=== PATIENT | female | born 1965 | race Caucasian/White ===

== ENCOUNTER → 2019-04-08 14:32 | Outpatient (CLI) | payer OTHER, SELFPAY ==
[2019-04-08 14:47] LABS: Hematocrit 40.7 % (36-46); Hemoglobin 13.5 g/dL (12.0-16.0); Mean Corpuscular HGB Conc 33.2 % (30-36); Mean Corpuscular Hemoglobin 28.6 PG (26-34); Mean Corpuscular Volume 86.3 fL (80-100); Platelet Count 307 X10^3/uL (150-400); Red Blood Cell Count 4.72 X10^6/uL (4.0-5.2); Red Cell Distribution Width 13.3 % (11.6-14.8); White Blood Cell Count 9.8 X10^3/uL (4.5-11.0)
[2019-04-08 15:20] LABS: Alanine Aminotransferase 34 IU/L (9-52); Albumin 4.6 g/dL (3.5-5.0); Albumin Globulin Ratio 1.6 (1.0-2.8); Alkaline Phosphatase 133 U/L (38-126); Aspartate Aminotransferase 25 IU/L (14-36); BUN Creatinine Ratio 8.8 (6-22); Bilirubin Total 0.7 mg/dL (0.2-1.3); Blood Urea Nitrogen 7 mg/dL (7-17); Calcium 10.2 mg/dL (8.4-10.2); Carbon Dioxide 29 mmol/L (22-32); Chloride 102 mmol/L (98-107); Cholesterol 204 mg/dL (140-199); Estimated Glomerular Filt Rate > 60.0 mL/min (>60); Globulin 2.8 g/dL (1.7-4.1); Glucose 99 mg/dL (70-100); HDL Cholesterol 39 mg/dL (40-60); HEMOLYSIS < 15 (0-50); LDL Cholesterol Calculated 137 mg/dL (<100); Potassium 4.7 mmol/L (3.4-5.1); Sodium 141 mmol/L (137-145); Total Protein 7.4 g/dL (6.3-8.2); Triglycerides 139 mg/dL (35-150)
[2019-04-12 14:18] LABS: Lamotrigine Lamictal 5.3 mcg/mL (4.0-18.0)
== END ==
PROVIDERS: Visit Provider Nurse Practitioner Family
DX: Z13.6 Encounter for screening for cardiovascular disorders (principal); R61 Generalized hyperhidrosis; Z00.00 Encounter for general adult medical examination without abnormal findings; Z51.81 Encounter for therapeutic drug level monitoring
CPT/HCPCS: 36415; 80053; 80061; 80175; 84443; 85027

== ENCOUNTER → 2019-07-02 10:51 | Outpatient (CLI) | payer OTHER, SELFPAY ==
--- NOTE | 2019-07-02 | DI.NM.S_ITS ---
PROCEDURE: NM CLARIBEL PERF SPECT REST & STR Rest and exercise myocardial perfusion SPECT with gated imaging and ejection fraction RADIOPHARMACEUTICAL: 23.6 mCi Tc-99m sestamibi IV at rest and 26.8 mCi Tc-99m sestamibi IV at peak exercise. A two day-protocol was performed. INDICATIONS: Tachycardia, unspecified TECHNIQUE: Radiopharmaceutical was injected at peak stress test, and also at rest. SPECT images were obtained. SPECT myocardial perfusion images were displayed in short axis, horizontal long axis, and vertical long axis views. Gated images were reviewed using SeeFuture software. COMPARISON: None. CARDIAC STRESS: A standard Rajiv treadmill exercise tolerance test was performed by the patient under the supervision of an attending staff. The patient exercised for 6 minutes and 3 seconds; functional aerobic impairment (ASHLEY) is +40% on active scale. Hemodynamic data: There is normal heart rate response to exercise stress. Patient achieved only 76% of maximum predicted heart rate at peak exercise but the stress test was adequate as double product was [id number]. Borderline hypertensive response to exercise (rest BP 132/80mmHg, max BP 210/90mmHg). Symptoms: Patient denied chest pain during exercise. Significant dyspnea with exercise EKG: Resting ECG shows sinus rhythm with mild ST depressions in the inferior leads and minimal ST depressions in the anterolateral leads. With exercise, these ST depressions became slightly worse. Rare PACs during recovery. FINDINGS: Raw data: There is good myocardial labeling by radiotracer. No significant motion artifacts. Rvum-ue-jrser ratio is 0.13 (normal is less than 0.38 for sestamibi tracer, and less than 0.50 for thallium tracer). Left ventricle function: Gated images demonstrate normal left ventricle wall thickening. No segmental wall motion abnormality. No transient ischemic dilation; TID is 1.04 (normal less than 1.3). The left ventricle resting end-diastolic volume is 104 mL. Left ventricle stress ejection fraction is 74%; normal values are above 45%. Myocardial perfusion: There is mildly intense defect in the distal anterior wall at rest that worsens with stress but improves significantly with prone imaging suggesting prior artifact. Small prior infarct cannot be excluded. No ischemia. IMPRESSION: Low risk, probably normal treadmill nuclear stress test. Borderline hypertensive response to exercise. 1) Probably normal perfusion images. There is mildly intense defect in the distal anterior wall at rest that worsens with stress but improves significantly with prone imaging suggesting prior artifact. Small prior infarct cannot be excluded. No ischemia. 2) Normal left ventricular size, wall motion, and systolic function (post stress EF 74%). 3) No diagnostic ECG evidence of ischemia. There slight worsening of ST depressions with exercise are probably due to baseline ST depressions and borderline hypertensive response. 4) No angina during the study. Significant dyspnea with exercise. 5) Poor exercise capacity (7.0 METs, ASHLEY +40% on active scale, +5% on sedentary scale). While only 76% of maximum predicted heart rate was reached, the stress test was adequate as double product was [id number]. 6) Borderline hypertensive response to exercise (rest BP 132/80mmHg, max BP 210/90mmHg). 7) No prior nuclear stress test available for comparison. Dictated by: Brittany Gusman MD on 07/03/2019 at 16:29 Approved by: Brittany Gusman MD on 07/03/2019 at 16:38
--- NOTE | 2019-07-03 15:07 | PM.TREADMILL ---
Cardiac Stress Test Report Referral & Results Date Patient Seen: 07/03/19 Requesting provider: Brittany Gusman Indication: Abnormal ECG Rest ECG: Widespread nonspecific ST-T segment changes Procedure Note: Today following both written and verbal informed consent the patient was exercised according to a standard Rajiv protocol patient went for a total of 6 minutes 3 seconds achieving a maximum heart rate of 126 maximum systolic blood pressure of 210. This is approximately 7.0 METS. Exercise was terminated at this point because of 4+ dyspnea and inability the patient to continue. Patient was also given Cardiolite through a previously started Hep-Lock IV by the diagnostic imaging staff approximately 1 minute prior to the cessation of exercise. There were nonspecific ST-T segment changes throughout the rapidly returned to baseline had cessation of activity Somewhat blunted heart rate response achieving only 90% of targets Somewhat hypertensive in recovery Rare PAC noted in recovery Functional aerobic impairment rates about 5% on the sedentary scale Impression: No evidence of ischemia. Nonspecific changes as above not likely to be ischemic based on rapid recovery Please see perfusion imaging report as well Please note: Actual ECG tracings can be found in the PACS system.
== END ==
PROVIDERS: PCP Nurse Practitioner Family; Visit Provider Internal Medicine Cardiovascular Disease
DX: R00.0 Tachycardia, unspecified (principal)
CPT/HCPCS: 78452; 93016; 93017; 93018; A9502

== ENCOUNTER → 2019-07-10 12:07 | Outpatient (CLI) | payer OTHER, SELFPAY ==
[2019-07-10 12:56] LABS: Cholesterol 180 mg/dL (140-199); HDL Cholesterol 33 mg/dL (40-60); LDL Cholesterol Calculated 114 mg/dL (<100); Triglycerides 164 mg/dL (35-150)
== END ==
PROVIDERS: PCP Nurse Practitioner Family; Visit Provider Nurse Practitioner Family
DX: E78.2 Mixed hyperlipidemia (principal)
CPT/HCPCS: 36415; 80061

== ENCOUNTER → 2019-07-17 13:31 | Outpatient (CLI) | payer OTHER, SELFPAY ==
--- NOTE | 2019-07-17 13:32 | DI.RAD.S_ITS ---
PROCEDURE: XR CHEST 2V INDICATIONS: generalized abdominal pain, discomfort TECHNIQUE: 2 views of the chest were acquired. COMPARISON: [facility], , CHEST 1 VIEW, 03/30/2017, 14:39. CT chest, abdomen and pelvis 03/30/2017. FINDINGS: Surgical changes and devices: None. Lungs and pleura: Lungs are clear. No pleural effusions or pneumothorax. Mediastinum: Mediastinal contours are normal. Heart size is normal. Bones and chest wall: No suspicious bony abnormalities. Soft tissues appear unremarkable. IMPRESSION: No acute cardiopulmonary abnormality. Dictated by: Yan Herring M.D. on 07/17/2019 at 14:13 Approved by: Yan Herring M.D. on 07/17/2019 at 14:14
[2019-07-17 15:10] LABS: Hematocrit 41.7 % (36-46); Hemoglobin 14.3 g/dL (12.0-16.0); Mean Corpuscular HGB Conc 34.2 % (30-36); Mean Corpuscular Hemoglobin 28.8 PG (26-34); Mean Corpuscular Volume 84.2 fL (80-100); Platelet Count 349 X10^3/uL (150-400); Red Blood Cell Count 4.96 X10^6/uL (4.0-5.2); Red Cell Distribution Width 13.2 % (11.6-14.8); White Blood Cell Count 9.4 X10^3/uL (4.5-11.0)
[2019-07-17 15:33] LABS: Alanine Aminotransferase 23 IU/L (9-52); Albumin 4.4 g/dL (3.5-5.0); Albumin Globulin Ratio 1.5 (1.0-2.8); Alkaline Phosphatase 133 U/L (38-126); Aspartate Aminotransferase 21 IU/L (14-36); BUN Creatinine Ratio 14.3 (6-22); Bilirubin Total 0.7 mg/dL (0.2-1.3); Blood Urea Nitrogen 10 mg/dL (7-17); Calcium 9.7 mg/dL (8.4-10.2); Carbon Dioxide 28 mmol/L (22-32); Chloride 101 mmol/L (98-107); Estimated Glomerular Filt Rate > 60.0 mL/min (>60); Globulin 2.9 g/dL (1.7-4.1); Glucose 110 mg/dL (70-100); HEMOLYSIS < 15 (0-50); Potassium 3.4 mmol/L (3.4-5.1); Sodium 140 mmol/L (137-145); Total Protein 7.3 g/dL (6.3-8.2)
[2019-07-17 15:57] LABS: TSH w/ Reflex to FT4 0.84 uIU/mL (0.47-4.68)
== END ==
PROVIDERS: PCP Nurse Practitioner Family; Visit Provider Nurse Practitioner Family
DX: R05 Cough (principal); R10.84 Generalized abdominal pain; R63.4 Abnormal weight loss; Z72.0 Tobacco use
CPT/HCPCS: 36415; 71046; 80053; 84443; 85027

== ENCOUNTER → 2019-07-20 13:05 | Outpatient (CLI) | payer OTHER, SELFPAY ==
--- NOTE | 2019-07-20 13:06 | DI.US.S_ITS ---
PROCEDURE: US ABDOMEN COMPLETE INDICATIONS: GENERAL ABD PAIN TECHNIQUE: Real-time scanning was performed of the abdominal and retroperitoneal organs, with image documentation. COMPARISON: [facility], CT, CHEST/ABD/PEL WITH CONTRAST, 03/30/2017, 14:48. FINDINGS: Liver: Liver is normal in size and homogeneous in echotexture. Gallbladder: Her cholecystectomy. Fluid seen in the area the gallbladder fossa likely related to fluid-filled duodenum. Biliary ducts: Intrahepatic bile ducts are non-dilated. Extrahepatic bile duct caliber measures 9.5 mm. Normal is 6-7 mm or less in diameter, or 10 mm or less post-cholecystectomy. Pancreas: Visualized portions of the pancreas are sonographically normal. Spleen: Spleen is normal in size and homogeneous in echotexture. Kidneys: Kidneys are normal in size and echotexture. Right kidney measures 9.3 cm long; left kidney measures 10.1 cm long. No hydronephrosis or nephrolithiasis. No solid masses. Aorta: Visualized aorta is normal in caliber at less than 3 cm. Iliacs: Proximal common iliac arteries are normal in caliber at less than 2.5 cm. IVC: Intrahepatic inferior vena cava is patent. Miscellaneous: No free abdominal fluid. IMPRESSION: Increased hepatic echogenicity noted possibly related to hepatic steatosis but other sources of hepatocellular disease cannot be excluded. Recommend clinical correlation. Fluid in the region of the gallbladder fossa possibly related to fluid-filled duodenum. If indicated, short-term followup ultrasound could be performed. Dictated by: Robin BURKETT Interpreted: Sue Stafford MD on 07/20/2019 at 15:40 Approved by: Sue Stafford M.D. on 07/20/2019 at 17:05
== END ==
PROVIDERS: PCP Nurse Practitioner Family; Visit Provider Nurse Practitioner Family
DX: R10.84 Generalized abdominal pain (principal)
CPT/HCPCS: 76700

== ENCOUNTER → 2019-07-25 12:38 | Outpatient (CLI) | payer OTHER, SELFPAY ==
--- NOTE | 2019-07-25 12:39 | DI.MG.S_ITS ---
BILATERAL DIGITAL SCREENING MAMMOGRAM 3D/2D WITH CAD: 07/25/2019 CLINICAL: Routine screening. Comparison is made to exams dated: 06/05/2017 mammogram - [facility] and 08/11/2008 mammogram - [facility]. There are scattered fibroglandular elements in both breasts. Current study was also evaluated with a Computer Aided Detection (CAD) system. No significant masses, calcifications, or other findings are seen in either breast. There has been no significant interval change. IMPRESSION: NEGATIVE There is no mammographic evidence of malignancy. A 1 year screening mammogram is recommended. This exam was interpreted at Station ID: [id number]. NOTE: For mammograms, a report in lay terms will be sent to the patient. Approximately 15% of breast malignancies will not be visualized mammographically. In the management of a palpable breast mass, a negative mammogram must not discourage biopsy of a clinically suspicious lesion. Electronically Signed By: Yan abdul/emelyn:07/27/2019 12:11:04 letter sent: Normal Exam ACR BI-RADS Category 1: Negative [id number]
== END ==
PROVIDERS: PCP Nurse Practitioner Family; Visit Provider Nurse Practitioner Family
DX: Z12.31 Encounter for screening mammogram for malignant neoplasm of breast (principal)
CPT/HCPCS: 77063; 77067

== ENCOUNTER 2019-09-08 12:44 | Day surgery (SDC) | payer OTHER, SELFPAY ==
[2019-09-08] VITALS (8 sets, daily range): BP systolic 104–194; BP diastolic 50–81; PULSE 53–79; RESP 15–19; TEMP 36–36.9; O2SAT 92–99; BMI 36.4
--- NOTE | 2019-09-08 | PATH_ITS ---
[facility] Accession Number: [id number] . 01 Material submitted: . rectum - COLON POLYP AT 15CM RECTUM . 02 Diagnosis: Colon Polyp at 15 cm, Rectum: Portions of hyperplastic polyp x3. MRV 09/09/2019 1506 Local . 02 Electronically signed: . Casandra Guzman MD, Pathologist NPI- [id number] . 01 Gross description: . COLON POLYP AT 15CM RECTUM: Received in formalin are 3 fragment(s) of vance, soft tissue measuring 0.1 x 0.1 x 0.1 cm to 0.2 x 0.2 x 0.2 cm submitted entirely in 1 cassette(s) /[facility] [place] 09/08/2019 2205 Local . 02 Pathologist provided ICD-10: K63.5, Z12.11 . 02 CPT . 683298 Performed at: 01 [facility] [address], [place], [place] [id number] MD Branden Allen MD Phone: [phone] Performed at: 02 [facility] [place] [address] [place], [place] [id number] MD Raina Villareal MD Phone: [phone]
[2019-09-08] MEDS: ONDANSETRON 4 MG/2 ML INJ IV ×2 (13:17→13:39)
--- NOTE | 2019-09-08 13:19 | PM.HP.1 ---
History of Present Illness History of Present Illness Date Patient Seen: 09/08/19 Time Patient Seen: 13:19 Chief complaint: 13240 SCREENING COLONOSCOPY Narrative: This is a 54 old woman with history of obstructive sleep apnea hypertension, and morbid obesity here for her 1st screening colonoscopy. She has been cleared from a cardiac standpoint by her primary doctor after having had a stress test performed by Dr. Forrester. She denies any personal history of melena or hematochezia. She has no known family history of colon cancers or colon polyps. She has had significant nausea vomiting during her bowel prep, but says that she has been running clear from her stool since last night. ROS: Thirteen system review is negative other than as mentioned in the scanned in questionnaire and in the HPI. PE: GENERAL: Mild distress due to nausea, appears older than stated age, obese HENT: Normocephalic, atraumatic. Hearing intact. Oral mucosa is pink and moist. EYES: Conjunctiva pink, sclera white, no periorbital swelling. CARDIOVASCULAR: Regular rate. No pedal edema. RESPIRATORY: Normal respiratory rate, breathing comfortably on room air. GASTROINTESTINAL: Abdomen soft and non-distended GENITALURINARY: No flank tenderness. MUSCULOSKELETAL: Equal tone and mass bilaterally. SKIN: Warm, dry, soft, appropriate color for ethnicity. No other lesions, rashes, or wounds. NEURO: Alert and Oriented X 3. No gross sensory deficits, or cognitive issues. PSYCH: Appropriate affect and mood. Patient History Medical History Difficulty using verbal communication (Acute) Essential hypertension (Acute 06/2019) Insomnia, unspecified (Chronic) Mixed hyperlipidemia (Acute 06/2019) Morbid obesity with BMI of 40.0-44.9, adult (Chronic) Obstructive sleep apnea of adult (Chronic ~10/2018) Snoring (Chronic) Unintentional weight loss (Acute) Family & Social History Social History: lives independently Yes: with elderly parents caregiver/support person No Tobacco & Substance use: Smoking Status Current every day smoker alcohol intake former Meds Home Medications and Allergies Home Medications Medication Instructions Recorded Confirmed Type pantoprazole 40 mg tablet,delayed 40 mg PO DAILY #30 tab 03/27/19 09/01/19 Rx release propranolol 20 mg tablet 20 mg PO BID #180 tab 03/27/19 09/01/19 Rx conjugated estrogens 0.625 mg/gram 0.3125 mg VAG 2XW #30 gram 04/30/19 09/01/19 Rx vaginal cream tizanidine 4 mg capsule 4 mg PO BEDTIME #90 cap 04/30/19 09/01/19 Rx nabumetone 500 mg tablet 500 mg PO BID #60 tab 06/09/19 09/01/19 Rx miscellaneous medical supply #1 each 07/09/19 09/01/19 Rx lisinopril 10 mg tablet 10 mg PO DAILY #90 tab 07/10/19 09/01/19 Rx pravastatin 20 mg tablet 20 mg PO DAILY #90 tab 07/10/19 09/01/19 Rx clonazepam 0.5 mg tablet See Rx Instructions PO BEDTIME tab 07/16/19 09/01/19 History albuterol sulfate 90 mcg/actuation 2 puff INHALATION Q4-6H PRN #8.5 07/21/19 09/01/19 Rx aerosol inhaler gram lamotrigine 100 mg tablet 200 mg PO BID #120 tab 08/11/19 09/01/19 Rx duloxetine 30 mg capsule,delayed 30 mg PO BID cap 09/01/19 History release ketoconazole 2 % topical cream 1 applictn TOP DAILY PRN gram 09/01/19 History Allergies Allergy/AdvReac Type Severity Reaction Status Date / Time adhesive Allergy Mild Rash Verified 09/08/19 13:09 codeine Allergy Mild N&V if she Verified 09/08/19 13:09 takes a lot, itch bowel prep AdvReac N&V Uncoded 09/08/19 13:11 Assessment & Plan Assessment and plan (1) Morbid obesity with BMI of 40.0-44.9, adult: Current visit: No Status: Chronic (2) Colon cancer screening: Problem details: Risks and benefits of screening colonoscopy and possible polypectomy were discussed risk of bleeding, perforation, risk of anesthesia were discussed with the patient. She desires to proceed with her colonoscopy procedure. Current visit: Yes Status: Acute (3) Essential hypertension: Current visit: No Status: Acute (4) Obstructive sleep apnea of adult: Current visit: No Status: Chronic Quality VTE Deep Vein Thrombosis/Pulmonary Embolism Present on Admission: No
--- NOTE | 2019-09-08 13:33 | SUR.PREOP ---
1255+ late entry Pt. into OPD w/emesis bag, gasping, wretching, states that she has been vomiting yesterday and today. she did not have any emesis prior to going into the OR. Asked Dr. Aguirre for Rx to help w/nausea. ordered and given - see EMAR.
[2019-09-08] MEDS: MIDAZOLAM 5 MG/5 ML VIAL IV (13:53)
[2019-09-08] MEDS: fentaNYL 250 MCG/5 ML INJ IV (13:53)
--- NOTE | 2019-09-08 13:59 | PM.OP.ENDO ---
Operative Date/Time/Diagnoses Date of procedure: 09/08/19 Time of procedure: 13:59 Pre-op diagnosis: Average risk for colon cancer Procedure & Clinicians Study performed: Colonoscopy, cold forceps polypectomy Indications: Average risk for colon cancer, never had a screening colonoscopy Surgeon: Roya Aguirre Procedure Notes SCOAP/Timeout: Performed Procedure in detail: The patient was brought to the room and placed in left lateral decubitus position with all bony prominences padded. A time-out was performed and then the patient was given procedural sedation starting with 4 mg of Versed and 100 mcg of fentanyl. Vitals were monitored throughout the procedure and remained stable. Once adequately sedated the procedure was begun. A rectal exam was performed revealing no abnormalities. The colonoscope was then introduced to the rectum and advanced to the cecum in the usual fashion. The prep was poor, and there was a significant amount of clot be stool throughout the cecum, ascending and descending colon. I washed as much as I could, but the view was still limited for identifying small polyps. The cecum was identified by the appendiceal orifice, the mucosal try fold, and the ileocecal valve. The scope was then retracted while rotating side to side and examining each mucosal fold. A 5 mm sessile polyp was found at 15 cm in the rectum, and was removed with cold forceps. At the conclusion procedure retroflexion was performed and small grade 1-2 internal hemorrhoids without stigmata of bleeding were seen. The scope was then withdrawn from the rectum the procedure was concluded. The patient tolerated the procedure well was transferred to the PACU in stable condition. Scope withdrawal time: 11 Sedation minutes: 34 Findings: internal hemorrhoids and polyp Specimen(s): other (Flat 5 mm polyp at 15 cm from the rectum) Complications: none Impression: Normal colon as far as I can see, except for 1 single polyp and internal hemorrhoids. However, the view was limited due to poor prep. Post-procedure Recommendations: Colonscopy in 5 years (Due to poor prep) Follow up: as needed Disposition: PACU
--- NOTE | 2019-09-08 14:06 | SUR.PHASEI ---
Patient denies nausea/pain.
--- NOTE | 2019-09-08 14:42 | SUR.PHASEII ---
Assumed care from LASHAUN Villarreal, no pain, belly soft no nausea. Pt walked to to dress, steady when up. D/C instructions discussed, pt voiced an understanding.
== END 2019-09-08 14:50 | disposition home or self-care (01) ==
PROVIDERS: PCP Nurse Practitioner Family; Visit Provider Surgery
PROC: 0DJD8ZZ Inspection of Lower Intestinal Tract, Via Natural or Artificial Opening Endoscopic (ICD-10-PCS; CPT 45378; principal; 2019-09-08 14:00)
DX: Z12.11 Encounter for screening for malignant neoplasm of colon (principal); G47.33 Obstructive sleep apnea (adult) (pediatric); I10 Essential (primary) hypertension; Z68.41 Body mass index [BMI] 40.0-44.9, adult; E66.01 Morbid (severe) obesity due to excess calories; K64.0 First degree hemorrhoids; K63.5 Polyp of colon
CPT/HCPCS: 45380; 99152; 99153; J2250; J2405; J3010

== ENCOUNTER → 2019-11-25 11:46 | Outpatient (CLI) | payer OTHER, SELFPAY ==
[2019-11-25 12:19] LABS: RBC Urine None Seen (0-5/HPF)
[2019-11-25 12:41] LABS: Appearance Urine UA SL CLOUDY; Bilirubin Urine UA NEGATIVE (NEGATIVE); Color Urine UA YELLOW; Glucose Urine UA NEGATIVE (Negative); Ketones Urine UA TRACE (NEGATIVE); Leukocyte Esterase Urine UA 2+ (NEGATIVE); Nitrite Urine UA POSITIVE (Negative); Occult Blood Urine UA NEGATIVE (Negative); Protein Urine UA TRACE (Negative); Urobilinogen Urine UA 0.2 E.U./dL (0.2)
[2019-11-25 12:53] LABS: Add Manual Diff / Slide Review NO; Basophils Absolute Auto 100 /uL (0-100); Basophils Percent Auto 1.2 % (0-2); Eosinophils Absolute Auto 200 /uL (0-450); Eosinophils Percent Auto 2.1 % (2-4); Hematocrit 43.6 % (36-46); Hemoglobin 15.1 g/dL (12.0-16.0); Lymphocytes Absolute Auto 2000 /uL (1100-4500); Lymphocytes Percent Auto 18.9 % (25-40); Mean Corpuscular HGB Conc 34.6 % (30-36); Mean Corpuscular Hemoglobin 28.9 PG (26-34); Mean Corpuscular Volume 83.6 fL (80-100); Monocytes Absolute Auto 900 /uL (0-900); Monocytes Percent Auto 8.8 % (3-14); Neutrophils Absolute Auto 7200 /uL (1500-7000); Platelet Count 483 X10^3/uL (150-400); Red Blood Cell Count 5.22 X10^6/uL (4.0-5.2); Red Cell Distribution Width 13.3 % (11.6-14.8); White Blood Cell Count 10.4 X10^3/uL (4.5-11.0)
[2019-11-25 13:11] LABS: pH Urine UA 5.5 (4.5-8.0)
[2019-11-25 13:12] LABS: WBC Urine 30-100/HPF (0-5/HPF)
[2019-11-25 13:13] LABS: Amorphous Sediment Urine 1+; Bacteria Urine Many (>30); Culture Indicated Urine Specimen Cultured; Mucus Urine 1+ (Negative); Squamous Epithelial Cell Urine 1-5 /HPF (0-5/HPF)
[2019-11-25 13:39] LABS: Alanine Aminotransferase 16 IU/L (<35); Albumin 4.7 g/dL (3.5-5.0); Albumin Globulin Ratio 1.5 (1.0-2.8); Alkaline Phosphatase 143 U/L (38-126); Aspartate Aminotransferase 21 IU/L (14-36); BUN Creatinine Ratio 17.5 (6-22); Bilirubin Total 0.5 mg/dL (0.2-1.3); Blood Urea Nitrogen 14 mg/dL (7-17); Calcium 10.5 mg/dL (8.4-10.2); Carbon Dioxide 36 mmol/L (22-32); Chloride 97 mmol/L (98-107); Estimated Glomerular Filt Rate > 60.0 mL/min (>60); Globulin 3.1 g/dL (1.7-4.1); Glucose 111 mg/dL (70-100); HEMOLYSIS < 15 (0-50); Potassium 4.1 mmol/L (3.4-5.1); Sodium 144 mmol/L (137-145); Total Protein 7.8 g/dL (6.3-8.2)
== END ==
PROVIDERS: PCP Nurse Practitioner Family; Visit Provider Nurse Practitioner Family
DX: R11.2 Nausea with vomiting, unspecified (principal); R63.4 Abnormal weight loss
CPT/HCPCS: 36415; 80053; 81001; 85025; 87077; 87086; 87186

== ENCOUNTER → 2019-11-27 13:17 | Outpatient (CLI) | payer OTHER, SELFPAY ==
[2019-11-27 13:53] LABS: Hematocrit 42.6 % (36-46); Hemoglobin 14.8 g/dL (12.0-16.0); Mean Corpuscular HGB Conc 34.8 % (30-36); Mean Corpuscular Hemoglobin 29.3 PG (26-34); Mean Corpuscular Volume 84.2 fL (80-100); Platelet Count 496 X10^3/uL (150-400); Red Blood Cell Count 5.06 X10^6/uL (4.0-5.2); Red Cell Distribution Width 13.5 % (11.6-14.8); White Blood Cell Count 10.1 X10^3/uL (4.5-11.0)
[2019-11-27 14:06] LABS: Blood Urea Nitrogen 14 mg/dL (7-17); Carbon Dioxide 37 mmol/L (22-32); Chloride 96 mmol/L (98-107); Estimated Glomerular Filt Rate > 60.0 mL/min (>60); Glucose 122 mg/dL (70-100); HEMOLYSIS < 15 (0-50); Potassium 3.1 mmol/L (3.4-5.1); Sodium 143 mmol/L (137-145)
[2019-11-27 15:42] LABS: Vitamin D 25 Hydroxy (D3) 31.7 ng/mL (30.0-100.0)
[2019-12-03 14:25] LABS: Calcium 10.2 mg/dL (8.6-10.4); Parathyroid Hormone, Intact 65 pg/mL (14-64)
== END ==
PROVIDERS: PCP Nurse Practitioner Family; Visit Provider Nurse Practitioner Family
DX: E83.52 Hypercalcemia (principal); R74.8 Abnormal levels of other serum enzymes; I10 Essential (primary) hypertension
CPT/HCPCS: 36415; 80048; 82306; 82310; 83970; 85027

== ENCOUNTER → 2019-12-09 13:08 | Outpatient (CLI) | payer OTHER, SELFPAY ==
[2019-12-09 15:13] LABS: Alkaline Phosphatase 139 U/L (38-126); HEMOLYSIS 17 (0-50); Potassium 4.8 mmol/L (3.4-5.1)
[2019-12-09 19:24] LABS: Hemoglobin A1C% w Est Avg Glu 5.4 % (4.0-6.0)
== END ==
PROVIDERS: PCP Nurse Practitioner Family; Referring Provider Nurse Practitioner Family; Visit Provider Nurse Practitioner Family
DX: R10.84 Generalized abdominal pain (principal); R11.2 Nausea with vomiting, unspecified; R63.4 Abnormal weight loss; R74.8 Abnormal levels of other serum enzymes; E87.6 Hypokalemia; R73.9 Hyperglycemia, unspecified
CPT/HCPCS: 36415; 83036; 83915; 84075; 84132

== ENCOUNTER 2019-12-10 11:24 | Emergency (ER) | payer OTHER, SELFPAY ==
[2019-12-10 11:25] VITALS: BP 112/73; PULSE 65; RESP 16; TEMP 36.3; O2SAT 96; BMI 37.8
--- NOTE | 2019-12-10 11:46 | ED.PSYCH ---
HPI - Psych <Vaishnavi Claus, DO - Last Filed: 12/11/19 14:20> General Chief Complaint: Psychiatric Symptoms Stated Complaint: suicidal Time Seen by Provider: 12/10/19 11:32 Source: patient Mode of arrival: Ambulatory History of Present Illness HPI Narrative: Patient is a 54-year-old female presenting from Psychology for voluntary placement suicidal ideations. Patient has had long standing thoughts of harming self however over the last week it got progressively worse she can't stop thinking about them. She says that she would overdose on a sedating medication I am assuming something like clonazepam she says that she was prescribed in the past and has a lot at home. She is not feel like she is able to trust herself and would like placement. Related Data Home Medications Medication Instructions Recorded Confirmed ketoconazole 2 % topical cream 1 applictn TOP DAILY PRN gram 09/01/19 12/10/19 lisinopril 10 mg PO QPM 12/10/19 12/10/19 nabumetone 500 mg PO BID 12/10/19 12/10/19 pravastatin 20 mg PO QPM 12/10/19 12/10/19 Previous Rx's Medication Instructions Recorded pantoprazole 40 mg tablet,delayed 40 mg PO DAILY #30 tab 03/27/19 release propranolol 20 mg tablet 20 mg PO BID #180 tab 03/27/19 conjugated estrogens 0.625 mg/gram 0.3125 mg VAG 2XW #30 gram 04/30/19 vaginal cream miscellaneous medical supply #1 each 07/09/19 albuterol sulfate 90 mcg/actuation 2 puff INHALATION Q4-6H PRN #8.5 07/21/19 aerosol inhaler gram duloxetine 30 mg capsule,delayed 30 mg PO BID #60 cap 10/13/19 release lamotrigine 100 mg tablet 200 mg PO BID #120 tab 10/13/19 clonazepam 0.5 mg tablet 0.5 mg PO BEDTIME #45 tab 11/13/19 ondansetron 4 mg disintegrating 4 mg PO Q8H PRN #90 tab 11/25/19 tablet potassium chloride 10 mEq 10 meq PO DAILY #30 tab 11/27/19 tablet,extended release tizanidine 4 mg capsule 4 mg PO BEDTIME #90 cap 12/02/19 Allergies Allergy/AdvReac Type Severity Reaction Status Date / Time adhesive Allergy Mild Rash Verified 12/10/19 13:14 codeine Allergy Mild N&V if she Verified 12/10/19 13:14 takes a lot, itch bowel prep AdvReac N&V Uncoded 12/10/19 13:14 Review of Systems <Vaishnavi Devlin DO - Last Filed: 12/11/19 14:20> Review of Systems Narrative: GENERAL: Denies chills, fatigue, malaise, fever, sweats, travel HEENT: Denies sinus pain, ear pain, sore throat, difficulty swallowing, neck pain RESPIRATORY: Denies dyspnea, cough, wheezing, hemoptysis, sputum. CARDIOVASCULAR: Denies chest pain, palpitations, orthopnea, edema GASTROINTESTINAL: Denies nausea, vomiting, abdominal pain, diarrhea, constipation, melena. : Denies dysuria, frequency, incontinence, hematuria, urinary retention, flank pain. MUSCULOSKELETAL: Denies weakness, joint pain, or bony pain SKIN: No rash, no erythema, no pruritus NEUROLOGIC: Denies weakness, dizziness, headache, numbness, change in speech, confusion PSYCHIATRIC: 12 point review of systems is negative except for those stated above and HPI Patient History <Vaishnavi Devlin DO - Last Filed: 12/11/19 14:20> Medical History Difficulty using verbal communication (Acute) Essential hypertension (Acute 06/2019) Insomnia, unspecified (Chronic) Mixed hyperlipidemia (Acute 06/2019) Morbid obesity with BMI of 40.0-44.9, adult (Chronic) Nausea & vomiting (Acute 06/2019) Noncompliance (Acute) Obstructive sleep apnea of adult (Chronic ~10/2018) Snoring (Chronic) Unintentional weight loss (Acute) Social History marital status: details: lives in [place] household members: other lives independently: Yes (with elderly parents) caregiver/support person: No housing: house Smoking Status: Former smoker Tobacco: How many years used: 42 second hand exposure: No alcohol intake: former substance use type: does not use Smoking Status: Former smoker Substance Use Type: marijuana Exam <DO Dago Mackay Last Filed: 12/11/19 14:20> Initial Vital Signs Initial Vital Signs: Vital Signs Temperature 97.3 F L 12/10/19 11:25 Pulse Rate 65 12/10/19 11:25 Respiratory Rate 16 12/10/19 11:25 Blood Pressure 112/73 12/10/19 11:25 Pulse Oximetry 96 12/10/19 11:25 GENERAL: Well-appearing, well-nourished and in no acute distress. HEENT: Head atraumatic,EOMI, pupils reactive CARDIOVASCULAR: Regular rate and rhythm without murmurs, rubs or gallops. RESPIRATORY: Breath sounds equal bilaterally, no wheezes rales or rhonchi. ABDOMEN: Soft, nontender. Normoactive bowel sounds all 4 quadrants. No guarding or rebound EXTREMITIES: Normal range of motion, no clubbing or edema. Neurovascularly intact NEUROLOGICAL: Alert and oriented x4.Normal gait and speech. SKIN: Warm, dry, no laceration, no petechiae, no rashes or lesions. <Sandy Teran, DO - Last Filed: 12/10/19 20:30> Initial Vital Signs Initial Vital Signs: Vital Signs Temperature 97.3 F L 12/10/19 11:25 Pulse Rate 65 12/10/19 11:25 Respiratory Rate 16 12/10/19 11:25 Blood Pressure 112/73 12/10/19 11:25 Pulse Oximetry 96 12/10/19 11:25 <Pavan Molina, DO - Last Filed: 12/11/19 02:31> Initial Vital Signs Initial Vital Signs: Vital Signs Temperature 97.3 F L 12/10/19 11:25 Pulse Rate 65 12/10/19 11:25 Respiratory Rate 16 12/10/19 11:25 Blood Pressure 112/73 12/10/19 11:25 Pulse Oximetry 96 12/10/19 11:25 Course <Vaishnavi Devlin, DO - Last Filed: 12/11/19 14:20> Orders Ordered: Discontinued Medications Acetaminophen (Tylenol) 975 mg PO NOW ONE Stop: 12/11/19 03:56 Last Admin: 12/11/19 04:01 Dose: 975 mg Documented by: NEW Clonazepam (Klonopin) 0.5 mg PO NOW ONE Stop: 12/10/19 17:56 Last Admin: 12/10/19 22:12 Dose: 0.5 mg Documented by: ANKUR Clonazepam (Klonopin) 0.5 mg PO NOW ONE Stop: 12/11/19 13:25 Last Admin: 12/11/19 13:50 Dose: 0.5 mg Documented by: ANKUR Duloxetine HCl (Cymbalta) 30 mg PO NOW ONE Stop: 12/10/19 17:56 Last Admin: 12/10/19 22:13 Dose: 30 mg Documented by: ANKUR Duloxetine HCl (Cymbalta) 30 mg PO NOW ONE Stop: 12/11/19 09:53 Last Admin: 12/11/19 11:20 Dose: 30 mg Documented by: HASMUKH Lamotrigine (Lamictal) 200 mg PO NOW ONE Stop: 12/10/19 17:56 Last Admin: 12/10/19 22:12 Dose: 200 mg Documented by: ANKUR Lamotrigine (Lamictal) 200 mg PO NOW ONE Stop: 12/11/19 09:53 Last Admin: 12/11/19 11:20 Dose: 200 mg Documented by: HASMUKH Lisinopril (Zestril) 10 mg PO NOW ONE Stop: 12/10/19 17:56 Last Admin: 12/10/19 22:14 Dose: 10 mg Documented by: ANKUR Nicotine (Nicoderm) 21 mg TOP NOW ONE Stop: 12/10/19 16:34 Last Admin: 12/10/19 16:42 Dose: 21 mg Documented by: ASAEL Nicotine (Nicoderm) 21 mg TOP NOW ONE Stop: 12/11/19 13:25 Last Admin: 12/11/19 13:50 Dose: 21 mg Documented by: ANKUR Pantoprazole Sodium (Protonix) 40 mg PO NOW ONE Stop: 12/11/19 09:53 Last Admin: 12/11/19 11:25 Dose: 40 mg Documented by: HASMUKH Pravastatin Sodium (Pravachol) 20 mg PO BEDTIME ONE Stop: 12/10/19 17:57 Last Admin: 12/10/19 22:17 Dose: 20 mg Documented by: ANKUR Propranolol HCl (Inderal) 20 mg PO NOW ONE Stop: 12/10/19 17:56 Last Admin: 12/10/19 22:13 Dose: 20 mg Documented by: ANKUR Propranolol HCl (Inderal) 20 mg PO NOW ONE Stop: 12/11/19 09:54 Last Admin: 12/11/19 11:20 Dose: 20 mg Documented by: HASMUKH Tizanidine HCl (Zanaflex) 4 mg PO BEDTIME ONE Stop: 12/10/19 17:58 Last Admin: 12/10/19 22:13 Dose: 4 mg Documented by: ANKUR Vital Signs Vital signs: Vital Signs - 8 hr 12/11/19 09:35 12/11/19 13:00 Temperature 97.6 F Pulse Rate 65 66 Respiratory Rate 18 16 Blood Pressure [Left Arm] 155/67 H 116/70 Pulse Oximetry 100 98 <Sandy Teran, - Last Filed: 12/10/19 20:30> Orders Ordered: Discontinued Medications Acetaminophen (Tylenol) 975 mg PO NOW ONE Stop: 12/11/19 03:56 Last Admin: 12/11/19 04:01 Dose: 975 mg Documented by: NEW Clonazepam (Klonopin) 0.5 mg PO NOW ONE Stop: 12/10/19 17:56 Last Admin: 12/10/19 22:12 Dose: 0.5 mg Documented by: ANKUR Clonazepam (Klonopin) 0.5 mg PO NOW ONE Stop: 12/11/19 13:25 Last Admin: 12/11/19 13:50 Dose: 0.5 mg Documented by: ANKUR Duloxetine HCl (Cymbalta) 30 mg PO NOW ONE Stop: 12/10/19 17:56 Last Admin: 12/10/19 22:13 Dose: 30 mg Documented by: ANKUR Duloxetine HCl (Cymbalta) 30 mg PO NOW ONE Stop: 12/11/19 09:53 Last Admin: 12/11/19 11:20 Dose: 30 mg Documented by: HASMUKH Lamotrigine (Lamictal) 200 mg PO NOW ONE Stop: 12/10/19 17:56 Last Admin: 12/10/19 22:12 Dose: 200 mg Documented by: ANKUR Lamotrigine (Lamictal) 200 mg PO NOW ONE Stop: 12/11/19 09:53 Last Admin: 12/11/19 11:20 Dose: 200 mg Documented by: HASMUKH Lisinopril (Zestril) 10 mg PO NOW ONE Stop: 12/10/19 17:56 Last Admin: 12/10/19 22:14 Dose: 10 mg Documented by: ANKUR Nicotine (Nicoderm) 21 mg TOP NOW ONE Stop: 12/10/19 16:34 Last Admin: 12/10/19 16:42 Dose: 21 mg Documented by: ASAEL Nicotine (Nicoderm) 21 mg TOP NOW ONE Stop: 12/11/19 13:25 Last Admin: 12/11/19 13:50 Dose: 21 mg Documented by: ANKUR Pantoprazole Sodium (Protonix) 40 mg PO NOW ONE Stop: 12/11/19 09:53 Last Admin: 12/11/19 11:25 Dose: 40 mg Documented by: HASMUKH Pravastatin Sodium (Pravachol) 20 mg PO BEDTIME ONE Stop: 12/10/19 17:57 Last Admin: 12/10/19 22:17 Dose: 20 mg Documented by: ANKUR Propranolol HCl (Inderal) 20 mg PO NOW ONE Stop: 12/10/19 17:56 Last Admin: 12/10/19 22:13 Dose: 20 mg Documented by: ANKUR Propranolol HCl (Inderal) 20 mg PO NOW ONE Stop: 12/11/19 09:54 Last Admin: 12/11/19 11:20 Dose: 20 mg Documented by: HASMUKH Tizanidine HCl (Zanaflex) 4 mg PO BEDTIME ONE Stop: 12/10/19 17:58 Last Admin: 12/10/19 22:13 Dose: 4 mg Documented by: ANKUR Vital Signs Vital signs: Vital Signs - 8 hr 12/11/19 09:35 12/11/19 13:00 Temperature 97.6 F Pulse Rate 65 66 Respiratory Rate 18 16 Blood Pressure [Left Arm] 155/67 H 116/70 Pulse Oximetry 100 98 <Pavan Molina, DO - Last Filed: 12/11/19 02:31> Orders Ordered: Discontinued Medications Acetaminophen (Tylenol) 975 mg PO NOW ONE Stop: 12/11/19 03:56 Last Admin: 12/11/19 04:01 Dose: 975 mg Documented by: NEW Clonazepam (Klonopin) 0.5 mg PO NOW ONE Stop: 12/10/19 17:56 Last Admin: 12/10/19 22:12 Dose: 0.5 mg Documented by: ANKUR Clonazepam (Klonopin) 0.5 mg PO NOW ONE Stop: 12/11/19 13:25 Last Admin: 12/11/19 13:50 Dose: 0.5 mg Documented by: ANKUR Duloxetine HCl (Cymbalta) 30 mg PO NOW ONE Stop: 12/10/19 17:56 Last Admin: 12/10/19 22:13 Dose: 30 mg Documented by: ANKUR Duloxetine HCl (Cymbalta) 30 mg PO NOW ONE Stop: 12/11/19 09:53 Last Admin: 12/11/19 11:20 Dose: 30 mg Documented by: HASMUKH Lamotrigine (Lamictal) 200 mg PO NOW ONE Stop: 12/10/19 17:56 Last Admin: 12/10/19 22:12 Dose: 200 mg Documented by: ANKUR Lamotrigine (Lamictal) 200 mg PO NOW ONE Stop: 12/11/19 09:53 Last Admin: 12/11/19 11:20 Dose: 200 mg Documented by: HASMUKH Lisinopril (Zestril) 10 mg PO NOW ONE Stop: 12/10/19 17:56 Last Admin: 12/10/19 22:14 Dose: 10 mg Documented by: ANKUR Nicotine (Nicoderm) 21 mg TOP NOW ONE Stop: 12/10/19 16:34 Last Admin: 12/10/19 16:42 Dose: 21 mg Documented by: ASAEL Nicotine (Nicoderm) 21 mg TOP NOW ONE Stop: 12/11/19 13:25 Last Admin: 12/11/19 13:50 Dose: 21 mg Documented by: ANKUR Pantoprazole Sodium (Protonix) 40 mg PO NOW ONE Stop: 12/11/19 09:53 Last Admin: 12/11/19 11:25 Dose: 40 mg Documented by: HASMUKH Pravastatin Sodium (Pravachol) 20 mg PO BEDTIME ONE Stop: 12/10/19 17:57 Last Admin: 12/10/19 22:17 Dose: 20 mg Documented by: ANKUR Propranolol HCl (Inderal) 20 mg PO NOW ONE Stop: 12/10/19 17:56 Last Admin: 12/10/19 22:13 Dose: 20 mg Documented by: ANKUR Propranolol HCl (Inderal) 20 mg PO NOW ONE Stop: 12/11/19 09:54 Last Admin: 12/11/19 11:20 Dose: 20 mg Documented by: HASMUKH Tizanidine HCl (Zanaflex) 4 mg PO BEDTIME ONE Stop: 12/10/19 17:58 Last Admin: 12/10/19 22:13 Dose: 4 mg Documented by: AKNUR Vital Signs Vital signs: Vital Signs - 8 hr 12/11/19 09:35 12/11/19 13:00 Temperature 97.6 F Pulse Rate 65 66 Respiratory Rate 18 16 Blood Pressure [Left Arm] 155/67 H 116/70 Pulse Oximetry 100 98 MDM - Psych <Vaishnavi Devlin DO - Last Filed: 12/11/19 14:20> Lab Data Result diagrams: 12/10/19 11:57 12/10/19 11:57 Labs: Lab Results 12/10/19 12/10/19 12/10/19 Range/Units 11:57 11:57 11:57 WBC 10.5 (4.5-11.0) X10^3/uL RBC 5.10 (4.0-5.2) X10^6/uL Hgb 14.7 (12.0-16.0) g/dL Hct 43.4 (36-46) % MCV 85.2 (80-100) fL MCH 28.9 (26-34) PG MCHC 33.9 (30-36) % RDW 13.4 (11.6-14.8) % Plt Count 338 (150-400) X10^3/uL Neut % (Auto) 69.7 (50-75) % Lymph % (Auto) 21.0 L (25-40) % [place] % (Auto) 6.0 (3-14) % Eos % (Auto) 2.0 (2-4) % Baso % (Auto) 1.3 (0-2) % Neut # (Auto) 7300 H (6991-5681) /uL Lymph # (Auto) 2200 (6579-0146) /uL [place] # (Auto) 600 (0-900) /uL Eos # (Auto) 200 (0-450) /uL Baso # (Auto) 100 (0-100) /uL Sodium 141 (137-145) mmol/L Potassium 4.6 (3.4-5.1) mmol/L Chloride 104 (98-107) mmol/L Carbon Dioxide 28 (22-32) mmol/L BUN 8 (7-17) mg/dL Creatinine 0.80 (0.52-1.04) mg/dL Estimated GFR > 60.0 (>60) mL/min BUN/Creatinine Ratio 10.0 (6-22) Glucose 106 H (70-100) mg/dL Calcium 9.8 (8.4-10.2) mg/dL Total Bilirubin 0.4 (0.2-1.3) mg/dL AST 18 (14-36) IU/L ALT 15 (<35) IU/L Alkaline Phosphatase 136 H (38-126) U/L Total Protein 7.4 (6.3-8.2) g/dL Albumin 4.4 (3.5-5.0) g/dL Globulin 3.0 (1.7-4.1) g/dL Albumin/Globulin Ratio 1.5 (1.0-2.8) TSH 1.00 (0.47-4.68) uIU/mL Free T4 1.04 (0.78-2.19) ng/dL Salicylates < 1.0 (<20) mg/dL U Opiates 300ng/mL cut (Negative) Ur Oxycodone Screen (Negative) Urine Methadone Screen (Negative) Acetaminophen < 10 L (10-30) ug/mL Ur Barbiturates Screen (Negative) U Tricyclic Antidepress (Negative) Ur Phencyclidine Scrn (Negative) Ur Amphetamines Screen (Negative) U Methamphetamines Scrn (Negative) Ur MDMA Scrn (Ecstasy) (Negative) U Benzodiazepines Scrn (Negative) Urine Cocaine Screen (Negative) U Marijuana (THC) Screen (Negative) Ethyl Alcohol < 10 ( - 10) mg/dL 12/10/19 Range/Units 12:43 WBC (4.5-11.0) X10^3/uL RBC (4.0-5.2) X10^6/uL Hgb (12.0-16.0) g/dL Hct (36-46) % MCV (80-100) fL MCH (26-34) PG MCHC (30-36) % RDW (11.6-14.8) % Plt Count (150-400) X10^3/uL Neut % (Auto) (50-75) % Lymph % (Auto) (25-40) % [place] % (Auto) (3-14) % Eos % (Auto) (2-4) % Baso % (Auto) (0-2) % Neut # (Auto) (4857-6340) /uL Lymph # (Auto) (5476-1113) /uL [place] # (Auto) (0-900) /uL Eos # (Auto) (0-450) /uL Baso # (Auto) (0-100) /uL Sodium (137-145) mmol/L Potassium (3.4-5.1) mmol/L Chloride (98-107) mmol/L Carbon Dioxide (22-32) mmol/L BUN (7-17) mg/dL Creatinine (0.52-1.04) mg/dL Estimated GFR (>60) mL/min BUN/Creatinine Ratio (6-22) Glucose (70-100) mg/dL Calcium (8.4-10.2) mg/dL Total Bilirubin (0.2-1.3) mg/dL AST (14-36) IU/L ALT (<35) IU/L Alkaline Phosphatase (38-126) U/L Total Protein (6.3-8.2) g/dL Albumin (3.5-5.0) g/dL Globulin (1.7-4.1) g/dL Albumin/Globulin Ratio (1.0-2.8) TSH (0.47-4.68) uIU/mL Free T4 (0.78-2.19) ng/dL Salicylates (<20) mg/dL U Opiates 300ng/mL cut Negative (Negative) Ur Oxycodone Screen Negative (Negative) Urine Methadone Screen Negative (Negative) Acetaminophen (10-30) ug/mL Ur Barbiturates Screen Negative (Negative) U Tricyclic Antidepress Negative (Negative) Ur Phencyclidine Scrn Negative (Negative) Ur Amphetamines Screen Negative (Negative) U Methamphetamines Scrn Negative (Negative) Ur MDMA Scrn (Ecstasy) Negative (Negative) U Benzodiazepines Scrn Negative (Negative) Urine Cocaine Screen Negative (Negative) U Marijuana (THC) Screen Positive H (Negative) Ethyl Alcohol ( - 10) mg/dL Urine Dip Bedside Urine Glucose Negative Bedside Urine Bilirubin - Negative Bedside Urine Ketone - Negative Urine Specific [place] 1.015 Bedside Urine Occult Blood - Negative Bedside Urine pH 6.0 Bedside Urine Protein - Negative Bedside Urine Urobilinogen - Negative Bedside Urine Nitrite + Positive Bedside Urine Leukocytes + 70 Esterase MDM Narrative Medical decision making narrative: Patient signed out to Dr. Teran awaiting placement. 12/11/19 the patient is signed out to me by Dr. Molina for further management awaiting social work placement. Throughout the day patient has remained calm and cooperative. She is requiring of clonazepam and a new nicotine patch. Social work continues to work on placement. Patient is signed out to Dr. Teran <Sandy Teran, DO - Last Filed: 12/10/19 20:30> Lab Data Labs: Lab Results 12/10/19 12/10/19 12/10/19 Range/Units 11:57 11:57 11:57 WBC 10.5 (4.5-11.0) X10^3/uL RBC 5.10 (4.0-5.2) X10^6/uL Hgb 14.7 (12.0-16.0) g/dL Hct 43.4 (36-46) % MCV 85.2 (80-100) fL MCH 28.9 (26-34) PG MCHC 33.9 (30-36) % RDW 13.4 (11.6-14.8) % Plt Count 338 (150-400) X10^3/uL Neut % (Auto) 69.7 (50-75) % Lymph % (Auto) 21.0 L (25-40) % [place] % (Auto) 6.0 (3-14) % Eos % (Auto) 2.0 (2-4) % Baso % (Auto) 1.3 (0-2) % Neut # (Auto) 7300 H (8406-6326) /uL Lymph # (Auto) 2200 (9911-9421) /uL [place] # (Auto) 600 (0-900) /uL Eos # (Auto) 200 (0-450) /uL Baso # (Auto) 100 (0-100) /uL Sodium 141 (137-145) mmol/L Potassium 4.6 (3.4-5.1) mmol/L Chloride 104 (98-107) mmol/L Carbon Dioxide 28 (22-32) mmol/L BUN 8 (7-17) mg/dL Creatinine 0.80 (0.52-1.04) mg/dL Estimated GFR > 60.0 (>60) mL/min BUN/Creatinine Ratio 10.0 (6-22) Glucose 106 H (70-100) mg/dL Calcium 9.8 (8.4-10.2) mg/dL Total Bilirubin 0.4 (0.2-1.3) mg/dL AST 18 (14-36) IU/L ALT 15 (<35) IU/L Alkaline Phosphatase 136 H (38-126) U/L Total Protein 7.4 (6.3-8.2) g/dL Albumin 4.4 (3.5-5.0) g/dL Globulin 3.0 (1.7-4.1) g/dL Albumin/Globulin Ratio 1.5 (1.0-2.8) TSH 1.00 (0.47-4.68) uIU/mL Free T4 1.04 (0.78-2.19) ng/dL Salicylates < 1.0 (<20) mg/dL U Opiates 300ng/mL cut (Negative) Ur Oxycodone Screen (Negative) Urine Methadone Screen (Negative) Acetaminophen < 10 L (10-30) ug/mL Ur Barbiturates Screen (Negative) U Tricyclic Antidepress (Negative) Ur Phencyclidine Scrn (Negative) Ur Amphetamines Screen (Negative) U Methamphetamines Scrn (Negative) Ur MDMA Scrn (Ecstasy) (Negative) U Benzodiazepines Scrn (Negative) Urine Cocaine Screen (Negative) U Marijuana (THC) Screen (Negative) Ethyl Alcohol < 10 ( - 10) mg/dL 12/10/19 Range/Units 12:43 WBC (4.5-11.0) X10^3/uL RBC (4.0-5.2) X10^6/uL Hgb (12.0-16.0) g/dL Hct (36-46) % MCV (80-100) fL MCH (26-34) PG MCHC (30-36) % RDW (11.6-14.8) % Plt Count (150-400) X10^3/uL Neut % (Auto) (50-75) % Lymph % (Auto) (25-40) % [place] % (Auto) (3-14) % Eos % (Auto) (2-4) % Baso % (Auto) (0-2) % Neut # (Auto) (0586-3149) /uL Lymph # (Auto) (9304-9605) /uL [place] # (Auto) (0-900) /uL Eos # (Auto) (0-450) /uL Baso # (Auto) (0-100) /uL Sodium (137-145) mmol/L Potassium (3.4-5.1) mmol/L Chloride (98-107) mmol/L Carbon Dioxide (22-32) mmol/L BUN (7-17) mg/dL Creatinine (0.52-1.04) mg/dL Estimated GFR (>60) mL/min BUN/Creatinine Ratio (6-22) Glucose (70-100) mg/dL Calcium (8.4-10.2) mg/dL Total Bilirubin (0.2-1.3) mg/dL AST (14-36) IU/L ALT (<35) IU/L Alkaline Phosphatase (38-126) U/L Total Protein (6.3-8.2) g/dL Albumin (3.5-5.0) g/dL Globulin (1.7-4.1) g/dL Albumin/Globulin Ratio (1.0-2.8) TSH (0.47-4.68) uIU/mL Free T4 (0.78-2.19) ng/dL Salicylates (<20) mg/dL U Opiates 300ng/mL cut Negative (Negative) Ur Oxycodone Screen Negative (Negative) Urine Methadone Screen Negative (Negative) Acetaminophen (10-30) ug/mL Ur Barbiturates Screen Negative (Negative) U Tricyclic Antidepress Negative (Negative) Ur Phencyclidine Scrn Negative (Negative) Ur Amphetamines Screen Negative (Negative) U Methamphetamines Scrn Negative (Negative) Ur MDMA Scrn (Ecstasy) Negative (Negative) U Benzodiazepines Scrn Negative (Negative) Urine Cocaine Screen Negative (Negative) U Marijuana (THC) Screen Positive H (Negative) Ethyl Alcohol ( - 10) mg/dL Urine Dip Bedside Urine Glucose Negative Bedside Urine Bilirubin - Negative Bedside Urine Ketone - Negative Urine Specific [place] 1.015 Bedside Urine Occult Blood - Negative Bedside Urine pH 6.0 Bedside Urine Protein - Negative Bedside Urine Urobilinogen - Negative Bedside Urine Nitrite + Positive Bedside Urine Leukocytes + 70 Esterase MDM Narrative Medical decision making narrative: [facility] and [facility] both refused the patient. Social work is going to continue to work on placement for voluntary beds. Patient signed out to Dr. Molina pending placement. <Pavan Molina, DO - Last Filed: 12/11/19 02:31> Lab Data Labs: Lab Results 12/10/19 12/10/19 12/10/19 Range/Units 11:57 11:57 11:57 WBC 10.5 (4.5-11.0) X10^3/uL RBC 5.10 (4.0-5.2) X10^6/uL Hgb 14.7 (12.0-16.0) g/dL Hct 43.4 (36-46) % MCV 85.2 (80-100) fL MCH 28.9 (26-34) PG MCHC 33.9 (30-36) % RDW 13.4 (11.6-14.8) % Plt Count 338 (150-400) X10^3/uL Neut % (Auto) 69.7 (50-75) % Lymph % (Auto) 21.0 L (25-40) % [place] % (Auto) 6.0 (3-14) % Eos % (Auto) 2.0 (2-4) % Baso % (Auto) 1.3 (0-2) % Neut # (Auto) 7300 H (3289-0356) /uL Lymph # (Auto) 2200 (2990-5827) /uL [place] # (Auto) 600 (0-900) /uL Eos # (Auto) 200 (0-450) /uL Baso # (Auto) 100 (0-100) /uL Sodium 141 (137-145) mmol/L Potassium 4.6 (3.4-5.1) mmol/L Chloride 104 (98-107) mmol/L Carbon Dioxide 28 (22-32) mmol/L BUN 8 (7-17) mg/dL Creatinine 0.80 (0.52-1.04) mg/dL Estimated GFR > 60.0 (>60) mL/min BUN/Creatinine Ratio 10.0 (6-22) Glucose 106 H (70-100) mg/dL Calcium 9.8 (8.4-10.2) mg/dL Total Bilirubin 0.4 (0.2-1.3) mg/dL AST 18 (14-36) IU/L ALT 15 (<35) IU/L Alkaline Phosphatase 136 H (38-126) U/L Total Protein 7.4 (6.3-8.2) g/dL Albumin 4.4 (3.5-5.0) g/dL Globulin 3.0 (1.7-4.1) g/dL Albumin/Globulin Ratio 1.5 (1.0-2.8) TSH 1.00 (0.47-4.68) uIU/mL Free T4 1.04 (0.78-2.19) ng/dL Salicylates < 1.0 (<20) mg/dL U Opiates 300ng/mL cut (Negative) Ur Oxycodone Screen (Negative) Urine Methadone Screen (Negative) Acetaminophen < 10 L (10-30) ug/mL Ur Barbiturates Screen (Negative) U Tricyclic Antidepress (Negative) Ur Phencyclidine Scrn (Negative) Ur Amphetamines Screen (Negative) U Methamphetamines Scrn (Negative) Ur MDMA Scrn (Ecstasy) (Negative) U Benzodiazepines Scrn (Negative) Urine Cocaine Screen (Negative) U Marijuana (THC) Screen (Negative) Ethyl Alcohol < 10 ( - 10) mg/dL 12/10/19 Range/Units 12:43 WBC (4.5-11.0) X10^3/uL RBC (4.0-5.2) X10^6/uL Hgb (12.0-16.0) g/dL Hct (36-46) % MCV (80-100) fL MCH (26-34) PG MCHC (30-36) % RDW (11.6-14.8) % Plt Count (150-400) X10^3/uL Neut % (Auto) (50-75) % Lymph % (Auto) (25-40) % [place] % (Auto) (3-14) % Eos % (Auto) (2-4) % Baso % (Auto) (0-2) % Neut # (Auto) (2769-5079) /uL Lymph # (Auto) (9188-7340) /uL [place] # (Auto) (0-900) /uL Eos # (Auto) (0-450) /uL Baso # (Auto) (0-100) /uL Sodium (137-145) mmol/L Potassium (3.4-5.1) mmol/L Chloride (98-107) mmol/L Carbon Dioxide (22-32) mmol/L BUN (7-17) mg/dL Creatinine (0.52-1.04) mg/dL Estimated GFR (>60) mL/min BUN/Creatinine Ratio (6-22) Glucose (70-100) mg/dL Calcium (8.4-10.2) mg/dL Total Bilirubin (0.2-1.3) mg/dL AST (14-36) IU/L ALT (<35) IU/L Alkaline Phosphatase (38-126) U/L Total Protein (6.3-8.2) g/dL Albumin (3.5-5.0) g/dL Globulin (1.7-4.1) g/dL Albumin/Globulin Ratio (1.0-2.8) TSH (0.47-4.68) uIU/mL Free T4 (0.78-2.19) ng/dL Salicylates (<20) mg/dL U Opiates 300ng/mL cut Negative (Negative) Ur Oxycodone Screen Negative (Negative) Urine Methadone Screen Negative (Negative) Acetaminophen (10-30) ug/mL Ur Barbiturates Screen Negative (Negative) U Tricyclic Antidepress Negative (Negative) Ur Phencyclidine Scrn Negative (Negative) Ur Amphetamines Screen Negative (Negative) U Methamphetamines Scrn Negative (Negative) Ur MDMA Scrn (Ecstasy) Negative (Negative) U Benzodiazepines Scrn Negative (Negative) Urine Cocaine Screen Negative (Negative) U Marijuana (THC) Screen Positive H (Negative) Ethyl Alcohol ( - 10) mg/dL Urine Dip Bedside Urine Glucose Negative Bedside Urine Bilirubin - Negative Bedside Urine Ketone - Negative Urine Specific [place] 1.015 Bedside Urine Occult Blood - Negative Bedside Urine pH 6.0 Bedside Urine Protein - Negative Bedside Urine Urobilinogen - Negative Bedside Urine Nitrite + Positive Bedside Urine Leukocytes + 70 Esterase ECG Data Attestation: I personally reviewed and interpreted this ECG as follows: Prior ECG tracings: not available for review Interpretation: Sinus rhythm Ventricular rate is 64 First degree AV block as needed oval 217 Normal QRS Normal axis No ST T wave changes MDM Narrative Medical decision making narrative: Dr lanker: Received turned over. Review patient's history and physical. Attempted to contact facilities. [facility] declined because patient ?needs CPAP ?and she refuses to use it. EKG was ordered which was unremarkable. Other [place] approved facilities have no availability. Patient still voluntary. Care turned over to day provider change of shift. Social work consult pending. Discharge Plan Departure Prescriptions: No Action duloxetine [Cymbalta] 30 mg capsule,delayed release(DR/EC) 30 mg PO BID Qty: 60 RF: 3 lamotrigine [Lamictal] 100 mg tablet 200 mg PO BID Qty: 120 RF: 3 albuterol sulfate [Ventolin HFA] 90 mcg/actuation HFA aerosol inhaler 2 puff INHALATION Q4-6H PRN (Reason: shortness of breath or wheezing) Qty: 8.5 RF: 0 clonazepam 0.5 mg tablet 0.5 mg PO BEDTIME Qty: 45 RF: 0 potassium chloride 10 mEq tablet extended release 10 meq PO DAILY Qty: 30 RF: 0 tizanidine 4 mg capsule 4 mg PO BEDTIME Qty: 90 RF: 0 pantoprazole 40 mg tablet,delayed release (DR/EC) 40 mg PO DAILY Qty: 30 RF: 2 propranolol 20 mg tablet 20 mg PO BID Qty: 180 RF: 2 Premarin 0.625 mg/gram cream 0.3125 mg VAG 2XW Qty: 30 RF: 3 (DME) Blood Pressure Cuff misc See Rx Instructions .ROUTE .MEDSUPPLY Qty: 1 RF: 0 ketoconazole 2 % cream 1 applictn TOP DAILY PRN (Reason: unlisted) RF: 0 ondansetron 4 mg tablet,disintegrating 4 mg PO Q8H PRN (Reason: nausea and vomiting) Qty: 90 RF: 0 lisinopril 10 mg tablet 10 mg PO QPM RF: 0 pravastatin 20 mg tablet 20 mg PO QPM RF: 0 nabumetone 500 mg tablet 500 mg PO BID RF: 0
[2019-12-10 12:04] LABS: Add Manual Diff / Slide Review NO; Basophils Absolute Auto 100 /uL (0-100); Basophils Percent Auto 1.3 % (0-2); Eosinophils Absolute Auto 200 /uL (0-450); Hematocrit 43.4 % (36-46); Hemoglobin 14.7 g/dL (12.0-16.0); Lymphocytes Absolute Auto 2200 /uL (1100-4500); Mean Corpuscular HGB Conc 33.9 % (30-36); Mean Corpuscular Hemoglobin 28.9 PG (26-34); Mean Corpuscular Volume 85.2 fL (80-100); Monocytes Absolute Auto 600 /uL (0-900); Neutrophils Absolute Auto 7300 /uL (1500-7000); Neutrophils Percent Auto 69.7 % (50-75); Platelet Count 338 X10^3/uL (150-400); Red Cell Distribution Width 13.4 % (11.6-14.8); White Blood Cell Count 10.5 X10^3/uL (4.5-11.0)
[2019-12-10 12:15] LABS: Acetaminophen < 10 ug/mL (10-30); Alanine Aminotransferase 15 IU/L (<35); Albumin 4.4 g/dL (3.5-5.0); Albumin Globulin Ratio 1.5 (1.0-2.8); Alkaline Phosphatase 136 U/L (38-126); Aspartate Aminotransferase 18 IU/L (14-36); Bilirubin Total 0.4 mg/dL (0.2-1.3); Blood Urea Nitrogen 8 mg/dL (7-17); Calcium 9.8 mg/dL (8.4-10.2); Carbon Dioxide 28 mmol/L (22-32); Chloride 104 mmol/L (98-107); Estimated Glomerular Filt Rate > 60.0 mL/min (>60); Ethanol (ETOH) < 10 mg/dL; Glucose 106 mg/dL (70-100); HEMOLYSIS < 15 (0-50); Potassium 4.6 mmol/L (3.4-5.1); Salicylate < 1.0 mg/dL (<20); Sodium 141 mmol/L (137-145); Total Protein 7.4 g/dL (6.3-8.2)
[2019-12-10 12:58] LABS: Free T4, Direct Thyroxine 1.04 ng/dL (0.78-2.19)
[2019-12-10 13:15] LABS: UR Morphine/Opiate cutoff 300 Negative (Negative); Ur Creatinine Normal (Normal); Ur Specific Gravity Normal (Normal); Urine Amphetamines Negative (Negative); Urine Barbiturates Negative (Negative); Urine Benzodiazepines Negative (Negative); Urine Cocaine Negative (Negative); Urine MDMA Negative (Negative); Urine Methadone Negative (Negative); Urine Methamphetamines Negative (Negative); Urine Oxycodone Negative (Negative); Urine Phencyclidine Negative (Negative); Urine Tetrahydrocannabinol Positive (Negative); Urine Tricyclic Antidepressant Negative (Negative); Urine pH Normal (Normal)
[2019-12-10 16:25] VITALS: BP 120/70; PULSE 66; RESP 20; TEMP 36.3; O2SAT 98
[2019-12-10] MEDS: NICOTINE 21 MG PATCH TOP (16:42)
[2019-12-10 21:33] VITALS: BP 137/75; PULSE 64; RESP 18; TEMP 36.3; O2SAT 99
[2019-12-10] MEDS: lamoTRIgine 100 MG TABLET 200 MG PO (22:12)
[2019-12-10] MEDS: clonazePAM 0.5 MG TABLET PO (22:12)
[2019-12-10] MEDS: PROPRANOLOL 10 MG TABLET 20 MG PO (22:13)
[2019-12-10] MEDS: TIZANIDINE 4 MG TABLET PO (22:13)
[2019-12-10] MEDS: DULOXETINE 30 MG CAPSULE PO (22:13)
[2019-12-10 22:14] VITALS: BP 125/66; PULSE 66
[2019-12-10] MEDS: lisinopriL 10 MG TABLET PO (22:14)
[2019-12-10] MEDS: PRAVASTATIN 20 MG TABLET PO (22:17)
--- NOTE | 2019-12-10 23:31 | PC.NURSE ---
Call from Savanna at [facility] regarding Pt home CPAP use or lack thereof. RN checked with Pt, states she was advised to use one, but didn't think it would do any good, so Pt did not aquire one.
--- NOTE | 2019-12-11 00:23 | PC.NURSE ---
She denies suicidal or homicidal ideation at this time,yesterday had thoughts of suicide by overdosing on my pills.She was afraid she might act on her plan and drove here for help.she is very calm at this time and wants help so she does not act in the future on her plan to overdose.
[2019-12-11 01:31] VITALS: BP 119/72; PULSE 62; RESP 16; TEMP 36.6; O2SAT 96
[2019-12-11] MEDS: ACETAMINOPHEN 325 MG TABLET 975 MG PO (04:01)
[2019-12-11 05:51] VITALS: BP 103/68; PULSE 63; RESP 18; TEMP 36.6; O2SAT 96
[2019-12-11 09:35] VITALS: BP 155/67; PULSE 65; RESP 18; TEMP 36.4; O2SAT 100
--- NOTE | 2019-12-11 09:45 | PC.NURSE ---
Pt visiting with parents who are at beside.
--- NOTE | 2019-12-11 10:52 | CM.SWNOTE ---
INDUSTRIAL STAFF NURSE Consult Note Consult requested 12.10.19 at 1220, this 54 yo w/ h/o Bipolar Disorder II, PTSD, alcohol dependence now in full remission, presented to the ED with encouragement from DR Martinez, after a psychiatry visit .04.23, wherein Casandra endorsed active suicidal ideation w/plan to overdose on available home medication. Dr Martinez felt Casandra was not safe to return home, and Casandra agreed. Casandra lives with her mother and step father, remains sober, and had been quite stable per psychiatry notes until experiencing, in Dr Martinez's words, an acute episode of severe depression, anxiety and suicidal ideation, no hallucinations endorsed. Met w/Casandra yesterday, she agreed w/Dr Martinez's input and recommendation for inpt MH stabilization and she agreed to remain in the ED while this INDUSTRIAL STAFF NURSE worked on inpt MH placement. Attempted [facility] yesterday afternoon and lost the bed to someone waiting in their ED for psychiatric care. Also attempted [facility] inpt MH unit, [facility], and Casandra was not accepted d/t a sleep apnea diagnosis. Discussed above w/ Dr Teran yesterday afternoon before this INDUSTRIAL STAFF NURSE left for the day and we agreed to ask Casandra to stay the evening in ER Rm 13 so this INDUSTRIAL STAFF NURSE could continue efforts towards inpt MH stabilization Saturday12.11.19, Casandra agreed. Dr Martinez visited Casandra yesterday and today in the ER and continues to suggest inpt MH stabilization as safest dispo for Casandra from the ED. Placement efforts continue today 12.11.19 SKYLER Rai
[2019-12-11] MEDS: DULOXETINE 30 MG CAPSULE PO ×2 (11:20→23:24)
[2019-12-11] MEDS: lamoTRIgine 100 MG TABLET 200 MG PO (11:20)
[2019-12-11] MEDS: PROPRANOLOL 10 MG TABLET 20 MG PO (11:20)
[2019-12-11] MEDS: PANTOPRAZOLE 20 MG TABLET 40 MG PO (11:25)
[2019-12-11 13:00] VITALS: BP 116/70; PULSE 66; RESP 16; O2SAT 98
[2019-12-11] MEDS: NICOTINE 21 MG PATCH TOP (13:50)
[2019-12-11] MEDS: clonazePAM 0.5 MG TABLET PO ×2 (13:50→22:28)
--- NOTE | 2019-12-11 15:56 | CM.SWNOTE ---
Reevaluation MH/Risk Assessment This BACK TENDER INSULATION BOARD attempting inpt MH placement throughout the day today. Spoke w/Dr Martinez this morning and he continued to recommend inpt stabilization for Casandra (prefers J[facility]). Attempted the following facilities that contract w/[facility]: [facility]- Still screening as of [address] [facility]- Full [facility]- Will not accept d/t sleep apnea dx and no home cpap [facility]- Full [facility]- Possible beds after a DC this afternoon/evening [facility]- Full [facility]- No female beds [facility]- Still screening as of 1599 Met w/Jodi this afternoon to review efforts today and began to discuss safety planning for home. Jodi was initially willing to discuss a home plan but later became increasingly tearful and admitted to fear of going home d/t current suicidal ideation. She admitted to this BACK TENDER INSULATION BOARD that she was looking around her ED Rm last night wondering if anything might be available for her to attempt self harm. Jodi admits to months of wanting to get off this roller coaster which references her emotionally labile state in the setting of Bipolar II w/depressive and manic episodes (see Dr Martinez's psychiatric visit note dated 12.10.19). Jodi relays she and Dr Martinez hopeful for additional input from inpt MH team about medication for mood stability. Jodi explains she lost her job of 18 yrs due to my mental health and that she feels stuck in a rut and needs help getting out of it. Jodi admits to feelings of isolation; she doesn't leave her room at home much when in a depressive state, she admits to not having hope for the immediate future and feels overwhelmed by her current inertia. Jodi remains A+O, calm and cooperative w/care today and very eloquent and insightful this afternoon about her current state of crisis. In addition, we discussed the following together: - Would your mom remove medications and sharp objects from the home and stay w/you for at least 24 hrs of supervision? Yes, but Jodi admits she is fearful she would still find the means for self harm, anxiety and panic are heightened at night -Is there anyone else that you trust that could provide supervision over the weekend? call placed to friend Mode, and he admitted he did not feel comfortable staying w/Jodi in an acute mental health crisis -Jodi does not feel comfortable using the [facility] crisis stabilization number -Jodi is scheduled w/Dr Martinez in January and counselor Wendy Robert next Wed -Reviewed partial hospitalization (PHP)and intensive outpt programs (IOP); [facility] would likely authorize if Jodi was willing to consider driving to [place]- IOP and back home M-F, Jodi does not feel confident about driving that distance and does not feel comfortable asking her mom to help w/transportation Relayed above to Dr Sandy Teran, ED provider, and no safety contract can be secured for a home DC today; Jodi aware and agreeable to staying an additional night to attempt inpt MH placement this evening and tomorrow. Provided ED staff w/list of inpt MH facilities. Placed call to [facility] Liaison line P# [phone], confirmed that Jodi still has a pre-authorization for 3 initial days at a contracted [facility] inpt MH facility and the auth begins the day of admission to a MH unit. Reevaluation tomorrow if no bed secured. SKYLER Rai
--- NOTE | 2019-12-11 17:01 | PC.NURSE ---
Sandy from [facility] called, stated that Sandy had been talking to Pt last noc, and Pt indicated she was imagining ways to kill herself in Room 13. Charge Nurse Jono informed.
[2019-12-11 17:30] VITALS: BP 113/69; PULSE 64; RESP 16; O2SAT 98
--- NOTE | 2019-12-11 18:39 | ED.PSYCH ---
HPI - Psych <Valente Lomeli MD - Last Filed: 12/16/19 15:05> General Chief Complaint: Psychiatric Symptoms Stated Complaint: suicidal Time Seen by Provider: 12/10/19 11:32 Related Data Home Medications Medication Instructions Recorded Confirmed ketoconazole 2 % topical cream 1 applictn TOP DAILY PRN gram 09/01/19 12/17/19 lisinopril 10 mg PO QPM 12/10/19 12/17/19 nabumetone 500 mg PO BID 12/10/19 12/10/19 pravastatin 20 mg PO QPM 12/10/19 12/17/19 cholecalciferol (vitamin D3) 2,000 2,000 unit PO DAILY 12/17/19 12/17/19 unit tablet gabapentin 300 mg capsule 300 mg PO TID 12/17/19 12/17/19 Previous Rx's Medication Instructions Recorded pantoprazole 40 mg tablet,delayed 40 mg PO DAILY #30 tab 03/27/19 release propranolol 20 mg tablet 20 mg PO BID #180 tab 03/27/19 conjugated estrogens 0.625 mg/gram 0.3125 mg VAG 2XW #30 gram 04/30/19 vaginal cream miscellaneous medical supply #1 each 07/09/19 albuterol sulfate 90 mcg/actuation 2 puff INHALATION Q4-6H PRN #8.5 07/21/19 aerosol inhaler gram duloxetine 30 mg capsule,delayed 30 mg PO BID #60 cap 10/13/19 release lamotrigine 100 mg tablet 200 mg PO BID #120 tab 10/13/19 clonazepam 0.5 mg tablet 0.5 mg PO BEDTIME #45 tab 11/13/19 ondansetron 4 mg disintegrating 4 mg PO Q8H PRN #90 tab 11/25/19 tablet tizanidine 4 mg capsule 4 mg PO BEDTIME #90 cap 12/02/19 Allergies Allergy/AdvReac Type Severity Reaction Status Date / Time adhesive Allergy Mild Rash Verified 12/17/19 13:21 codeine Allergy Mild N&V if she Verified 12/17/19 13:21 takes a lot, itch bowel prep AdvReac N&V Uncoded 12/17/19 13:21 <Sandy Teran DO - Last Filed: 12/22/19 06:40> General Source: patient Mode of arrival: Ambulatory Patient History <Valente Lomeli MD - Last Filed: 12/16/19 15:05> Medical History Difficulty using verbal communication (Acute) Essential hypertension (Acute 06/2019) Insomnia, unspecified (Chronic) Mixed hyperlipidemia (Acute 06/2019) Morbid obesity with BMI of 40.0-44.9, adult (Chronic) Nausea & vomiting (Acute 06/2019) Noncompliance (Acute) Obstructive sleep apnea of adult (Chronic ~10/2018) Snoring (Chronic) Unintentional weight loss (Acute) Social History marital status: details: lives in [place] household members: other lives independently: Yes (with elderly parents) caregiver/support person: No housing: house Smoking Status: Former smoker Tobacco: How many years used: 42 second hand exposure: No alcohol intake: former substance use type: does not use <Sandy Teran DO - Last Filed: 12/22/19 06:40> Smoking Status: Former smoker Substance Use Type: marijuana Exam <Valente Lomeli MD - Last Filed: 12/16/19 15:05> Initial Vital Signs Initial Vital Signs: Vital Signs Temperature 97.3 F L 12/10/19 11:25 Pulse Rate 65 12/10/19 11:25 Respiratory Rate 16 12/10/19 11:25 Blood Pressure 112/73 12/10/19 11:25 Pulse Oximetry 96 12/10/19 11:25 <Sandy Teran DO - Last Filed: 12/22/19 06:40> Initial Vital Signs Initial Vital Signs: Vital Signs Temperature 97.3 F L 12/10/19 11:25 Pulse Rate 65 12/10/19 11:25 Respiratory Rate 16 12/10/19 11:25 Blood Pressure 112/73 12/10/19 11:25 Pulse Oximetry 96 12/10/19 11:25 Course <Valente Lomeli MD - Last Filed: 12/16/19 15:05> Orders Ordered: Discontinued Medications Acetaminophen (Tylenol) 975 mg PO NOW ONE Stop: 12/11/19 03:56 Last Admin: 12/11/19 04:01 Dose: 975 mg Documented by: NEW Clonazepam (Klonopin) 0.5 mg PO NOW ONE Stop: 12/10/19 17:56 Last Admin: 12/10/19 22:12 Dose: 0.5 mg Documented by: ANKUR Clonazepam (Klonopin) 0.5 mg PO NOW ONE Stop: 12/11/19 13:25 Last Admin: 12/11/19 13:50 Dose: 0.5 mg Documented by: ANKUR Clonazepam (Klonopin) 0.5 mg PO NOW ONE Stop: 12/11/19 21:57 Last Admin: 12/11/19 22:28 Dose: 0.5 mg Documented by: ANKUR Duloxetine HCl (Cymbalta) 30 mg PO NOW ONE Stop: 12/10/19 17:56 Last Admin: 12/10/19 22:13 Dose: 30 mg Documented by: ANKUR Duloxetine HCl (Cymbalta) 30 mg PO NOW ONE Stop: 12/11/19 09:53 Last Admin: 12/11/19 11:20 Dose: 30 mg Documented by: HASMUKH Duloxetine HCl (Cymbalta) 30 mg PO NOW ONE Stop: 12/11/19 21:57 Last Admin: 12/11/19 23:24 Dose: 30 mg Documented by: ANKUR Lamotrigine (Lamictal) 200 mg PO NOW ONE Stop: 12/10/19 17:56 Last Admin: 12/10/19 22:12 Dose: 200 mg Documented by: ANKUR Lamotrigine (Lamictal) 200 mg PO NOW ONE Stop: 12/11/19 09:53 Last Admin: 12/11/19 11:20 Dose: 200 mg Documented by: HASMUKH Lamotrigine (Lamictal) 200 mg PO NOW ONE Stop: 12/11/19 21:57 Last Admin: 12/11/19 23:32 Dose: Not Given Documented by: ANKUR Lisinopril (Zestril) 10 mg PO NOW ONE Stop: 12/10/19 17:56 Last Admin: 12/10/19 22:14 Dose: 10 mg Documented by: ANKUR Lisinopril (Zestril) 10 mg PO NOW ONE Stop: 12/11/19 21:57 Last Admin: 12/11/19 23:24 Dose: 10 mg Documented by: ANKUR Lorazepam (Ativan) 1 mg PO NOW ONE Stop: 12/11/19 23:20 Last Admin: 12/11/19 23:22 Dose: 1 mg Documented by: ANKUR Nicotine (Nicoderm) 21 mg TOP NOW ONE Stop: 12/10/19 16:34 Last Admin: 12/10/19 16:42 Dose: 21 mg Documented by: ASAEL Nicotine (Nicoderm) 21 mg TOP NOW ONE Stop: 12/11/19 13:25 Last Admin: 12/11/19 13:50 Dose: 21 mg Documented by: ANKUR Ondansetron HCl (Zofran Odt) 4 mg SL NOW ONE Stop: 12/11/19 22:23 Last Admin: 12/11/19 22:27 Dose: 4 mg Documented by: ANKUR Pantoprazole Sodium (Protonix) 40 mg PO NOW ONE Stop: 12/11/19 09:53 Last Admin: 12/11/19 11:25 Dose: 40 mg Documented by: HASMUKH Pravastatin Sodium (Pravachol) 20 mg PO BEDTIME ONE Stop: 12/10/19 17:57 Last Admin: 12/10/19 22:17 Dose: 20 mg Documented by: ANKUR Pravastatin Sodium (Pravachol) 20 mg PO BEDTIME ONE Stop: 12/11/19 21:57 Last Admin: 12/11/19 23:24 Dose: 20 mg Documented by: ANKUR Propranolol HCl (Inderal) 20 mg PO NOW ONE Stop: 12/10/19 17:56 Last Admin: 12/10/19 22:13 Dose: 20 mg Documented by: ANKUR Propranolol HCl (Inderal) 20 mg PO NOW ONE Stop: 12/11/19 09:54 Last Admin: 12/11/19 11:20 Dose: 20 mg Documented by: HASMUKH Propranolol HCl (Inderal) 20 mg PO NOW ONE Stop: 12/11/19 21:57 Last Admin: 12/11/19 23:32 Dose: Not Given Documented by: ANKUR Tizanidine HCl (Zanaflex) 4 mg PO BEDTIME ONE Stop: 12/10/19 17:58 Last Admin: 12/10/19 22:13 Dose: 4 mg Documented by: ANKUR Tizanidine HCl (Zanaflex) 4 mg PO BEDTIME ONE Stop: 12/11/19 21:57 Last Admin: 12/11/19 23:24 Dose: 4 mg Documented by: ANKUR Vital Signs Vital signs: Vital Signs - 8 hr 12/11/19 13:00 12/11/19 17:30 Pulse Rate 66 64 Respiratory Rate 16 16 Blood Pressure [Left Arm] 116/70 113/69 Pulse Oximetry 98 98 <Sandy Teran, - Last Filed: 12/22/19 06:40> Orders Ordered: Discontinued Medications Acetaminophen (Tylenol) 975 mg PO NOW ONE Stop: 12/11/19 03:56 Last Admin: 12/11/19 04:01 Dose: 975 mg Documented by: NEW Clonazepam (Klonopin) 0.5 mg PO NOW ONE Stop: 12/10/19 17:56 Last Admin: 12/10/19 22:12 Dose: 0.5 mg Documented by: ANKUR Clonazepam (Klonopin) 0.5 mg PO NOW ONE Stop: 12/11/19 13:25 Last Admin: 12/11/19 13:50 Dose: 0.5 mg Documented by: ANKUR Clonazepam (Klonopin) 0.5 mg PO NOW ONE Stop: 12/11/19 21:57 Last Admin: 12/11/19 22:28 Dose: 0.5 mg Documented by: ANKUR Duloxetine HCl (Cymbalta) 30 mg PO NOW ONE Stop: 12/10/19 17:56 Last Admin: 12/10/19 22:13 Dose: 30 mg Documented by: ANKUR Duloxetine HCl (Cymbalta) 30 mg PO NOW ONE Stop: 12/11/19 09:53 Last Admin: 12/11/19 11:20 Dose: 30 mg Documented by: HASMUKH Duloxetine HCl (Cymbalta) 30 mg PO NOW ONE Stop: 12/11/19 21:57 Last Admin: 12/11/19 23:24 Dose: 30 mg Documented by: ANKUR Lamotrigine (Lamictal) 200 mg PO NOW ONE Stop: 12/10/19 17:56 Last Admin: 12/10/19 22:12 Dose: 200 mg Documented by: ANKUR Lamotrigine (Lamictal) 200 mg PO NOW ONE Stop: 12/11/19 09:53 Last Admin: 12/11/19 11:20 Dose: 200 mg Documented by: HASMUKH Lamotrigine (Lamictal) 200 mg PO NOW ONE Stop: 12/11/19 21:57 Last Admin: 12/11/19 23:32 Dose: Not Given Documented by: ANKUR Lisinopril (Zestril) 10 mg PO NOW ONE Stop: 12/10/19 17:56 Last Admin: 12/10/19 22:14 Dose: 10 mg Documented by: ANKUR Lisinopril (Zestril) 10 mg PO NOW ONE Stop: 12/11/19 21:57 Last Admin: 12/11/19 23:24 Dose: 10 mg Documented by: ANKUR Lorazepam (Ativan) 1 mg PO NOW ONE Stop: 12/11/19 23:20 Last Admin: 12/11/19 23:22 Dose: 1 mg Documented by: ANKUR Nicotine (Nicoderm) 21 mg TOP NOW ONE Stop: 12/10/19 16:34 Last Admin: 12/10/19 16:42 Dose: 21 mg Documented by: ASAEL Nicotine (Nicoderm) 21 mg TOP NOW ONE Stop: 12/11/19 13:25 Last Admin: 12/11/19 13:50 Dose: 21 mg Documented by: ANKUR Ondansetron HCl (Zofran Odt) 4 mg SL NOW ONE Stop: 12/11/19 22:23 Last Admin: 12/11/19 22:27 Dose: 4 mg Documented by: ANKUR Pantoprazole Sodium (Protonix) 40 mg PO NOW ONE Stop: 12/11/19 09:53 Last Admin: 12/11/19 11:25 Dose: 40 mg Documented by: HASMUKH Pravastatin Sodium (Pravachol) 20 mg PO BEDTIME ONE Stop: 12/10/19 17:57 Last Admin: 12/10/19 22:17 Dose: 20 mg Documented by: ANKUR Pravastatin Sodium (Pravachol) 20 mg PO BEDTIME ONE Stop: 12/11/19 21:57 Last Admin: 12/11/19 23:24 Dose: 20 mg Documented by: ANKUR Propranolol HCl (Inderal) 20 mg PO NOW ONE Stop: 12/10/19 17:56 Last Admin: 12/10/19 22:13 Dose: 20 mg Documented by: ANKUR Propranolol HCl (Inderal) 20 mg PO NOW ONE Stop: 12/11/19 09:54 Last Admin: 12/11/19 11:20 Dose: 20 mg Documented by: HASMUKH Propranolol HCl (Inderal) 20 mg PO NOW ONE Stop: 12/11/19 21:57 Last Admin: 12/11/19 23:32 Dose: Not Given Documented by: ANKUR Tizanidine HCl (Zanaflex) 4 mg PO BEDTIME ONE Stop: 12/10/19 17:58 Last Admin: 12/10/19 22:13 Dose: 4 mg Documented by: ANKUR Tizanidine HCl (Zanaflex) 4 mg PO BEDTIME ONE Stop: 12/11/19 21:57 Last Admin: 12/11/19 23:24 Dose: 4 mg Documented by: ANKUR Vital Signs Vital signs: Vital Signs - 8 hr 12/11/19 13:00 12/11/19 17:30 Pulse Rate 66 64 Respiratory Rate 16 16 Blood Pressure [Left Arm] 116/70 113/69 Pulse Oximetry 98 98 MDM - Psych <Valente Lomeli MD - Last Filed: 12/16/19 15:05> Lab Data Result diagrams: 12/10/19 11:57 12/10/19 11:57 Labs: Lab Results 12/10/19 12/10/19 12/10/19 Range/Units 11:57 11:57 11:57 WBC 10.5 (4.5-11.0) X10^3/uL RBC 5.10 (4.0-5.2) X10^6/uL Hgb 14.7 (12.0-16.0) g/dL Hct 43.4 (36-46) % MCV 85.2 (80-100) fL MCH 28.9 (26-34) PG MCHC 33.9 (30-36) % RDW 13.4 (11.6-14.8) % Plt Count 338 (150-400) X10^3/uL Neut % (Auto) 69.7 (50-75) % Lymph % (Auto) 21.0 L (25-40) % [place] % (Auto) 6.0 (3-14) % Eos % (Auto) 2.0 (2-4) % Baso % (Auto) 1.3 (0-2) % Neut # (Auto) 7300 H (6246-9757) /uL Lymph # (Auto) 2200 (0169-4883) /uL [place] # (Auto) 600 (0-900) /uL Eos # (Auto) 200 (0-450) /uL Baso # (Auto) 100 (0-100) /uL Sodium 141 (137-145) mmol/L Potassium 4.6 (3.4-5.1) mmol/L Chloride 104 (98-107) mmol/L Carbon Dioxide 28 (22-32) mmol/L BUN 8 (7-17) mg/dL Creatinine 0.80 (0.52-1.04) mg/dL Estimated GFR > 60.0 (>60) mL/min BUN/Creatinine Ratio 10.0 (6-22) Glucose 106 H (70-100) mg/dL Calcium 9.8 (8.4-10.2) mg/dL Total Bilirubin 0.4 (0.2-1.3) mg/dL AST 18 (14-36) IU/L ALT 15 (<35) IU/L Alkaline Phosphatase 136 H (38-126) U/L Total Protein 7.4 (6.3-8.2) g/dL Albumin 4.4 (3.5-5.0) g/dL Globulin 3.0 (1.7-4.1) g/dL Albumin/Globulin Ratio 1.5 (1.0-2.8) TSH 1.00 (0.47-4.68) uIU/mL Free T4 1.04 (0.78-2.19) ng/dL PTH Intact (14-64) pg/mL Salicylates < 1.0 (<20) mg/dL U Opiates 300ng/mL cut (Negative) Ur Oxycodone Screen (Negative) Urine Methadone Screen (Negative) Acetaminophen < 10 L (10-30) ug/mL Ur Barbiturates Screen (Negative) U Tricyclic Antidepress (Negative) Ur Phencyclidine Scrn (Negative) Ur Amphetamines Screen (Negative) U Methamphetamines Scrn (Negative) Ur MDMA Scrn (Ecstasy) (Negative) U Benzodiazepines Scrn (Negative) Urine Cocaine Screen (Negative) U Marijuana (THC) Screen (Negative) Ethyl Alcohol < 10 ( - 10) mg/dL 12/10/19 12/10/19 Range/Units 12:43 15:37 WBC (4.5-11.0) X10^3/uL RBC (4.0-5.2) X10^6/uL Hgb (12.0-16.0) g/dL Hct (36-46) % MCV (80-100) fL MCH (26-34) PG MCHC (30-36) % RDW (11.6-14.8) % Plt Count (150-400) X10^3/uL Neut % (Auto) (50-75) % Lymph % (Auto) (25-40) % [place] % (Auto) (3-14) % Eos % (Auto) (2-4) % Baso % (Auto) (0-2) % Neut # (Auto) (8794-4121) /uL Lymph # (Auto) (6291-7368) /uL [place] # (Auto) (0-900) /uL Eos # (Auto) (0-450) /uL Baso # (Auto) (0-100) /uL Sodium (137-145) mmol/L Potassium (3.4-5.1) mmol/L Chloride (98-107) mmol/L Carbon Dioxide (22-32) mmol/L BUN (7-17) mg/dL Creatinine (0.52-1.04) mg/dL Estimated GFR (>60) mL/min BUN/Creatinine Ratio (6-22) Glucose (70-100) mg/dL Calcium (8.4-10.2) mg/dL Total Bilirubin (0.2-1.3) mg/dL AST (14-36) IU/L ALT (<35) IU/L Alkaline Phosphatase (38-126) U/L Total Protein (6.3-8.2) g/dL Albumin (3.5-5.0) g/dL Globulin (1.7-4.1) g/dL Albumin/Globulin Ratio (1.0-2.8) TSH (0.47-4.68) uIU/mL Free T4 (0.78-2.19) ng/dL PTH Intact 54 (14-64) pg/mL Salicylates (<20) mg/dL U Opiates 300ng/mL cut Negative (Negative) Ur Oxycodone Screen Negative (Negative) Urine Methadone Screen Negative (Negative) Acetaminophen (10-30) ug/mL Ur Barbiturates Screen Negative (Negative) U Tricyclic Antidepress Negative (Negative) Ur Phencyclidine Scrn Negative (Negative) Ur Amphetamines Screen Negative (Negative) U Methamphetamines Scrn Negative (Negative) Ur MDMA Scrn (Ecstasy) Negative (Negative) U Benzodiazepines Scrn Negative (Negative) Urine Cocaine Screen Negative (Negative) U Marijuana (THC) Screen Positive H (Negative) Ethyl Alcohol ( - 10) mg/dL Urine Dip Bedside Urine Glucose Negative Bedside Urine Bilirubin - Negative Bedside Urine Ketone - Negative Urine Specific [place] 1.015 Bedside Urine Occult Blood - Negative Bedside Urine pH 6.0 Bedside Urine Protein - Negative Bedside Urine Urobilinogen - Negative Bedside Urine Nitrite + Positive Bedside Urine Leukocytes + 70 Esterase <Sandy Teran, DO - Last Filed: 12/22/19 06:40> Lab Data Labs: Lab Results 12/10/19 12/10/19 12/10/19 Range/Units 11:57 11:57 11:57 WBC 10.5 (4.5-11.0) X10^3/uL RBC 5.10 (4.0-5.2) X10^6/uL Hgb 14.7 (12.0-16.0) g/dL Hct 43.4 (36-46) % MCV 85.2 (80-100) fL MCH 28.9 (26-34) PG MCHC 33.9 (30-36) % RDW 13.4 (11.6-14.8) % Plt Count 338 (150-400) X10^3/uL Neut % (Auto) 69.7 (50-75) % Lymph % (Auto) 21.0 L (25-40) % [place] % (Auto) 6.0 (3-14) % Eos % (Auto) 2.0 (2-4) % Baso % (Auto) 1.3 (0-2) % Neut # (Auto) 7300 H (1753-1716) /uL Lymph # (Auto) 2200 (8877-3163) /uL [place] # (Auto) 600 (0-900) /uL Eos # (Auto) 200 (0-450) /uL Baso # (Auto) 100 (0-100) /uL Sodium 141 (137-145) mmol/L Potassium 4.6 (3.4-5.1) mmol/L Chloride 104 (98-107) mmol/L Carbon Dioxide 28 (22-32) mmol/L BUN 8 (7-17) mg/dL Creatinine 0.80 (0.52-1.04) mg/dL Estimated GFR > 60.0 (>60) mL/min BUN/Creatinine Ratio 10.0 (6-22) Glucose 106 H (70-100) mg/dL Calcium 9.8 (8.4-10.2) mg/dL Total Bilirubin 0.4 (0.2-1.3) mg/dL AST 18 (14-36) IU/L ALT 15 (<35) IU/L Alkaline Phosphatase 136 H (38-126) U/L Total Protein 7.4 (6.3-8.2) g/dL Albumin 4.4 (3.5-5.0) g/dL Globulin 3.0 (1.7-4.1) g/dL Albumin/Globulin Ratio 1.5 (1.0-2.8) TSH 1.00 (0.47-4.68) uIU/mL Free T4 1.04 (0.78-2.19) ng/dL PTH Intact (14-64) pg/mL Salicylates < 1.0 (<20) mg/dL U Opiates 300ng/mL cut (Negative) Ur Oxycodone Screen (Negative) Urine Methadone Screen (Negative) Acetaminophen < 10 L (10-30) ug/mL Ur Barbiturates Screen (Negative) U Tricyclic Antidepress (Negative) Ur Phencyclidine Scrn (Negative) Ur Amphetamines Screen (Negative) U Methamphetamines Scrn (Negative) Ur MDMA Scrn (Ecstasy) (Negative) U Benzodiazepines Scrn (Negative) Urine Cocaine Screen (Negative) U Marijuana (THC) Screen (Negative) Ethyl Alcohol < 10 ( - 10) mg/dL 12/10/19 12/10/19 Range/Units 12:43 15:37 WBC (4.5-11.0) X10^3/uL RBC (4.0-5.2) X10^6/uL Hgb (12.0-16.0) g/dL Hct (36-46) % MCV (80-100) fL MCH (26-34) PG MCHC (30-36) % RDW (11.6-14.8) % Plt Count (150-400) X10^3/uL Neut % (Auto) (50-75) % Lymph % (Auto) (25-40) % [place] % (Auto) (3-14) % Eos % (Auto) (2-4) % Baso % (Auto) (0-2) % Neut # (Auto) (8205-2807) /uL Lymph # (Auto) (9857-8212) /uL [place] # (Auto) (0-900) /uL Eos # (Auto) (0-450) /uL Baso # (Auto) (0-100) /uL Sodium (137-145) mmol/L Potassium (3.4-5.1) mmol/L Chloride (98-107) mmol/L Carbon Dioxide (22-32) mmol/L BUN (7-17) mg/dL Creatinine (0.52-1.04) mg/dL Estimated GFR (>60) mL/min BUN/Creatinine Ratio (6-22) Glucose (70-100) mg/dL Calcium (8.4-10.2) mg/dL Total Bilirubin (0.2-1.3) mg/dL AST (14-36) IU/L ALT (<35) IU/L Alkaline Phosphatase (38-126) U/L Total Protein (6.3-8.2) g/dL Albumin (3.5-5.0) g/dL Globulin (1.7-4.1) g/dL Albumin/Globulin Ratio (1.0-2.8) TSH (0.47-4.68) uIU/mL Free T4 (0.78-2.19) ng/dL PTH Intact 54 (14-64) pg/mL Salicylates (<20) mg/dL U Opiates 300ng/mL cut Negative (Negative) Ur Oxycodone Screen Negative (Negative) Urine Methadone Screen Negative (Negative) Acetaminophen (10-30) ug/mL Ur Barbiturates Screen Negative (Negative) U Tricyclic Antidepress Negative (Negative) Ur Phencyclidine Scrn Negative (Negative) Ur Amphetamines Screen Negative (Negative) U Methamphetamines Scrn Negative (Negative) Ur MDMA Scrn (Ecstasy) Negative (Negative) U Benzodiazepines Scrn Negative (Negative) Urine Cocaine Screen Negative (Negative) U Marijuana (THC) Screen Positive H (Negative) Ethyl Alcohol ( - 10) mg/dL Urine Dip Bedside Urine Glucose Negative Bedside Urine Bilirubin - Negative Bedside Urine Ketone - Negative Urine Specific [place] 1.015 Bedside Urine Occult Blood - Negative Bedside Urine pH 6.0 Bedside Urine Protein - Negative Bedside Urine Urobilinogen - Negative Bedside Urine Nitrite + Positive Bedside Urine Leukocytes + 70 Esterase MDM Narrative Medical decision making narrative: Chart is duplicate and unable to cancel document. Please see Dr. Devlin's chart for all charting including my own. Discharge Plan Departure Patient Disposition: Xfer Psychiatric Hosp Clinical Impression: Suicidal thoughts Discharge Date/Time: 12/11/19 23:40 Referrals: Ramin Wood ARNP [Primary Care Provider] -
[2019-12-11 22:15] VITALS: BP 138/80; PULSE 64; RESP 17; O2SAT 98
[2019-12-11] MEDS: ONDANSETRON 4 MG ODT SL (22:27)
[2019-12-11] MEDS: LORazepam 0.5 MG TABLET 1 MG PO (23:22)
[2019-12-11] MEDS: PRAVASTATIN 20 MG TABLET PO (23:24)
[2019-12-11] MEDS: TIZANIDINE 4 MG TABLET PO (23:24)
[2019-12-11] MEDS: lisinopriL 10 MG TABLET PO (23:24)
[2019-12-12 13:33] LABS: Parathyroid Hormone Int 54 pg/mL (14-64)
== END 2019-12-11 23:40 ==
PROVIDERS: Emergency Medicine; Emergency Provider Emergency Medicine; PCP Nurse Practitioner Family
DX: R45.851 Suicidal ideations (principal); R07.9 Chest pain, unspecified
CPT/HCPCS: 36415; 80053; 80305; 80320; 80329; 81003; 83970; 84439; 84443; 85025; 93005; 99284; G0480

== ENCOUNTER 2019-12-23 14:14 | Day surgery (SDC) | payer OTHER, SELFPAY ==
[2019-12-23] VITALS (9 sets, daily range): BP systolic 97–114; BP diastolic 59–70; PULSE 60–80; RESP 11–23; TEMP 36.1–36.3; O2SAT 89–98; BMI 34.0
--- NOTE | 2019-12-23 | PATH_ITS ---
[facility] Accession Number: [id number] . 01 Material submitted: . PART A: duodenum - DUODENAL BIOPSY PART B: esophagus - DISTAL ESOPHAGUS PART C: esophagus - PROXIMAL ESOPHAGUS . 02 Diagnosis: A. Duodenum, Biopsy: Duodenal mucosa with no diagnostic abnormality. Negative for active inflammation, features of sprue, dysplasia, or malignancy. . B-C: Distal Esophagus, Proximal Esophagus, Biopsies: Squamous epithelium with no diagnostic abnormality. Intraepithelial eosinophils are not increased. Negative for dysplasia and malignancy. [facility] 12/24/2019 1036 Local . 02 Electronically signed: . Raina Villareal MD, Pathologist NPI- [id number] . 01 Gross description: . Part A: DUODENAL BIOPSY: Received in formalin are 4 fragment(s) of vance, soft tissue measuring 0.1 x 0.1 x 0.1 cm to 0.3 x 0.3 x 0.3 cm submitted entirely in 1 cassette(s) Part B: DISTAL ESOPHAGUS: Received in formalin are 2 fragment(s) of vance, soft tissue measuring 0.1 x 0.1 x 0.1 cm to 0.3 x 0.2 x 0.2 cm submitted entirely in 1 cassette(s) Part C: PROXIMAL ESOPHAGUS: Received in formalin are 2 fragment(s) of vance, soft tissue measuring 0.1 x 0.1 x 0.1 cm in aggregate submitted entirely in 1 cassette(s) /[facility] 12/23/20192034 Local . 02 Pathologist provided ICD-10: R10.9 . 02 CPT . 316267, [id number], [id number] Performed at: [address], [place], [place] [id number] MD Branden Allen MD Phone: [phone] Performed at: 02 [facility] [address] [place] [id number] MD Raina Villareal MD Phone: [phone]
--- NOTE | 2019-12-23 15:02 | PM.PREOP ---
Pre-operative Note Interval Note History & Physical reviewed/Exam performed by Physician: Yes Changes to H&P: No ASA Class (for procedural sedation): II
[2019-12-23] MEDS: SODIUM CHLORIDE 0.9% 1,000 ML 200 ML IV (15:03)
--- NOTE | 2019-12-23 15:22 | PM.OP.ENDO ---
Operative Date/Time/Diagnoses Date of procedure: 12/23/19 Procedure & Clinicians Study performed: EGD with biopsy Moderate conscious sedation was administered by the endoscopy nurse and supervised by the endoscopist. The following parameters were monitored: Oxygen saturation, heart rate, blood pressure, and response to care. Sedation totals: 6 mg midazolam, 100 mcg fentanyl Indications: Esophageal dysphagia, nausea and vomiting, unexplained diarrhea Procedure Notes Procedure in detail: Prior to the procedure, history and physical was performed, and patient medications and allergies were reviewed. Preprocedure nursing history and assessment was reviewed. Patient identification and proposed procedure were verified by the physician and nurse in the procedure room. The physical status of the patient was reassessed after the procedure. After informed consent was obtained including risks, benefits, and alternatives, the scope was passed under direct vision. Throughout the procedure, the patient's blood pressure, pulse, and oxygen saturations were monitored continuously. The upper endoscope was introduced through the mouth and advanced to the 2nd portion of the duodenum. Retroflexion was performed in the stomach. The patient tolerated the procedure well. The entire examined esophagus was normal appearing. Biopsies were taken from the proximal and distal esophagus to rule out EOE. The Z-line was located at 42 cm from the incisors and was regular. The entire examined stomach was normal appearing. The entire examined duodenum and ampulla were normal appearing. Biopsies taken to rule out celiac sprue Impression: Normal-appearing esophagus and Z-line. Biopsies taken to rule out EOE. Normal appearing stomach. Normal appearing examined duodenum Sedation minutes: 12 Complications: other (EBL minimal. No complications) Post-procedure Plan for aftercare: Follow-up pathology results Resume previous diet Resume home medications Follow-up in GI clinic as previously scheduled or at next available appointment Patient has a contact number available for emergencies. The signs and symptoms of potential delayed complications were discussed with the patient. Return to normal activities tomorrow. Written discharge instructions were provided to the patient. Discharge home with escort
[2019-12-23] MEDS: fentaNYL 250 MCG/5 ML INJ IV (15:29)
[2019-12-23] MEDS: MIDAZOLAM 5 MG/ML VIAL 4 MG IV (15:30)
== END 2019-12-23 16:20 | disposition home or self-care (01) ==
PROVIDERS: PCP Nurse Practitioner Family; Referring Provider Internal Medicine; Visit Provider Internal Medicine
PROC: 0DJ08ZZ Inspection of Upper Intestinal Tract, Via Natural or Artificial Opening Endoscopic (ICD-10-PCS; CPT 43235; principal; 2019-12-23 16:00)
DX: R11.2 Nausea with vomiting, unspecified (principal); R63.4 Abnormal weight loss
CPT/HCPCS: 43239; J2250; J3010

== ENCOUNTER → 2020-04-29 11:32 | Outpatient (CLI) | payer OTHER, SELFPAY ==
[2020-04-29 12:34] LABS: Alanine Aminotransferase 10 IU/L (<35); Albumin 4.2 g/dL (3.5-5.0); Albumin Globulin Ratio 1.6 (1.0-2.8); Alkaline Phosphatase 109 U/L (38-126); Aspartate Aminotransferase 16 IU/L (14-36); BUN Creatinine Ratio 12.5 (6-22); Bilirubin Total 0.5 mg/dL (0.2-1.3); Blood Urea Nitrogen 10 mg/dL (7-17); Calcium 9.6 mg/dL (8.4-10.2); Carbon Dioxide 33 mmol/L (22-32); Chloride 103 mmol/L (98-107); Estimated Glomerular Filt Rate > 60.0 mL/min (>60); Globulin 2.7 g/dL (1.7-4.1); Glucose 94 mg/dL (70-100); HEMOLYSIS < 15 (0-50); Lithium 0.3 mmol/L (0.6-1.2); Potassium 3.7 mmol/L (3.4-5.1); Sodium 141 mmol/L (137-145); Total Protein 6.9 g/dL (6.3-8.2)
[2020-05-03 07:08] LABS: Lamotrigine Lamictal 4.2 ug/mL (2.0-20.0)
== END ==
PROVIDERS: PCP Nurse Practitioner Family; Referring Provider Psychiatry & Neurology Psychiatry; Visit Provider Psychiatry & Neurology Psychiatry
DX: F31.81 Bipolar II disorder (principal)
CPT/HCPCS: 36415; 80053; 80175; 80178

== ENCOUNTER → 2020-06-21 10:16 | Outpatient (CLI) | payer OTHER, SELFPAY ==
[2020-06-21 11:54] LABS: Lithium 0.4 mmol/L (0.6-1.2)
[2020-06-21 12:11] LABS: BUN Creatinine Ratio 13.8 (6-22); Blood Urea Nitrogen 12 mg/dL (7-17); Calcium 9.4 mg/dL (8.4-10.2); Carbon Dioxide 35 mmol/L (22-32); Chloride 104 mmol/L (98-107); Estimated Glomerular Filt Rate > 60.0 mL/min (>60); Glucose 54 mg/dL (70-100); HEMOLYSIS < 15 (0-50); Potassium 3.6 mmol/L (3.4-5.1); Sodium 142 mmol/L (137-145)
[2020-06-23 09:09] LABS: Lamotrigine Lamictal 5.9 ug/mL (2.0-20.0)
== END ==
PROVIDERS: PCP Nurse Practitioner Family; Referring Provider Psychiatry & Neurology Psychiatry; Visit Provider Psychiatry & Neurology Psychiatry
DX: F31.81 Bipolar II disorder (principal)
CPT/HCPCS: 36415; 80048; 80175; 80178

== ENCOUNTER → 2020-07-19 10:32 | Outpatient (CLI) | payer OTHER, SELFPAY ==
[2020-07-19 11:51] LABS: Lithium 0.9 mmol/L (0.6-1.2)
[2020-07-19 11:57] LABS: BUN Creatinine Ratio 10.5 (6-22); Blood Urea Nitrogen 9 mg/dL (7-17); Calcium 9.8 mg/dL (8.4-10.2); Carbon Dioxide 32 mmol/L (22-32); Chloride 101 mmol/L (98-107); Estimated Glomerular Filt Rate > 60.0 mL/min (>60); Glucose 96 mg/dL (70-100); HEMOLYSIS < 15 (0-50); Potassium 3.7 mmol/L (3.4-5.1); Sodium 141 mmol/L (137-145)
== END ==
PROVIDERS: PCP Nurse Practitioner Family; Referring Provider Psychiatry & Neurology Psychiatry; Visit Provider Psychiatry & Neurology Psychiatry
DX: F31.81 Bipolar II disorder (principal)
CPT/HCPCS: 36415; 80048; 80178

== ENCOUNTER → 2020-09-12 10:36 | Outpatient (CLI) | payer OTHER, SELFPAY ==
[2020-09-12 12:25] LABS: Alanine Aminotransferase 10 IU/L (<35); Albumin 4.1 g/dL (3.5-5.0); Albumin Globulin Ratio 1.5 (1.0-2.8); Alkaline Phosphatase 105 U/L (38-126); Aspartate Aminotransferase 15 IU/L (14-36); BUN Creatinine Ratio 13.3 (6-22); Bilirubin Total 0.4 mg/dL (0.2-1.3); Blood Urea Nitrogen 11 mg/dL (7-17); Calcium 9.6 mg/dL (8.4-10.2); Carbon Dioxide 37 mmol/L (22-32); Chloride 102 mmol/L (98-107); Estimated Glomerular Filt Rate > 60.0 mL/min (>60); Globulin 2.7 g/dL (1.7-4.1); Glucose 79 mg/dL (70-100); HEMOLYSIS < 15 (0-50); Potassium 3.4 mmol/L (3.4-5.1); Sodium 141 mmol/L (137-145); Total Protein 6.8 g/dL (6.3-8.2)
[2020-09-12 12:45] LABS: Lithium 0.7 mmol/L (0.6-1.2)
== END ==
PROVIDERS: PCP Nurse Practitioner Family; Referring Provider Psychiatry & Neurology Psychiatry; Visit Provider Psychiatry & Neurology Psychiatry
DX: F31.81 Bipolar II disorder (principal); F43.12 Post-traumatic stress disorder, chronic; R63.4 Abnormal weight loss
CPT/HCPCS: 36415; 80053; 80178

== ENCOUNTER → 2020-12-08 16:33 | Outpatient (CLI) | payer MEDICARE, SELFPAY ==
[2020-12-08 19:36] LABS: BUN Creatinine Ratio 11.1 (6-22); Blood Urea Nitrogen 12 mg/dL (7-17); Carbon Dioxide 36 mmol/L (22-32); Chloride 102 mmol/L (98-107); Estimated Glomerular Filt Rate 52.7 mL/min (>60); Glucose 81 mg/dL (70-100); HEMOLYSIS < 15 (0-50); Lithium 0.8 mmol/L (0.6-1.2); Potassium 3.9 mmol/L (3.4-5.1); Sodium 140 mmol/L (137-145)
== END ==
PROVIDERS: PCP Nurse Practitioner Family; Referring Provider Psychiatry & Neurology Psychiatry; Visit Provider Psychiatry & Neurology Psychiatry
DX: F31.81 Bipolar II disorder (principal); T56.891A Toxic effect of other metals, accidental (unintentional), initial encounter
CPT/HCPCS: 36415; 80048; 80178

== ENCOUNTER → 2021-02-14 14:34 | Outpatient (CLI) | payer MEDICARE, SELFPAY ==
[2021-02-14 14:59] LABS: Hematocrit 39.6 % (36-46); Hemoglobin 12.7 g/dL (12.0-16.0); Mean Corpuscular HGB Conc 32.2 % (30-36); Mean Corpuscular Hemoglobin 28.9 PG (26-34); Mean Corpuscular Volume 89.7 fL (80-100); Platelet Count 345 X10^3/uL (150-400); Red Blood Cell Count 4.41 X10^6/uL (4.0-5.2); Red Cell Distribution Width 13.9 % (11.6-14.8); White Blood Cell Count 12.4 X10^3/uL (4.5-11.0)
[2021-02-14 15:52] LABS: Alanine Aminotransferase 14 IU/L (<35); Albumin 4.2 g/dL (3.5-5.0); Albumin Globulin Ratio 1.7 (1.0-2.8); Alkaline Phosphatase 128 U/L (38-126); Aspartate Aminotransferase 18 IU/L (14-36); BUN Creatinine Ratio 17.6 (6-22); Bilirubin Total 0.3 mg/dL (0.2-1.3); Blood Urea Nitrogen 16 mg/dL (7-17); Calcium 10.1 mg/dL (8.4-10.2); Carbon Dioxide 29 mmol/L (22-32); Chloride 105 mmol/L (98-107); Cholesterol 150 mg/dL (140-199); Estimated Glomerular Filt Rate > 60.0 mL/min (>60); Globulin 2.5 g/dL (1.7-4.1); Glucose 100 mg/dL (70-100); HDL Cholesterol 52 mg/dL (40-60); HEMOLYSIS 21 (0-50); LDL Cholesterol Calculated 73 mg/dL (<100); Potassium 4.2 mmol/L (3.4-5.1); Sodium 140 mmol/L (137-145); Total Protein 6.7 g/dL (6.3-8.2); Triglycerides 126 mg/dL (35-150)
== END ==
PROVIDERS: PCP Nurse Practitioner Family; Referring Provider Nurse Practitioner Family; Visit Provider Nurse Practitioner Family
DX: I10 Essential (primary) hypertension (principal); Z72.0 Tobacco use; E78.2 Mixed hyperlipidemia
CPT/HCPCS: 36415; 80053; 80061; 85027

== ENCOUNTER → 2021-03-29 14:41 | Outpatient (CLI) | payer MEDICARE, SELFPAY ==
--- NOTE | 2021-03-29 14:43 | DI.RAD.S_ITS ---
PROCEDURE: XR LUMBAR SPINE 2-3V INDICATIONS: low back pain TECHNIQUE: 3 views of the lumbar spine were acquired. COMPARISON: None. FINDINGS: Bones: 5 [id number] vertebrae are present. Trace levoscoliosis. Multilevel disc degeneration, most notably in moderate at the L5-S1 level. Mild L5-S1 facet joint arthropathy.. No vertebral body compression fractures. No suspicious bony lesions. Soft tissues: Overlying bowel gas pattern is normal. No suspicious soft tissue calcifications. Cholecystectomy clips. An additional metallic clip is seen projecting over the pelvis. IMPRESSION: Multilevel spondylosis. Dictated by: Robin Adkins Zoe Interpreted: Tank Manning MD on 03/29/2021 at 16:58 Transcribed by: SUSAN on 03/29/2021 at 16:59 Approved by: Tank Manning M.D. on 04/11/2021 at 16:11
--- NOTE | 2021-03-29 14:43 | DI.RAD.S_ITS ---
PROCEDURE: XR CHEST 2V INDICATIONS: wheezing TECHNIQUE: 2 views of the chest were acquired. COMPARISON: [facility], CR, XR CHEST 2V, 07/17/2019, 13:28. FINDINGS: Surgical changes and devices: None. Lungs and pleura: Lungs are clear. No pleural effusions or pneumothorax. Mediastinum: Mediastinal contours are normal. Heart size is normal. Bones and chest wall: No suspicious bony abnormalities. Soft tissues appear unremarkable. IMPRESSION: No acute cardiopulmonary disease. Dictated by: Robin BURKETT Interpreted: Tank Manning MD on 03/29/2021 at 16:46 Transcribed by: SUSAN on 03/29/2021 at 16:47 Approved by: Tank Manning M.D. on 03/29/2021 at 16:56
== END ==
PROVIDERS: PCP Nurse Practitioner Family; Referring Provider Nurse Practitioner Family; Visit Provider Nurse Practitioner Family
DX: M47.817 Spondylosis without myelopathy or radiculopathy, lumbosacral region (principal); M54.5 Low back pain; J44.9 Chronic obstructive pulmonary disease, unspecified; R06.2 Wheezing; G89.29 Other chronic pain
CPT/HCPCS: 71046; 72100

== ENCOUNTER → 2021-06-23 09:37 | Outpatient (CLI) | payer MEDICARE, SELFPAY ==
[2021-06-23 11:21] LABS: Lithium 0.9 mmol/L (0.6-1.2)
[2021-06-26 16:40] LABS: Lamotrigine Lamictal 6.9 ug/mL (2.0-20.0)
== END ==
PROVIDERS: Family Provider Nurse Practitioner Family; PCP Nurse Practitioner Family; Referring Provider Psychiatry & Neurology Psychiatry; Visit Provider Psychiatry & Neurology Psychiatry
DX: F31.81 Bipolar II disorder (principal); Z79.899 Other long term (current) drug therapy
CPT/HCPCS: 36415; 80175; 80178

== ENCOUNTER 2021-07-05 13:45 | Outpatient (RCR) | payer MEDICARE, SELFPAY ==
--- NOTE | 2021-06-27 12:35 | PT.OIE ---
Current Diagnoses Other chronic pain (06/27/21) Spondylosis without myelopathy or radiculopathy, lumbar region (06/27/21) Low back pain (06/27/21) Past Medical History (Last Updated 03/29/21 @ 17:37 by AIRANNA Caballero) Alcohol dependence in sustained full remission Bipolar II disorder Chronic back pain Chronic pain Chronic post-traumatic stress disorder COPD (chronic obstructive pulmonary disease) (2012) Difficulty using verbal communication Essential hypertension (06/2019) Insomnia, unspecified Mixed hyperlipidemia (06/2019) Morbid obesity with BMI of 40.0-44.9, adult Nausea & vomiting (06/2019) Noncompliance Obstructive sleep apnea of adult (~10/2018) Snoring Unintentional weight loss Visit Care Team Role Provider Type ARIANNA Caballero Attending Provider Advanced Out And Out Cigar Maker Hand Family Provider Primary Care Provider Referring Provider Specialty: Family Practice Address: [address] [place] [address], [facility] Email: [email or web address] Physical Therapy Initial Evaluation PT-OP-A Visit Information Start: 06/27/21 10:52 Freq: Status: Active Protocol: Document 06/27/21 11:56 HH (Rec: 06/27/21 12:35 [email or web address]) Out-Patient Physical Therapy Visit Information Visit Information Visit Type Initial Evaluation Visit Start Time 11:00 Visit Stop Time 11:54 Total Visit Minutes 54 Visit Number 1/ Number of HAIR DRYER Visits 0 Evaluation Information Evaluation Date 06/27/21 Precautions Precautions chronic COPD fibromyalgia PT-OP-B Current Condition Start: 06/27/21 10:52 Freq: Status: Active Protocol: Document 06/27/21 11:56 HH (Rec: 06/27/21 12:35 [email or web address]) Current Condition History of Current Condition Onset Date >10 years ago Current Complaints chronic LBP, R>L, decreased activity tolerance History of Current Condition Jodi is a 56 yo female who is unemployed (disabled) and lives with her parents for the past 16 years, 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 She states her LBP has been >10 years and did get worse after she fell off from a hourse 3-4 years resulting veterbral fx and herniated discs. Her pain is located at the center of the entire lumbar spine and it does radiates laterally. Denies tingling and numbness to LEs. Her pain is worse with standing/ walking >10-15 mins, horse riding >30 mins and any prolonged activity. She said nothing makes her symptoms better and she sleeps in a recliner for many years d/t back pain. She notices that extension is worse for her. She states she is very sedentary and stay in her room most of the time. PMH includes COPD, current smoker (cigarette and vaping) 1 pack /day. She does like to ride her horse twice a month only d /t her LBP. Personal Factors Other Personal Factors That May Effect depression Therapy/Recovery chronic COPD fibromyalgia PT-OP-C Subjective Start: 06/27/21 10:52 Freq: Status: Active Protocol: Document 06/27/21 11:56 HH (Rec: 06/27/21 12:35 [email or web address]) Patient Questionnaires Oswestry Low Back Index Oswestry Score 46 Oswestry Impairment 40 to 59% Impaired (Score 40- 59) OP-PT Pain Assessment Location LBP Pain Location Details L1-L3 Intensity 5 Scale Used Numeric (0 - 10) Description Aching,Pinching,Pressure, Radiating Frequency Frequent Pain Aggravating Factors Position,ADL's,Activity, Standing,Lifting Other Pain Aggravating Factors extension Pain Alleviating Factors Position,Sitting PT-OP-D Balance Start: 06/27/21 10:52 Freq: Status: Active Protocol: Document 06/27/21 11:56 HH (Rec: 06/27/21 12:35 [email or web address]) Balance Tests Single Limb Standing Single Limb- Right 3 Single Limb- Left 3 PT-OP-F Manual Assessment Start: 06/27/21 10:52 Freq: Status: Active Protocol: Document 06/27/21 11:56 HH (Rec: 06/27/21 12:35 HH [email or web address]) Manual Assessments Soft Tissue Assessment Soft Tissue Mobility Assessment hypertonicity noted at both lumbar paraspinals and QL significant pain to light pressure at pecs Joint Mobility Assessment Joint Mobility Assessment hypermobile L2 during extension PT-OP-G Mobility & Gait Start: 06/27/21 10:52 Freq: Status: Active Protocol: Document 06/27/21 11:56 HH (Rec: 06/27/21 12:35 HH [email or web address]) OP Mobility Evaluation Bed Mobility Supine to and from Sit require mod A to pull PT-OP-H Neuro Start: 06/27/21 10:52 Freq: Status: Active Protocol: Document 06/27/21 11:56 (Rec: 06/27/21 12:35 [email or web address]) Sensation Evaluation Gross Sensation Gross Sensation WNL PT-OP-J Posture/Palpation/Skin Start: 06/27/21 10:52 Freq: Status: Active Protocol: Document 06/27/21 11:56 (Rec: 06/27/21 12:35 [email or web address]) Posture Evaluation Position Standing Head/C-Spine Posture Forward Head T-Spine Posture Increased Kyphosis L-Spine Posture Increased Lordosis Shoulder Posture (L) Rounded,(R) Rounded Scapula Posture (L) Protracted,(R) Protracted Pelvis Posture Anteriorly Tilted Comments Posture Comments dowager hump noted at CT junction angulation noted at L2 level PT-OP-K Range of Motion Start: 06/27/21 10:52 Freq: Status: Active Protocol: Document 06/27/21 11:56 HH (Rec: 06/27/21 12:35 [email or web address]) Lumbar Spine Range of Motion Lumbar Spine Active Degrees Comments toe touch = 2 inches off from floor, lack of segmental lumbar flexion, flexion takes place from T/S and hip lateral flexion =23 inches from floor d/t pain extension= up to neutral only with significant pressure/dull pain at L2-L4 . PT-OP-L Special Tests Start: 06/27/21 10:52 Freq: Status: Active Protocol: Document 06/27/21 11:56 (Rec: 06/27/21 12:35 [email or web address]) Special Tests Lumbar Spine Special Tests A-P Shearing Test Results +VE at L2 Straight Leg Raise Test Results 90 degrees Comments 5x ASLR triggers pt's back pain Prone Instability Test Test Results unable to tolerate prone Vertical Spine Loading Test Results +VE Comments pain at L2 region, signs of instability PT-OP-Q Treatments Start: 06/27/21 10:52 Freq: Status: Active Protocol: Document 06/27/21 11:56 (Rec: 06/27/21 12:35 [email or web address]) Therapeutic Exercises Sitting Exercises scap retraction Comments for HEP Self-Care/Home Management Treatment Education Patient Education Body Mechanics,Joint Protection,Pain Management, Posture Other Education spent 15 mins using spine model to explain spinal mechanics to pt. Also explained her current posture with limited T/S extension and lumbar flexion causes excessive loading at lumbar spine during WB position. Educated her the importance of restoring spinal mechanics , increasing postural awareness and physical activity to reduce her fatigue and chronic pain. PT-OP-T Assessment and Plan Start: 06/27/21 10:52 Freq: Status: Active Protocol: Document 06/27/21 11:56 HH (Rec: 06/27/21 12:35 HH [email or web address]) Physical Therapy Assessment Rehab Potential Rehabilitation Potential Good Evaluation Complexity Number of Personal Factors/Comorbidities 3 or More Number of Body Systems Impaired 3 Clinical Presentation at Evaluation Stable Impairments Impairments Activity Tolerance,Balance, Functional Activities, Functional Mobility,Gait,Pain, Posture,ROM,Soft Tissue Mobility,Strength,Transfers Goals pain Impairment constant pain 5/10 Short Term Goal (STG) pt will show self efficacy by utilizing postural exercises to reduce spinal pressure in WB position STG Duration 5 weeks HEP Impairment pt is very sedentary Short Term Goal (STG) pt will be compliant to participate daily HEP for pain management and increasing her physical activity level STG Duration 5 weeks Programming Equipment Operator Goal (LTG) pt will participate any physical activity up to 1 hour per day to promote physical activity. LTG Duration 10 weeks activity tolerance Impairment unable to stand/ walk > 10-15 mins Short Term Goal (STG) pt will be able to stand or walking 20 mins x 3 times/ week without increase in pain. STG Duration 5 weeks Mcc Goal (LTG) pt will be able to stand or walking 30 mins x 4 times/ week without increase in pain. LTG Duration 10 weeks Owestry Impairment pt scores 46 on Owestry Short Term Goal (STG) pt will be able to show improved overall mobility and activity tolerance by scoring 40 or less on Owestry STG Duration 5 weeks Programming Equipment Operator Goal (LTG) pt will be able to show improved overall mobility and activity tolerance by scoring 30 or less on Owestry LTG Duration 10 weeks Assessment Summary Assessment Jodi is a 56 yo sedentary female here for her chronic LBP, bilateral shoulder pain and decreased activitiy tolerance. Medical history includes COPD (current everyday smoker) , depression, bipolar 2 disorder and fibromyalgia. Upon assessment, pt presents extension intolerance syndrome ( significant lumbar lordosis and thoracic kyphosis with FHP ). She shows significant angulation at L2 region during lateral flexion and extension movements and unable to flex lumbar with forward bending test. Spent time educating pt regarding the POC is to increase her postural awareness and lumbar segmental flexion & thoracic extension mobility followed by trunk stabilization related ex. Although pt has multiple comorbidities, i believe pt can benefit from skilled therapy to effectively manage her pain and promote physical activity level. Physical Therapy Plan Frequency and Duration Frequency of Treatment 2x/Week Duration of Treatment 10 weeks Plan of Care Start Date 06/27/21 Plan of Care End Date 09/10/21 Therapeutic Interventions Therapeutic Interventions Aquatic Therapy,Balance Training,Gait Training,Home Exercise Program,Joint Mobilizations,Manual Therapy, Neuromuscular Re-education, Patient/Caregiver Education, Self-Care/Home Management,Soft Tissue Mobilization,Taping, Therapeutic Activities, Therapeutic Exercises Modalities Cold Pack/Ice Massage,Electric Stimulation,Hot Packs, Infrared Therapy,Traction- Mechanical,Ultrasound Next Visit Focus/Plan Next Note Type Treatment Note Next Visit Plan review posture awreness, scap retracion STM on pecs, paraspinals seated lumbar stretch pec stretch ta activation
--- NOTE | 2021-06-27 12:35 | PT.OPPOC ---
Physical, Occupational & Speech Therapy [facility] Current Diagnoses Other chronic pain (06/27/21) Spondylosis without myelopathy or radiculopathy, lumbar region (06/27/21) Low back pain (06/27/21) Visit Care Team Role Provider Type ARIANNA Caballero Attending Provider Advanced Credit Processor Family Provider Primary Care Provider Referring Provider Specialty: Family Practice Address: [address] [place] [address], [id number] Email: [email or web address] Plan Of Care PT-OP-T Assessment and Plan Start: 06/27/21 10:52 Freq: Status: Active Protocol: Document 06/27/21 11:56 HH (Rec: 06/27/21 12:35 HH [email or web address]) Physical Therapy Assessment Rehab Potential Rehabilitation Potential Good Evaluation Complexity Number of Personal Factors/Comorbidities 3 or More Number of Body Systems Impaired 3 Clinical Presentation at Evaluation Stable Impairments Impairments Activity Tolerance,Balance, Functional Activities, Functional Mobility,Gait,Pain, Posture,ROM,Soft Tissue Mobility,Strength,Transfers Goals pain Impairment constant pain 5/10 Short Term Goal (STG) pt will show self efficacy by utilizing postural exercises to reduce spinal pressure in WB position STG Duration 5 weeks HEP Impairment pt is very sedentary Short Term Goal (STG) pt will be compliant to participate daily HEP for pain management and increasing her physical activity level STG Duration 5 weeks Vocational Counselor Goal (LTG) pt will participate any physical activity up to 1 hour per day to promote physical activity. LTG Duration 10 weeks activity tolerance Impairment unable to stand/ walk > 10-15 mins Short Term Goal (STG) pt will be able to stand or walking 20 mins x 3 times/ week without increase in pain. STG Duration 5 weeks Prison Goal (LTG) pt will be able to stand or walking 30 mins x 4 times/ week without increase in pain. LTG Duration 10 weeks Owestry Impairment pt scores 46 on Owestry Short Term Goal (STG) pt will be able to show improved overall mobility and activity tolerance by scoring 40 or less on Owestry STG Duration 5 weeks Vocational Counselor Goal (LTG) pt will be able to show improved overall mobility and activity tolerance by scoring 30 or less on Owestry LTG Duration 10 weeks Assessment Summary Assessment Jodi is a 56 yo sendentary female here for her chronic LBP, bilateral shoulder pain and decreased activitiy tolerance. Medical history includes COPD (current everyday smoker) , depression, bipolar 2 disorder and fibromyalgia. Upon assessment, pt presents extension intolerance syndrome ( significant lumbar lordosis and thoracic kyphosis with FHP ). She shows significant angulation at L2 region during lateral flexion and extension movements and unable to flex lumbar with forward bending test. Spent time educating pt regarding the POC is to increase her postural awareness and lumbar segmental flexion & thoracic extension mobility followed by trunk stabilization related ex. Although pt has multiple cormorbidities, i believe pt can benefit from skilled therapy to effectively manage her pain and promote physical activity level. Physical Therapy Plan Frequency and Duration Frequency of Treatment 2x/Week Duration of Treatment 10 weeks Plan of Care Start Date 06/27/21 Plan of Care End Date 09/10/21 Therapeutic Interventions Therapeutic Interventions Aquatic Therapy,Balance Training,Gait Training,Home Exercise Program,Joint Mobilizations,Manual Therapy, Neuromuscular Re-education, Patient/Caregiver Education, Self-Care/Home Management,Soft Tissue Mobilization,Taping, Therapeutic Activities, Therapeutic Exercises Modalities Cold Pack/Ice Massage,Electric Stimulation,Hot Packs, Infrared Therapy,Traction- Mechanical,Ultrasound Next Visit Focus/Plan Next Note Type Treatment Note Next Visit Plan review posture awreness, scap retracion STM on pecs, paraspinals seated lumbar stretch pec stretch ta activation Plan of Care Dates Plan of Care Start Date 06/27/21 Plan of Care End Date 09/10/21 Electronically Signed by: Fabian Erazo PT 06/27/21 [id number] Please Sign and Return: I have reviewed this Plan of Care and certify that the skilled therapy services above are required to meet the patient?s needs. Physician Signature Date Printed Name and Credentials Clinical Instructor Signature Printed Name and Credentials
--- NOTE | 2021-06-30 14:33 | PT.OTN ---
Current Diagnoses Other chronic pain (06/30/21) Spondylosis without myelopathy or radiculopathy, lumbar region (06/30/21) Low back pain (06/30/21) Physical Therapy Treatment Note PT-OP-A Visit Information Start: 06/27/21 10:52 Freq: Status: Active Protocol: Document 06/30/21 13:03 HH (Rec: 06/30/21 14:32 [id number]) Out-Patient Physical Therapy Visit Information Visit Information Visit Type Treatment Note Visit Start Time 13:45 Visit Stop Time 14:30 Total Visit Minutes 45 Visit Number 2 Number of ASSEMBLING MACHINE OPERATOR Visits 0 PT-OP-B Current Condition Start: 06/27/21 10:52 Freq: Status: Active Protocol: Document 06/27/21 11:56 HH (Rec: 06/27/21 12:35 HH [email or web address]) Current Condition History of Current Condition Onset Date >10 years ago Current Complaints chronic LBP, R>L, decreased activity tolerance History of Current Condition Jodi is a 56 yo female who is unemployed (disabled) and lives with her parents for the past 16 years, 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 She states her LBP has been >10 years and did get worse after she fell off from a hourse 3-4 years resulting veterbral fx and herniated discs. Her pain is located at the center of the entire lumbar spine and it does radiates laterally. Denies tingling and numbness to LEs. Her pain is worse with standing/ walking >10-15 mins, horse riding >30 mins and any prolonged activity. She said nothing makes her symptoms better and she sleeps in a recliner for many years d/t back pain. She notices that extension is worse for her. She states she is very sedentary and stay in her room most of the time. PMH includes COPD, current smoker (cigarette and vaping) 1 pack /day. She does like to ride her horse twice a month only d /t her LBP. Personal Factors Other Personal Factors That May Effect depression Therapy/Recovery chronic COPD fibromyalgia PT-OP-C Subjective Start: 06/27/21 10:52 Freq: Status: Active Protocol: Document 06/30/21 13:03 HH (Rec: 06/30/21 14:32 [id number]) OP-PT Subjective Patient Comments Patient Comments My back of shoulders are sore but the rowing exercise does help me to sit straighter. PT-OP-D Balance Start: 06/27/21 10:52 Freq: Status: Active Protocol: Document 06/27/21 11:56 HH (Rec: 06/27/21 12:35 [email or web address]) Balance Tests Single Limb Standing Single Limb- Right 3 Single Limb- Left 3 PT-OP-F Manual Assessment Start: 06/27/21 10:52 Freq: Status: Active Protocol: Document 06/27/21 11:56 HH (Rec: 06/27/21 12:35 [email or web address]) Manual Assessments Soft Tissue Assessment Soft Tissue Mobility Assessment hypertonicity noted at both lumbar paraspinals and QL significant pain to light pressure at pecs Joint Mobility Assessment Joint Mobility Assessment hypermobile L2 during extension PT-OP-G Mobility & Gait Start: 06/27/21 10:52 Freq: Status: Active Protocol: Document 06/27/21 11:56 HH (Rec: 06/27/21 12:35 [email or web address]) OP Mobility Evaluation Bed Mobility Supine to and from Sit require mod A to pull PT-OP-H Neuro Start: 06/27/21 10:52 Freq: Status: Active Protocol: Document 06/27/21 11:56 HH (Rec: 06/27/21 12:35 [email or web address]) Sensation Evaluation Gross Sensation Gross Sensation WNL PT-OP-J Posture/Palpation/Skin Start: 06/27/21 10:52 Freq: Status: Active Protocol: Document 06/27/21 11:56 HH (Rec: 06/27/21 12:35 [email or web address]) Posture Evaluation Position Standing Head/C-Spine Posture Forward Head T-Spine Posture Increased Kyphosis L-Spine Posture Increased Lordosis Shoulder Posture (L) Rounded,(R) Rounded Scapula Posture (L) Protracted,(R) Protracted Pelvis Posture Anteriorly Tilted Comments Posture Comments dowager hump noted at CT junction angulation noted at L2 level PT-OP-K Range of Motion Start: 06/27/21 10:52 Freq: Status: Active Protocol: Document 06/27/21 11:56 HH (Rec: 06/27/21 12:35 [email or web address]) Lumbar Spine Range of Motion Lumbar Spine Active Degrees Comments toe touch = 2 inches off from floor, lack of segmental lumbar flexion, flexion takes place from T/S and hip lateral flexion =23 inches from floor d/t pain extension= up to neutral only with significant pressure/dull pain at L2-L4 . PT-OP-L Special Tests Start: 06/27/21 10:52 Freq: Status: Active Protocol: Document 06/27/21 11:56 HH (Rec: 06/27/21 12:35 HH [email or web address]) Special Tests Lumbar Spine Special Tests A-P Shearing Test Results +VE at L2 Straight Leg Raise Test Results 90 degrees Comments 5x ASLR triggers pt's back pain Prone Instability Test Test Results unable to tolerate prone Vertical Spine Loading Test Results +VE Comments pain at L2 region, signs of instability PT-OP-Q Treatments Start: 06/27/21 10:52 Freq: Status: Active Protocol: Document 06/30/21 13:03 HH (Rec: 06/30/21 14:32 [id number]) Therapeutic Exercises Supine Exercises PPT Reps/Minutes 10 x1 Comments for HEP, cues on flattening the back Sitting Exercises trunk flexion Side bilateral Reps/Minutes 5 sec pull on big toe Comments for HEP pec stretch Sitting Exercise Name arm behind buttocks Side bilateral Reps/Minutes 10 sec hold Comments for HEP scap retraction Comments for HEP Standing Exercises calf stretch Side bilateral Reps/Minutes 10 sec hold Manual Therapy Treatment Soft Tissue Mobilization lumbar Mobilization Type Myofascial Release,Sustained Pressure,Trigger Point Release Intensity/Depth Moderate Body Position Sitting pecs Mobilization Type Myofascial Release,Sustained Pressure,Trigger Point Release Intensity/Depth Superficial PT-OP-T Assessment and Plan Start: 06/27/21 10:52 Freq: Status: Active Protocol: Document 06/30/21 13:03 HH (Rec: 06/30/21 14:32 [id number]) Physical Therapy Assessment Goals pain Impairment constant pain 5/10 Short Term Goal (STG) pt will show self efficacy by utilizing postural exercises to reduce spinal pressure in WB position STG Duration 5 weeks HEP Impairment pt is very sedentary Short Term Goal (STG) pt will be compliant to participate daily HEP for pain management and increasing her physical activity level STG Duration 5 weeks Fire Assistant Goal (LTG) pt will participate any physical activity up to 1 hour per day to promote physical activity. LTG Duration 10 weeks activity tolerance Impairment unable to stand/ walk > 10-15 mins Short Term Goal (STG) pt will be able to stand or walking 20 mins x 3 times/ week without increase in pain. STG Duration 5 weeks Mcfp Goal (LTG) pt will be able to stand or walking 30 mins x 4 times/ week without increase in pain. LTG Duration 10 weeks Owestry Impairment pt scores 46 on Owestry Short Term Goal (STG) pt will be able to show improved overall mobility and activity tolerance by scoring 40 or less on Owestry STG Duration 5 weeks Fire Assistant Goal (LTG) pt will be able to show improved overall mobility and activity tolerance by scoring 30 or less on Owestry LTG Duration 10 weeks Assessment Summary Assessment first tx session with pt today . Continue to spend time on postural correction. Pt's calf are extremely tight with very limited DF. Added calf stretch, trunk flexion, pec stretch to HEP. Pt shows good understanding. Physical Therapy Plan Frequency and Duration Frequency of Treatment 2x/Week Duration of Treatment 10 weeks Plan of Care Start Date 06/27/21 Plan of Care End Date 09/10/21 Therapeutic Interventions Therapeutic Interventions Aquatic Therapy,Balance Training,Gait Training,Home Exercise Program,Joint Mobilizations,Manual Therapy, Neuromuscular Re-education, Patient/Caregiver Education, Self-Care/Home Management,Soft Tissue Mobilization,Taping, Therapeutic Activities, Therapeutic Exercises Modalities Cold Pack/Ice Massage,Electric Stimulation,Hot Packs, Infrared Therapy,Traction- Mechanical,Ultrasound Next Visit Focus/Plan Next Note Type Treatment Note Next Visit Plan review posture awreness, scap retracion STM on pecs, paraspinals seated lumbar stretch pec stretch ta activation
--- NOTE | 2021-07-05 14:30 | PT.OTN ---
Current Diagnoses Other chronic pain (07/05/21) Spondylosis without myelopathy or radiculopathy, lumbar region (07/05/21) Low back pain (07/05/21) Physical Therapy Treatment Note PT-OP-A Visit Information Start: 06/27/21 10:52 Freq: Status: Active Protocol: Document 07/05/21 13:49 HH (Rec: 07/05/21 14:30 HH [id number]) Out-Patient Physical Therapy Visit Information Visit Information Visit Type Treatment Note Visit Start Time 13:48 Visit Stop Time 14:30 Total Visit Minutes 42 Visit Number 3 Number of BLAST SETTER Visits 0 PT-OP-B Current Condition Start: 06/27/21 10:52 Freq: Status: Active Protocol: Document 06/27/21 11:56 HH (Rec: 06/27/21 12:35 HH [email or web address]) Current Condition History of Current Condition Onset Date >10 years ago Current Complaints chronic LBP, R>L, decreased activity tolerance History of Current Condition Jodi is a 56 yo female who is unemployed (disabled) and lives with her parents for the past 16 years, 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 She states her LBP has been >10 years and did get worse after she fell off from a hourse 3-4 years resulting veterbral fx and herniated discs. Her pain is located at the center of the entire lumbar spine and it does radiates laterally. Denies tingling and numbness to LEs. Her pain is worse with standing/ walking >10-15 mins, horse riding >30 mins and any prolonged activity. She said nothing makes her symptoms better and she sleeps in a recliner for many years d/t back pain. She notices that extension is worse for her. She states she is very sedentary and stay in her room most of the time. PMH includes COPD, current smoker (cigarette and vaping) 1 pack /day. She does like to ride her horse twice a month only d /t her LBP. Personal Factors Other Personal Factors That May Effect depression Therapy/Recovery chronic COPD fibromyalgia PT-OP-C Subjective Start: 06/27/21 10:52 Freq: Status: Active Protocol: Document 07/05/21 13:49 HH (Rec: 07/05/21 14:30 HH [id number]) OP-PT Subjective Patient Comments Patient Comments Beth been sick the past week but im better. PT-OP-D Balance Start: 06/27/21 10:52 Freq: Status: Active Protocol: Document 06/27/21 11:56 HH (Rec: 06/27/21 12:35 [email or web address]) Balance Tests Single Limb Standing Single Limb- Right 3 Single Limb- Left 3 PT-OP-F Manual Assessment Start: 06/27/21 10:52 Freq: Status: Active Protocol: Document 06/27/21 11:56 HH (Rec: 06/27/21 12:35 HH [email or web address]) Manual Assessments Soft Tissue Assessment Soft Tissue Mobility Assessment hypertonicity noted at both lumbar paraspinals and QL significant pain to light pressure at pecs Joint Mobility Assessment Joint Mobility Assessment hypermobile L2 during extension PT-OP-G Mobility & Gait Start: 06/27/21 10:52 Freq: Status: Active Protocol: Document 06/27/21 11:56 HH (Rec: 06/27/21 12:35 [email or web address]) OP Mobility Evaluation Bed Mobility Supine to and from Sit require mod A to pull PT-OP-H Neuro Start: 06/27/21 10:52 Freq: Status: Active Protocol: Document 06/27/21 11:56 HH (Rec: 06/27/21 12:35 [email or web address]) Sensation Evaluation Gross Sensation Gross Sensation WNL PT-OP-J Posture/Palpation/Skin Start: 06/27/21 10:52 Freq: Status: Active Protocol: Document 06/27/21 11:56 HH (Rec: 06/27/21 12:35 [email or web address]) Posture Evaluation Position Standing Head/C-Spine Posture Forward Head T-Spine Posture Increased Kyphosis L-Spine Posture Increased Lordosis Shoulder Posture (L) Rounded,(R) Rounded Scapula Posture (L) Protracted,(R) Protracted Pelvis Posture Anteriorly Tilted Comments Posture Comments dowager hump noted at CT junction angulation noted at L2 level PT-OP-K Range of Motion Start: 06/27/21 10:52 Freq: Status: Active Protocol: Document 06/27/21 11:56 HH (Rec: 06/27/21 12:35 [email or web address]) Lumbar Spine Range of Motion Lumbar Spine Active Degrees Comments toe touch = 2 inches off from floor, lack of segmental lumbar flexion, flexion takes place from T/S and hip lateral flexion =23 inches from floor d/t pain extension= up to neutral only with significant pressure/dull pain at L2-L4 . PT-OP-L Special Tests Start: 06/27/21 10:52 Freq: Status: Active Protocol: Document 06/27/21 11:56 HH (Rec: 06/27/21 12:35 HH [email or web address]) Special Tests Lumbar Spine Special Tests A-P Shearing Test Results +VE at L2 Straight Leg Raise Test Results 90 degrees Comments 5x ASLR triggers pt's back pain Prone Instability Test Test Results unable to tolerate prone Vertical Spine Loading Test Results +VE Comments pain at L2 region, signs of instability PT-OP-Q Treatments Start: 06/27/21 10:52 Freq: Status: Active Protocol: Document 07/05/21 13:49 HH (Rec: 07/05/21 14:30 [id number]) Cardio Equipment Upper Body Ergometer (UBE) Duration (Minutes) 4 Other 30 f/b Therapeutic Exercises Supine Exercises LTR Side bilateral Reps/Minutes 10 x2 PPT Reps/Minutes 10 x1 Comments for HEP, cues on flattening the back Sitting Exercises PPT Reps/Minutes 10 x2 Comments cues on gluteal and abdominal engagement. trunk flexion Sitting Exercise Name review Side bilateral Reps/Minutes 5 sec pull on big toe Comments for HEP pec stretch Sitting Exercise Name arm behind buttocks Side bilateral Reps/Minutes 10 sec hold Comments for HEP scap retraction Comments for HEP Manual Therapy Treatment Soft Tissue Mobilization lumbar Mobilization Type Myofascial Release,Sustained Pressure,Trigger Point Release Intensity/Depth Moderate Body Position Sitting pecs Mobilization Type Myofascial Release,Sustained Pressure,Trigger Point Release Intensity/Depth Superficial PT-OP-T Assessment and Plan Start: 06/27/21 10:52 Freq: Status: Active Protocol: Document 07/05/21 13:49 HH (Rec: 07/05/21 14:30 [id number]) Physical Therapy Assessment Goals pain Impairment constant pain 5/10 Short Term Goal (STG) pt will show self efficacy by utilizing postural exercises to reduce spinal pressure in WB position STG Duration 5 weeks HEP Impairment pt is very sedentary Short Term Goal (STG) pt will be compliant to participate daily HEP for pain management and increasing her physical activity level STG Duration 5 weeks Agricultural Equipment Sales Engineer Goal (LTG) pt will participate any physical activity up to 1 hour per day to promote physical activity. LTG Duration 10 weeks activity tolerance Impairment unable to stand/ walk > 10-15 mins Short Term Goal (STG) pt will be able to stand or walking 20 mins x 3 times/ week without increase in pain. STG Duration 5 weeks Agricultural Equipment Sales Engineer Goal (LTG) pt will be able to stand or walking 30 mins x 4 times/ week without increase in pain. LTG Duration 10 weeks Owestry Impairment pt scores 46 on Owestry Short Term Goal (STG) pt will be able to show improved overall mobility and activity tolerance by scoring 40 or less on Owestry STG Duration 5 weeks Agricultural Equipment Sales Engineer Goal (LTG) pt will be able to show improved overall mobility and activity tolerance by scoring 30 or less on Owestry LTG Duration 10 weeks Assessment Summary Assessment tx focused on PPT movement and abdominal engagement. Pt shows improved chest stretch mechanics but her R shoulder tends to get irritated easily d/t her significant FHP and rounded shoulders. Physical Therapy Plan Frequency and Duration Frequency of Treatment 2x/Week Duration of Treatment 10 weeks Plan of Care Start Date 06/27/21 Plan of Care End Date 09/10/21 Therapeutic Interventions Therapeutic Interventions Aquatic Therapy,Balance Training,Gait Training,Home Exercise Program,Joint Mobilizations,Manual Therapy, Neuromuscular Re-education, Patient/Caregiver Education, Self-Care/Home Management,Soft Tissue Mobilization,Taping, Therapeutic Activities, Therapeutic Exercises Modalities Cold Pack/Ice Massage,Electric Stimulation,Hot Packs, Infrared Therapy,Traction- Mechanical,Ultrasound Next Visit Focus/Plan Next Note Type Treatment Note Next Visit Plan review posture awreness, scap retracion STM on pecs, paraspinals seated lumbar stretch pec stretch ta activation
--- NOTE | 2021-07-20 16:56 | PT.OPDS ---
Current Diagnoses Other chronic pain (07/05/21) Spondylosis without myelopathy or radiculopathy, lumbar region (07/05/21) Low back pain (07/05/21) Visit Care Team Role Provider Type ARIANNA Caballero Attending Provider Advanced Curriculum Advisory Teacher Family Provider Primary Care Provider Referring Provider Specialty: Family Practice Address: [address] [place] [address], [facility] Email: [email or web address] Number Visit Number Discharge Summary PT-OP-T Assessment and Plan Start: 06/27/21 10:52 Freq: Status: Active Protocol: Document 07/20/21 16:55 (Rec: 07/20/21 16:56 [email or web address]) Physical Therapy Plan Discharge Physical Therapy Discharge Reasons Patient Request Discharge Comments pt called in to cancel all her appts since she cannot afford high-copay. she requested to be DC from PT./
== END 2021-07-21 08:02 | disposition home or self-care (01) ==
LOC: PHYS 13:45
PROVIDERS: Family Provider Nurse Practitioner Family; PCP Nurse Practitioner Family; Referring Provider Nurse Practitioner Family; Visit Provider Nurse Practitioner Family
DX: M54.5 Low back pain (principal); G89.29 Other chronic pain; M47.816 Spondylosis without myelopathy or radiculopathy, lumbar region
CPT/HCPCS: 97110; 97140; 97162; 97535

== ENCOUNTER → 2021-10-20 08:02 | Outpatient (CLI) | payer MEDICARE, SELFPAY ==
[2021-10-20 10:38] LABS: Hematocrit 40.9 % (36-46); Hemoglobin 13.5 g/dL (12.0-16.0); Mean Corpuscular Volume 84.8 fL (80-100); Platelet Count 342 X10^3/uL (150-400); Red Blood Cell Count 4.83 X10^6/uL (4.0-5.2); White Blood Cell Count 7.6 X10^3/uL (4.5-11.0)
[2021-10-20 11:38] LABS: Alanine Aminotransferase 16 IU/L (<35); Albumin 4.2 g/dL (3.5-5.0); Albumin Globulin Ratio 1.7 (1.0-2.8); Alkaline Phosphatase 98 U/L (38-126); Aspartate Aminotransferase 20 IU/L (14-36); BUN Creatinine Ratio 9.8 (6-22); Bilirubin Total 0.3 mg/dL (0.2-1.3); Blood Urea Nitrogen 9 mg/dL (7-17); Calcium 9.7 mg/dL (8.4-10.2); Carbon Dioxide 32 mmol/L (22-32); Chloride 106 mmol/L (98-107); Cholesterol 121 mg/dL (140-199); Estimated Glomerular Filt Rate > 60.0 mL/min (>60); Globulin 2.5 g/dL (1.7-4.1); Glucose 99 mg/dL (70-100); HDL Cholesterol 36 mg/dL (40-60); HEMOLYSIS < 15 (0-50); LDL Cholesterol Calculated 57 mg/dL (<100); Potassium 3.8 mmol/L (3.4-5.1); Sodium 144 mmol/L (137-145); Total Protein 6.7 g/dL (6.3-8.2); Triglycerides 141 mg/dL (35-150)
[2021-10-20 12:06] LABS: TSH w/ Reflex to FT4 3.03 uIU/mL (0.47-4.68)
== END ==
PROVIDERS: Family Provider Nurse Practitioner Family; PCP Nurse Practitioner Family; Referring Provider Nurse Practitioner Family; Visit Provider Nurse Practitioner Family
DX: E78.2 Mixed hyperlipidemia (principal); Z00.00 Encounter for general adult medical examination without abnormal findings; J44.9 Chronic obstructive pulmonary disease, unspecified; I10 Essential (primary) hypertension; Z13.6 Encounter for screening for cardiovascular disorders
CPT/HCPCS: 36415; 80053; 80061; 84443; 85027

== ENCOUNTER → 2021-10-24 09:28 | Outpatient (ROUT) | payer MEDICARE, SELFPAY ==
[2021-10-24 10:10] LABS: Lithium 0.7 mmol/L (0.6-1.2)
[2021-10-27 12:12] LABS: Lamotrigine Lamictal 6.7 ug/mL (2.0-20.0)
== END ==
PROVIDERS: Family Provider Nurse Practitioner Family; PCP Nurse Practitioner Family; Visit Provider Psychiatry & Neurology Psychiatry
DX: F31.81 Bipolar II disorder (principal); Z79.899 Other long term (current) drug therapy; Z51.81 Encounter for therapeutic drug level monitoring
CPT/HCPCS: 80175; 80178; 80299

== ENCOUNTER → 2021-11-08 08:32 | Outpatient (CLI) | payer MEDICARE, SELFPAY ==
[2021-11-08 10:14] LABS: Add Manual Diff / Slide Review NO; Basophils Absolute Auto 100 /uL (0-100); Eosinophils Absolute Auto 0 /uL (0-450); Eosinophils Percent Auto 0.1 % (2-4); Hematocrit 39.5 % (36-46); Hemoglobin 13.3 g/dL (12.0-16.0); Lymphocytes Absolute Auto 2000 /uL (1100-4500); Lymphocytes Percent Auto 24.9 % (25-40); Mean Corpuscular HGB Conc 33.7 % (30-36); Mean Corpuscular Hemoglobin 28.1 PG (26-34); Mean Corpuscular Volume 83.5 fL (80-100); Monocytes Absolute Auto 800 /uL (0-900); Monocytes Percent Auto 9.7 % (3-14); Neutrophils Absolute Auto 5000 /uL (1500-7000); Neutrophils Percent Auto 64.3 % (50-75); Platelet Count 374 X10^3/uL (150-400); Red Blood Cell Count 4.73 X10^6/uL (4.0-5.2); Red Cell Distribution Width 14.4 % (11.6-14.8); White Blood Cell Count 7.8 X10^3/uL (4.5-11.0)
[2021-11-08 10:24] LABS: UR Morphine/Opiate cutoff 300 Negative (Negative); Ur Creatinine Normal (Normal); Ur Specific Gravity Normal (Normal); Urine Amphetamines Negative (Negative); Urine Barbiturates Negative (Negative); Urine Benzodiazepines Negative (Negative); Urine Cocaine Negative (Negative); Urine MDMA Negative (Negative); Urine Methadone Negative (Negative); Urine Methamphetamines Negative (Negative); Urine Oxycodone Negative (Negative); Urine Phencyclidine Negative (Negative); Urine Tetrahydrocannabinol Positive (Negative); Urine Tricyclic Antidepressant Negative (Negative); Urine pH Normal (Normal)
[2021-11-08 10:59] LABS: Lithium 0.7 mmol/L (0.6-1.2)
[2021-11-08 11:03] LABS: Alanine Aminotransferase 17 IU/L (<35); Albumin 4.2 g/dL (3.5-5.0); Albumin Globulin Ratio 1.4 (1.0-2.8); Alkaline Phosphatase 135 U/L (38-126); Aspartate Aminotransferase 18 IU/L (14-36); Bilirubin Total 0.3 mg/dL (0.2-1.3); Blood Urea Nitrogen 8 mg/dL (7-17); Calcium 9.6 mg/dL (8.4-10.2); Carbon Dioxide 31 mmol/L (22-32); Chloride 105 mmol/L (98-107); Estimated Glomerular Filt Rate > 60.0 mL/min (>60); Globulin 2.9 g/dL (1.7-4.1); Glucose 138 mg/dL (70-100); HEMOLYSIS < 15 (0-50); Potassium 3.8 mmol/L (3.4-5.1); Sodium 142 mmol/L (137-145); Total Protein 7.1 g/dL (6.3-8.2)
[2021-11-08 11:18] LABS: Free T4, Direct Thyroxine 0.96 ng/dL (0.78-2.19)
[2021-11-08 11:32] LABS: Thyroid Stimulating Hormone 2.07 uIU/mL (0.47-4.68)
[2021-11-10 12:05] LABS: Lamotrigine Lamictal 5.2 ug/mL (2.0-20.0)
== END ==
PROVIDERS: Family Provider Nurse Practitioner Family; PCP Nurse Practitioner Family; Referring Provider Psychiatry & Neurology Psychiatry; Visit Provider Psychiatry & Neurology Psychiatry
DX: F31.81 Bipolar II disorder (principal)
CPT/HCPCS: 36415; 80053; 80175; 80178; 80305; 84439; 84443; 85025

== ENCOUNTER → 2021-11-15 09:00 | Outpatient (CLI) | payer MEDICARE, SELFPAY | PROVIDERS: Family Provider Nurse Practitioner Family; PCP Nurse Practitioner Family; Referring Provider Psychiatry & Neurology Psychiatry; Visit Provider Psychiatry & Neurology Psychiatry | DX: F31.81 Bipolar II disorder (principal) | CPT/HCPCS: 80299 ==

== ENCOUNTER → 2021-12-14 15:09 | Outpatient (CLI) | payer MEDICARE, SELFPAY ==
--- NOTE | 2021-12-14 15:10 | DI.RAD.S_ITS ---
PROCEDURE: XR CHEST 2V INDICATIONS: cough,copd TECHNIQUE: 2 views of the chest were acquired. COMPARISON: [facility], CR, XR CHEST 2V, 03/29/2021, 14:47. FINDINGS: Surgical changes and devices: None. Lungs and pleura: Lungs are clear. No pleural effusions or pneumothorax. Mediastinum: Mediastinal contours are normal. Heart size is normal. Bones and chest wall: The thoracic spine has degenerative changes mild kyphosis. IMPRESSION: No acute cardiopulmonary abnormality Dictated by: Glynn Cardenas M.D. on 12/14/2021 at 16:07 Approved by: Glynn Cardenas M.D. on 12/14/2021 at 16:13
== END ==
PROVIDERS: Family Provider Nurse Practitioner Family; PCP Nurse Practitioner Family; Referring Provider Internal Medicine; Visit Provider Internal Medicine
DX: J44.9 Chronic obstructive pulmonary disease, unspecified (principal); R05.9 Cough, unspecified
CPT/HCPCS: 71046

== ENCOUNTER → 2022-01-17 12:04 | Outpatient (CLI) | payer MEDICARE, SELFPAY ==
--- NOTE | 2022-01-17 12:05 | DI.RAD.S_ITS ---
PROCEDURE: XR FOOT LT MIN 3V INDICATIONS: left foot pain TECHNIQUE: 3 views of the foot were acquired. COMPARISON: None. FINDINGS: Bones: No acute fractures or dislocations. No suspicious bony lesions. Small plantar calcaneal spur. Soft tissues: No tibiotalar joint effusion. Achilles tendon appears normal. IMPRESSION: Left foot without acute fracture or dislocation. Small plantar calcaneal spurring. If there are persistent symptoms or clinical suspicion for pathology, then repeat radiographs or advanced imaging (CT or MRI) may be considered for further evaluation. Dictated by: Jarvis Chaudhry M.D. on 01/17/2022 at 15:33 Approved by: Jarvis Chaudhry M.D. on 01/17/2022 at 15:34
== END ==
PROVIDERS: Family Provider Nurse Practitioner Family; PCP Nurse Practitioner Family; Referring Provider Nurse Practitioner Family; Visit Provider Nurse Practitioner Family
DX: M77.32 Calcaneal spur, left foot (principal); M79.672 Pain in left foot
CPT/HCPCS: 73630

== ENCOUNTER → 2022-03-06 09:44 | Outpatient (CLI) | payer MEDICARE, SELFPAY ==
[2022-03-06 10:39] LABS: Add Manual Diff / Slide Review NO; Basophils Absolute Auto 100 /uL (0-100); Basophils Percent Auto 0.7 % (0-2); Eosinophils Absolute Auto 0 /uL (0-450); Eosinophils Percent Auto 0.1 % (2-4); Hematocrit 39.8 % (36-46); Hemoglobin 13.3 g/dL (12.0-16.0); Lymphocytes Absolute Auto 2000 /uL (1100-4500); Lymphocytes Percent Auto 20.9 % (25-40); Mean Corpuscular HGB Conc 33.3 % (30-36); Mean Corpuscular Volume 84.2 fL (80-100); Monocytes Absolute Auto 700 /uL (0-900); Monocytes Percent Auto 6.8 % (3-14); Neutrophils Absolute Auto 6900 /uL (1500-7000); Neutrophils Percent Auto 71.5 % (50-75); Platelet Count 304 X10^3/uL (150-400); Red Blood Cell Count 4.73 X10^6/uL (4.0-5.2); Red Cell Distribution Width 14.6 % (11.6-14.8); White Blood Cell Count 9.6 X10^3/uL (4.5-11.0)
== END ==
PROVIDERS: Family Provider Nurse Practitioner Family; PCP Nurse Practitioner Family; Referring Provider Psychiatry & Neurology Psychiatry; Visit Provider Psychiatry & Neurology Psychiatry
DX: F25.0 Schizoaffective disorder, bipolar type (principal)
CPT/HCPCS: 36415; 85025

== ENCOUNTER → 2022-03-07 14:30 | Outpatient (CLI) | payer MEDICARE, SELFPAY | PROVIDERS: Family Provider Nurse Practitioner Family; PCP Nurse Practitioner Family; Visit Provider Registered Nurse Diabetes Educator | DX: R30.0 Dysuria (principal) | CPT/HCPCS: 87077; 87086; 87186 ==

== ENCOUNTER 2022-03-14 11:19 | Emergency (ER) | payer MEDICARE, SELFPAY ==
[2022-03-14] VITALS (13 sets, daily range): BP systolic 117–137; BP diastolic 63–80; PULSE 55–60; RESP 16; TEMP 36.6; O2SAT 93–97
--- NOTE | 2022-03-14 12:18 | DI.RAD.S_ITS ---
PROCEDURE: XR CHEST 1V INDICATIONS: altered mental status TECHNIQUE: One view of the chest was acquired. COMPARISON: [facility], CR, XR CHEST 2V, 12/14/2021, 15:03. FINDINGS: Surgical changes and devices: None. Lungs and pleura: Lungs are clear. No pleural effusions or pneumothorax. Mediastinum: Mediastinal contours appear normal. Heart size is enlarged. Bones and chest wall: No suspicious bony lesions. Overlying soft tissues appear unremarkable. IMPRESSION: No acute cardiopulmonary pathology. Dictated by: Tin Viveros M.D. on 03/14/2022 at 12:36 Approved by: Tin Viveros M.D. on 03/14/2022 at 12:36
--- NOTE | 2022-03-14 12:32 | ED.WEAKNESS ---
HPI - Weakness General Chief complaint: Weakness Stated complaint: Possible medication reaction Time Seen by Provider: 03/14/22 12:05 Source: patient Mode of arrival: Family Vehicle History of Present Illness HPI Narrative: Patient is a 57-year-old female patient Of Dr. Martinez. She has a history of bipolar type 2 disorder, PTSD, polysubstance abuse in remission she has previously been stable on medications of lamotrigine gabapentin duloxetine clonazepam quetiapine and lithium. According to psychiatric notes he has been trying to change medications. She continues to have reactions. Olanzapine made her quite sedated. Multiple other previous medications also tried. Most recently clozapine has been added. She took her 1st dose yesterday at 9:00 p.m.. According to the mother patient has had decreasing mental status since then. She says it is actually a been going on for last day or so but significantly worse today. She is able to wake her whole with voice and stimulation. She says this morning she sort of slid down off the couch prompting an EMS call. Patient is not on any antiplatelet or anticoagulation medication. Mom says that she was quite confused this morning as well. She is generally weak all over but no focal deficits. She is still smoking marijuana according to psychiatry notes but no other drug use. Patient is an extremely poor historian at this point time. Most of history is from chart and mother. Patient is responsive to voice and mild stimulation. Related Data Home Medications Medication Instructions Recorded Confirmed fluticasone propionate 50 1 spray INTRANASAL DAILY 02/01/21 03/07/22 mcg/actuation nasal spray,suspension (Flonase Allergy Relief) ziprasidone HCl 40 mg capsule 40 mg PO DAILY cap 03/13/22 03/13/22 Previous Rx's Medication Instructions Recorded miscellaneous medical supply #1 each 07/09/19 (Blood Pressure Cuff) albuterol sulfate 90 mcg/actuation 2 puff INHALATION Q4-6H PRN #8.5 07/21/19 aerosol inhaler (Ventolin HFA) gram tizanidine 4 mg tablet 4 mg PO BEDTIME #90 tab 01/10/21 fluticasone 100 mcg-salmeterol 50 1 inh INHALATION BID #60 ea 03/29/21 mcg/dose blistr powdr for inhalation (Advair Diskus) ipratropium 0.5 mg-albuterol 3 mg 3 ml INHALATION Q6-8H PRN #180 ml 04/25/21 (2.5 mg base)/3 mL nebulization soln lithium carbonate 300 mg capsule See Rx Instructions .ROUTE 07/25/21 .COMPLEX #90 cap conjugated estrogens 0.625 mg/gram 0.3125 mg VAG 2XW #30 gram 08/17/21 vaginal cream (Premarin) doxycycline hyclate 100 mg capsule 100 mg PO BID #28 cap 12/14/21 amlodipine 2.5 mg tablet See Rx Instructions .ROUTE 12/20/21 .COMPLEX #90 tab lamotrigine 100 mg tablet 200 mg PO BID #120 tab 01/08/22 (Lamictal) pantoprazole 40 mg tablet,delayed See Rx Instructions .ROUTE 01/09/22 release .COMPLEX #90 tab propranolol 40 mg tablet 40 mg PO BID #180 tab 01/10/22 nystatin 100,000 unit/gram topical 1 applic TOPICAL BID #60 g 01/16/22 powder (Nystop) pravastatin 20 mg tablet 20 mg PO QPM 90 Days #90 tab 01/16/22 triamcinolone acetonide 0.1 % 1 applic TOPICAL BID #45 g 01/16/22 topical cream clonazepam 1 mg tablet See Rx Instructions PO TID #90 tab 02/19/22 duloxetine 20 mg capsule,delayed 20 mg PO BID #60 cap 02/19/22 release gabapentin 300 mg capsule 900 mg PO BID #180 cap 03/05/22 nitrofurantoin 100 mg PO BID #10 cap 03/07/22 monohydrate/macrocrystals 100 mg capsule (Macrobid) aripiprazole 10 mg tablet 10 mg PO BEDTIME #30 tab 03/09/22 clozapine 100 mg tablet See Rx Instructions .ROUTE 03/09/22 .COMPLEX #60 tab clozapine 50 mg tablet See Rx Instructions .ROUTE 03/09/22 .COMPLEX #10 tab Allergies Allergy/AdvReac Type Severity Reaction Status Date / Time adhesive Allergy Mild Rash Verified 03/14/22 11:42 codeine Allergy Mild N&V if she Verified 03/14/22 11:42 takes a lot, itch bowel prep AdvReac Severe Vomiting Uncoded 03/14/22 11:42 Review of Systems Review of Systems ROS Unobtainable: Unobtainable due to medical condition Patient History Medical History Alcohol dependence in sustained full remission Bilateral tinnitus Bipolar II disorder Chronic back pain Chronic pain Chronic post-traumatic stress disorder COPD (chronic obstructive pulmonary disease) (2012) Dyspareunia Essential hypertension (06/2019) Hormone replacement therapy Insomnia, unspecified Intermittent palpitations Intertrigo Left foot pain Lumbar transverse process fracture Mixed hyperlipidemia (06/2019) Morbid obesity with BMI of 40.0-44.9, adult Nicotine abuse Obstructive sleep apnea of adult (~10/2018) Surgical History S/P complete hysterectomy (1994) Social History marital status: details: lives in [place] household members: family lives independently: Yes (with elderly parents) caregiver/support person: No housing: house Smoking Status: Current every day smoker Tobacco: How many years used: 42 second hand exposure: No alcohol intake: former substance use type: does not use Smoking Status: Current every day smoker tobacco type: cigarettes alcohol intake frequency: 0-2 drinks per day Substance Use Type: marijuana Exam Initial Vital Signs Initial Vital Signs: Vital Signs Temperature 97.9 F 03/14/22 11:37 Pulse Rate 59 L 03/14/22 11:37 Respiratory Rate 16 03/14/22 11:37 Blood Pressure 133/80 03/14/22 11:37 Pulse Oximetry 96 03/14/22 11:37 GENERAL: 57-year-old female awakes to voice and mild stimulation HEENT: Head atraumatic,EOMI, pupils reactive, face symmetric, moist mucous membranes CARDIOVASCULAR: Regular rate and rhythm without murmurs, rubs or gallops. RESPIRATORY: Breath sounds equal bilaterally, no wheezes rales or rhonchi. ABDOMEN: Soft, nontender. Normoactive bowel sounds all 4 quadrants. No guarding or rebound. EXTREMITIES: Normal range of motion, no clubbing or edema. Neurovascularly intact NEUROLOGICAL: Oriented to person and time. Generally weak in all extremities no obvious focal deficits. SKIN: Warm, dry, no laceration, no petechiae, no rashes or lesions. Course Orders Ordered: ED Orders 03/14/22 12:17 Acetaminophen Stat Comprehensive Metabolic Panel Stat ETOH [Ethanol (ETOH)] Stat Lipase Stat Salicylate Stat Troponin & CK Cardiac Panel Stat 03/14/22 12:18 XR chest 1V Stat Complete Blood Count AUTO DIFF Stat 03/14/22 12:35 CT head/brain wo con Stat 03/14/22 12:46 EKG-12 Lead Stat 03/14/22 13:50 BNP [NT-proBNP (BNP-Adult 18+)] Stat 03/14/22 13:58 ABG [Arterial Blood Gas] Stat 03/14/22 14:05 Ammonia (NH3) Stat 03/14/22 15:30 Urine Drug Screen, Rapid Stat Vital Signs Vital signs: Vital Signs - 8 hr 03/14/22 12:30 03/14/22 12:42 03/14/22 13:00 Pulse Rate 55 L 57 L 56 L Blood Pressure 125/73 126/74 133/73 Pulse Oximetry 95 97 95 03/14/22 13:30 03/14/22 14:00 03/14/22 14:30 Pulse Rate 56 L 56 L 56 L Blood Pressure 117/66 123/75 122/67 Pulse Oximetry 95 94 95 03/14/22 15:00 03/14/22 15:30 03/14/22 16:00 Pulse Rate 56 L 60 57 L Blood Pressure 118/66 117/72 137/73 Pulse Oximetry 93 93 94 03/14/22 16:31 Pulse Rate 59 L Blood Pressure 122/63 Pulse Oximetry 95 MDM - Weakness Lab Data Result diagrams: 03/14/22 12:18 03/14/22 12:17 Labs: Lab Results 03/14/22 03/14/22 03/14/22 Range/Units 12:17 12:17 12:18 WBC 9.5 (4.5-11.0) X10^3/uL RBC 4.61 (4.0-5.2) X10^6/uL Hgb 12.5 (12.0-16.0) g/dL Hct 39.4 (36-46) % MCV 85.4 (80-100) fL MCH 27.2 (26-34) PG MCHC 31.9 (30-36) % RDW 14.8 (11.6-14.8) % Plt Count 319 (150-400) X10^3/uL Neut % (Auto) 66.3 (50-75) % Lymph % (Auto) 24.3 L (25-40) % Stafford % (Auto) 8.4 (3-14) % Eos % (Auto) 0.1 L (2-4) % Baso % (Auto) 0.9 (0-2) % Neut # (Auto) 6300 (0186-4102) /uL Lymph # (Auto) 2300 (4886-2299) /uL Stafford # (Auto) 800 (0-900) /uL Eos # (Auto) 0 (0-450) /uL Baso # (Auto) 100 (0-100) /uL ABG pH (7.35-7.45) ABG pCO2 (35-45) mmHg ABG pO2 (80-100) mmHg ABG HCO3 (22-26) mmol/L ABG Total CO2 (21-31) mmol/L ABG O2 Saturation (95-100) % ABG Base Excess (-2-2) mmol/L FiO2 Sodium 142 (137-145) mmol/L Potassium 3.7 (3.4-5.1) mmol/L Chloride 108 H (98-107) mmol/L Carbon Dioxide 33 H (22-32) mmol/L BUN 9 (7-17) mg/dL Creatinine 0.91 (0.52-1.04) mg/dL Estimated GFR > 60 (>60) mL/min BUN/Creatinine Ratio 9.9 (6-22) Glucose 98 (70-100) mg/dL Calcium 9.4 (8.4-10.2) mg/dL Total Bilirubin 0.4 (0.2-1.3) mg/dL AST 20 (14-36) IU/L ALT 12 (<35) IU/L Alkaline Phosphatase 107 (38-126) U/L Ammonia (9-30) umol/L Total Creatine Kinase 28 L (30-135) U/L CK-MB (CK-2) TNP CK-MB (CK-2) Rel Index TNP Troponin I < 0.012 (0.01-0.034) ng/mL Total Protein 6.8 (6.3-8.2) g/dL Albumin 4.2 (3.5-5.0) g/dL Globulin 2.6 (1.7-4.1) g/dL Albumin/Globulin Ratio 1.6 (1.0-2.8) Lipase 40 (23-300) U/L Salicylates < 1.0 (<20) mg/dL U Opiates 300ng/mL cut (Negative) Ur Oxycodone Screen (Negative) Urine Methadone Screen (Negative) Acetaminophen < 10 (10-30) ug/mL Ur Barbiturates Screen (Negative) U Tricyclic Antidepress (Negative) Ur Phencyclidine Scrn (Negative) Ur Amphetamines Screen (Negative) U Methamphetamines Scrn (Negative) Ur MDMA Scrn (Ecstasy) (Negative) U Benzodiazepines Scrn (Negative) Urine Cocaine Screen (Negative) U Marijuana (THC) Screen (Negative) Ethyl Alcohol < 10 ( - 10) mg/dL 03/14/22 03/14/22 03/14/22 Range/Units 13:58 14:05 15:30 WBC (4.5-11.0) X10^3/uL RBC (4.0-5.2) X10^6/uL Hgb (12.0-16.0) g/dL Hct (36-46) % MCV (80-100) fL MCH (26-34) PG MCHC (30-36) % RDW (11.6-14.8) % Plt Count (150-400) X10^3/uL Neut % (Auto) (50-75) % Lymph % (Auto) (25-40) % Stafford % (Auto) (3-14) % Eos % (Auto) (2-4) % Baso % (Auto) (0-2) % Neut # (Auto) (7043-1621) /uL Lymph # (Auto) (0623-5929) /uL Stafford # (Auto) (0-900) /uL Eos # (Auto) (0-450) /uL Baso # (Auto) (0-100) /uL ABG pH 7.36 (7.35-7.45) ABG pCO2 54.9 H (35-45) mmHg ABG pO2 58 L (80-100) mmHg ABG HCO3 (22-26) mmol/L ABG Total CO2 33 H (21-31) mmol/L ABG O2 Saturation 88 L (95-100) % ABG Base Excess 6.0 H (-2-2) mmol/L FiO2 21 Sodium (137-145) mmol/L Potassium (3.4-5.1) mmol/L Chloride (98-107) mmol/L Carbon Dioxide (22-32) mmol/L BUN (7-17) mg/dL Creatinine (0.52-1.04) mg/dL Estimated GFR (>60) mL/min BUN/Creatinine Ratio (6-22) Glucose (70-100) mg/dL Calcium (8.4-10.2) mg/dL Total Bilirubin (0.2-1.3) mg/dL AST (14-36) IU/L ALT (<35) IU/L Alkaline Phosphatase (38-126) U/L Ammonia < 9 L (9-30) umol/L Total Creatine Kinase (30-135) U/L CK-MB (CK-2) CK-MB (CK-2) Rel Index Troponin I (0.01-0.034) ng/mL Total Protein (6.3-8.2) g/dL Albumin (3.5-5.0) g/dL Globulin (1.7-4.1) g/dL Albumin/Globulin Ratio (1.0-2.8) Lipase (23-300) U/L Salicylates (<20) mg/dL U Opiates 300ng/mL cut Negative (Negative) Ur Oxycodone Screen Negative (Negative) Urine Methadone Screen Negative (Negative) Acetaminophen (10-30) ug/mL Ur Barbiturates Screen Negative (Negative) U Tricyclic Antidepress Negative (Negative) Ur Phencyclidine Scrn Negative (Negative) Ur Amphetamines Screen Negative (Negative) U Methamphetamines Scrn Negative (Negative) Ur MDMA Scrn (Ecstasy) Negative (Negative) U Benzodiazepines Scrn Negative (Negative) Urine Cocaine Screen Negative (Negative) U Marijuana (THC) Screen Positive H (Negative) Ethyl Alcohol ( - 10) mg/dL Imaging Data CT scan - head: Radiologist Impression: Signed Patient: Casandra Le MR#: [id number] : 1965 Acct:[id number] Age/Sex: 57 / F Date of Service: 03/14/22 Loc: ED Accession Number: [id number] ?? Procedure: CT head/brain wo con Ordering Provider: Vaishnavi Devlin D.O. PROCEDURE:? CT HEAD/BRAIN WO CON ? INDICATIONS:? decreased mental status ? TECHNIQUE:? Noncontrast 4.5 mm thick angled axial sections acquired from the foramen magnum to the vertex, with coronal and sagittal reformats.? For radiation dose reduction, the following was used:? automated exposure control, adjustment of mA and/or kV according to patient size.? ? COMPARISON:? [facility], CT, CT HEAD WITHOUT CONTRAST, 11/20/2017, 9:46.? [facility], CT, HEAD WITHOUT CONTRAST, 03/30/2017, 14:48. ? FINDINGS:? Image quality:? Excellent.? ? CSF spaces:? Basal cisterns are patent.? No extra-axial fluid collections.? Ventricles are normal in size and shape.? ? Brain:? No midline shift.? No intracranial masses or hemorrhage.? Marquez-white matter interface is normal.? ? Skull and face:? Calvarium and visualized facial bones are intact, without suspicious lesions.? ? Sinuses:? Visualized sinuses and mastoids are clear.? ? IMPRESSION:? No acute intracranial abnormality.? No interval change appreciated. ? ? Dictated by: Yan Herring M.D. on 03/14/2022 at 12:45 ? ? Approved by: Yan Herring M.D. on 03/14/2022 at 12:48 ? Chest x-ray: Radiologist Impression: Signed Patient: Casandra Le MR#: [id number] : 1965 Acct:[id number] Age/Sex: 57 / F Date of Service: 03/14/22 Loc: ED Accession Number: [id number] ?? Procedure: XR chest 1V Ordering Provider: Vaishnavi Devlin D.O. PROCEDURE:? XR CHEST 1V ? INDICATIONS:? altered mental status ? TECHNIQUE:? One view of the chest was acquired.? ? COMPARISON:? [facility], CR, XR CHEST 2V, 12/14/2021, 15:03. ? FINDINGS:? ? Surgical changes and devices:? None.? ? Lungs and pleura:? Lungs are clear.? No pleural effusions or pneumothorax.? ? Mediastinum:? Mediastinal contours appear normal.? Heart size is enlarged.? ? Bones and chest wall:? No suspicious bony lesions.? Overlying soft tissues appear unremarkable.? ? IMPRESSION:? No acute cardiopulmonary pathology. ? ? Dictated by: Tin Viveros M.D. on 03/14/2022 at 12:36 ? ECG Data Interpretation: Normal sinus rhythm rate 57 OK interval 272 QRS 102 QTC 430 MDM Narrative Medical decision making narrative: Patient initially is quite somnolent. Dr. Martinez briefly evaluated her here in the ED. This is probably a reaction to the medication. She has failed multiple psychiatric medications having a reaction. All of them. She is monitored here in the ER she actually becomes more awake and oriented. Workup. Is negative. Head CT is negative. Patient has ambulated in the ED with a walker. At this time no need for admission. Recommend follow-up with Psychology on March 19 as scheduled. I also recommended that she stop taking the medication. Discharge Plan Departure Patient Disposition: Home Clinical Impression: Medication reaction Instructions: DI for Adverse Drug Reaction -- Other Activity Restrictions/Additional Instructions: *You have been diagnosed with a drug reaction *What to do: This time you had a drug reaction to the new medication. Dr. Martinez is aware. He will have to work with Dr. Martinez on medications. *Continue to take medications as directed Stop taking Clozapine, talk with Dr. Martinez *Follow up with your primary care provider in 2-3 days or call [phone] *Return to ER if you should have increasing confusion, difficulty to wake up, thoughts of suicide or harming others or any new, worsening or concerning symptoms Prescriptions: No Action propranolol 40 mg tablet 40 mg PO BID Qty: 180 3RF duloxetine 20 mg capsule,delayed release(DR/EC) 20 mg PO BID Qty: 60 1RF clonazepam 1 mg tablet See Rx Instructions PO TID Qty: 90 0RF Rx Instructions: 0.5-1.0 mg (0.5 to 1 tab) PO three times a day; ziprasidone HCl 40 mg capsule 40 mg PO DAILY 0RF fluticasone propionate [Flonase Allergy Relief] 50 mcg/actuation spray,suspension 1 spray intranasal DAILY 0RF Rx Instructions: administer into each nostril gabapentin 300 mg capsule 900 mg PO BID Qty: 180 2RF albuterol sulfate [Ventolin HFA] 90 mcg/actuation HFA aerosol inhaler 2 puff INHALATION Q4-6H PRN (Reason: shortness of breath or wheezing) Qty: 8.5 0RF Rx Instructions: Take 2 puffs as needed every 4-6 hours as needed tizanidine 4 mg tablet 4 mg PO BEDTIME Qty: 90 1RF Rx Instructions: Take one tablet by mouth daily at bedtime. ipratropium-albuterol 0.5 mg-3 mg(2.5 mg base)/3 mL solution for nebulization 3 ml inhalation Q6-8H PRN (Reason: shortness of breath or wheezing) Qty: 180 1RF lithium carbonate 300 mg capsule See Rx Instructions .ROUTE .COMPLEX Qty: 90 11RF Dose Instruction: TAKE 3 CAPSULES BY MOUTH AT BEDTIME Rx Instructions: TAKE 3 CAPSULES BY MOUTH AT BEDTIME amlodipine 2.5 mg tablet See Rx Instructions .ROUTE .COMPLEX Qty: 90 3RF Dose Instruction: TAKE 1 TABLET BY MOUTH DAILY Rx Instructions: TAKE 1 TABLET BY MOUTH DAILY lamotrigine [Lamictal] 100 mg tablet 200 mg PO BID Qty: 120 5RF pantoprazole 40 mg tablet,delayed release (DR/EC) See Rx Instructions .ROUTE .COMPLEX Qty: 90 1RF Dose Instruction: TAKE 1 TABLET BY MOUTH DAILY Rx Instructions: TAKE 1 TABLET BY MOUTH DAILY clozapine 50 mg tablet See Rx Instructions .ROUTE .COMPLEX Qty: 10 0RF Rx Instructions: Take 25 mg (1/2 tab) PO for 3 days; then 50 mg (1 tab) PO for 3 days; then 75 mg (1.5 tab) for 3 days clozapine 100 mg tablet See Rx Instructions .ROUTE .COMPLEX Qty: 60 0RF Rx Instructions: Take 100 mg (1 tab) PO QHS for 3 days; then 150 mg (1.5 tab) PO QHS for 3 days; then 200 mg (2 tab) PO QHS Fill after 16 Mar 2022 aripiprazole 10 mg tablet 10 mg PO BEDTIME Qty: 30 0RF (DME) Blood Pressure Cuff misc See Rx Instructions .ROUTE .MEDSUPPLY Qty: 1 0RF Rx Instructions: As directed fluticasone propion-salmeterol [Advair Diskus] 100-50 mcg/dose blister with device 1 inh inhalation BID Qty: 60 0RF Premarin 0.625 mg/gram cream 0.3125 mg VAG 2XW Qty: 30 3RF doxycycline hyclate 100 mg capsule 100 mg PO BID Qty: 28 1RF nitrofurantoin monohyd/m-cryst [Macrobid] 100 mg capsule 100 mg PO BID Qty: 10 0RF Rx Instructions: must administer with a meal/food pravastatin 20 mg tablet 20 mg PO QPM 90 Days Qty: 90 3RF Rx Instructions: TAKE ONE TABLET BY MOUTH ONE TIME DAILY nystatin [Nystop] 100,000 unit/gram powder 1 applic topical BID Qty: 60 2RF triamcinolone acetonide 0.1 % cream 1 applic topical BID Qty: 45 0RF Rx Instructions: use sparingly on hands BID for up to 2 weeks. Referrals: Ramin Wood ARNP [Primary Care Provider] - Alfonso Martinez MD [Physician] -
--- NOTE | 2022-03-14 12:35 | DI.CT.S_ITS ---
PROCEDURE: CT HEAD/BRAIN WO CON INDICATIONS: decreased mental status TECHNIQUE: Noncontrast 4.5 mm thick angled axial sections acquired from the foramen magnum to the vertex, with coronal and sagittal reformats. For radiation dose reduction, the following was used: automated exposure control, adjustment of mA and/or kV according to patient size. COMPARISON: [facility], CT, CT HEAD WITHOUT CONTRAST, 11/20/2017, 9:46. [facility], CT, HEAD WITHOUT CONTRAST, 03/30/2017, 14:48. FINDINGS: Image quality: Excellent. CSF spaces: Basal cisterns are patent. No extra-axial fluid collections. Ventricles are normal in size and shape. Brain: No midline shift. No intracranial masses or hemorrhage. Marquez-white matter interface is normal. Skull and face: Calvarium and visualized facial bones are intact, without suspicious lesions. Sinuses: Visualized sinuses and mastoids are clear. IMPRESSION: No acute intracranial abnormality. No interval change appreciated. Dictated by: Yan Herring M.D. on 03/14/2022 at 12:45 Approved by: Yan Herring M.D. on 03/14/2022 at 12:48
[2022-03-14 13:23] LABS: Add Manual Diff / Slide Review NO; Basophils Absolute Auto 100 /uL (0-100); Basophils Percent Auto 0.9 % (0-2); Eosinophils Absolute Auto 0 /uL (0-450); Eosinophils Percent Auto 0.1 % (2-4); Hematocrit 39.4 % (36-46); Hemoglobin 12.5 g/dL (12.0-16.0); Lymphocytes Absolute Auto 2300 /uL (1100-4500); Lymphocytes Percent Auto 24.3 % (25-40); Mean Corpuscular HGB Conc 31.9 % (30-36); Mean Corpuscular Hemoglobin 27.2 PG (26-34); Mean Corpuscular Volume 85.4 fL (80-100); Monocytes Absolute Auto 800 /uL (0-900); Monocytes Percent Auto 8.4 % (3-14); Neutrophils Absolute Auto 6300 /uL (1500-7000); Neutrophils Percent Auto 66.3 % (50-75); Platelet Count 319 X10^3/uL (150-400); Red Blood Cell Count 4.61 X10^6/uL (4.0-5.2); Red Cell Distribution Width 14.8 % (11.6-14.8); White Blood Cell Count 9.5 X10^3/uL (4.5-11.0)
[2022-03-14 13:59] LABS: Acetaminophen < 10 ug/mL (10-30); Ethanol (ETOH) < 10 mg/dL; Salicylate < 1.0 mg/dL (<20)
[2022-03-14 14:00] LABS: Alanine Aminotransferase 12 IU/L (<35); Albumin 4.2 g/dL (3.5-5.0); Albumin Globulin Ratio 1.6 (1.0-2.8); Alkaline Phosphatase 107 U/L (38-126); Aspartate Aminotransferase 20 IU/L (14-36); BUN Creatinine Ratio 9.9 (6-22); Bilirubin Total 0.4 mg/dL (0.2-1.3); Blood Urea Nitrogen 9 mg/dL (7-17); Calcium 9.4 mg/dL (8.4-10.2); Carbon Dioxide 33 mmol/L (22-32); Chloride 108 mmol/L (98-107); Creatine Kinase 28 U/L (30-135); Estimated Glomerular Filt Rate > 60 mL/min (>60); Globulin 2.6 g/dL (1.7-4.1); Glucose 98 mg/dL (70-100); HEMOLYSIS < 15 (0-50); Lipase 40 U/L (23-300); Potassium 3.7 mmol/L (3.4-5.1); Sodium 142 mmol/L (137-145); Total Protein 6.8 g/dL (6.3-8.2)
[2022-03-14 14:07] LABS: PCO2 ABG 54.9 mmHg (35-45); PO2 ABG 58 mmHg (80-100); pH ABG 7.36 (7.35-7.45)
[2022-03-14 14:08] LABS: Fractionated Inspired Oxygen 21; Oxygen Saturation ABG 88 % (95-100); TCO2 ABG 33 mmol/L (21-31)
[2022-03-14 14:12] LABS: Troponin I < 0.012 ng/mL (0.01-0.034)
[2022-03-14 14:24] LABS: Ammonia (NH3) < 9 umol/L (9-30)
[2022-03-14 16:19] LABS: UR Morphine/Opiate cutoff 300 Negative (Negative); Ur Creatinine Normal (Normal); Ur Specific Gravity Normal (Normal); Urine Amphetamines Negative (Negative); Urine Barbiturates Negative (Negative); Urine Benzodiazepines Negative (Negative); Urine Cocaine Negative (Negative); Urine MDMA Negative (Negative); Urine Methadone Negative (Negative); Urine Methamphetamines Negative (Negative); Urine Oxycodone Negative (Negative); Urine Phencyclidine Negative (Negative); Urine Tetrahydrocannabinol Positive (Negative); Urine Tricyclic Antidepressant Negative (Negative); Urine pH Normal (Normal)
--- NOTE | 2022-03-14 16:31 | PC.NURSE ---
Patient walked in hallway with walker with no assistance. Feels comfortable at home, mother also feels comfortable taking care of her at home. has a walker at home.
[2022-03-14 22:29] LABS: NT-proBNP (BNP-Adult 18+) 41 pg/mL (<125)
== END 2022-03-14 16:50 | disposition home or self-care (01) ==
PROVIDERS: Emergency Provider Emergency Medicine; Family Provider Nurse Practitioner Family; PCP Nurse Practitioner Family
DX: R41.82 Altered mental status, unspecified (principal); R53.1 Weakness; T50.905A Adverse effect of unspecified drugs, medicaments and biological substances, initial encounter
CPT/HCPCS: 36415; 36600; 70450; 71045; 80053; 80305; 80320; 80329; 82140; 82550; 82805; 83690; 83880; 84484; 85025; 93005; 99282; 99284; G0480

== ENCOUNTER → 2022-03-20 10:37 | Outpatient (CLI) | payer MEDICARE, SELFPAY ==
[2022-03-20 11:52] LABS: Add Manual Diff / Slide Review NO; Basophils Absolute Auto 100 /uL (0-100); Basophils Percent Auto 0.5 % (0-2); Eosinophils Absolute Auto 0 /uL (0-450); Eosinophils Percent Auto 0.1 % (2-4); Hematocrit 40.1 % (36-46); Hemoglobin 13.2 g/dL (12.0-16.0); Lymphocytes Absolute Auto 1900 /uL (1100-4500); Lymphocytes Percent Auto 10.9 % (25-40); Mean Corpuscular Volume 84.9 fL (80-100); Monocytes Absolute Auto 1400 /uL (0-900); Monocytes Percent Auto 8.4 % (3-14); Neutrophils Absolute Auto 13800 /uL (1500-7000); Neutrophils Percent Auto 80.1 % (50-75); Platelet Count 307 X10^3/uL (150-400); Red Blood Cell Count 4.72 X10^6/uL (4.0-5.2); Red Cell Distribution Width 14.7 % (11.6-14.8); White Blood Cell Count 17.2 X10^3/uL (4.5-11.0)
[2022-03-20 13:16] LABS: COVID19 -Nasal RAPID Negative (Negative)
== END ==
PROVIDERS: Family Provider Nurse Practitioner Family; PCP Registered Nurse Diabetes Educator; Referring Provider Psychiatry & Neurology Psychiatry; Visit Provider Psychiatry & Neurology Psychiatry
DX: F25.0 Schizoaffective disorder, bipolar type (principal); R05.9 Cough, unspecified; D72.829 Elevated white blood cell count, unspecified; N39.0 Urinary tract infection, site not specified; Z20.822 Contact with and (suspected) exposure to COVID-19
CPT/HCPCS: 36415; 85025; 87635

== ENCOUNTER → 2022-03-22 15:38 | Outpatient (CLI) | payer MEDICARE, SELFPAY ==
[2022-03-22 17:36] LABS: Alanine Aminotransferase 13 IU/L (<35); Albumin 4.8 g/dL (3.5-5.0); Albumin Globulin Ratio 1.5 (1.0-2.8); Alkaline Phosphatase 135 U/L (38-126); Aspartate Aminotransferase 20 IU/L (14-36); BUN Creatinine Ratio 8.1 (6-22); Bilirubin Total 0.6 mg/dL (0.2-1.3); Blood Urea Nitrogen 7 mg/dL (7-17); Calcium 9.9 mg/dL (8.4-10.2); Carbon Dioxide 32 mmol/L (22-32); Chloride 104 mmol/L (98-107); Estimated Glomerular Filt Rate > 60 mL/min (>60); Globulin 3.2 g/dL (1.7-4.1); Glucose 109 mg/dL (70-100); HEMOLYSIS < 15 (0-50); Potassium 3.4 mmol/L (3.4-5.1); Sodium 143 mmol/L (137-145)
[2022-03-22 18:30] LABS: Appearance Urine UA CLEAR; Bilirubin Urine UA NEGATIVE (NEGATIVE); Color Urine UA YELLOW; Glucose Urine UA NEGATIVE (Negative); Ketones Urine UA NEGATIVE (NEGATIVE); Leukocyte Esterase Urine UA TRACE (NEGATIVE); Nitrite Urine UA NEGATIVE (Negative); Occult Blood Urine UA NEGATIVE (Negative); Protein Urine UA 1+ (Negative); Specific Gravity Urine UA 1.015 (1.000-1.035); Urobilinogen Urine UA 0.2 E.U./dL (0.2)
[2022-03-22 19:35] LABS: RBC Urine None Seen (0-5/HPF); Squamous Epithelial Cell Urine 1-5 /HPF (0-5/HPF); WBC Urine 1-5/HPF (0-5/HPF)
[2022-03-22 19:36] LABS: Bacteria Urine None Seen; Culture Indicated Urine Specimen Cultured; Mucus Urine 1+ (Negative)
== END ==
PROVIDERS: Family Provider Nurse Practitioner Family; PCP Registered Nurse Diabetes Educator; Referring Provider Registered Nurse Diabetes Educator; Visit Provider Registered Nurse Diabetes Educator
DX: D72.829 Elevated white blood cell count, unspecified (principal); N39.0 Urinary tract infection, site not specified; R05.9 Cough, unspecified
CPT/HCPCS: 36415; 80053; 81001; 87086

== ENCOUNTER → 2022-03-26 11:51 | Outpatient (CLI) | payer MEDICARE, SELFPAY ==
[2022-03-26 12:58] LABS: Add Manual Diff / Slide Review NO; Basophils Absolute Auto 100 /uL (0-100); Basophils Percent Auto 0.6 % (0-2); Eosinophils Absolute Auto 0 /uL (0-450); Eosinophils Percent Auto 0.2 % (2-4); Hematocrit 40.9 % (36-46); Hemoglobin 13.4 g/dL (12.0-16.0); Lymphocytes Absolute Auto 2700 /uL (1100-4500); Lymphocytes Percent Auto 21.5 % (25-40); Mean Corpuscular HGB Conc 32.9 % (30-36); Mean Corpuscular Hemoglobin 27.8 PG (26-34); Mean Corpuscular Volume 84.6 fL (80-100); Monocytes Absolute Auto 900 /uL (0-900); Monocytes Percent Auto 7.6 % (3-14); Neutrophils Absolute Auto 8700 /uL (1500-7000); Neutrophils Percent Auto 70.1 % (50-75); Platelet Count 381 X10^3/uL (150-400); Red Blood Cell Count 4.83 X10^6/uL (4.0-5.2); Red Cell Distribution Width 14.9 % (11.6-14.8); White Blood Cell Count 12.4 X10^3/uL (4.5-11.0)
== END ==
PROVIDERS: Family Provider Nurse Practitioner Family; PCP Registered Nurse Diabetes Educator; Referring Provider Psychiatry & Neurology Psychiatry; Visit Provider Psychiatry & Neurology Psychiatry
DX: F25.0 Schizoaffective disorder, bipolar type (principal)
CPT/HCPCS: 36415; 85025

== ENCOUNTER → 2022-04-03 10:29 | Outpatient (CLI) | payer MEDICARE, SELFPAY ==
[2022-04-03 12:11] LABS: Add Manual Diff / Slide Review NO; Basophils Absolute Auto 100 /uL (0-100); Basophils Percent Auto 0.9 % (0-2); Eosinophils Absolute Auto 0 /uL (0-450); Eosinophils Percent Auto 0.2 % (2-4); Hematocrit 39.7 % (36-46); Hemoglobin 13.1 g/dL (12.0-16.0); Lymphocytes Absolute Auto 2100 /uL (1100-4500); Lymphocytes Percent Auto 20.2 % (25-40); Mean Corpuscular Hemoglobin 27.8 PG (26-34); Mean Corpuscular Volume 84.3 fL (80-100); Monocytes Absolute Auto 600 /uL (0-900); Monocytes Percent Auto 6.2 % (3-14); Neutrophils Absolute Auto 7500 /uL (1500-7000); Neutrophils Percent Auto 72.5 % (50-75); Platelet Count 354 X10^3/uL (150-400); Red Blood Cell Count 4.71 X10^6/uL (4.0-5.2); Red Cell Distribution Width 14.9 % (11.6-14.8); White Blood Cell Count 10.4 X10^3/uL (4.5-11.0)
== END ==
PROVIDERS: Family Provider Nurse Practitioner Family; PCP Registered Nurse Diabetes Educator; Referring Provider Psychiatry & Neurology Psychiatry; Visit Provider Psychiatry & Neurology Psychiatry
DX: F25.0 Schizoaffective disorder, bipolar type (principal)
CPT/HCPCS: 36415; 85025

== ENCOUNTER → 2022-04-09 10:02 | Outpatient (CLI) | payer MEDICARE, SELFPAY ==
[2022-04-09 11:34] LABS: Add Manual Diff / Slide Review NO; Basophils Absolute Auto 100 /uL (0-100); Eosinophils Absolute Auto 0 /uL (0-450); Eosinophils Percent Auto 0.4 % (2-4); Hemoglobin 12.7 g/dL (12.0-16.0); Lymphocytes Absolute Auto 1800 /uL (1100-4500); Lymphocytes Percent Auto 19.1 % (25-40); Mean Corpuscular HGB Conc 32.7 % (30-36); Mean Corpuscular Hemoglobin 27.5 PG (26-34); Mean Corpuscular Volume 84.1 fL (80-100); Monocytes Absolute Auto 700 /uL (0-900); Monocytes Percent Auto 7.4 % (3-14); Neutrophils Absolute Auto 6600 /uL (1500-7000); Neutrophils Percent Auto 72.1 % (50-75); Platelet Count 339 X10^3/uL (150-400); Red Blood Cell Count 4.64 X10^6/uL (4.0-5.2); Red Cell Distribution Width 15.3 % (11.6-14.8); White Blood Cell Count 9.2 X10^3/uL (4.5-11.0)
== END ==
PROVIDERS: Family Provider Nurse Practitioner Family; PCP Registered Nurse Diabetes Educator; Referring Provider Psychiatry & Neurology Psychiatry; Visit Provider Psychiatry & Neurology Psychiatry
DX: F25.0 Schizoaffective disorder, bipolar type (principal)
CPT/HCPCS: 36415; 85025

== ENCOUNTER → 2022-04-16 15:49 | Outpatient (CLI) | payer MEDICARE, SELFPAY ==
[2022-04-16 17:17] LABS: Add Manual Diff / Slide Review NO; Basophils Absolute Auto 100 /uL (0-100); Basophils Percent Auto 0.9 % (0-2); Eosinophils Absolute Auto 100 /uL (0-450); Eosinophils Percent Auto 0.6 % (2-4); Hematocrit 38.1 % (36-46); Hemoglobin 12.6 g/dL (12.0-16.0); Lymphocytes Absolute Auto 2600 /uL (1100-4500); Lymphocytes Percent Auto 24.8 % (25-40); Mean Corpuscular HGB Conc 33.2 % (30-36); Mean Corpuscular Hemoglobin 27.7 PG (26-34); Mean Corpuscular Volume 83.4 fL (80-100); Monocytes Absolute Auto 900 /uL (0-900); Monocytes Percent Auto 8.5 % (3-14); Neutrophils Absolute Auto 6900 /uL (1500-7000); Neutrophils Percent Auto 65.2 % (50-75); Platelet Count 378 X10^3/uL (150-400); Red Blood Cell Count 4.57 X10^6/uL (4.0-5.2); Red Cell Distribution Width 15.7 % (11.6-14.8); White Blood Cell Count 10.6 X10^3/uL (4.5-11.0)
== END ==
PROVIDERS: Family Provider Nurse Practitioner Family; PCP Registered Nurse Diabetes Educator; Referring Provider Psychiatry & Neurology Psychiatry; Visit Provider Psychiatry & Neurology Psychiatry
DX: F25.0 Schizoaffective disorder, bipolar type (principal)
CPT/HCPCS: 36415; 85025

== ENCOUNTER → 2022-04-23 12:23 | Outpatient (CLI) | payer MEDICARE, SELFPAY ==
[2022-04-23 13:37] LABS: Add Manual Diff / Slide Review NO; Basophils Absolute Auto 100 /uL (0-100); Eosinophils Absolute Auto 100 /uL (0-450); Eosinophils Percent Auto 0.6 % (2-4); Hematocrit 39.6 % (36-46); Hemoglobin 12.7 g/dL (12.0-16.0); Lymphocytes Absolute Auto 2000 /uL (1100-4500); Lymphocytes Percent Auto 24.4 % (25-40); Mean Corpuscular Hemoglobin 27.1 PG (26-34); Mean Corpuscular Volume 84.7 fL (80-100); Monocytes Absolute Auto 600 /uL (0-900); Monocytes Percent Auto 7.4 % (3-14); Neutrophils Absolute Auto 5500 /uL (1500-7000); Neutrophils Percent Auto 66.6 % (50-75); Platelet Count 343 X10^3/uL (150-400); Red Blood Cell Count 4.68 X10^6/uL (4.0-5.2); Red Cell Distribution Width 15.6 % (11.6-14.8); White Blood Cell Count 8.3 X10^3/uL (4.5-11.0)
== END ==
PROVIDERS: Family Provider Nurse Practitioner Family; PCP Registered Nurse Diabetes Educator; Referring Provider Psychiatry & Neurology Psychiatry; Visit Provider Psychiatry & Neurology Psychiatry
DX: F25.0 Schizoaffective disorder, bipolar type (principal)
CPT/HCPCS: 36415; 85025

== ENCOUNTER 2022-04-30 16:46 | Observation (INO) | payer MEDICARE, SELFPAY ==
[2022-04-30] VITALS (17 sets, daily range): BP systolic 131–154; BP diastolic 60–74; PULSE 63–81; RESP 16–28; TEMP 36.6; O2SAT 93–97; BMI 40.1
--- NOTE | 2022-04-30 16:59 | DI.CT.S_ITS ---
PROCEDURE: CT HEAD/BRAIN WO CON INDICATIONS: facial droop starting saturday TECHNIQUE: Noncontrast 4.5 mm thick angled axial sections acquired from the foramen magnum to the vertex, with coronal and sagittal reformats. For radiation dose reduction, the following was used: automated exposure control, adjustment of mA and/or kV according to patient size. COMPARISON: [facility], CT, CT HEAD/BRAIN WO CON, 03/14/2022, 12:40. FINDINGS: Image quality: Excellent. CSF spaces: Basal cisterns are patent. No extra-axial fluid collections. Ventricles are normal in size and shape. Brain: No midline shift. No intracranial masses or hemorrhage. Marquez-white matter interface is normal. Skull and face: Calvarium and visualized facial bones are intact, without suspicious lesions. Sinuses: Visualized sinuses and mastoids are clear. IMPRESSION: No intracranial hemorrhage or other acute intracranial abnormality. Dictated by: Tank Baum M.D. on 04/30/2022 at 17:14 Approved by: Tank Baum M.D. on 04/30/2022 at 17:19
--- NOTE | 2022-04-30 18:24 | DI.CT.S_ITS ---
PROCEDURE: CT ANGIO HEAD AND NECK INDICATIONS: obvious R sided stroke symptoms TECHNIQUE: After the administration of intravenous contrast, 1 mm thick sections acquired from the aortic arch through the [place] of [place]. Post-contrast 4.5 mm thick sections then re-acquired from the foramen magnum to the vertex. 3-dimensional fxgwctk-jzymabiqg-mitfemlmxr (MIP) and/or volume rendering reformats were acquired of the central intracranial vasculature and neck separately. For radiation dose reduction, the following was used: automated exposure control, adjustment of mA and/or kV according to patient size. COMPARISON: [facility], CT, CT HEAD/BRAIN WO CON, 04/30/2022, 17:05. FINDINGS: Image quality: There is motion artifact limiting evaluation the is low the radiology DrYulia Mckeon. BRAIN: CSF spaces: Basal cisterns are patent. No extra-axial fluid collections. Ventricles are normal in size and shape. Brain: No intracranial hematoma collections, mass, or mass effect. Marquez-white matter interface appears preserved. No abnormal intracranial enhancement. Skull and face: Calvarium and facial bones appear intact, without suspicious lesions. Orbits appear normal. Sinuses: Sinuses and mastoids are clear. HEAD CT ANGIOGRAPHY: Anterior circulation: Intracranial internal carotid arteries are normal in size and appear patent bilaterally. There is mild atherosclerotic calcification along the cavernous segments of the internal carotid arteries. The paired anterior cerebral arteries appear patent bilaterally. The anterior communicating artery also appears patent. The middle cerebral arteries appear patent bilaterally. No high-grade stenosis, occlusion, or filling defects. There is a small medially oriented aneurysm arising from the supraclinoid segment right internal carotid artery. This measures up to 0.3 x 0.3 cm and the waist also measures up to 0.3 cm. Posterior circulation: Visualized portions of the vertebral arteries demonstrate normal caliber, and join to form a patent basilar artery. The posterior cerebral arteries appears patent bilaterally. No high-grade stenosis, occlusion, or filling defects. No cerebral aneurysms identified. NECK CT ANGIOGRAPHY: Carotid system: The great vessels demonstrate conventional anatomy as they arise from the aortic arch. The origins of the common carotid arteries appear patent. The common carotid arteries demonstrate normal caliber and courses. There is a partially calcified plaque in the left carotid bulb with narrowing to approximately 50%. There is mild narrowing in the right carotid bulb of less than 50%. The internal carotid arteries demonstrate normal calibers and courses. Posterior circulation: The origins of the vertebral arteries both appear patent. The more superior extracranial portions of both vertebral arteries also demonstrate normal courses and calibers. They join to form a patent basilar artery. Soft tissues: Visualized lungs demonstrate bilateral scattered small ground-glass opacities. The thyroid is lobulated in contour and mildly enlarged. Bones: No suspicious bony lesions. Visualized cervical spine in straight straightening of the cervical lordosis. There is moderate degenerative disc disease at C5-C6. IMPRESSION: 1. No definite acute intracranial abnormality. 2. No high-grade stenosis or occlusion of the central intracranial arteries. 3. 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 4. Bilateral narrowing in the carotid bulbs of up to approximately 50% on the left and less than 50% on the right. Findings discussed with Dr. Matthew on 04/04/2022 at 8:18 p.m.. Any quantitative measurements of stenosis were performed using NASCET criteria. Dictated by: Branden Ferguson M.D. on 04/30/2022 at 20:08 Approved by: Branden Ferguson M.D. on 04/30/2022 at 20:21
[2022-04-30 18:35] LABS: Add Manual Diff / Slide Review NO; Basophils Absolute Auto 100 /uL (0-100); Basophils Percent Auto 1.1 % (0-2); Eosinophils Absolute Auto 100 /uL (0-450); Eosinophils Percent Auto 0.8 % (2-4); Hematocrit 36.5 % (36-46); Lymphocytes Absolute Auto 1900 /uL (1100-4500); Lymphocytes Percent Auto 19.1 % (25-40); Mean Corpuscular HGB Conc 32.7 % (30-36); Mean Corpuscular Hemoglobin 27.3 PG (26-34); Mean Corpuscular Volume 83.5 fL (80-100); Monocytes Absolute Auto 800 /uL (0-900); Monocytes Percent Auto 7.6 % (3-14); Neutrophils Absolute Auto 7200 /uL (1500-7000); Neutrophils Percent Auto 71.4 % (50-75); Platelet Count 328 X10^3/uL (150-400); Red Blood Cell Count 4.37 X10^6/uL (4.0-5.2); Red Cell Distribution Width 15.3 % (11.6-14.8); White Blood Cell Count 10.1 X10^3/uL (4.5-11.0)
[2022-04-30] MEDS: SODIUM CHLORIDE 0.9% 1,000 ML 150 ML IV (18:38)
[2022-04-30 19:00] LABS: Alanine Aminotransferase 13 IU/L (<35); Albumin Globulin Ratio 1.1 (1.0-2.8); Alkaline Phosphatase 112 U/L (38-126); Aspartate Aminotransferase 22 IU/L (14-36); BUN Creatinine Ratio 7.2 (6-22); Bilirubin Total 0.4 mg/dL (0.2-1.3); Blood Urea Nitrogen 6 mg/dL (7-17); Calcium 9.2 mg/dL (8.4-10.2); Carbon Dioxide 29 mmol/L (22-32); Chloride 108 mmol/L (98-107); Creatine Kinase 28 U/L (30-135); Estimated Glomerular Filt Rate > 60 mL/min (>60); Globulin 3.7 g/dL (1.7-4.1); Glucose 99 mg/dL (70-100); HEMOLYSIS 24 (0-50); Potassium 3.5 mmol/L (3.4-5.1); Sodium 141 mmol/L (137-145); Total Protein 7.7 g/dL (6.3-8.2)
[2022-04-30 19:10] LABS: Troponin I < 0.012 ng/mL (0.01-0.034)
--- NOTE | 2022-04-30 19:30 | ED.NEUROSD ---
HPI - Neuro Symptoms/Deficit General Chief Complaint: Neuro Symptoms/Deficit Stated Complaint: DROOPY FACE RIGHT SIDE Time Seen by Provider: 04/30/22 18:07 Mode of arrival: Family Vehicle History of Present Illness HPI Narrative: 57-year-old female daily smoker with history of hypertension, hyperlipidemia, COPD, bipolar presents at the request of her psychiatrist for evaluation of stroke-like symptoms that have been present since at least Saturday. She states that she has had right-sided facial droop, numbness, trouble with speech and had been dizzy and states that her right leg was weak causing a fall symptoms have improved other than the right-sided facial involvement. She denies any fever chills. She has no neck pain. She denies blurred vision, chest pain or shortness of breath nor any ongoing extremity numbness, tingling or weakness. On Anticoagulants: No Related Data Home Medications Medication Instructions Recorded Confirmed fluticasone propionate 50 1 spray intranasal DAILY 02/01/21 04/17/22 mcg/actuation nasal spray,suspension (Flonase Allergy Relief) Previous Rx's Medication Instructions Recorded miscellaneous medical supply #1 ea 07/09/19 (Blood Pressure Cuff) albuterol sulfate 90 mcg/actuation 2 puff inhalation Q4-6H PRN 07/21/19 aerosol inhaler (Ventolin HFA) shortness of breath or wheezing #8.5 grams tizanidine 4 mg tablet 4 mg PO BEDTIME #90 tabs 01/10/21 ipratropium 0.5 mg-albuterol 3 mg 3 ml inhalation Q6-8H PRN 04/25/21 (2.5 mg base)/3 mL nebulization shortness of breath or wheezing soln #180 mL lithium carbonate 300 mg capsule See Rx Instructions .Route 07/25/21 .COMPLEX #90 caps conjugated estrogens 0.625 mg/gram 0.3125 mg vaginal 2XW #30 grams 08/17/21 vaginal cream (Premarin) amlodipine 2.5 mg tablet See Rx Instructions .Route 12/20/21 .COMPLEX #90 tabs pantoprazole 40 mg tablet,delayed See Rx Instructions .Route 01/09/22 release .COMPLEX #90 tabs propranolol 40 mg tablet 40 mg PO BID #180 tabs 01/10/22 nystatin 100,000 unit/gram topical 1 applic topical BID #60 grams 01/16/22 powder (Nystop) pravastatin 20 mg tablet 20 mg PO QPM 90 days #90 tabs 01/16/22 triamcinolone acetonide 0.1 % 1 applic topical BID #45 grams 01/16/22 topical cream gabapentin 300 mg capsule 900 mg PO BID #180 caps 03/05/22 beclomethasone dipropionate 80 1 inh inhalation BID #10.6 grams 03/20/22 mcg/actuation HFA breath activated aerosol (Qvar RediHaler) nitrofurantoin 100 mg PO BID #14 caps 03/20/22 monohydrate/macrocrystals 100 mg capsule (Macrobid) ketoconazole 2 % topical cream 1 applic topical DAILY PRN 04/06/22 intertrigo #60 grams duloxetine 60 mg capsule,delayed 60 mg PO BID #60 caps 04/16/22 release clonazepam 1 mg tablet 0.5 mg PO BID #60 tabs 04/17/22 clozapine 50 mg tablet 50 mg PO BEDTIME #30 tabs 04/17/22 lamotrigine 100 mg tablet 200 mg PO BID Mood stabilization 04/18/22 (Lamictal) #120 tabs Allergies Allergy/AdvReac Type Severity Reaction Status Date / Time adhesive Allergy Mild Rash Verified 04/30/22 16:57 codeine Allergy Mild N&V if she Verified 04/30/22 16:57 takes a lot, itch bowel prep AdvReac Severe Vomiting Uncoded 04/30/22 16:57 Review of Systems Review of Systems Narrative: GENERAL: Denies chills, fatigue, malaise, fever, sweats. HEENT: Denies sinus pain, ear pain, sore throat, difficulty swallowing, dizziness. RESPIRATORY: Denies dyspnea, cough, wheezing, hemoptysis, sputum. CARDIOVASCULAR: Denies chest pain, palpitations, orthopnea, edema, GASTROINTESTINAL: Denies nausea, vomiting, abdominal pain, diarrhea, constipation, melena. : Denies dysuria, frequency, incontinence, hematuria, urinary retention. MUSCULOSKELETAL: denies weakness, joint pain, or bony pain SKIN: Denies rash, skin lesions, or other NEUROLOGIC: See HPI PSYCHIATRIC: No concerning psychosocial issues. 12 point review of systems is negative except for those stated above Hematologic/Lymphatic On Anticoagulants: No Patient History Medical History Alcohol dependence in sustained full remission Bilateral tinnitus Bipolar II disorder Chronic back pain Chronic pain Chronic post-traumatic stress disorder COPD (chronic obstructive pulmonary disease) (2012) Dyspareunia Essential hypertension (06/2019) Hormone replacement therapy Insomnia, unspecified Intermittent palpitations Intertrigo Left foot pain Lumbar transverse process fracture Mixed hyperlipidemia (06/2019) Morbid obesity with BMI of 40.0-44.9, adult Nicotine abuse Obstructive sleep apnea of adult (~10/2018) Surgical History S/P complete hysterectomy (1994) Social History marital status: details: lives in [place] household members: family lives independently: Yes (with elderly parents) caregiver/support person: No housing: house Smoking Status: Current every day smoker Tobacco: How many years used: 42 second hand exposure: No alcohol intake: former substance use type: does not use Smoking Status: Current every day smoker tobacco type: cigarettes alcohol intake frequency: 0-2 drinks per day Substance Use Type: marijuana Exam Narrative Exam Narrative: GENERAL: [57] year old patient appears stated age. Well-developed patient, in mild distress. HEAD: Atraumatic. Normocephalic. EYES: Pupils equal round and reactive. Extraocular motions intact. No scleral icterus. No injection or drainage. ENT: Nose without bleeding, purulent drainage. Throat without erythema, tonsillar hypertrophy or exudate. Airway patent. NECK: Trachea midline. Non tender CARDIOVASCULAR: Regular rate and rhythm without murmurs, gallops, or rubs. RESPIRATORY: Clear to auscultation. Breath sounds equal bilaterally. No wheezes, rales, or rhonchi. GASTROINTESTINAL: Abdomen soft, non-tender, nondistended. EXTREMITIES: No edema or joint tenderness. BACK: Nontender without deformity or crepitance. No flank tenderness. NEURO: AOx3. Cranial nerves 2-12 grossly intact SKIN: No rash or erythema of visible areas Initial Vital Signs Initial Vital Signs: Vital Signs Temperature 97.8 F 04/30/22 16:54 Pulse Rate 81 04/30/22 16:54 Respiratory Rate 16 04/30/22 16:54 Blood Pressure 154/69 H 04/30/22 16:54 Pulse Oximetry 97 04/30/22 16:54 Oxygen Delivery Method 04/30/22 16:54 Scores NIH Stroke Scale Level of Conciousness: Alert, keenly responsive Ask month/age: Answers both questions correctly. Open/close eyes, close hand: Performs both tasks correctly Best gaze horizontal: Normal Visual carmona: No visual loss Facial palsy: Partial paralysis, total or near total paralysis of lower face Left arm drift: No drift for full 10 sec Right arm drift: No drift for full 10 sec Left leg drift: No drift for full 5 sec Right leg drift: No drift for full 5 sec Limb ataxia: Absent Sensory on face/arms/legs: Mild to moderate sensory loss, can tell touch Best language: No aphasia, normal Dysarthria: Mild to mod,some slurring Extinction or inattention: No abnormality Total NIH Stroke scale score: 4 Course Orders Ordered: ED Orders 04/30/22 16:59 CT head/brain wo con Stat 04/30/22 18:23 EKG-12 Lead Stat 04/30/22 18:24 CT angio head and neck Stat Complete Blood Count AUTO DIFF Stat Comprehensive Metabolic Panel Stat Troponin & CK Cardiac Panel Stat 04/30/22 19:32 Urine Drug Screen, Rapid Stat Sodium Chloride (Normal Saline 0.9%) 1,000 mls @ 150 mls/hr IV CONT WILL Last Admin: 04/30/22 18:38 Dose: 150 mls/hr Documented By: ARIANA Vital Signs Vital signs: Vital Signs - 8 hr 04/30/22 16:54 04/30/22 18:28 04/30/22 18:02 Temperature 97.8 F Pulse Rate 81 73 Respiratory Rate 16 18 Blood Pressure 154/69 H 136/74 Pulse Oximetry 97 93 Oxygen Delivery Method Room Air Room Air 04/30/22 18:02 04/30/22 18:30 04/30/22 18:31 Temperature Pulse Rate 78 74 74 Respiratory Rate 16 16 Blood Pressure Pulse Oximetry 95 94 93 Oxygen Delivery Method 04/30/22 18:31 04/30/22 19:00 04/30/22 19:01 Temperature Pulse Rate 73 Respiratory Rate 16 Blood Pressure 131/60 136/60 Pulse Oximetry 93 Oxygen Delivery Method 04/30/22 19:01 04/30/22 19:30 04/30/22 20:00 Temperature Pulse Rate 72 81 71 Respiratory Rate 17 19 18 Blood Pressure Pulse Oximetry 95 96 94 Oxygen Delivery Method 04/30/22 20:30 04/30/22 21:00 04/30/22 21:39 Temperature Pulse Rate 71 67 72 Respiratory Rate 28 H 27 H Blood Pressure Pulse Oximetry 94 95 95 Oxygen Delivery Method 04/30/22 21:40 04/30/22 21:40 04/30/22 22:00 Temperature Pulse Rate 70 65 Respiratory Rate 19 17 Blood Pressure 141/70 H Pulse Oximetry 95 94 Oxygen Delivery Method MDM - Neuro Symptoms/Deficit Lab Data Result diagrams: 04/30/22 18:24 04/30/22 18:24 Labs: Lab Results 04/30/22 04/30/22 04/30/22 Range/Units 18:24 18:24 19:32 WBC 10.1 (4.5-11.0) X10^3/uL RBC 4.37 (4.0-5.2) X10^6/uL Hgb 12.0 (12.0-16.0) g/dL Hct 36.5 (36-46) % MCV 83.5 (80-100) fL MCH 27.3 (26-34) PG MCHC 32.7 (30-36) % RDW 15.3 H (11.6-14.8) % Plt Count 328 (150-400) X10^3/uL Neut % (Auto) 71.4 (50-75) % Lymph % (Auto) 19.1 L (25-40) % [place] % (Auto) 7.6 (3-14) % Eos % (Auto) 0.8 L (2-4) % Baso % (Auto) 1.1 (0-2) % Neut # (Auto) 7200 H (2020-0608) /uL Lymph # (Auto) 1900 (6354-3930) /uL [place] # (Auto) 800 (0-900) /uL Eos # (Auto) 100 (0-450) /uL Baso # (Auto) 100 (0-100) /uL Sodium 141 (137-145) mmol/L Potassium 3.5 (3.4-5.1) mmol/L Chloride 108 H (98-107) mmol/L Carbon Dioxide 29 (22-32) mmol/L BUN 6 L (7-17) mg/dL Creatinine 0.83 (0.52-1.04) mg/dL Estimated GFR > 60 (>60) mL/min BUN/Creatinine Ratio 7.2 (6-22) Glucose 99 (70-100) mg/dL Calcium 9.2 (8.4-10.2) mg/dL Total Bilirubin 0.4 (0.2-1.3) mg/dL AST 22 (14-36) IU/L ALT 13 (<35) IU/L Alkaline Phosphatase 112 (38-126) U/L Total Creatine Kinase 28 L (30-135) U/L CK-MB (CK-2) TNP CK-MB (CK-2) Rel Index TNP Troponin I < 0.012 (0.01-0.034) ng/mL Total Protein 7.7 (6.3-8.2) g/dL Albumin 4.0 (3.5-5.0) g/dL Globulin 3.7 (1.7-4.1) g/dL Albumin/Globulin Ratio 1.1 (1.0-2.8) U Opiates 300ng/mL cut Negative (Negative) Ur Oxycodone Screen Negative (Negative) Urine Methadone Screen Negative (Negative) Ur Barbiturates Screen Negative (Negative) U Tricyclic Antidepress Negative (Negative) Ur Phencyclidine Scrn Negative (Negative) Ur Amphetamines Screen Negative (Negative) U Methamphetamines Scrn Negative (Negative) Ur MDMA Scrn (Ecstasy) Negative (Negative) U Benzodiazepines Scrn Negative (Negative) Urine Cocaine Screen Negative (Negative) U Marijuana (THC) Screen Negative (Negative) Point of Care Testing Glucose POC 99 Urine Dip Bedside Urine Glucose Negative Bedside Urine Bilirubin - Negative Bedside Urine Ketone - Negative Urine Specific [place] 1.020 Bedside Urine Occult Blood - Negative Bedside Urine pH 6.0 Bedside Urine Protein - Negative Bedside Urine Urobilinogen - Negative Bedside Urine Nitrite - Negative Bedside Urine Leukocytes - Negative Esterase Imaging Data CT scan - head: Radiologist's Impression: Close Head/Neck CTA (Signed) Branden Ferguson - 04/30/[address] (Signed) Tank Baum - 04/30/[address] (Signed) Yan Herring - 03/14/22 Chest X-Ray (Signed) Tin Viveros - 03/14/22 Foot X-Ray (Signed) Jarvis Chaudhry - 01/17/22 Chest X-Ray (Signed) Glynn Cardenas - 12/14/21 Lumbar Spine X-Ray (Signed) Tank Manning - 03/29/21 Chest X-Ray (Signed) Tank Manning - 03/29/21 Telemetry Strips 12/23/19 Telemetry Strips 09/08/19 DI Result 07/30/19 Mammogram Screening (Signed) Call,Yan - 07/25/19 Abdomen Ultrasound (Signed) Sue Stafford - 07/20/19 Chest X-Ray (Signed) Call,Yan - 07/17/19 Myocardial Perfusion Scan Nuc Med (Signed) Sarai Gusmanpenny - 07/02/19 Launch?[place] [address] CT Scan Report Signed Patient: Casandra Le MR#: [id number] : 1965 Acct:[id number] Age/Sex: 57 / F Date of Service: 04/30/22 Loc: ED Accession Number: [id number] ?? Procedure: CT head/brain wo con Ordering Provider: Vaishnavi Devlin D.O. PROCEDURE:? CT HEAD/BRAIN WO CON ? INDICATIONS:? facial droop starting saturday ? TECHNIQUE:? Noncontrast 4.5 mm thick angled axial sections acquired from the foramen magnum to the vertex, with coronal and sagittal reformats.? For radiation dose reduction, the following was used:? automated exposure control, adjustment of mA and/or kV according to patient size.? ? COMPARISON:? [facility], CT, CT HEAD/BRAIN WO CON, 03/14/2022, 12:40. ? FINDINGS:? Image quality:? Excellent.? ? CSF spaces:? Basal cisterns are patent.? No extra-axial fluid collections.? Ventricles are normal in size and shape.? ? Brain:? No midline shift.? No intracranial masses or hemorrhage.? Marquez-white matter interface is normal.? ? Skull and face:? Calvarium and visualized facial bones are intact, without suspicious lesions.? ? Sinuses:? Visualized sinuses and mastoids are clear.? ? IMPRESSION:? No intracranial hemorrhage or other acute intracranial abnormality. ? ? Dictated by: Tank Baum M.D. on 04/30/2022 at 17:14 ? ? Approved by: Tank Baum M.D. on 04/30/2022 at 17:19 ? CTA - brain/neck: Radiologist's Impression: Close Head/Neck CTA (Signed) Branden Ferguson - 04/30/[address] (Signed) Tank Baum - 04/30/[address] (Signed) Call,Yan - 03/14/22 Chest X-Ray (Signed) ViverosMarileeTin - 03/14/22 Foot X-Ray (Signed) RichaJarvis - 01/17/22 Chest X-Ray (Signed) Glynn Cardenas - 12/14/21 Lumbar Spine X-Ray (Signed) Tank Manning - 03/29/21 Chest X-Ray (Signed) Tank Manning - 03/29/21 Telemetry Strips 12/23/19 Telemetry Strips 09/08/19 DI Result 07/30/19 Mammogram Screening (Signed) Call,Yan - 07/25/19 Abdomen Ultrasound (Signed) Sue Stafford - 07/20/19 Chest X-Ray (Signed) Call,Yan - 07/17/19 Myocardial Perfusion Scan Nuc Med (Signed) Brittany Gusman - 07/02/19 Launch?[place] [address] CT Scan Report Signed Patient: Casandra Le MR#: [id number] : 1965 Acct:[id number] Age/Sex: 57 / F Date of Service: 04/30/22 Loc: ED Accession Number: [id number] ?? Procedure: CT head/brain wo con Ordering Provider: Vaishnavi Devlin D.O. PROCEDURE:? CT HEAD/BRAIN WO CON ? INDICATIONS:? facial droop starting saturday ? TECHNIQUE:? Noncontrast 4.5 mm thick angled axial sections acquired from the foramen magnum to the vertex, with coronal and sagittal reformats.? For radiation dose reduction, the following was used:? automated exposure control, adjustment of mA and/or kV according to patient size.? ? COMPARISON:? [facility], CT, CT HEAD/BRAIN WO CON, 03/14/2022, 12:40. ? FINDINGS:? Image quality:? Excellent.? ? CSF spaces:? Basal cisterns are patent.? No extra-axial fluid collections.? Ventricles are normal in size and shape.? ? Brain:? No midline shift.? No intracranial masses or hemorrhage.? Marquez-white matter interface is normal.? ? Skull and face:? Calvarium and visualized facial bones are intact, without suspicious lesions.? ? Sinuses:? Visualized sinuses and mastoids are clear.? ? IMPRESSION:? No intracranial hemorrhage or other acute intracranial abnormality. ? ? Dictated by: Tank Baum M.D. on 04/30/2022 at 17:14 ? ? Approved by: Tank Baum M.D. on 04/30/2022 at 17:19 ? Discharge Plan Departure Patient Disposition: Admitted as Observation Clinical Impression: Cerebrovascular accident Admit Date/Time: 04/30/22 22:02 Admit Provider: Rodríguez Le
[2022-04-30 19:48] LABS: UR Morphine/Opiate cutoff 300 Negative (Negative); Ur Creatinine Normal (Normal); Ur Specific Gravity Normal (Normal); Urine Amphetamines Negative (Negative); Urine Barbiturates Negative (Negative); Urine Benzodiazepines Negative (Negative); Urine Cocaine Negative (Negative); Urine MDMA Negative (Negative); Urine Methadone Negative (Negative); Urine Methamphetamines Negative (Negative); Urine Oxycodone Negative (Negative); Urine Phencyclidine Negative (Negative); Urine Tetrahydrocannabinol Negative (Negative); Urine Tricyclic Antidepressant Negative (Negative); Urine pH Normal (Normal)
--- NOTE | 2022-04-30 22:49 | P.HP_ITS ---
History of Present Illness History of Present Illness Date Patient Seen: 04/30/22 Time Patient Seen: 23:00 Chief complaint: DROOPY FACE RIGHT SIDE Narrative: Ms. Le is a 57W with PMH HTN, schizoaffective disorder, PTSD, current smoker, morbid obesity who comes in to the hospital with right facial weakness and numbness. She noted these facial symptoms two days ago. She has noted numbness on the right side of her face. She has intermittent and chronic right upper extremity and right lower extremity numbness. She had some right leg weakness that has resolved. Her numbness and weakness in her extremities have resolved. She came in to the hospital today because she was at her psychiatry visit and he recommended she come in to the hospital In the ED workup was done, vitals notable for for hypertension with blood pressure 154/69. NIH was 4. Labs notable for WBC 10.1, hgb 12, plts 328. Na 141, creatinine 0.83. Troponin negative. Urine drug screen negative. UA negative. CT head showed no acute process. CTA head/neck showed a small cerebral aneurysm, th ere was bilateral narrowing of the carotid bulbs with 50% on the left and less than 50% on the right. She was ordered for aspirin and admitted for further treatment. Patient History Medical History Alcohol dependence in sustained full remission Bilateral tinnitus Bipolar II disorder Chronic back pain Chronic pain Chronic post-traumatic stress disorder COPD (chronic obstructive pulmonary disease) (2012) Dyspareunia Essential hypertension (06/2019) Hormone replacement therapy Insomnia, unspecified Intermittent palpitations Intertrigo Left foot pain Lumbar transverse process fracture Mixed hyperlipidemia (06/2019) Morbid obesity with BMI of 40.0-44.9, adult Nicotine abuse Obstructive sleep apnea of adult (~10/2018) Surgical History S/P complete hysterectomy (1994) Family & Social History Social History: household members family lives independently Yes: with elderly parents caregiver/support person No Safety & Behavioral: Feels Safe in Current Yes Environment Been Physically Hurt or No Threatened By a Person Tobacco & Substance use: Tobacco type cigarettes Smoking Status Current every day smoker alcohol intake former alcohol intake frequency 0-2 drinks per day Substance Use Type marijuana Meds Home Medications and Allergies Home Medications Medication Instructions Recorded Confirmed Type miscellaneous medical supply #1 ea 07/09/19 04/17/22 Rx (Blood Pressure Cuff) albuterol sulfate 90 mcg/actuation 2 puff inhalation Q4-6H PRN 07/21/19 04/30/22 Rx aerosol inhaler (Ventolin HFA) shortness of breath or wheezing #8.5 grams fluticasone propionate 50 1 spray intranasal DAILY 02/01/21 04/30/22 History mcg/actuation nasal spray,suspension (Flonase Allergy Relief) ipratropium 0.5 mg-albuterol 3 mg 3 ml inhalation Q6-8H PRN 04/25/21 04/30/22 Rx (2.5 mg base)/3 mL nebulization shortness of breath or wheezing soln #180 mL amlodipine 2.5 mg tablet See Rx Instructions .Route 12/20/21 04/30/22 Rx .COMPLEX #90 tabs pravastatin 20 mg tablet 20 mg PO QPM 90 days #90 tabs 01/16/22 04/30/22 Rx triamcinolone acetonide 0.1 % 1 applic topical BID #45 grams 01/16/22 04/30/22 Rx topical cream gabapentin 300 mg capsule 900 mg PO BID #180 caps 03/05/22 04/30/22 Rx beclomethasone dipropionate 80 1 inh inhalation BID #10.6 grams 03/20/22 04/30/22 Rx mcg/actuation HFA breath activated aerosol (Qvar RediHaler) ketoconazole 2 % topical cream 1 applic topical DAILY PRN 04/06/22 04/30/22 Rx intertrigo #60 grams duloxetine 60 mg capsule,delayed 60 mg PO BID #60 caps 04/16/22 04/30/22 Rx release clonazepam 1 mg tablet 0.5 mg PO BID #60 tabs 04/17/22 04/30/22 Rx clozapine 50 mg tablet 50 mg PO BEDTIME #30 tabs 04/17/22 04/30/22 Rx lamotrigine 100 mg tablet 200 mg PO BID Mood stabilization 04/18/22 04/30/22 Rx (Lamictal) #120 tabs lithium carbonate 300 mg capsule 900 mg PO DAILY 04/30/22 04/30/22 History nystatin 100,000 unit/gram topical 1 applic topical BID PRN skin 04/30/22 History powder (Nystop) pantoprazole 40 mg tablet,delayed 40 mg PO DAILY 04/30/22 04/30/22 History release Allergies Allergy/AdvReac Type Severity Reaction Status Date / Time adhesive Allergy Mild Rash Verified 04/30/22 16:57 codeine Allergy Mild N&V if she Verified 04/30/22 16:57 takes a lot, itch bowel prep AdvReac Severe Vomiting Uncoded 04/30/22 16:57 Review of Systems Review of Systems Narrative: 14 systems reviewed and negative aside from what is noted in HPI Exam Vital Signs (past 8 hours): - 04/30/22 18:28 04/30/22 18:02 04/30/22 18:02 Pulse Rate 73 78 Respiratory Rate 18 Blood Pressure 136/74 Pulse Oximetry 93 95 Oxygen Delivery Method Room Air 04/30/22 18:30 04/30/22 18:31 04/30/22 18:31 Pulse Rate 74 74 Respiratory Rate 16 16 Blood Pressure 131/60 Pulse Oximetry 94 93 Oxygen Delivery Method 04/30/22 19:00 04/30/22 19:01 04/30/22 19:01 Pulse Rate 73 72 Respiratory Rate 16 17 Blood Pressure 136/60 Pulse Oximetry 93 95 Oxygen Delivery Method 04/30/22 19:30 04/30/22 20:00 04/30/22 20:30 Pulse Rate 81 71 71 Respiratory Rate 19 18 28 H Blood Pressure Pulse Oximetry 96 94 94 Oxygen Delivery Method 04/30/22 21:00 04/30/22 21:39 04/30/22 21:40 Pulse Rate 67 72 70 Respiratory Rate 27 H 19 Blood Pressure Pulse Oximetry 95 95 95 Oxygen Delivery Method 04/30/22 21:40 04/30/22 22:00 04/30/22 22:30 Pulse Rate 65 65 Respiratory Rate 17 17 Blood Pressure 141/70 H Pulse Oximetry 94 94 Oxygen Delivery Method 04/30/22 23:00 04/30/22 23:30 Pulse Rate 67 63 Respiratory Rate 18 16 Blood Pressure Pulse Oximetry 95 95 Oxygen Delivery Method Oxygen Delivery Method Room Air Narrative Exam Narrative: GEN: no acute distress HEENT: moist mucous membranes, PERRL NECK: trachea midline, no JVD CV: regular rate and rhythm, no murmurs PULM: clear bilaterally, no wheezing, rhonchi, rales ABD: soft, nontender, nondistended, no organomegaly EXT: warm and well perfused with no edema NEURO: R facial droop, R facial numbness in all three facial zones, other cranial nerves intact, eyebrow raise normal strength, eyes closed, sensation in right upper and lower extremity normal, normal strength bilaterally in upper and lower extremities Objective Labs Result Diagrams: 04/30/22 18:24 04/30/22 18:24 Labs: Laboratory Results - last 24 hr 04/30/22 04/30/22 04/30/22 18:24 18:24 19:32 WBC 10.1 RBC 4.37 Hgb 12.0 Hct 36.5 MCV 83.5 MCH 27.3 MCHC 32.7 RDW 15.3 H Plt Count 328 Neut % (Auto) 71.4 Lymph % (Auto) 19.1 L [place] % (Auto) 7.6 Eos % (Auto) 0.8 L Baso % (Auto) 1.1 Neut # (Auto) 7200 H Lymph # (Auto) 1900 [place] # (Auto) 800 Eos # (Auto) 100 Baso # (Auto) 100 Sodium 141 Potassium 3.5 Chloride 108 H Carbon Dioxide 29 BUN 6 L Creatinine 0.83 Estimated GFR > 60 BUN/Creatinine Ratio 7.2 Glucose 99 Calcium 9.2 Total Bilirubin 0.4 AST 22 ALT 13 Alkaline Phosphatase 112 Total Creatine Kinase 28 L CK-MB (CK-2) TNP CK-MB (CK-2) Rel Index TNP Troponin I < 0.012 Total Protein 7.7 Albumin 4.0 Globulin 3.7 Albumin/Globulin Ratio 1.1 U Opiates 300ng/mL cut Negative Ur Oxycodone Screen Negative Urine Methadone Screen Negative Ur Barbiturates Screen Negative U Tricyclic Antidepress Negative Ur Phencyclidine Scrn Negative Ur Amphetamines Screen Negative U Methamphetamines Scrn Negative Ur MDMA Scrn (Ecstasy) Negative U Benzodiazepines Scrn Negative Urine Cocaine Screen Negative U Marijuana (THC) Screen Negative SARS-CoV-2 (PCR) 05/01/22 00:18 WBC RBC Hgb Hct MCV MCH MCHC RDW Plt Count Neut % (Auto) Lymph % (Auto) [place] % (Auto) Eos % (Auto) Baso % (Auto) Neut # (Auto) Lymph # (Auto) [place] # (Auto) Eos # (Auto) Baso # (Auto) Sodium Potassium Chloride Carbon Dioxide BUN Creatinine Estimated GFR BUN/Creatinine Ratio Glucose Calcium Total Bilirubin AST ALT Alkaline Phosphatase Total Creatine Kinase CK-MB (CK-2) CK-MB (CK-2) Rel Index Troponin I Total Protein Albumin Globulin Albumin/Globulin Ratio U Opiates 300ng/mL cut Ur Oxycodone Screen Urine Methadone Screen Ur Barbiturates Screen U Tricyclic Antidepress Ur Phencyclidine Scrn Ur Amphetamines Screen U Methamphetamines Scrn Ur MDMA Scrn (Ecstasy) U Benzodiazepines Scrn Urine Cocaine Screen U Marijuana (THC) Screen SARS-CoV-2 (PCR) Negative Assessment & Plan Assessment & Plan narrative: Ms. Le is a 57W with PMH PTSD, HTN, current smoker with right sided facial weakness and numbness. 1. Right sided facial weakness and numbness -has questionable worsening of right sided arm and leg -has slight upper facial findings -etiology is stroke vs less likely bells palsy -swallow screen -aspirin ordered -pravastatin dose will be increased to high intensity -MRI, ECHO ordered -check lipids, a1c -NIH q4 -PT/OT and speech consulted 2. Current smoker -counselled patient at length about risk of smoking and future strokes -she is not currently interested in quitting 3. Hypertension -hold anti-hypertensive for now due to possibility of stroke 4. Schizoaffective disorder/PTSD -continue lamotrigine, lithium, gabapentin, klonopin 5. Morbid obesity -BMI 40.1 -follow up as outpatient CODE: Full Proxy: Ele Lee I have utilized all available resources to reconcile the patient's home medications. Time Spent With Patient Critical Care time: I spent a total of [] minutes of critical care time on this patient's care today; this time is exclusive of procedural time.
--- NOTE | 2022-04-30 23:07 | DI.MRI.S_ITS ---
PROCEDURE: MR HEAD/BRAIN WO CON INDICATIONS: cva TECHNIQUE: Noncontrast axial T1 spin echo, axial T2 fast spin echo, sagittal and axial FLAIR, coronal T2 fast spin echo, axial gradient echo, axial diffusion and ADC through the brain. COMPARISON: None. FINDINGS: Image quality: Excellent. CSF Spaces: Basal cisterns are patent. No extra-axial fluid collections. Ventricles are normal in size and shape. Brain: No intracranial masses or hemorrhage. Marquez/white matter interface is normal. Brainstem appears normal. Diffusion-weighted images demonstrate no acute ischemic insult. No chronic ischemic insults. Normal intravascular flow voids are present. Skull and face: Calvarium has normal marrow signal. Orbits appear normal. Sinuses: Moderate right mastoid air cell effusion. Left mastoid air cells and paranasal sinuses are clear. IMPRESSION: No acute infarct or other acute intracranial finding. Dictated by: Gatito Alex M.D. on 05/01/2022 at 10:52 Approved by: Gatito Alex M.D. on 05/01/2022 at 10:53
--- NOTE | 2022-04-30 23:08 | DI.ECHO.S_ITS ---
[facility] +---------+ : : [address] : : : : [id number] : : : : Phone: [phone]+ Echocardiogram Report + + :Name: DALIA TOLLIVER Study Date: 05/01/2022 Height: 65 in : :[facility] ReadingLocation: Weight: 241 lb : : Gender: Female BSA: 2.1 m2 : :: 1965 Age: 57 yrs BP: 136/63 mmHg: :Reason For Study: CVA : :Ordering Physician: ALYSSA, : :KARRIE Performed By: Letitia Peck : :Referring: KARRIE SHAH : + + Interpretation Summary The ejection fraction is estimated to be 60-65%. Diastolic parameters suggest probable normal left ventricular diastolic function and normal filling pressures. The right ventricle is normal in size and function. Injection of contrast documented no interatrial shunt. No significant valvular abnormalities. Unable to estimate PASP. Procedure: A two-dimensional transthoracic echocardiogram with color flow and Doppler was performed. The study quality was technically difficult. There is no prior echocardiogram noted for this patient. A saline contrast injection was performed to assess for cardiac shunting. The patient was in sinus rhythm with heart rates between 60-75 bpm during the exam. Left Ventricle: The left ventricle is normal in size. There is mild concentric left ventricular hypertrophy. The ejection fraction is estimated to be 60-65%. Diastolic parameters suggest probable normal left ventricular diastolic function and normal filling pressures. Right Ventricle: The right ventricle is normal in size and function. Atria: The left atrial size is normal. Right atrial size is normal. There is no Doppler evidence for an interatrial shunt. Injection of contrast documented no interatrial shunt. Mitral Valve: The mitral valve is normal in structure and function. There is no mitral regurgitation noted. Aortic Valve: The aortic valve is not well visualized. There is no aortic valve stenosis. No aortic regurgitation is present. Tricuspid Valve: The tricuspid valve is normal in structure and function. There is trace tricuspid regurgitation. Pulmonary artery pressures cannot be estimated because of the lack of a measurable TR jet velocity. Pulmonic Valve: The pulmonic valve is not well seen, but is grossly normal. There is no pulmonic valvular regurgitation. Great Vessels: The aortic root is normal size. The dimensions of the ascending aorta are normal. The IVC is of normal diameter and collapses greater than 50% with a sniff. This suggests a low right atrial pressure of 3 mm Hg. Pericardium/ Pleura There is a trivial pericardial effusion noted. There is no pleural effusion. MMode/2D Measurements & Calculations LVIDd: 4.9 cm LVOT diam: 2.2 cm LVIDs: 3.0 cm Ao root diam: 3.1 cm FS: 38.6 % asc Aorta Diam: 3.0 cm IVSd: 1.1 cm Ao Arch Diam (Prox Trans): 2.6 cm LVPWd: 1.1 cm LV wagoner. diameter/BSA (cm/m^2): 2.3 LV sys. diameter/BSA (cm/m^2): 1.4 LA A2 area: 24.5 cm2 RA long axis: 4.4 cm LA A4 area: 17.8 cm2 RA area: 13.6 cm2 LA length (vol): 5.5 cm RA vol: 35.4 ml LA vol: 67.5 ml RA : 16.5 ml/m2 LA vol index: 31.5 ml/m2 IVC diam: 2.0 cm RVD1 (basal): 3.5 cm RVD2 (mid): 2.8 cm TAPSE: 2.5 cm Doppler Measurements & Calculations Ao V2 max: 168.9 cm/sec LVOT Max Froylan: 112.3 cm/sec Ao V2 mean: 109.1 cm/sec LV V1 max P.0 mmHg Ao max P.4 mmHg LV V1 VTI: 23.9 cm Ao mean P.7 mmHg ROBBIE(I,D): 2.5 cm2 Ao V2 VTI: 35.7 cm ROBBIE(V,D): 2.5 cm2 sev ratio: 0.67 ROBBIE indexed to BSA (cm^2/m^2): 1.2 MV E max froylan: 102.3 cm/sec PA V2 max: 104.1 cm/sec MV A max froylan: 68.6 cm/sec PA V2 mean: 77.6 cm/sec MV E/A: 1.5 PA mean P.6 mmHg Med Peak E' Froylan: 9.7 cm/sec PA pr(Accel): 44.7 mmHg E/E' med: 10.5 Lat Peak E' Froylan: 9.1 cm/sec E/E' lat: 11.2 E/e' average: 10.9 MV dec time: 0.21 sec [facility] 88.6 ml Reading Physician:01:01 PM
[2022-05-01] VITALS (12 sets, daily range): BP systolic 136–188; BP diastolic 63–75; PULSE 71–80; RESP 14–22; TEMP 36.2–36.4; O2SAT 92–99; BMI 40.1
[2022-05-01] MEDS: GABAPENTIN 300 MG CAPSULE 900 MG PO ×3 (00:10→20:48)
[2022-05-01] MEDS: LITHIUM 150 MG IR CAPSULE 900 MG PO ×2 (00:11→20:49)
[2022-05-01] MEDS: DULOXETINE 30 MG CAPSULE 60 MG PO ×3 (00:12→20:50)
[2022-05-01] MEDS: lamoTRIgine 100 MG TABLET 200 MG PO ×3 (00:13→20:49)
[2022-05-01] MEDS: clonazePAM 0.5 MG TABLET PO ×3 (00:13→20:51)
[2022-05-01] MEDS: PRAVASTATIN 20 MG TABLET 40 MG PO ×2 (00:13→20:50)
[2022-05-01 00:36] LABS: COVID19 -Nasal RAPID Negative (Negative)
[2022-05-01 05:13] LABS: Add Manual Diff / Slide Review NO; Basophils Absolute Auto 100 /uL (0-100); Basophils Percent Auto 0.9 % (0-2); Eosinophils Absolute Auto 100 /uL (0-450); Eosinophils Percent Auto 0.8 % (2-4); Hematocrit 35.2 % (36-46); Hemoglobin 11.7 g/dL (12.0-16.0); Lymphocytes Absolute Auto 2400 /uL (1100-4500); Lymphocytes Percent Auto 24.5 % (25-40); Mean Corpuscular HGB Conc 33.1 % (30-36); Mean Corpuscular Hemoglobin 27.6 PG (26-34); Mean Corpuscular Volume 83.3 fL (80-100); Monocytes Absolute Auto 800 /uL (0-900); Monocytes Percent Auto 8.6 % (3-14); Neutrophils Absolute Auto 6300 /uL (1500-7000); Neutrophils Percent Auto 65.2 % (50-75); Platelet Count 310 X10^3/uL (150-400); Red Blood Cell Count 4.23 X10^6/uL (4.0-5.2); Red Cell Distribution Width 15.6 % (11.6-14.8); White Blood Cell Count 9.7 X10^3/uL (4.5-11.0)
[2022-05-01 05:26] LABS: BUN Creatinine Ratio 6.5 (6-22); Blood Urea Nitrogen 6 mg/dL (7-17); Calcium 9.2 mg/dL (8.4-10.2); Carbon Dioxide 31 mmol/L (22-32); Chloride 107 mmol/L (98-107); Estimated Glomerular Filt Rate > 60 mL/min (>60); Glucose 103 mg/dL (70-100); HEMOLYSIS < 15 (0-50); Potassium 3.3 mmol/L (3.4-5.1); Sodium 141 mmol/L (137-145)
[2022-05-01 05:36] LABS: Cholesterol 132 mg/dL (140-199); HDL Cholesterol 32 mg/dL (40-60); LDL Cholesterol Calculated 67 mg/dL (<100); Triglycerides 165 mg/dL (35-150)
[2022-05-01 05:47] LABS: Hemoglobin A1C% w Est Avg Glu 5.3 % (4.0-6.0)
[2022-05-01] MEDS: ENOXAPARIN 40 MG/0.4 ML SYRINGE SUBCUT ×2 (09:30→20:49)
[2022-05-01] MEDS: ASPIRIN EC 81 MG TABLET PO (09:32)
[2022-05-01] MEDS: SODIUM CHLORIDE 0.9% 1,000 ML 150 ML IV (11:23)
--- NOTE | 2022-05-01 11:24 | PC.NURSE ---
ECHO at bedside.
--- NOTE | 2022-05-01 13:10 | PT-IP ANOTE ---
Reviewed EMR and pt still in ER but pending acute admission. will complete PT eval once pt is on the acute floor.
--- NOTE | 2022-05-01 13:59 | PM.PN.1 ---
Subjective Subjective Interval history: Hospitalist visit follow-up. Patient reports that all symptoms in her extremities have resolved. There is no numbness in any of her extremities. Has normal function of both upper and lower extremities. Minimal sensation in the right facial area that is more tingling rather than numb at this time. Main complaint now is difficulty with wheezing. Both auditory inspiratory and expiratory wheezing. No fever or chills. Does have right lower quadrant abdominal pain with associated intestinal gas and increased flatus. No dysuria or hematuria. Able to move all extremities volitionally. No specific strength deficit in any extremity. Exam Vital Signs (past 8 hours): - 05/01/22 06:09 05/01/22 06:07 05/01/22 06:08 Temperature Pulse Rate 73 73 72 Respiratory Rate 22 Blood Pressure 136/63 Pulse Oximetry 93 92 92 Oxygen Delivery Method Room Air Oxygen Flow Rate 05/01/22 06:08 05/01/22 07:55 05/01/22 08:00 Temperature Pulse Rate 72 71 Respiratory Rate 14 Blood Pressure 136/63 Pulse Oximetry 94 Oxygen Delivery Method Oxygen Flow Rate 05/01/22 08:30 05/01/22 09:00 05/01/22 12:15 Temperature 97.2 F L Pulse Rate 80 74 71 Respiratory Rate 16 Blood Pressure 149/69 H Pulse Oximetry 93 99 Oxygen Delivery Method Oxygen Flow Rate 0 05/01/22 13:41 Temperature Pulse Rate Respiratory Rate Blood Pressure Pulse Oximetry Oxygen Delivery Method Room Air Oxygen Flow Rate Oxygen Delivery Method Room Air Oxygen Flow Rate 0 Narrative Exam Narrative: GEN: no acute distress, trying to sleep. HEENT: moist mucous membranes, PERRL NECK: trachea midline, no JVD CV: regular rate and rhythm, no murmurs PULM: Inspiratory and expiratory wheezing throughout the chest. General decreased air entry throughout the chest. ABD: Soft. Tender at site of left lower quadrant with hyperactive bowel sounds. No masses or organomegaly. EXT: Warm and well perfused with no edema. NEURO: R facial droop resolved, R facial numbness has resolved to tingling only, other cranial nerves intact, eyebrow raise normal strength, eyes closed, sensation in right upper and lower extremity normal, normal strength bilaterally in upper and lower extremitie Objective Labs Result Diagrams: 05/01/22 04:49 05/01/22 04:49 Labs: Laboratory Results - last 24 hr 04/30/22 04/30/22 04/30/22 18:24 18:24 19:32 WBC 10.1 RBC 4.37 Hgb 12.0 Hct 36.5 MCV 83.5 MCH 27.3 MCHC 32.7 RDW 15.3 H Plt Count 328 Neut % (Auto) 71.4 Lymph % (Auto) 19.1 L [place] % (Auto) 7.6 Eos % (Auto) 0.8 L Baso % (Auto) 1.1 Neut # (Auto) 7200 H Lymph # (Auto) 1900 [place] # (Auto) 800 Eos # (Auto) 100 Baso # (Auto) 100 Sodium 141 Potassium 3.5 Chloride 108 H Carbon Dioxide 29 BUN 6 L Creatinine 0.83 Estimated GFR > 60 BUN/Creatinine Ratio 7.2 Glucose 99 Hemoglobin A1c Calcium 9.2 Total Bilirubin 0.4 AST 22 ALT 13 Alkaline Phosphatase 112 Total Creatine Kinase 28 L CK-MB (CK-2) TNP CK-MB (CK-2) Rel Index TNP Troponin I < 0.012 Total Protein 7.7 Albumin 4.0 Globulin 3.7 Albumin/Globulin Ratio 1.1 Triglycerides Cholesterol LDL Cholesterol, Calc HDL Cholesterol U Opiates 300ng/mL cut Negative Ur Oxycodone Screen Negative Urine Methadone Screen Negative Ur Barbiturates Screen Negative U Tricyclic Antidepress Negative Ur Phencyclidine Scrn Negative Ur Amphetamines Screen Negative U Methamphetamines Scrn Negative Ur MDMA Scrn (Ecstasy) Negative U Benzodiazepines Scrn Negative Urine Cocaine Screen Negative U Marijuana (THC) Screen Negative SARS-CoV-2 (PCR) 05/01/22 05/01/22 05/01/22 00:18 04:49 04:49 WBC 9.7 RBC 4.23 Hgb 11.7 L Hct 35.2 L MCV 83.3 MCH 27.6 MCHC 33.1 RDW 15.6 H Plt Count 310 Neut % (Auto) 65.2 Lymph % (Auto) 24.5 L [place] % (Auto) 8.6 Eos % (Auto) 0.8 L Baso % (Auto) 0.9 Neut # (Auto) 6300 Lymph # (Auto) 2400 [place] # (Auto) 800 Eos # (Auto) 100 Baso # (Auto) 100 Sodium 141 Potassium 3.3 L Chloride 107 Carbon Dioxide 31 BUN 6 L Creatinine 0.93 Estimated GFR > 60 BUN/Creatinine Ratio 6.5 Glucose 103 H Hemoglobin A1c Calcium 9.2 Total Bilirubin AST ALT Alkaline Phosphatase Total Creatine Kinase CK-MB (CK-2) CK-MB (CK-2) Rel Index Troponin I Total Protein Albumin Globulin Albumin/Globulin Ratio Triglycerides Cholesterol LDL Cholesterol, Calc HDL Cholesterol U Opiates 300ng/mL cut Ur Oxycodone Screen Urine Methadone Screen Ur Barbiturates Screen U Tricyclic Antidepress Ur Phencyclidine Scrn Ur Amphetamines Screen U Methamphetamines Scrn Ur MDMA Scrn (Ecstasy) U Benzodiazepines Scrn Urine Cocaine Screen U Marijuana (THC) Screen SARS-CoV-2 (PCR) Negative 05/01/22 05/01/22 04:49 04:49 WBC RBC Hgb Hct MCV MCH MCHC RDW Plt Count Neut % (Auto) Lymph % (Auto) [place] % (Auto) Eos % (Auto) Baso % (Auto) Neut # (Auto) Lymph # (Auto) [place] # (Auto) Eos # (Auto) Baso # (Auto) Sodium Potassium Chloride Carbon Dioxide BUN Creatinine Estimated GFR BUN/Creatinine Ratio Glucose Hemoglobin A1c 5.3 Calcium Total Bilirubin AST ALT Alkaline Phosphatase Total Creatine Kinase CK-MB (CK-2) CK-MB (CK-2) Rel Index Troponin I Total Protein Albumin Globulin Albumin/Globulin Ratio Triglycerides 165 H Cholesterol 132 L LDL Cholesterol, Calc 67 HDL Cholesterol 32 L U Opiates 300ng/mL cut Ur Oxycodone Screen Urine Methadone Screen Ur Barbiturates Screen U Tricyclic Antidepress Ur Phencyclidine Scrn Ur Amphetamines Screen U Methamphetamines Scrn Ur MDMA Scrn (Ecstasy) U Benzodiazepines Scrn Urine Cocaine Screen U Marijuana (THC) Screen SARS-CoV-2 (PCR) [facility] Medical History Alcohol dependence in sustained full remission Bilateral tinnitus Bipolar II disorder Chronic back pain Chronic pain Chronic post-traumatic stress disorder COPD (chronic obstructive pulmonary disease) (2012) Dyspareunia Essential hypertension (06/2019) Hormone replacement therapy Insomnia, unspecified Intermittent palpitations Intertrigo Left foot pain Lumbar transverse process fracture Mixed hyperlipidemia (06/2019) Morbid obesity with BMI of 40.0-44.9, adult Nicotine abuse Obstructive sleep apnea of adult (~10/2018) Surgical History S/P complete hysterectomy (1994) Social History marital status: details: lives in [place] household members: family lives independently: Yes (with elderly parents) caregiver/support person: No housing: house Smoking Status: Current every day smoker Tobacco: How many years used: 42 second hand exposure: No alcohol intake: former substance use type: does not use Assessment & Plan Assessment & Plan narrative: Ongoing problems: 1. Right sided facial weakness and numbness. Weakness has resolved. Numbness has changed to tingling sensation of the right face. Continue to monitor. 2. Current smoker with COPD. COPD is currently exacerbated. Will treat with prednisone and oral antibiotics and albuterol inhalers. 3. Hypertension with concern for CVA. MRI of the brain confirms no CVA. Will reinitiate antihypertensive medication 4. Schizoaffective disorder/PTSD Continue lamotrigine, lithium, gabapentin, klonopin 5. Morbid obesity Has BMI 40.1 and needs follow up as outpatient. Time Spent With Patient Critical Care time: I spent a total of [] minutes of critical care time on this patient's care today; this time is exclusive of procedural time.
--- NOTE | 2022-05-01 14:20 | PT.IIE ---
Surgical History (Last Reviewed 05/01/22 @ 02:27 by Rodríguez Le MD) S/P complete hysterectomy (1994) Medical History (Last Reviewed 05/01/22 @ 02:27 by Rodríguez Le MD) Alcohol dependence in sustained full remission Bilateral tinnitus Bipolar II disorder Chronic back pain Chronic pain Chronic post-traumatic stress disorder COPD (chronic obstructive pulmonary disease) (2012) Dyspareunia Essential hypertension (06/2019) Hormone replacement therapy Insomnia, unspecified Intermittent palpitations Intertrigo Left foot pain Lumbar transverse process fracture Mixed hyperlipidemia (06/2019) Morbid obesity with BMI of 40.0-44.9, adult Nicotine abuse Obstructive sleep apnea of adult (~10/2018) Physical Therapy Inpatient Evaluation/Re-Eval M1 PT/OT-IP Prior Functional Status Start: 05/01/22 14:39 Freq: NEEDED Status: Active Protocol: Document 05/01/22 14:20 AB (Rec: 05/01/22 14:46 AB [id number]) Medical Review Prior Functional Status Medical History Reviewed Yes Communication able to make needs known Mobility and Gait pt stated that she is modified independent with all mobilities and ambulation without AD Social History Household Members family Living Arrangements House Number of Floors (Floors) One Floor Number of Stairs To Enter/Railing? ramp with 2 rails to enter the house Home Environment Standard Height Toilet,Tub/ Shower,Ramp Home Equipment Front Wheel Walker,Quad Cane, Hand Held Shower,Grab Bars In Shower Additional Social History Comment pt lives with her parents pt sleeps on a recliner M2 PT-IP Current Condition Start: 05/01/22 14:39 Freq: NEEDED Status: Active Protocol: Document 05/01/22 14:20 AB (Rec: 05/01/22 14:46 AB [id number]) Physical Therapy Current Condition Current Condition Evaluation Date 05/01/22 Treatment Diagnosis R facial numbness; difficulty in walking Onset Date 04/30/22 M3 PT-IP Subjective Start: 05/01/22 14:39 Freq: NEEDED Status: Active Protocol: Document 05/01/22 14:20 AB (Rec: 05/01/22 14:46 AB [id number]) Subjective Physical Therapy Visit Type Type Initial Evaluation Visit Start Time 14:20 Visit Stop Time 14:35 Total Visit Minutes 15 Number of LANDFILL ATTENDANT Visits 0 Physical Therapy Visit Comments Patient Comments agreeable to do PT Therapy Pain Assessment Pain Present Pain Present Denied Pain M4 PT-IP Mobility and Gait Start: 05/01/22 14:39 Freq: NEEDED Status: Active Protocol: Document 05/01/22 14:20 AB (Rec: 05/01/22 14:46 AB [id number]) PT-Bed Mobility Assessment Supine to Sit Supine to Sit Standby Assistance,Head of Bed Elevated Sit to Supine Sit to Supine Standby Assistance,Head of Bed Elevated PT-Transfer Assessment Sit to and From Stand Sit to and from Stand Independent Equipment Transfer Assistive Device None,Gait Belt Orthotic/Prosthetic Devices or Brace: No Comments Mobility Comments completed supine to sit with HOB elevated mod I. pt sleeps on a recliner at home. completed sit to stand mod I and ambulated in room ~ 50 ft without AD SBA for safety. presents with antalgic gait with no LOB. increase lateral trunk lean to the L. pt went back to her bed. mod I with sit to supine. call light and table placed within reach. informed pt that no PT needs at this time and pt agreed. Gait Assessment Gait Gait Assistance Required: Standby Assistance Distance (Feet) 50 Able to Maintain Weight Bearing Status Yes During Gait Assistive Devices Assistive Device None Orthotic/Prosthetic Devices or Brace: No Gait Deviations General Gait Pattern Antalgic,Lateral Trunk Lean PT-Balance Assessment Sitting Balance and Reactions Static Sitting Balance Ability Normal Dynamic Sitting Balance Ability Normal Standing Balance and Reactions Static Standing Balance Ability Good Dynamic Standing Balance Ability Fair Device Used without AD M5 PT-IP Objective Assessments Start: 05/01/22 14:39 Freq: NEEDED Status: Active Protocol: Document 05/01/22 14:20 AB (Rec: 05/01/22 14:46 AB [id number]) Orientation Orientation/Cognition Level of Alertness Alert Orientation Name,Place,Situation Language Function Ability No Deficits Noted Safety Awareness Understands Safety Issues Memory Description No Deficits Noted Gross Range of Motion Lower Extremity ROM Assessment Within Functional Limits Strength Lower Extremity Strength Hip 4-/5 Knee 4-/5 Coordination Assessment Gross Coordination Gross Coordination WNL Sensation Assessment Comments Sensation Comments c/o R sided facial numbness Muscle Tone Muscle Tone WNL Yes M6 PT-IP Treatment Start: 05/01/22 14:39 Freq: NEEDED Status: Active Protocol: Document 05/01/22 14:20 AB (Rec: 05/01/22 14:46 AB [id number]) Physical Therapy Treatment Education Education Provided Safety M7 PT-IP Assessment and Plan Start: 05/01/22 14:39 Freq: NEEDED Status: Active Protocol: Document 05/01/22 14:20 AB (Rec: 05/01/22 14:46 [email or web address]) PT Summary Assessment and Plan Potential Rehabilitation Potential Good Summary Assessment Summary Pt eval completed and pt is mod I with bed mobility and sit to stand transfers, SBA with ambulation without AD for safety. No further PT intervention indicated at this time. pt may go home when medically stable. Frequency of Treatment Frequency Of Treatment Discharge Recommendations To Nursing Amount of Assist Needed Standby Assistance Discharge Recommendations PT Discharge Recommendations Home Transportation Needs at Discharge Private Vehicle
--- NOTE | 2022-05-01 14:40 | OT.IP.EVAL ---
Past Medical History (Last Reviewed 05/01/22 @ 02:27 by Rodríguez Le MD) Alcohol dependence in sustained full remission Bilateral tinnitus Bipolar II disorder Chronic back pain Chronic pain Chronic post-traumatic stress disorder COPD (chronic obstructive pulmonary disease) (2012) Dyspareunia Essential hypertension (06/2019) Hormone replacement therapy Insomnia, unspecified Intermittent palpitations Intertrigo Left foot pain Lumbar transverse process fracture Mixed hyperlipidemia (06/2019) Morbid obesity with BMI of 40.0-44.9, adult Nicotine abuse Obstructive sleep apnea of adult (~10/2018) Surgical History (Last Reviewed 05/01/22 @ 02:27 by Rodríguez Le MD) S/P complete hysterectomy (1994) Occupational Therapy Inpatient Evaluation/Re-Eval M1 PT/OT-IP Prior Functional Status Start: 05/01/22 14:39 Freq: NEEDED Status: Active Protocol: Document 05/01/22 14:20 AB (Rec: 05/01/22 14:46 AB [id number]) Medical Review Prior Functional Status Medical History Reviewed Yes Communication able to make needs known Mobility and Gait pt stated that she is modified independent with all mobilities and ambulation without AD Social History Household Members family Living Arrangements House Number of Floors (Floors) One Floor Number of Stairs To Enter/Railing? ramp with 2 rails to enter the house Home Environment Standard Height Toilet,Tub/ Shower,Ramp Home Equipment Front Wheel Walker,Quad Cane, Hand Held Shower,Grab Bars In Shower Additional Social History Comment pt lives with her parents pt sleeps on a recliner M1 PT/OT-IP Prior Functional Status Start: 05/01/22 15:05 Freq: NEEDED Status: Active Protocol: Document 05/01/22 15:06 [facility] (Rec: 05/01/22 15:20 [facility] [id number]) Medical Review Prior Functional Status Medical History Reviewed Yes Communication able to make needs known Mobility and Gait pt stated that she is modified independent with all mobilities and ambulation without AD Activities of Daily Living and IADL's Pt states independent with all ADL and mobility needs and shares responsibility of IADl needs with her parents. Her mother help hers with medications. Social History Household Members family Living Arrangements House Number of Floors (Floors) One Floor Number of Stairs To Enter/Railing? ramp with 2 rails to enter the house Home Environment Standard Height Toilet,Tub/ Shower,Ramp Home Equipment Front Wheel Walker,Quad Cane, Hand Held Shower,Grab Bars In Shower Additional Social History Comment pt lives with her parents pt sleeps on a recliner M2 OT-IP Current Condition Start: 05/01/22 15:05 Freq: Status: Active Protocol: Document 05/01/22 15:06 [facility] (Rec: 05/01/22 15:20 [facility] [id number]) Occupational Therapy Current Condition Current Condition Evaluation Date 05/01/22 Treatment Diagnosis right facial droop Diagnosis Onset Date 04/30/22 M3 OT- IP Subjective and Pain Start: 05/01/22 15:05 Freq: Status: Active Protocol: Document 05/01/22 15:06 [facility] (Rec: 05/01/22 15:20 [facility] [id number]) OT- Subjective Occupational Therapy Visit Type Type Initial Evaluation Visit Start Time 14:40 Visit Stop Time 15:06 Total Visit Minutes 26 Occupational Therapy Visit Comments Patient Comments Pt agreed to get up and work with OT. Patient/Caregiver Goals TO go home. OT Pain Assessment Pain When Pain Assessed At Rest Pain Present Pain Present Denied Pain M4 OT- IP ADL's Start: 05/01/22 15:05 Freq: Status: Active Protocol: Document 05/01/22 15:06 [facility] (Rec: 05/01/22 15:20 [facility] [id number]) OT [id number] Comments OT Self-Feeding Comments Per pt states has no issues. OT ADL-Grooming Comments OT Grooming Comments Pt states does not want to do at this time. OT ADL-Oral Care Comments Oral Care Comments NOt performed. OT ADL-Dressing General Eval Lower Body Dressing Ability Standby Assistance Comments OT Dressing Comments Pt able to dane/doff her socks while seated on the edge of the bed. OT ADL-Toileting Comments OT Toileting Comments Pt states has been independently using the toilet on her own. OT ADL-Bathing Comments OT Bathing Comments Not performed, may benefit from a shower chair. M5 OT- IP IADL's Start: 05/01/22 15:05 Freq: Status: Active Protocol: Document 05/01/22 15:06 [facility] (Rec: 05/01/22 15:20 [facility] [id number]) OT-Instrumental Activities of Daily Living Home Safety Awareness Awareness of Need for Assistance at Home Good Awareness Medication Management Medication Management Caregiver Provides Supervision Money Management Money Management Comments Pt would benefit from at least supervision at this time as having difficulty converting 2min and 25 sec. into seconds . Meal Preparation Meal Preparation Caregiver Provides Assist Customs Entry Writer Customs Entry Writer Caregiver Provides Assist Driving Driving Concerns Identified Regarding Safety M6 OT- IP Functional Cognition Start: 05/01/22 15:05 Freq: Status: Active Protocol: Document 05/01/22 15:06 [facility] (Rec: 05/01/22 15:20 [facility] [id number]) Cognitive Factors Limiting Selfcare Function Cognitive Ability Level of Alertness Alert Patient Orientation Name,Place,Situation Attention Span Ability Capable of Focused Attention, Capable of Sustained Attention Ability to Follow Commands Able to Follow One Step Commands Cognitive Comments Cognitive Assessment Comments Pt scored 145 seconds on [place] making Part B in addition to mod vc to alternate between numbers and letters. Pt's score implies mod/severe deficits in visual attention, speed of processing, task switching, executive functioning, and mental flexibility. Pt agrees that pt will not drive at this time. OT- Vision and Hearing OT- Hearing Assessment OT- Hearing Assessment WFL OT- Vision Assessment Visual Acuity Glasses For Reading Occular Pursuits WFL Visual Convergence WFL Visual Oswald WFL M7 OT- IP Mobility and Balance Start: 05/01/22 15:05 Freq: Status: Active Protocol: Document 05/01/22 15:06 [facility] (Rec: 05/01/22 15:20 [facility] [id number]) OT- Bed Mobility Assessment Supine to Sit Supine to Sit Assist Standby Assistance Sit to Supine Sit to Supine Assist Standby Assistance Scooting Scooting to Edge of Bed Standby Assistance OT-Transfer Assessment Sit to and From Stand Sit to and from Stand Standby Assistance Transfers Transfer Ability Standby Assistance Technique Transfer Destination Bed Comments Mobility Comments Pt able to get up out of bed with increased time and move in the room with SBA. Pt states feels a bit off and weak but close to her baseline . OT- Balance Assessment Sitting Balance and Reactions Static Sitting Balance Ability Normal Dynamic Sitting Balance Ability Good Standing Balance and Reactions Static Standing Balance Ability Good Dynamic Standing Balance Ability Fair M8 OT- IP Objective Assessments Start: 05/01/22 15:05 Freq: Status: Active Protocol: Document 05/01/22 15:06 [facility] (Rec: 05/01/22 15:20 [facility] [id number]) OT Gross Range of Motion Upper Extremity Range of Motion Assessment Within Functional Limits OT Strength Upper Extremity Strength Assessment Within Functional Limits OT- Coordination Assessment Upper Extremity Finger to Nose Test Within Functional Limits OT-Muscle Tone Assessment Muscle Tone WNL Yes M9 OT- IP Assessment and Plan Start: 05/01/22 15:05 Freq: Status: Active Protocol: Document 05/01/22 15:06 [facility] (Rec: 05/01/22 15:20 [facility] [id number]) OT Summary Assessment and Plan Potential Rehabilitation Potential Good Analytic Complexity at Evaluation Low Summary OT Impairments Functional Cognition,Bathing, Activity Tolerance Progress Towards Goals Progressing Toward Goals Assessment Summary Pt here due to right facial drop. Pt low complexity and main barriers are having difficulty to complete [place] making B in a timely manner, however IV in her right hand which may also have influenced her score of 145 seconds on [place] making Part B in addition to mod vc to alternate between numbers and letters. Pt's score implies mod/severe deficits in visual attention, speed of processing , task switching, executive functioning, and mentla flexibility. Pt agrees that pt will not drive at this time. Pt to go home with her parents to assist when medically stable. Goals Dressing Goal Independent Toileting Goal Independent Bathing Goal Independent Toilet Transfer Goal Independent Shower Transfer Goal Independent Days to Meet Goals 1 Frequency of Treatment Frequency Of Treatment Once a Day Treatment Plan OT Treatment Plan ADL Training,Functional Cognition Training,Functional Mobility,Patient/Family Education,Discharge Planning Other Treatment Recommendations and Next shower if stil here, repeat Treatment Focus [place] Making Part B Discharge Recommendations OT Discharge Recommendations Home with Assistance Home Equipment Needs shower chair Transportation Needs at Discharge Private Vehicle
[2022-05-01] MEDS: levoFLOXacin 250 MG TABLET 750 MG PO (15:08)
[2022-05-01] MEDS: predniSONE 20 MG TABLET 60 MG PO (15:08)
[2022-05-01] MEDS: POTASSIUM CHLORIDE 20 MEQ TAB 40 MEQ PO ×2 (15:08→20:55)
[2022-05-01] MEDS: AMLODIPINE 5 MG TABLET 2.5 MG PO (15:08)
--- NOTE | 2022-05-01 16:45 | ST.IPCSEOM ---
Visit Care Team Role Provider Type ARIANNA Stewart Primary Care Provider Advanced Survey Research Associate Specialty: Medical Address: [address] [place] [address], [id number] Email: [email or web address] ARIANNA Caballero Family Provider Advanced Survey Research Associate Specialty: Medical Address: [address] [place] [address], [address] Email: [email or web address] Chandrakant Matthew DO Emergency Provider Physician Specialty: Emergency Medicine Address: [address] [place] [address], [id number] Email: [email or web address] Rodríguez Le MD Admit Provider Physician Attending Provider Specialty: Hospitalist Address: [address] [place] [address], [id number] Fax: Email: [email or web address] Past Medical History (Last Reviewed 05/01/22 @ 02:27 by Rodríguez Le MD) Alcohol dependence in sustained full remission (Medical) Bilateral tinnitus (Medical) Bipolar II disorder (Medical) Chronic back pain (Medical) Chronic pain (Medical) Chronic post-traumatic stress disorder (Medical) COPD (chronic obstructive pulmonary disease) (Medical 2012) Dyspareunia (Medical) Essential hypertension (Medical 06/2019) Hormone replacement therapy (Medical) Insomnia, unspecified (Medical) Intermittent palpitations (Medical) Intertrigo (Medical) Left foot pain (Medical) Lumbar transverse process fracture (Medical) Mixed hyperlipidemia (Medical 06/2019) Morbid obesity with BMI of 40.0-44.9, adult (Medical) Nicotine abuse (Medical) Obstructive sleep apnea of adult (Medical ~10/2018) Speech-Language Pathology Swallow Evaluation EDUCATIONAL ASSISTANT Clinical Instructor Line Start: 05/01/22 16:41 Freq: Status: Active Protocol: Document 05/01/22 16:44 MG (Rec: 05/01/22 16:44 MG [id number]) Clinical Instructor Signature Clinical Instructor Clinical Instructor Yes: Livia Etienne MA, [facility]-EDUCATIONAL ASSISTANT EDUCATIONAL ASSISTANT Clinical Swallow Evaluation Start: 05/01/22 15:42 Freq: Status: Active Protocol: Document 05/01/22 15:42 EK (Rec: 05/01/22 15:56 EK [id number]) Clinical Swallow Evaluation Session Time Visit Start Time 01:54 Visit Stop Time 02:10 Total Visit Minutes 16 Referral Referring Provider Rodríguez Le MD Reason for Referral Stroke Protocol Setting Assessment Location Acute Care Visit Type Note Type Initial evaluation Next Note Type Next Note Type Treatment Note Patient Information Identification Type Name,Wristband History Pt is a 57 year old female who was admitted into the hospital due to right facial weakness and numbness with a NIH score of 4. These symptoms have been ongoing since . Per H&P, she has been experiencing intermittent and chronic right upper extremity and right lower extremity numbness but some right leg weakness has resolved. A CTA showed a small cerebral aneurysm. Her history is also significant for former alcohol dependence, bilateral tinnitus, bipolar II, and COPD . Pt also regularly smokes cigarettes, indicated she smokes a pack a day. Subjective Observations Pt was laying in bed upon EDUCATIONAL ASSISTANT and EDUCATIONAL ASSISTANT strategy intern arrival. Re- adjusted to upright position prior to PO trials. Pt reports no new difficulty eating or speaking. Assessment conducted and note written by EDUCATIONAL ASSISTANT strategy intern Angie De La Rosa under EDUCATIONAL ASSISTANT supervision. Reported by Patient Current Diet Regular,Thin liquids Baseline Feeding Method Independent in self-feeding Patient Questionnaire No Objective Assessment Mental Status Alert,Responsive,Cooperative Oral Integrity WFL Dentition Dentures or partials present Lip Function Moderate impairment Observation of Lips at Rest Right sided weakness/Drooping Pucker Reduced range of motion, Reduced strength,Right sided weakness/drooping Lip Retraction Right sided weakness/Drooping Alternating Pucker/Lip Retraction Reduced range of motion Tongue Function Within normal limits Observations of Tongue at Rest Within normal limits Tongue Protrusion Within normal limits Tongue Lateralization Within normal limits Jaw Function Within normal limits Observations of Jaw at Rest Within normal limits Jaw Opening Within normal limits Jaw Closing Within normal limits Hard/Soft Palate Function Within normal limits Observations of Hard/Soft Palate Within normal limits Nasality Within normal limits Phonation Breathy,Harsh Respiratory Sufficiency Mild impairment Comment Pt has upper and lower dentures which she had in place during the assessment. Pt completed all tasks but did experience weakness and reduced ROM consistently on her right side. Pt's vocal quality was slightly breathy and harsh but pt reported this is her baseline. Vocal quality is consistent with pt' s report of smoking and history of COPD. Food and Liquid Trials Position During Assessment Upright (90 degrees),In bed Liquids Trialed Thin Solids Trialed Regular Administration Type Straw,Self-feeding Oral Impairment Within functional limits Oral Phase Comments Pt reported that since right sided weakness began she has been experiencing increased residue on her weak side which she is only partially able to clear with her tongue. She reported that when she cannot clear it all, she takes out her dentures and rinses them. Provided education RE other compensatory strategies and importance of clearing residue in order to prevent aspiration pneumonia. Provided pt with oral motor exercises to target right sided weakness and education RE what the exercises are targeting. Pharyngeal Impairment Within normal limits Pharyngeal Phase Comments Swallow initiation was timely and efficient. No overt signs of penetration/aspiration were noted and pt?s vocal quality remained consistent throughout assessment. Fatigue/Endurance Endurance WNL Comment Endurance WNL for limited trials. Per NSG, pt ate all her lunch without issue. [place] Swallow Protocol No Findings Swallowing Function Within functional limits Contributing Factors to Swallow Reduced oral strength/ Impairment coordination/sensation Prognosis Good Based on Cognitive status,Age, Comorbidities,Duration of symptoms/severity Impact on Safety and Functioning No limitations Recommendations Instrumental Assessment No Swallowing Treatment Yes Frequency 1 more session to follow-up on HEP Recommended Solids Regular Recommended Liquids Thin Safety Precautions/Swallowing Remain upright (90 degrees) Recommendations during all oral intake,Small bites and sips when eating Medication Recommendations As Tolerated Discharge Recommendations Home Education Patient/Caregiver Education Described results of evaluation,Patient expressed understanding of evaluation, Patient expressed agreement with goals & treatment plans, Patient expressed understanding of safety precautions,Patient expressed understanding of feeding recommendations,Patient requires further education/ training Goals Short-term Goals Pt will perform exercises to increase strength, coordination, and ROM of swallow musculature independently to reduce R facial weakness and numbness. Long-term Goals The pt will continue to safely tolerate least restrictive diet to meet her nutrition and hydration needs.
[2022-05-01] MEDS: NICOTINE 14 PATCH 14 MG TOP (20:50)
[2022-05-02] VITALS: BP 155/84; PULSE 80; RESP 18; TEMP 36.2; O2SAT 94
--- NOTE | 2022-05-02 03:44 | PC.NURSE ---
Patient anxious for discharge. Nicotine patch placed for c/o feeling jittery from not smoking. Patient's NIH 1 for R facial droop. Patient reports some circumoral tingling, but able to distinguish stroking of cheek with alcohol swab bilaterally. Patient having difficulty sleeping. Snacks given per patient request. Patient ambulatory and no ataxia noted.
[2022-05-02 04:00] VITALS: BP 125/55; PULSE 71; RESP 18; TEMP 36.4; O2SAT 94
[2022-05-02 07:45] VITALS: BP 146/75; PULSE 70; RESP 16; TEMP 36.6; O2SAT 93
[2022-05-02] MEDS: levoFLOXacin 250 MG TABLET 750 MG PO (08:33)
[2022-05-02] MEDS: lamoTRIgine 100 MG TABLET 200 MG PO (08:33)
[2022-05-02] MEDS: GABAPENTIN 300 MG CAPSULE 900 MG PO (08:34)
[2022-05-02] MEDS: predniSONE 20 MG TABLET 60 MG PO (08:34)
[2022-05-02] MEDS: ASPIRIN EC 81 MG TABLET PO (08:34)
[2022-05-02] MEDS: DULOXETINE 30 MG CAPSULE 60 MG PO (08:34)
[2022-05-02] MEDS: clonazePAM 0.5 MG TABLET PO (08:34)
[2022-05-02] MEDS: ENOXAPARIN 40 MG/0.4 ML SYRINGE SUBCUT (08:35)
[2022-05-02] MEDS: AMLODIPINE 5 MG TABLET 2.5 MG PO (08:36)
--- NOTE | 2022-05-02 10:50 | OT.IP.TRT ---
Occupational Therapy Treatment Note M2 OT-IP Current Condition Start: 05/01/22 15:05 Freq: Status: Active Protocol: Document 05/01/22 15:06 [facility] (Rec: 05/01/22 15:20 [facility] [id number]) Occupational Therapy Current Condition Current Condition Evaluation Date 05/01/22 Treatment Diagnosis right facial droop Diagnosis Onset Date 04/30/22 M3 OT- IP Subjective and Pain Start: 05/01/22 15:05 Freq: Status: Active Protocol: Document 05/02/22 11:55 [facility] (Rec: 05/02/22 12:04 [facility] [id number]) OT- Subjective Occupational Therapy Visit Type Type Treatment Note Visit Start Time 10:25 Visit Stop Time 10:50 Total Visit Minutes 25 Occupational Therapy Visit Comments Patient Comments Pt wanting to shower. Patient/Caregiver Goals TO go home. OT Pain Assessment Pain When Pain Assessed At Rest Pain Present Pain Present Denied Pain M4 OT- IP ADL's Start: 05/01/22 15:05 Freq: Status: Active Protocol: Document 05/02/22 11:55 [facility] (Rec: 05/02/22 12:04 [facility] [id number]) OT ADL-Grooming General Evaluation Grooming Ability Independent OT ADL-Oral Care General Eval Oral Care Ability Independent OT ADL-Dressing General Eval Upper Body Dressing Ability Independent OT ADL-Toileting General Evaluation Toileting Ability Independent OT ADL-Bathing Bathing Type Bathing Type Shower General Evaluation Bathing Ability Standby Assistance Comments OT Bathing Comments Pt independent to shower while standing and just needing assist to hold the shower chair in place in which pt requested therapist to hold in place so she was able to dry off her legs. M6 OT- IP Functional Cognition Start: 05/01/22 15:05 Freq: Status: Active Protocol: Document 05/02/22 11:55 [facility] (Rec: 05/02/22 12:04 [facility] [id number]) Cognitive Factors Limiting Selfcare Function Cognitive Comments Cognitive Assessment Comments Pt not wanting to redo [employer] Part B. Pt able to answer all home safety questions with good safety. M7 OT- IP Mobility and Balance Start: 05/01/22 15:05 Freq: Status: Active Protocol: Document 05/02/22 11:55 [facility] (Rec: 05/02/22 12:04 [facility] [id number]) OT- Bed Mobility Assessment Supine to Sit Supine to Sit Assist Independent Sit to Supine Sit to Supine Assist Independent Scooting Scooting to Edge of Bed Independent OT-Transfer Assessment Sit to and From Stand Sit to and from Stand Independent Transfers Transfer Ability Independent Comments Mobility Comments Pt is independent in the room. OT- Balance Assessment Sitting Balance and Reactions Static Sitting Balance Ability Normal Dynamic Sitting Balance Ability Normal Standing Balance and Reactions Static Standing Balance Ability Normal Dynamic Standing Balance Ability Good M8 OT- IP Objective Assessments Start: 05/01/22 15:05 Freq: Status: Active Protocol: Document 05/01/22 15:06 [facility] (Rec: 05/01/22 15:20 [facility] [id number]) OT Gross Range of Motion Upper Extremity Range of Motion Assessment Within Functional Limits OT Strength Upper Extremity Strength Assessment Within Functional Limits OT- Coordination Assessment Upper Extremity Finger to Nose Test Within Functional Limits OT-Muscle Tone Assessment Muscle Tone WNL Yes M9 OT- IP Assessment and Plan Start: 05/01/22 15:05 Freq: Status: Active Protocol: Document 05/02/22 11:55 [facility] (Rec: 05/02/22 12:04 [facility] [id number]) OT Summary Assessment and Plan Potential Rehabilitation Potential Excellent Analytic Complexity at Evaluation Low Summary Progress Towards Goals Safe For Discharge Assessment Summary Pt able to shower on her own and feels that she is back to her baseline for all needs. Therefore discharge pt for OT services. Pt is aware that she will probably use her parents bathroom which has a shower chair initially. Discharge Recommendations OT Discharge Recommendations Home with Assistance Home Equipment Needs shower chair Transportation Needs at Discharge Private Vehicle
[2022-05-02 11:45] VITALS: BP 134/68; PULSE 66; RESP 19; TEMP 36.7; O2SAT 98
--- NOTE | 2022-05-02 13:01 | ST.IPDYTX ---
Visit Care Team Role Provider Type ARIANNA Stewart Primary Care Provider [employer] Order And Stock Clerk Specialty: Medical Address: [address] [place] [address], [id number] Email: [email or web address] ARIANNA Caballero Family Provider [employer] Stock Clerk Specialty: Medical Address: [address] [place] [address], [id number] Email: [email or web address] Chandrakant Matthew DO Emergency Provider Physician Specialty: Emergency Medicine Address: [address] [place] [address], [id number] Email: [email or web address] Le MD Admit Provider Physician Attending Provider Specialty: Hospitalist Address: [address] [place] [address], [phone] Fax: Email: [email or web address] Dysphagia Treatment CARD HAND Clinical Instructor Line Start: 05/01/22 16:41 Freq: Status: Active Protocol: Document 05/02/22 13:00 [facility] (Rec: 05/02/22 13:01 [facility] [id number]) Clinical Instructor Signature Clinical Instructor Clinical Instructor Yes: Livia Etienne MA, [facility]-CARD HAND CARD HAND Dysphagia Treatment Start: 05/02/22 12:31 Freq: Status: Active Protocol: Document 05/02/22 12:32 EK (Rec: 05/02/22 12:33 EK [id number]) Dysphagia Treatment Session Time Visit Start Time 10:50 Visit Stop Time 11:20 Total Visit Minutes 30 Setting Assessment Location Acute Care Visit Type Note Type Treatment Note Next Note Type Next Note Type Treatment Note Patient Information Identification Type Name,ID Wristband Subjective Observations Pt was walking out of the bathroom upon CARD HAND and CARD HAND internet designer arrival as she reported she had just finished showering. Pt sat upright in bed during the course of the session. Session conducted and note written by CARD HAND internet designer Angie De La Rosa under CARD HAND supervision. Treatment Liquids Trialed Thin Oral Strategies Upright at 90 degrees Pharyngeal Strategies Sitting Upright (90 deg) Treatment Activities Planned on reviewing HEP with pt but pt reported that she did not remember receiving exercise list and CARD HAND and CARD HAND internet designer were unable to locate the paperwork in her room. Per NSG, pt ate all of her breakfast without difficulty. However, when asked about her swallow, pt reported that she has always had some swallow difficulty and felt as though things sometimes get stuck in her throat. Pt attributed this to her having a small oral cavity. Provided pt with another copy of HEP as well as safe swallow strategies. Provided education RE typical swallow function and recommended pt ask her doctor to refer her for outpatient speech therapy to follow up on swallow difficulties as pt may discharge soon. Assessment Patient Response to Treatment Good Rehab Potential Good Assessment of Improvement While pt did not remember to complete exercises, there was slight improvement in regards to her right sided weakness. Pt's blinks were more synchronized today than yesterday, slightly more mouth movement, and reported decrease in right side spillage while drinking water. NSG reports no concerns with swallowing at mealtimes, pt is using compensatory strategies effectively. Diet Recommendations Recommendations Continue Current Diet Liquids Order Thin Diet Order Regular Medication Recommendations As Tolerated Aspiration Precautions Recommended Precautions Upright at 90 Degrees, Alternate Liquids/Solids,Small Bites/Sips,Effortful Swallow, Double Swallow,Lingual Sweep, Check for Pocketing Treatment Plan Placement Recommendation after Discharge Home,Outpatient Therapy Appropriate for Continued Therapy Yes Therapy Recommendations 1 more time during hospital stay to follow-up on HEP and swallowing difficulties. 1 or 2 sessions of outpatient therapy would be beneficial to fully assess reported swallow difficulty and provide further education. Dysphagia Goals Pt will perform exercises to increase strength, coordination, and ROM of swallow musculature independently to reduce R facial weakness and numbness. The pt will continue to safely tolerate least restrictive diet to meet her nutrition and hydration needs.
--- NOTE | 2022-05-02 15:55 | CM.DANOTE ---
DCP Brief Assessment Note Patient is a 57 yo female who was admitted on 04/30/22 for Droopy face on Right. Pt has [facility] for insurance and her PCP Dain Gross. EMR was reviewed. Per MD, pt with r/o CVA and Echo and MRI ordered and pt has improved and likely may d/c home with no identified barriers to discharge today. Per PT/OT/ST, recommending home with assist and outpt therapies. Pt resides at home in [place] with her parents and has a shower bench and some DME there for use if needed. Pt plans to d/c home today via parent's POV and does not anticipate any needs. Per RN, pt has been independent and hopeful for discharge orders today. Plan: SW to follow for likely discharge home tonight if remains medically stable and outpt follow up. No needs at this time. SKYLER Bright
[2022-05-02 16:20] VITALS: BP 149/72; PULSE 71; RESP 21; TEMP 37.1; O2SAT 92
== END 2022-05-02 18:21 | disposition home or self-care (01) ==
LOC: ED 20:58 → AC 22:03
PROVIDERS: Admitting Provider Internal Medicine; Emergency Provider Emergency Medicine; Family Provider Nurse Practitioner Family; PCP Registered Nurse Diabetes Educator; Visit Provider Internal Medicine
DX: R29.810 Facial weakness (principal); R20.0 Anesthesia of skin; R29.704 NIHSS score 4; R29.818 Other symptoms and signs involving the nervous system; J44.9 Chronic obstructive pulmonary disease, unspecified; F17.210 Nicotine dependence, cigarettes, uncomplicated; I10 Essential (primary) hypertension; E66.01 Morbid (severe) obesity due to excess calories; Z68.41 Body mass index [BMI] 40.0-44.9, adult; F25.9 Schizoaffective disorder, unspecified; F43.10 Post-traumatic stress disorder, unspecified; Z20.822 Contact with and (suspected) exposure to COVID-19
CPT/HCPCS: 36415; 70450; 70496; 70498; 70551; 80048; 80053; 80061; 80305; 81003; 82550; 82962; 83036; 84484; 85025; 87635; 92526; 92610; 93005; 93306; 96360; 96361; 96372; 97161; 97165; 97530; 97535; 99214; 99285; C9803; G0378; J1650; Q9967

== ENCOUNTER → 2022-05-08 09:34 | Outpatient (CLI) | payer MEDICARE, SELFPAY ==
[2022-05-01 12:13] VITALS: BMI 40.1
[2022-05-08 10:40] LABS: Add Manual Diff / Slide Review NO; Basophils Absolute Auto 100 /uL (0-100); Basophils Percent Auto 0.3 % (0-2); Eosinophils Absolute Auto 300 /uL (0-450); Eosinophils Percent Auto 1.3 % (2-4); Hematocrit 40.1 % (36-46); Hemoglobin 12.9 g/dL (12.0-16.0); Lymphocytes Absolute Auto 4700 /uL (1100-4500); Lymphocytes Percent Auto 23.3 % (25-40); Mean Corpuscular HGB Conc 32.3 % (30-36); Mean Corpuscular Volume 83.8 fL (80-100); Monocytes Absolute Auto 1900 /uL (0-900); Monocytes Percent Auto 9.1 % (3-14); Neutrophils Absolute Auto 13400 /uL (1500-7000); Platelet Count 395 X10^3/uL (150-400); Red Blood Cell Count 4.79 X10^6/uL (4.0-5.2); Red Cell Distribution Width 15.9 % (11.6-14.8); White Blood Cell Count 20.3 X10^3/uL (4.5-11.0)
== END ==
PROVIDERS: Family Provider Nurse Practitioner Family; PCP Registered Nurse Diabetes Educator; Referring Provider Psychiatry & Neurology Psychiatry; Visit Provider Psychiatry & Neurology Psychiatry
DX: F25.0 Schizoaffective disorder, bipolar type (principal); F43.12 Post-traumatic stress disorder, chronic; Z86.73 Personal history of transient ischemic attack (TIA), and cerebral infarction without residual deficits; Z79.899 Other long term (current) drug therapy
CPT/HCPCS: 36415; 85025; 99214

== ENCOUNTER → 2022-05-11 10:25 | Outpatient (CLI) | payer MEDICARE, SELFPAY ==
[2022-05-01 12:13] VITALS: BMI 40.1
[2022-05-11 12:01] LABS: Appearance Urine UA CLEAR; Bilirubin Urine UA NEGATIVE (NEGATIVE); Color Urine UA YELLOW; Glucose Urine UA NEGATIVE (Negative); Ketones Urine UA NEGATIVE (NEGATIVE); Leukocyte Esterase Urine UA TRACE (NEGATIVE); Nitrite Urine UA NEGATIVE (Negative); Occult Blood Urine UA NEGATIVE (Negative); Protein Urine UA NEGATIVE (Negative); Specific Gravity Urine UA 1.015 (1.000-1.035); Urobilinogen Urine UA 0.2 E.U./dL (0.2)
[2022-05-11 12:02] LABS: pH Urine UA 6.5 (4.5-8.0)
[2022-05-11 12:10] LABS: Bacteria Urine None Seen; Culture Indicated Urine Specimen Cultured; RBC Urine None Seen (0-5/HPF); WBC Urine 0-1/HPF (0-5/HPF)
== END ==
PROVIDERS: Family Provider Nurse Practitioner Family; PCP Registered Nurse Diabetes Educator; Referring Provider Registered Nurse Diabetes Educator; Visit Provider Registered Nurse Diabetes Educator
DX: R30.9 Painful micturition, unspecified (principal)
CPT/HCPCS: 81001; 87086

== ENCOUNTER → 2022-05-14 10:37 | Outpatient (CLI) | payer MEDICARE, SELFPAY ==
[2022-05-01 12:13] VITALS: BMI 40.1
[2022-05-14 12:08] LABS: Add Manual Diff / Slide Review NO; Basophils Absolute Auto 100 /uL (0-100); Basophils Percent Auto 0.6 % (0-2); Eosinophils Absolute Auto 100 /uL (0-450); Eosinophils Percent Auto 0.5 % (2-4); Hematocrit 37.5 % (36-46); Hemoglobin 12.2 g/dL (12.0-16.0); Lymphocytes Absolute Auto 2500 /uL (1100-4500); Lymphocytes Percent Auto 16.3 % (25-40); Mean Corpuscular HGB Conc 32.6 % (30-36); Mean Corpuscular Hemoglobin 27.2 PG (26-34); Mean Corpuscular Volume 83.4 fL (80-100); Monocytes Absolute Auto 900 /uL (0-900); Neutrophils Absolute Auto 11800 /uL (1500-7000); Neutrophils Percent Auto 76.6 % (50-75); Platelet Count 377 X10^3/uL (150-400); Red Cell Distribution Width 15.9 % (11.6-14.8); White Blood Cell Count 15.4 X10^3/uL (4.5-11.0)
== END ==
PROVIDERS: Family Provider Nurse Practitioner Family; PCP Registered Nurse Diabetes Educator; Referring Provider Psychiatry & Neurology Psychiatry; Visit Provider Psychiatry & Neurology Psychiatry
DX: F25.0 Schizoaffective disorder, bipolar type (principal); Z79.899 Other long term (current) drug therapy
CPT/HCPCS: 36415; 85025

== ENCOUNTER → 2022-05-21 15:22 | Outpatient (CLI) | payer MEDICARE, SELFPAY ==
[2022-05-01 12:13] VITALS: BMI 40.1
[2022-05-21 16:21] LABS: Add Manual Diff / Slide Review NO; Basophils Absolute Auto 100 /uL (0-100); Eosinophils Absolute Auto 100 /uL (0-450); Eosinophils Percent Auto 0.9 % (2-4); Hematocrit 36.8 % (36-46); Lymphocytes Absolute Auto 1900 /uL (1100-4500); Lymphocytes Percent Auto 16.6 % (25-40); Mean Corpuscular HGB Conc 32.5 % (30-36); Mean Corpuscular Hemoglobin 27.3 PG (26-34); Mean Corpuscular Volume 83.8 fL (80-100); Monocytes Absolute Auto 800 /uL (0-900); Monocytes Percent Auto 6.8 % (3-14); Neutrophils Absolute Auto 8400 /uL (1500-7000); Neutrophils Percent Auto 74.7 % (50-75); Platelet Count 377 X10^3/uL (150-400); Red Blood Cell Count 4.39 X10^6/uL (4.0-5.2); Red Cell Distribution Width 15.9 % (11.6-14.8); White Blood Cell Count 11.3 X10^3/uL (4.5-11.0)
== END ==
PROVIDERS: Family Provider Nurse Practitioner Family; PCP Registered Nurse Diabetes Educator; Referring Provider Psychiatry & Neurology Psychiatry; Visit Provider Psychiatry & Neurology Psychiatry
DX: F25.0 Schizoaffective disorder, bipolar type (principal); Z79.899 Other long term (current) drug therapy
CPT/HCPCS: 36415; 85025

== ENCOUNTER → 2022-05-28 10:22 | Outpatient (CLI) | payer MEDICARE, SELFPAY ==
[2022-05-01 12:13] VITALS: BMI 40.1
[2022-05-28 11:26] LABS: Add Manual Diff / Slide Review NO; Basophils Absolute Auto 100 /uL (0-100); Basophils Percent Auto 0.9 % (0-2); Eosinophils Absolute Auto 300 /uL (0-450); Eosinophils Percent Auto 3.3 % (2-4); Hematocrit 36.2 % (36-46); Hemoglobin 11.9 g/dL (12.0-16.0); Lymphocytes Absolute Auto 2000 /uL (1100-4500); Lymphocytes Percent Auto 21.3 % (25-40); Mean Corpuscular HGB Conc 32.9 % (30-36); Mean Corpuscular Hemoglobin 27.1 PG (26-34); Mean Corpuscular Volume 82.5 fL (80-100); Monocytes Absolute Auto 700 /uL (0-900); Monocytes Percent Auto 7.1 % (3-14); Neutrophils Absolute Auto 6300 /uL (1500-7000); Neutrophils Percent Auto 67.4 % (50-75); Platelet Count 416 X10^3/uL (150-400); Red Blood Cell Count 4.39 X10^6/uL (4.0-5.2); Red Cell Distribution Width 16.3 % (11.6-14.8); White Blood Cell Count 9.4 X10^3/uL (4.5-11.0)
== END ==
PROVIDERS: Family Provider Nurse Practitioner Family; PCP Registered Nurse Diabetes Educator; Referring Provider Psychiatry & Neurology Psychiatry; Visit Provider Psychiatry & Neurology Psychiatry
DX: F43.12 Post-traumatic stress disorder, chronic (principal); F25.0 Schizoaffective disorder, bipolar type; Z79.899 Other long term (current) drug therapy
CPT/HCPCS: 36415; 85025; 99214

== ENCOUNTER → 2022-06-04 11:58 | Outpatient (CLI) | payer MEDICARE, SELFPAY ==
[2022-05-01 12:13] VITALS: BMI 40.1
[2022-06-04 13:03] LABS: Add Manual Diff / Slide Review NO; Basophils Absolute Auto 100 /uL (0-100); Basophils Percent Auto 1.1 % (0-2); Eosinophils Absolute Auto 100 /uL (0-450); Eosinophils Percent Auto 0.5 % (2-4); Hematocrit 37.6 % (36-46); Hemoglobin 12.3 g/dL (12.0-16.0); Lymphocytes Absolute Auto 2000 /uL (1100-4500); Lymphocytes Percent Auto 20.2 % (25-40); Mean Corpuscular HGB Conc 32.6 % (30-36); Mean Corpuscular Hemoglobin 27.1 PG (26-34); Mean Corpuscular Volume 83.2 fL (80-100); Monocytes Absolute Auto 800 /uL (0-900); Monocytes Percent Auto 7.9 % (3-14); Neutrophils Absolute Auto 6900 /uL (1500-7000); Neutrophils Percent Auto 70.3 % (50-75); Platelet Count 387 X10^3/uL (150-400); Red Blood Cell Count 4.52 X10^6/uL (4.0-5.2); Red Cell Distribution Width 16.4 % (11.6-14.8); White Blood Cell Count 9.8 X10^3/uL (4.5-11.0)
[2022-06-07 05:20] LABS: Clozapine 157 ng/mL (350-650); Norclozapine 71 ng/mL (Not Estab.)
== END ==
PROVIDERS: Family Provider Nurse Practitioner Family; PCP Registered Nurse Diabetes Educator; Referring Provider Psychiatry & Neurology Psychiatry; Visit Provider Psychiatry & Neurology Psychiatry
DX: Z51.81 Encounter for therapeutic drug level monitoring (principal)
CPT/HCPCS: 36415; 80159; 85025

== ENCOUNTER → 2022-06-11 10:32 | Outpatient (CLI) | payer MEDICARE, SELFPAY ==
[2022-05-01 12:13] VITALS: BMI 40.1
[2022-06-11 11:08] LABS: Add Manual Diff / Slide Review NO; Basophils Absolute Auto 100 /uL (0-100); Eosinophils Absolute Auto 0 /uL (0-450); Eosinophils Percent Auto 0.4 % (2-4); Hematocrit 37.3 % (36-46); Hemoglobin 12.3 g/dL (12.0-16.0); Lymphocytes Absolute Auto 1800 /uL (1100-4500); Lymphocytes Percent Auto 20.1 % (25-40); Mean Corpuscular Hemoglobin 26.9 PG (26-34); Mean Corpuscular Volume 81.6 fL (80-100); Monocytes Absolute Auto 700 /uL (0-900); Monocytes Percent Auto 7.3 % (3-14); Neutrophils Absolute Auto 6500 /uL (1500-7000); Neutrophils Percent Auto 71.2 % (50-75); Platelet Count 348 X10^3/uL (150-400); Red Blood Cell Count 4.58 X10^6/uL (4.0-5.2); Red Cell Distribution Width 16.6 % (11.6-14.8); White Blood Cell Count 9.1 X10^3/uL (4.5-11.0)
== END ==
PROVIDERS: Family Provider Nurse Practitioner Family; PCP Registered Nurse Diabetes Educator; Referring Provider Psychiatry & Neurology Psychiatry; Visit Provider Psychiatry & Neurology Psychiatry
DX: Z51.81 Encounter for therapeutic drug level monitoring (principal)
CPT/HCPCS: 36415; 85025

== ENCOUNTER → 2022-06-18 10:49 | Outpatient (CLI) | payer MEDICARE, SELFPAY ==
[2022-05-01 12:13] VITALS: BMI 40.1
[2022-06-18 13:04] LABS: Add Manual Diff / Slide Review NO; Basophils Absolute Auto 100 /uL (0-100); Basophils Percent Auto 1.1 % (0-2); Eosinophils Absolute Auto 0 /uL (0-450); Eosinophils Percent Auto 0.5 % (2-4); Hemoglobin 12.8 g/dL (12.0-16.0); Lymphocytes Absolute Auto 2200 /uL (1100-4500); Lymphocytes Percent Auto 27.8 % (25-40); Mean Corpuscular HGB Conc 32.7 % (30-36); Mean Corpuscular Hemoglobin 26.7 PG (26-34); Mean Corpuscular Volume 81.8 fL (80-100); Monocytes Absolute Auto 700 /uL (0-900); Monocytes Percent Auto 8.9 % (3-14); Neutrophils Absolute Auto 5000 /uL (1500-7000); Neutrophils Percent Auto 61.7 % (50-75); Platelet Count 357 X10^3/uL (150-400); Red Blood Cell Count 4.77 X10^6/uL (4.0-5.2); Red Cell Distribution Width 17.2 % (11.6-14.8); White Blood Cell Count 8.1 X10^3/uL (4.5-11.0)
== END ==
PROVIDERS: Family Provider Nurse Practitioner Family; PCP Registered Nurse Diabetes Educator; Referring Provider Psychiatry & Neurology Psychiatry; Visit Provider Psychiatry & Neurology Psychiatry
DX: Z51.81 Encounter for therapeutic drug level monitoring (principal)
CPT/HCPCS: 36415; 85025

== ENCOUNTER → 2022-06-25 09:23 | Outpatient (CLI) | payer MEDICARE, SELFPAY ==
[2022-05-01 12:13] VITALS: BMI 40.1
[2022-06-25 11:51] LABS: Add Manual Diff / Slide Review NO; Basophils Absolute Auto 100 /uL (0-100); Eosinophils Absolute Auto 0 /uL (0-450); Eosinophils Percent Auto 0.3 % (2-4); Hematocrit 37.1 % (36-46); Hemoglobin 12.2 g/dL (12.0-16.0); Lymphocytes Absolute Auto 1600 /uL (1100-4500); Mean Corpuscular HGB Conc 32.8 % (30-36); Mean Corpuscular Hemoglobin 26.9 PG (26-34); Mean Corpuscular Volume 82.1 fL (80-100); Monocytes Absolute Auto 600 /uL (0-900); Neutrophils Absolute Auto 4300 /uL (1500-7000); Neutrophils Percent Auto 65.7 % (50-75); Platelet Count 325 X10^3/uL (150-400); Red Blood Cell Count 4.52 X10^6/uL (4.0-5.2); White Blood Cell Count 6.5 X10^3/uL (4.5-11.0)
== END ==
PROVIDERS: Family Provider Nurse Practitioner Family; PCP Registered Nurse Diabetes Educator; Referring Provider Psychiatry & Neurology Psychiatry; Visit Provider Psychiatry & Neurology Psychiatry
DX: F25.0 Schizoaffective disorder, bipolar type (principal); F43.12 Post-traumatic stress disorder, chronic; Z51.81 Encounter for therapeutic drug level monitoring
CPT/HCPCS: 36415; 85025; 99214

== ENCOUNTER → 2022-07-02 10:34 | Outpatient (CLI) | payer MEDICARE, SELFPAY ==
[2022-05-01 12:13] VITALS: BMI 40.1
[2022-07-02 11:21] LABS: Add Manual Diff / Slide Review NO; Basophils Absolute Auto 100 /uL (0-100); Basophils Percent Auto 1.1 % (0-2); Eosinophils Absolute Auto 0 /uL (0-450); Eosinophils Percent Auto 0.1 % (2-4); Hematocrit 36.8 % (36-46); Hemoglobin 12.2 g/dL (12.0-16.0); Lymphocytes Absolute Auto 1500 /uL (1100-4500); Lymphocytes Percent Auto 20.9 % (25-40); Mean Corpuscular HGB Conc 33.2 % (30-36); Mean Corpuscular Hemoglobin 27.1 PG (26-34); Mean Corpuscular Volume 81.6 fL (80-100); Monocytes Absolute Auto 600 /uL (0-900); Monocytes Percent Auto 7.8 % (3-14); Neutrophils Absolute Auto 5100 /uL (1500-7000); Neutrophils Percent Auto 70.1 % (50-75); Platelet Count 277 X10^3/uL (150-400); Red Blood Cell Count 4.51 X10^6/uL (4.0-5.2); Red Cell Distribution Width 17.8 % (11.6-14.8); White Blood Cell Count 7.3 X10^3/uL (4.5-11.0)
== END ==
PROVIDERS: Family Provider Nurse Practitioner Family; PCP Registered Nurse Diabetes Educator; Referring Provider Psychiatry & Neurology Psychiatry; Visit Provider Psychiatry & Neurology Psychiatry
DX: F25.0 Schizoaffective disorder, bipolar type (principal); F25.1 Schizoaffective disorder, depressive type; F43.12 Post-traumatic stress disorder, chronic; Z51.81 Encounter for therapeutic drug level monitoring
CPT/HCPCS: 36415; 85025; 99214

== ENCOUNTER → 2022-07-10 10:45 | Outpatient (CLI) | payer MEDICARE, SELFPAY ==
[2022-05-01 12:13] VITALS: BMI 40.1
[2022-07-10 12:05] LABS: Add Manual Diff / Slide Review NO; Basophils Absolute Auto 100 /uL (0-100); Eosinophils Absolute Auto 0 /uL (0-450); Hematocrit 37.2 % (36-46); Hemoglobin 12.1 g/dL (12.0-16.0); Lymphocytes Absolute Auto 1600 /uL (1100-4500); Lymphocytes Percent Auto 23.6 % (25-40); Mean Corpuscular HGB Conc 32.4 % (30-36); Mean Corpuscular Hemoglobin 26.4 PG (26-34); Mean Corpuscular Volume 81.3 fL (80-100); Monocytes Absolute Auto 600 /uL (0-900); Monocytes Percent Auto 8.5 % (3-14); Neutrophils Absolute Auto 4500 /uL (1500-7000); Neutrophils Percent Auto 66.9 % (50-75); Platelet Count 317 X10^3/uL (150-400); Red Blood Cell Count 4.57 X10^6/uL (4.0-5.2); Red Cell Distribution Width 16.9 % (11.6-14.8); White Blood Cell Count 6.7 X10^3/uL (4.5-11.0)
[2022-07-12 12:27] LABS: Clozapine 280 ng/mL (350-650); Norclozapine 147 ng/mL (Not Estab.)
== END ==
PROVIDERS: Family Provider Nurse Practitioner Family; PCP Registered Nurse Diabetes Educator; Referring Provider Psychiatry & Neurology Psychiatry; Visit Provider Psychiatry & Neurology Psychiatry
DX: F25.0 Schizoaffective disorder, bipolar type (principal); Z79.899 Other long term (current) drug therapy; Z51.81 Encounter for therapeutic drug level monitoring; F43.12 Post-traumatic stress disorder, chronic; R25.1 Tremor, unspecified
CPT/HCPCS: 36415; 80159; 85025; 99214

== ENCOUNTER → 2022-07-16 09:53 | Outpatient (CLI) | payer MEDICARE, SELFPAY ==
[2022-05-01 12:13] VITALS: BMI 40.1
[2022-07-16 11:17] LABS: Add Manual Diff / Slide Review NO; Basophils Absolute Auto 100 /uL (0-100); Basophils Percent Auto 1.1 % (0-2); Eosinophils Absolute Auto 0 /uL (0-450); Eosinophils Percent Auto 0.1 % (2-4); Hematocrit 36.8 % (36-46); Hemoglobin 12.1 g/dL (12.0-16.0); Lymphocytes Absolute Auto 1700 /uL (1100-4500); Lymphocytes Percent Auto 31.7 % (25-40); Mean Corpuscular HGB Conc 32.9 % (30-36); Mean Corpuscular Hemoglobin 26.3 PG (26-34); Mean Corpuscular Volume 79.9 fL (80-100); Monocytes Absolute Auto 400 /uL (0-900); Monocytes Percent Auto 7.2 % (3-14); Neutrophils Absolute Auto 3200 /uL (1500-7000); Neutrophils Percent Auto 59.9 % (50-75); Platelet Count 301 X10^3/uL (150-400); Red Cell Distribution Width 16.8 % (11.6-14.8); White Blood Cell Count 5.3 X10^3/uL (4.5-11.0)
[2022-07-19 06:22] LABS: Clozapine 188 ng/mL (350-650); Norclozapine 129 ng/mL (Not Estab.)
== END ==
PROVIDERS: Family Provider Nurse Practitioner Family; PCP Registered Nurse Diabetes Educator; Referring Provider Psychiatry & Neurology Psychiatry; Visit Provider Psychiatry & Neurology Psychiatry
DX: F25.0 Schizoaffective disorder, bipolar type (principal); Z79.899 Other long term (current) drug therapy; F43.12 Post-traumatic stress disorder, chronic; R25.1 Tremor, unspecified
CPT/HCPCS: 36415; 80159; 85025; 99214

== ENCOUNTER → 2022-07-23 12:06 | Outpatient (CLI) | payer MEDICARE, SELFPAY ==
[2022-05-01 12:13] VITALS: BMI 40.1
[2022-07-23 13:27] LABS: Add Manual Diff / Slide Review NO; Basophils Absolute Auto 100 /uL (0-100); Basophils Percent Auto 1.1 % (0-2); Eosinophils Absolute Auto 0 /uL (0-450); Eosinophils Percent Auto 0.1 % (2-4); Hematocrit 38.2 % (36-46); Hemoglobin 12.5 g/dL (12.0-16.0); Lymphocytes Absolute Auto 1800 /uL (1100-4500); Lymphocytes Percent Auto 29.5 % (25-40); Mean Corpuscular HGB Conc 32.7 % (30-36); Mean Corpuscular Volume 79.5 fL (80-100); Monocytes Absolute Auto 700 /uL (0-900); Monocytes Percent Auto 10.5 % (3-14); Neutrophils Absolute Auto 3700 /uL (1500-7000); Neutrophils Percent Auto 58.8 % (50-75); Platelet Count 306 X10^3/uL (150-400); Red Blood Cell Count 4.81 X10^6/uL (4.0-5.2); Red Cell Distribution Width 16.9 % (11.6-14.8); White Blood Cell Count 6.2 X10^3/uL (4.5-11.0)
[2022-07-25 09:09] LABS: Clozapine 253 ng/mL (350-650); Norclozapine 112 ng/mL (Not Estab.)
== END ==
PROVIDERS: Family Provider Nurse Practitioner Family; PCP Registered Nurse Diabetes Educator; Referring Provider Psychiatry & Neurology Psychiatry; Visit Provider Psychiatry & Neurology Psychiatry
DX: Z79.899 Other long term (current) drug therapy (principal); F25.0 Schizoaffective disorder, bipolar type
CPT/HCPCS: 36415; 80159; 85025

== ENCOUNTER → 2022-07-30 09:17 | Outpatient (CLI) | payer MEDICARE, SELFPAY ==
[2022-07-25 11:12] VITALS: BMI 40.1
[2022-07-30 10:06] LABS: Add Manual Diff / Slide Review NO; Basophils Absolute Auto 100 /uL (0-100); Basophils Percent Auto 1.2 % (0-2); Eosinophils Absolute Auto 0 /uL (0-450); Eosinophils Percent Auto 0.1 % (2-4); Hematocrit 38.7 % (36-46); Hemoglobin 12.8 g/dL (12.0-16.0); Lymphocytes Absolute Auto 1700 /uL (1100-4500); Lymphocytes Percent Auto 28.4 % (25-40); Mean Corpuscular Volume 78.7 fL (80-100); Monocytes Absolute Auto 500 /uL (0-900); Monocytes Percent Auto 8.7 % (3-14); Neutrophils Absolute Auto 3700 /uL (1500-7000); Neutrophils Percent Auto 61.6 % (50-75); Platelet Count 297 X10^3/uL (150-400); Red Blood Cell Count 4.91 X10^6/uL (4.0-5.2); Red Cell Distribution Width 16.9 % (11.6-14.8)
[2022-08-03 12:37] LABS: Clozapine 389 ng/mL (350-650); Norclozapine 241 ng/mL (Not Estab.)
== END ==
PROVIDERS: Family Provider Nurse Practitioner Family; PCP Registered Nurse Diabetes Educator; Referring Provider Psychiatry & Neurology Psychiatry; Visit Provider Psychiatry & Neurology Psychiatry
DX: F25.0 Schizoaffective disorder, bipolar type (principal); F25.1 Schizoaffective disorder, depressive type; F43.12 Post-traumatic stress disorder, chronic; Z79.899 Other long term (current) drug therapy
CPT/HCPCS: 36415; 80159; 85025; 99214

== ENCOUNTER → 2022-08-06 10:46 | Outpatient (CLI) | payer MEDICARE, SELFPAY ==
[2022-07-25 11:12] VITALS: BMI 40.1
[2022-08-06 12:30] LABS: Add Manual Diff / Slide Review NO; Basophils Absolute Auto 100 /uL (0-100); Basophils Percent Auto 0.9 % (0-2); Eosinophils Absolute Auto 0 /uL (0-450); Hematocrit 38.6 % (36-46); Hemoglobin 12.6 g/dL (12.0-16.0); Lymphocytes Absolute Auto 1800 /uL (1100-4500); Lymphocytes Percent Auto 27.6 % (25-40); Mean Corpuscular HGB Conc 32.5 % (30-36); Mean Corpuscular Hemoglobin 25.6 PG (26-34); Mean Corpuscular Volume 78.7 fL (80-100); Monocytes Absolute Auto 400 /uL (0-900); Monocytes Percent Auto 6.3 % (3-14); Neutrophils Absolute Auto 4200 /uL (1500-7000); Neutrophils Percent Auto 65.2 % (50-75); Platelet Count 305 X10^3/uL (150-400); Red Cell Distribution Width 17.3 % (11.6-14.8); White Blood Cell Count 6.5 X10^3/uL (4.5-11.0)
[2022-08-09 11:59] LABS: Clozapine 644 ng/mL (350-650); Norclozapine 298 ng/mL (Not Estab.)
== END ==
PROVIDERS: Family Provider Nurse Practitioner Family; PCP Registered Nurse Diabetes Educator; Referring Provider Psychiatry & Neurology Psychiatry; Visit Provider Psychiatry & Neurology Psychiatry
DX: F25.0 Schizoaffective disorder, bipolar type (principal); F43.12 Post-traumatic stress disorder, chronic; R25.1 Tremor, unspecified; Z79.899 Other long term (current) drug therapy
CPT/HCPCS: 36415; 80159; 85025; 99214

== ENCOUNTER → 2022-08-13 11:49 | Outpatient (CLI) | payer MEDICARE, SELFPAY ==
[2022-07-25 11:12] VITALS: BMI 40.1
[2022-08-13 13:58] LABS: Add Manual Diff / Slide Review NO; Basophils Absolute Auto 100 /uL (0-100); Basophils Percent Auto 0.9 % (0-2); Eosinophils Absolute Auto 0 /uL (0-450); Eosinophils Percent Auto 0.1 % (2-4); Hematocrit 37.9 % (36-46); Hemoglobin 12.4 g/dL (12.0-16.0); Lymphocytes Absolute Auto 1900 /uL (1100-4500); Lymphocytes Percent Auto 27.8 % (25-40); Mean Corpuscular HGB Conc 32.7 % (30-36); Mean Corpuscular Hemoglobin 25.5 PG (26-34); Mean Corpuscular Volume 78.2 fL (80-100); Monocytes Absolute Auto 400 /uL (0-900); Monocytes Percent Auto 5.9 % (3-14); Neutrophils Absolute Auto 4400 /uL (1500-7000); Neutrophils Percent Auto 65.3 % (50-75); Platelet Count 341 X10^3/uL (150-400); Red Blood Cell Count 4.85 X10^6/uL (4.0-5.2); Red Cell Distribution Width 17.2 % (11.6-14.8); White Blood Cell Count 6.8 X10^3/uL (4.5-11.0)
[2022-08-15 14:48] LABS: Clozapine 716 ng/mL (350-650); Norclozapine 373 ng/mL (Not Estab.)
== END ==
PROVIDERS: Family Provider Nurse Practitioner Family; PCP Registered Nurse Diabetes Educator; Referring Provider Psychiatry & Neurology Psychiatry; Visit Provider Psychiatry & Neurology Psychiatry
DX: Z51.81 Encounter for therapeutic drug level monitoring (principal); F25.0 Schizoaffective disorder, bipolar type; F43.12 Post-traumatic stress disorder, chronic; R25.1 Tremor, unspecified; Z79.899 Other long term (current) drug therapy
CPT/HCPCS: 36415; 80159; 85025; 99214

== ENCOUNTER → 2022-08-20 10:20 | Outpatient (CLI) | payer MEDICARE, SELFPAY ==
[2022-08-17 14:17] VITALS: BMI 40.1
[2022-08-20 11:57] LABS: Add Manual Diff / Slide Review NO; Basophils Absolute Auto 0 /uL (0-100); Basophils Percent Auto 0.7 % (0-2); Eosinophils Absolute Auto 0 /uL (0-450); Hematocrit 38.5 % (36-46); Hemoglobin 12.4 g/dL (12.0-16.0); Lymphocytes Absolute Auto 1800 /uL (1100-4500); Lymphocytes Percent Auto 28.4 % (25-40); Mean Corpuscular HGB Conc 32.3 % (30-36); Mean Corpuscular Hemoglobin 25.3 PG (26-34); Mean Corpuscular Volume 78.2 fL (80-100); Monocytes Absolute Auto 500 /uL (0-900); Monocytes Percent Auto 7.9 % (3-14); Neutrophils Absolute Auto 4000 /uL (1500-7000); Platelet Count 334 X10^3/uL (150-400); Red Blood Cell Count 4.92 X10^6/uL (4.0-5.2); Red Cell Distribution Width 16.7 % (11.6-14.8); White Blood Cell Count 6.4 X10^3/uL (4.5-11.0)
[2022-08-24 05:40] LABS: Clozapine 428 ng/mL (350-650); Norclozapine 293 ng/mL (Not Estab.)
== END ==
PROVIDERS: Family Provider Nurse Practitioner Family; PCP Registered Nurse Diabetes Educator; Referring Provider Psychiatry & Neurology Psychiatry; Visit Provider Psychiatry & Neurology Psychiatry
DX: F25.0 Schizoaffective disorder, bipolar type (principal); F10.21 Alcohol dependence, in remission; F43.12 Post-traumatic stress disorder, chronic; R25.1 Tremor, unspecified; Z79.899 Other long term (current) drug therapy
CPT/HCPCS: 36415; 80159; 85025; 90837; 99214

== ENCOUNTER → 2022-08-27 10:54 | Outpatient (CLI) | payer MEDICARE, SELFPAY ==
[2022-08-17 14:17] VITALS: BMI 40.1
[2022-08-27 12:01] LABS: Add Manual Diff / Slide Review NO; Basophils Absolute Auto 100 /uL (0-100); Eosinophils Absolute Auto 0 /uL (0-450); Eosinophils Percent Auto 0.1 % (2-4); Hematocrit 38.8 % (36-46); Lymphocytes Absolute Auto 2000 /uL (1100-4500); Lymphocytes Percent Auto 27.2 % (25-40); Mean Corpuscular HGB Conc 33.4 % (30-36); Mean Corpuscular Hemoglobin 25.8 PG (26-34); Mean Corpuscular Volume 77.3 fL (80-100); Monocytes Absolute Auto 700 /uL (0-900); Monocytes Percent Auto 9.1 % (3-14); Neutrophils Absolute Auto 4600 /uL (1500-7000); Neutrophils Percent Auto 62.6 % (50-75); Platelet Count 330 X10^3/uL (150-400); Red Blood Cell Count 5.02 X10^6/uL (4.0-5.2); Red Cell Distribution Width 16.7 % (11.6-14.8); White Blood Cell Count 7.3 X10^3/uL (4.5-11.0)
[2022-08-31 09:44] LABS: Clozapine 287 ng/mL (350-650); Norclozapine 137 ng/mL (Not Estab.)
== END ==
PROVIDERS: Family Provider Nurse Practitioner Family; PCP Registered Nurse Diabetes Educator; Referring Provider Psychiatry & Neurology Psychiatry; Visit Provider Psychiatry & Neurology Psychiatry
DX: F25.0 Schizoaffective disorder, bipolar type (principal); F25.1 Schizoaffective disorder, depressive type; F43.12 Post-traumatic stress disorder, chronic; Z79.899 Other long term (current) drug therapy
CPT/HCPCS: 36415; 80159; 80175; 85025; 99214

== ENCOUNTER → 2022-08-28 16:01 | Outpatient (CLI) | payer MEDICARE, SELFPAY ==
[2022-08-17 14:17] VITALS: BMI 40.1
== END ==
PROVIDERS: Family Provider Nurse Practitioner Family; PCP Registered Nurse Diabetes Educator; Visit Provider Registered Nurse Diabetes Educator
DX: R30.0 Dysuria (principal)
CPT/HCPCS: 87086

== ENCOUNTER → 2022-08-28 16:07 | Outpatient (CLI) | payer MEDICARE, SELFPAY ==
[2022-08-17 14:17] VITALS: BMI 40.1
--- NOTE | 2022-08-28 16:08 | DI.US.S_ITS ---
PROCEDURE: US PERIPH VENOUS LOW EXTREM LT INDICATIONS: eval LLE pain swelling/please evaluate for DVT. TECHNIQUE: Real-time imaging, as well as color and pulse Doppler interrogation, were performed of the lower extremity deep veins from the inguinal ligament to the popliteal fossa. COMPARISON: None. FINDINGS: The common femoral, femoral and popliteal veins are normally compressible, and free of intraluminal thrombus. Color and pulse Doppler demonstrate normal phasic intraluminal flow. There is normal augmentation response to distal compression maneuver. Additional, dedicated ultrasound scanning is performed at the area of calf pain. Heterogeneous soft tissue can be seen within this region, yet without a significant ultrasound abnormality identified., IMPRESSION: Negative for deep venous thrombosis. Dictated by: Ciaran Leal M.D. on 08/28/2022 at 16:55 Approved by: Ciaran Leal M.D. on 08/28/2022 at 16:56
== END ==
PROVIDERS: Family Provider Nurse Practitioner Family; PCP Registered Nurse Diabetes Educator; Referring Provider Registered Nurse Diabetes Educator; Visit Provider Registered Nurse Diabetes Educator
DX: M79.605 Pain in left leg (principal); R30.0 Dysuria
CPT/HCPCS: 87077; 87086; 87186; 93971

== ENCOUNTER → 2022-09-03 11:52 | Outpatient (CLI) | payer MEDICARE, SELFPAY ==
[2022-08-17 14:17] VITALS: BMI 40.1
[2022-09-03 12:47] LABS: Add Manual Diff / Slide Review NO; Basophils Absolute Auto 100 /uL (0-100); Basophils Percent Auto 0.9 % (0-2); Eosinophils Absolute Auto 0 /uL (0-450); Eosinophils Percent Auto 0.1 % (2-4); Hematocrit 40.2 % (36-46); Hemoglobin 13.2 g/dL (12.0-16.0); Lymphocytes Absolute Auto 2000 /uL (1100-4500); Lymphocytes Percent Auto 25.4 % (25-40); Mean Corpuscular HGB Conc 32.7 % (30-36); Mean Corpuscular Hemoglobin 25.4 PG (26-34); Mean Corpuscular Volume 77.6 fL (80-100); Monocytes Absolute Auto 700 /uL (0-900); Monocytes Percent Auto 8.6 % (3-14); Neutrophils Absolute Auto 5000 /uL (1500-7000); Platelet Count 365 X10^3/uL (150-400); Red Blood Cell Count 5.18 X10^6/uL (4.0-5.2); Red Cell Distribution Width 16.7 % (11.6-14.8); White Blood Cell Count 7.7 X10^3/uL (4.5-11.0)
[2022-09-03 13:09] LABS: Alanine Aminotransferase 18 IU/L (<35); Albumin 4.2 g/dL (3.5-5.0); Albumin Globulin Ratio 1.2 (1.0-2.8); Alkaline Phosphatase 139 U/L (38-126); Aspartate Aminotransferase 28 IU/L (14-36); BUN Creatinine Ratio 15.3 (6-22); Bilirubin Total 0.3 mg/dL (0.2-1.3); Blood Urea Nitrogen 13 mg/dL (7-17); Calcium 9.4 mg/dL (8.4-10.2); Carbon Dioxide 30 mmol/L (22-32); Chloride 103 mmol/L (98-107); Cholesterol 168 mg/dL (140-199); Estimated Glomerular Filt Rate > 60 mL/min (>60); Globulin 3.6 g/dL (1.7-4.1); Glucose 101 mg/dL (70-100); HDL Cholesterol 30 mg/dL (40-60); HEMOLYSIS < 15 (0-50); LDL Cholesterol Calculated 98 mg/dL (<100); Sodium 144 mmol/L (137-145); Total Protein 7.8 g/dL (6.3-8.2); Triglycerides 201 mg/dL (35-150)
[2022-09-03 13:38] LABS: TSH w/ Reflex to FT4 0.65 uIU/mL (0.47-4.68)
[2022-09-06 09:06] LABS: Clozapine 125 ng/mL (350-650); Norclozapine 83 ng/mL (Not Estab.)
== END ==
PROVIDERS: Family Provider Nurse Practitioner Family; PCP Registered Nurse Diabetes Educator; Referring Provider Psychiatry & Neurology Psychiatry; Visit Provider Psychiatry & Neurology Psychiatry
DX: F25.0 Schizoaffective disorder, bipolar type (principal); F10.21 Alcohol dependence, in remission; F43.12 Post-traumatic stress disorder, chronic; E78.2 Mixed hyperlipidemia; I10 Essential (primary) hypertension; Z79.899 Other long term (current) drug therapy
CPT/HCPCS: 36415; 80053; 80061; 80159; 84443; 85025; 90837

== ENCOUNTER → 2022-09-10 12:13 | Outpatient (CLI) | payer MEDICARE, SELFPAY ==
[2022-08-17 14:17] VITALS: BMI 40.1
[2022-09-10 13:04] LABS: Add Manual Diff / Slide Review NO; Basophils Absolute Auto 100 /uL (0-100); Basophils Percent Auto 0.9 % (0-2); Eosinophils Absolute Auto 0 /uL (0-450); Eosinophils Percent Auto 0.1 % (2-4); Hematocrit 41.4 % (36-46); Hemoglobin 13.7 g/dL (12.0-16.0); Lymphocytes Absolute Auto 2200 /uL (1100-4500); Lymphocytes Percent Auto 33.3 % (25-40); Mean Corpuscular HGB Conc 33.1 % (30-36); Mean Corpuscular Hemoglobin 25.6 PG (26-34); Mean Corpuscular Volume 77.3 fL (80-100); Monocytes Absolute Auto 500 /uL (0-900); Neutrophils Absolute Auto 3900 /uL (1500-7000); Neutrophils Percent Auto 58.7 % (50-75); Platelet Count 323 X10^3/uL (150-400); Red Blood Cell Count 5.36 X10^6/uL (4.0-5.2); Red Cell Distribution Width 16.4 % (11.6-14.8); White Blood Cell Count 6.6 X10^3/uL (4.5-11.0)
[2022-09-13 15:08] LABS: Clozapine 157 ng/mL (350-650); Norclozapine 102 ng/mL (Not Estab.)
== END ==
PROVIDERS: Family Provider Nurse Practitioner Family; PCP Registered Nurse Diabetes Educator; Referring Provider Psychiatry & Neurology Psychiatry; Visit Provider Psychiatry & Neurology Psychiatry
DX: Z51.81 Encounter for therapeutic drug level monitoring (principal); F25.0 Schizoaffective disorder, bipolar type; F43.12 Post-traumatic stress disorder, chronic; R25.1 Tremor, unspecified; Z79.899 Other long term (current) drug therapy
CPT/HCPCS: 36415; 80159; 85025; 99214

== ENCOUNTER → 2022-09-17 11:16 | Outpatient (CLI) | payer MEDICARE, SELFPAY ==
[2022-08-17 14:17] VITALS: BMI 40.1
[2022-09-20 07:02] LABS: Clozapine 384 ng/mL (350-650); Norclozapine 197 ng/mL (Not Estab.)
== END ==
PROVIDERS: Family Provider Nurse Practitioner Family; PCP Registered Nurse Diabetes Educator; Referring Provider Psychiatry & Neurology Psychiatry; Visit Provider Psychiatry & Neurology Psychiatry
DX: F25.0 Schizoaffective disorder, bipolar type (principal); Z79.899 Other long term (current) drug therapy
CPT/HCPCS: 36415; 80159; 99214

== ENCOUNTER → 2022-09-24 12:26 | Outpatient (CLI) | payer MEDICARE, SELFPAY ==
[2022-08-17 14:17] VITALS: BMI 40.1
[2022-09-28 11:53] LABS: Clozapine 434 ng/mL (350-650); Norclozapine 216 ng/mL (Not Estab.)
== END ==
PROVIDERS: Family Provider Nurse Practitioner Family; PCP Registered Nurse Diabetes Educator; Referring Provider Psychiatry & Neurology Psychiatry; Visit Provider Psychiatry & Neurology Psychiatry
DX: F25.0 Schizoaffective disorder, bipolar type (principal); Z79.899 Other long term (current) drug therapy
CPT/HCPCS: 36415; 80159

== ENCOUNTER → 2022-10-01 10:47 | Outpatient (CLI) | payer MEDICARE, SELFPAY ==
[2022-08-17 14:17] VITALS: BMI 40.1
[2022-10-01 12:07] LABS: Add Manual Diff / Slide Review NO; Basophils Absolute Auto 100 /uL (0-100); Basophils Percent Auto 0.7 % (0-2); Eosinophils Absolute Auto 0 /uL (0-450); Hematocrit 41.7 % (36-46); Hemoglobin 13.6 g/dL (12.0-16.0); Lymphocytes Absolute Auto 2200 /uL (1100-4500); Lymphocytes Percent Auto 27.1 % (25-40); Mean Corpuscular HGB Conc 32.6 % (30-36); Mean Corpuscular Hemoglobin 25.4 PG (26-34); Mean Corpuscular Volume 77.7 fL (80-100); Monocytes Absolute Auto 500 /uL (0-900); Monocytes Percent Auto 5.5 % (3-14); Neutrophils Absolute Auto 5500 /uL (1500-7000); Neutrophils Percent Auto 66.7 % (50-75); Platelet Count 345 X10^3/uL (150-400); Red Blood Cell Count 5.37 X10^6/uL (4.0-5.2); Red Cell Distribution Width 16.7 % (11.6-14.8); White Blood Cell Count 8.2 X10^3/uL (4.5-11.0)
[2022-10-04 12:08] LABS: Clozapine 404 ng/mL (350-650); Norclozapine 237 ng/mL (Not Estab.)
== END ==
PROVIDERS: Family Provider Nurse Practitioner Family; PCP Registered Nurse Diabetes Educator; Referring Provider Psychiatry & Neurology Psychiatry; Visit Provider Psychiatry & Neurology Psychiatry
DX: F25.0 Schizoaffective disorder, bipolar type (principal); F43.12 Post-traumatic stress disorder, chronic; R25.1 Tremor, unspecified; Z79.899 Other long term (current) drug therapy
CPT/HCPCS: 36415; 80159; 85025; 99214

== ENCOUNTER → 2022-10-08 10:10 | Outpatient (CLI) | payer MEDICARE, SELFPAY ==
[2022-08-17 14:17] VITALS: BMI 40.1
[2022-10-08 13:48] LABS: Add Manual Diff / Slide Review NO; Basophils Absolute Auto 100 /uL (0-100); Basophils Percent Auto 0.8 % (0-2); Eosinophils Absolute Auto 0 /uL (0-450); Hematocrit 38.6 % (36-46); Hemoglobin 12.8 g/dL (12.0-16.0); Lymphocytes Absolute Auto 2200 /uL (1100-4500); Lymphocytes Percent Auto 30.5 % (25-40); Mean Corpuscular HGB Conc 33.2 % (30-36); Mean Corpuscular Hemoglobin 25.4 PG (26-34); Mean Corpuscular Volume 76.5 fL (80-100); Monocytes Absolute Auto 500 /uL (0-900); Monocytes Percent Auto 7.8 % (3-14); Neutrophils Absolute Auto 4300 /uL (1500-7000); Neutrophils Percent Auto 60.9 % (50-75); Platelet Count 333 X10^3/uL (150-400); Red Blood Cell Count 5.04 X10^6/uL (4.0-5.2); Red Cell Distribution Width 16.8 % (11.6-14.8); White Blood Cell Count 7.1 X10^3/uL (4.5-11.0)
[2022-10-11 12:27] LABS: Clozapine 190 ng/mL (350-650); Norclozapine 117 ng/mL (Not Estab.)
== END ==
PROVIDERS: Family Provider Nurse Practitioner Family; PCP Registered Nurse Diabetes Educator; Referring Provider Psychiatry & Neurology Psychiatry; Visit Provider Psychiatry & Neurology Psychiatry
DX: F25.0 Schizoaffective disorder, bipolar type (principal); Z79.899 Other long term (current) drug therapy
CPT/HCPCS: 36415; 80159; 85025

== ENCOUNTER → 2022-11-06 11:34 | Outpatient (CLI) | payer MEDICARE, SELFPAY ==
[2022-08-17 14:17] VITALS: BMI 40.1
[2022-11-06 13:31] LABS: Add Manual Diff / Slide Review NO; Basophils Absolute Auto 0 /uL (0-100); Basophils Percent Auto 0.7 % (0-2); Eosinophils Absolute Auto 0 /uL (0-450); Hematocrit 39.2 % (36-46); Hemoglobin 12.7 g/dL (12.0-16.0); Lymphocytes Absolute Auto 1800 /uL (1100-4500); Lymphocytes Percent Auto 24.8 % (25-40); Mean Corpuscular HGB Conc 32.5 % (30-36); Monocytes Absolute Auto 700 /uL (0-900); Monocytes Percent Auto 9.6 % (3-14); Neutrophils Absolute Auto 4700 /uL (1500-7000); Neutrophils Percent Auto 64.9 % (50-75); Platelet Count 327 X10^3/uL (150-400); Red Blood Cell Count 5.09 X10^6/uL (4.0-5.2); Red Cell Distribution Width 17.1 % (11.6-14.8); White Blood Cell Count 7.2 X10^3/uL (4.5-11.0)
[2022-11-08 14:04] LABS: Clozapine 412 ng/mL (350-650); Norclozapine 313 ng/mL (Not Estab.)
== END ==
PROVIDERS: Family Provider Nurse Practitioner Family; PCP Registered Nurse Diabetes Educator; Referring Provider Psychiatry & Neurology Psychiatry; Visit Provider Psychiatry & Neurology Psychiatry
DX: F25.0 Schizoaffective disorder, bipolar type (principal); Z79.899 Other long term (current) drug therapy
CPT/HCPCS: 36415; 80159; 85025

== ENCOUNTER → 2022-11-26 14:40 | Outpatient (CLI) | payer MEDICARE, SELFPAY ==
[2022-08-17 14:17] VITALS: BMI 40.1
[2022-11-26 16:18] LABS: Appearance Urine UA CLEAR; Bilirubin Urine UA NEGATIVE (NEGATIVE); Color Urine UA LT. YELLOW; Glucose Urine UA NEGATIVE (Negative); Ketones Urine UA NEGATIVE (NEGATIVE); Leukocyte Esterase Urine UA NEGATIVE (NEGATIVE); Nitrite Urine UA NEGATIVE (Negative); Occult Blood Urine UA NEGATIVE (Negative); Protein Urine UA NEGATIVE (Negative); Specific Gravity Urine UA 1.015 (1.000-1.035); Urobilinogen Urine UA 0.2 E.U./dL (0.2)
[2022-11-26 16:22] LABS: pH Urine UA 5.5 (4.5-8.0)
[2022-11-26 17:06] LABS: Bacteria Urine Occasional (0-1); RBC Urine 0-1/HPF (0-5/HPF); Squamous Epithelial Cell Urine None Seen (0-5/HPF); WBC Urine 0-1/HPF (0-5/HPF)
== END ==
PROVIDERS: Family Provider Nurse Practitioner Family; PCP Registered Nurse Diabetes Educator; Visit Provider Registered Nurse Diabetes Educator
DX: N39.0 Urinary tract infection, site not specified (principal); R30.0 Dysuria
CPT/HCPCS: 81001; 87086

== ENCOUNTER → 2022-12-10 12:13 | Outpatient (CLI) | payer MEDICARE, SELFPAY ==
[2022-08-17 14:17] VITALS: BMI 40.1
[2022-12-10 13:05] LABS: Add Manual Diff / Slide Review NO; Basophils Absolute Auto 100 /uL (0-100); Basophils Percent Auto 0.9 % (0-2); Eosinophils Absolute Auto 0 /uL (0-450); Eosinophils Percent Auto 0.1 % (2-4); Hematocrit 41.3 % (36-46); Hemoglobin 13.7 g/dL (12.0-16.0); Lymphocytes Absolute Auto 2400 /uL (1100-4500); Lymphocytes Percent Auto 31.7 % (25-40); Mean Corpuscular HGB Conc 33.2 % (30-36); Mean Corpuscular Hemoglobin 25.6 PG (26-34); Mean Corpuscular Volume 77.2 fL (80-100); Monocytes Absolute Auto 800 /uL (0-900); Monocytes Percent Auto 11.1 % (3-14); Neutrophils Absolute Auto 4200 /uL (1500-7000); Neutrophils Percent Auto 56.2 % (50-75); Platelet Count 303 X10^3/uL (150-400); Red Blood Cell Count 5.35 X10^6/uL (4.0-5.2); Red Cell Distribution Width 16.5 % (11.6-14.8); White Blood Cell Count 7.4 X10^3/uL (4.5-11.0)
[2022-12-13 09:38] LABS: Clozapine 346 ng/mL (350-650); Norclozapine 250 ng/mL (Not Estab.)
== END ==
PROVIDERS: Family Provider Nurse Practitioner Family; PCP Registered Nurse Diabetes Educator; Referring Provider Psychiatry & Neurology Psychiatry; Visit Provider Psychiatry & Neurology Psychiatry
DX: Z51.81 Encounter for therapeutic drug level monitoring (principal); F25.0 Schizoaffective disorder, bipolar type; Z79.899 Other long term (current) drug therapy
CPT/HCPCS: 36415; 80159; 85025

== ENCOUNTER → 2022-12-18 16:38 | Outpatient (CLI) | payer MEDICARE, SELFPAY ==
[2022-08-17 14:17] VITALS: BMI 40.1
== END ==
PROVIDERS: Family Provider Nurse Practitioner Family; PCP Registered Nurse Diabetes Educator; Visit Provider Registered Nurse Diabetes Educator
DX: N89.8 Other specified noninflammatory disorders of vagina (principal)
CPT/HCPCS: 87210; 87220

== ENCOUNTER → 2023-01-07 11:18 | Outpatient (CLI) | payer MEDICARE, SELFPAY ==
[2022-08-17 14:17] VITALS: BMI 40.1
[2023-01-07 12:16] LABS: Add Manual Diff / Slide Review NO; Basophils Absolute Auto 0 /uL (0-100); Basophils Percent Auto 0.6 % (0-2); Eosinophils Absolute Auto 0 /uL (0-450); Hematocrit 39.3 % (36-46); Hemoglobin 13.2 g/dL (12.0-16.0); Lymphocytes Absolute Auto 1700 /uL (1100-4500); Lymphocytes Percent Auto 25.1 % (25-40); Mean Corpuscular HGB Conc 33.6 % (30-36); Mean Corpuscular Hemoglobin 26.3 PG (26-34); Mean Corpuscular Volume 78.1 fL (80-100); Monocytes Absolute Auto 700 /uL (0-900); Monocytes Percent Auto 10.5 % (3-14); Neutrophils Absolute Auto 4300 /uL (1500-7000); Neutrophils Percent Auto 63.8 % (50-75); Platelet Count 283 X10^3/uL (150-400); Red Blood Cell Count 5.03 X10^6/uL (4.0-5.2); Red Cell Distribution Width 15.8 % (11.6-14.8); White Blood Cell Count 6.7 X10^3/uL (4.5-11.0)
[2023-01-07 13:01] LABS: Cholesterol 135 mg/dL (140-199); HDL Cholesterol 36 mg/dL (40-60); LDL Cholesterol Calculated 64 mg/dL (<100); Triglycerides 175 mg/dL (35-150)
[2023-01-10 12:36] LABS: Clozapine 359 ng/mL (350-650); Norclozapine 223 ng/mL (Not Estab.)
== END ==
PROVIDERS: Family Provider Nurse Practitioner Family; PCP Registered Nurse Diabetes Educator; Referring Provider Psychiatry & Neurology Psychiatry; Visit Provider Psychiatry & Neurology Psychiatry
DX: Z79.899 Other long term (current) drug therapy (principal); Z51.81 Encounter for therapeutic drug level monitoring; F25.0 Schizoaffective disorder, bipolar type; E78.5 Hyperlipidemia, unspecified
CPT/HCPCS: 36415; 80061; 80159; 85025

== ENCOUNTER → 2023-02-04 15:10 | Outpatient (CLI) | payer MEDICARE, SELFPAY ==
[2022-08-17 14:17] VITALS: BMI 40.1
[2023-02-06 13:02] LABS: Clozapine 388 ng/mL (350-650); Norclozapine 297 ng/mL (Not Estab.)
== END ==
PROVIDERS: Family Provider Nurse Practitioner Family; PCP Registered Nurse Diabetes Educator; Referring Provider Psychiatry & Neurology Psychiatry; Visit Provider Psychiatry & Neurology Psychiatry
DX: Z51.81 Encounter for therapeutic drug level monitoring (principal); P25.0 Interstitial emphysema originating in the perinatal period; F25.0 Schizoaffective disorder, bipolar type; F43.12 Post-traumatic stress disorder, chronic; R25.1 Tremor, unspecified; Z79.899 Other long term (current) drug therapy
CPT/HCPCS: 36415; 80159; 99215

== ENCOUNTER → 2023-03-04 14:52 | Outpatient (CLI) | payer MEDICARE, SELFPAY ==
[2022-08-17 14:17] VITALS: BMI 40.1
[2023-03-04 16:03] LABS: Add Manual Diff / Slide Review NO; Basophils Absolute Auto 100 /uL (0-100); Basophils Percent Auto 0.7 % (0-2); Eosinophils Absolute Auto 0 /uL (0-450); Hematocrit 39.8 % (36-46); Hemoglobin 13.6 g/dL (12.0-16.0); Lymphocytes Absolute Auto 2000 /uL (1100-4500); Lymphocytes Percent Auto 26.9 % (25-40); Mean Corpuscular HGB Conc 34.2 % (30-36); Mean Corpuscular Hemoglobin 26.6 PG (26-34); Mean Corpuscular Volume 77.7 fL (80-100); Monocytes Absolute Auto 700 /uL (0-900); Monocytes Percent Auto 9.2 % (3-14); Neutrophils Absolute Auto 4600 /uL (1500-7000); Neutrophils Percent Auto 63.2 % (50-75); Platelet Count 304 X10^3/uL (150-400); Red Blood Cell Count 5.12 X10^6/uL (4.0-5.2); White Blood Cell Count 7.3 X10^3/uL (4.5-11.0)
== END ==
PROVIDERS: Family Provider Nurse Practitioner Family; PCP Registered Nurse Diabetes Educator; Referring Provider Psychiatry & Neurology Psychiatry; Visit Provider Psychiatry & Neurology Psychiatry
DX: F25.0 Schizoaffective disorder, bipolar type (principal); F43.12 Post-traumatic stress disorder, chronic; R25.1 Tremor, unspecified; Z79.899 Other long term (current) drug therapy
CPT/HCPCS: 36415; 85025; 99215

== ENCOUNTER → 2023-03-20 09:49 | Outpatient (CLI) | payer MEDICARE, SELFPAY ==
[2022-08-17 14:17] VITALS: BMI 40.1
--- NOTE | 2023-03-20 09:51 | DI.RAD.S_ITS ---
PROCEDURE: XR CERVICAL SPINE 4V OR 5V INDICATIONS: NECK PAIN TECHNIQUE: 5 views of the cervical spine acquired. COMPARISON: None. FINDINGS: Bones: No fractures or dislocations to the T1 level. Degenerative endplate changes are seen at C5-6 level. Straightening of normal cervical lordosis is noted. Oblique images demonstrate right-sided bony foraminal stenosis at C5-6 and C6-7 levels. Soft tissues: No prevertebral soft tissue swelling. IMPRESSION: Degenerative disc disease in lower cervical spine with right-sided bony foraminal stenosis at C5-6 and C6-7 levels. No acute fracture or dislocation. Dictated by: Tin Viveros M.D. on 03/20/2023 at 9:33 Approved by: Tin Viveros M.D. on 03/20/2023 at 9:36
--- NOTE | 2023-03-20 09:51 | DI.RAD.S_ITS ---
PROCEDURE: XR LUMBAR SPINE MIN 4V INDICATIONS: BACK PAIN TECHNIQUE: 5 views of the lumbar spine were acquired, including bilateral oblique views. COMPARISON: [facility], CR, XR LUMBAR SPINE 2-3V, 03/29/2021, 14:47. FINDINGS: Bones: 5 nonrib-bearing vertebrae are present. There is normal bony alignment. Degenerative endplate changes are noted throughout lumbar spine. No vertebral body compression fractures. No suspicious bony lesions. Soft tissues: Overlying bowel gas pattern is normal. No suspicious soft tissue calcifications. Oblique images: No pars defects. IMPRESSION: Degenerative disc disease throughout lumbar spine. No acute compression fracture or spondylolisthesis. No gross pars defect. Dictated by: Tin Viveros M.D. on 03/20/2023 at 9:29 Approved by: Tin Viveros M.D. on 03/20/2023 at 9:32
== END ==
PROVIDERS: Family Provider Nurse Practitioner Family; PCP Registered Nurse Diabetes Educator; Referring Provider Physical Medicine & Rehabilitation; Visit Provider Physical Medicine & Rehabilitation
DX: M51.36 Other intervertebral disc degeneration, lumbar region (principal); M50.322 Other cervical disc degeneration at C5-C6 level; M48.02 Spinal stenosis, cervical region; M54.9 Dorsalgia, unspecified; M48.062 Spinal stenosis, lumbar region with neurogenic claudication; G89.29 Other chronic pain; Z68.39 Body mass index [BMI] 39.0-39.9, adult; F43.12 Post-traumatic stress disorder, chronic; F25.0 Schizoaffective disorder, bipolar type; J44.9 Chronic obstructive pulmonary disease, unspecified
CPT/HCPCS: 72050; 72110; 99215

== ENCOUNTER → 2023-03-29 18:59 | Outpatient (CLI) | payer MEDICARE, SELFPAY ==
[2022-08-17 14:17] VITALS: BMI 40.1
--- NOTE | 2023-03-29 19:03 | DI.MRI.S_ITS ---
PROCEDURE: MR CERVICAL SPINE WO CON INDICATIONS: cervical radiculopathy TECHNIQUE: Noncontrast sagittal T1 spin echo and T2 fast spin echo, sagittal STIR, foraminal oblique sagittal T2 fast spin echo, and axial gradient echo or T2 fast spin echo through the cervical spine. COMPARISON: [facility], CR, XR CERVICAL SPINE 4V OR 5V, 03/20/2023, 9:49. FINDINGS: Image quality: Excellent. Alignment and Curvature: There is loss of normal cervical lordosis. Bone Marrow: Marrow demonstrates normal overall signal. Mild reactive signal throughout the endplates of the cervical spine, most prominently at C4-C5 and C5-C6. Spinal Cord: Visualized spinal cord has normal size and signal. No cerebellar tonsillar herniation. Paraspinous Soft Tissues: No paravertebral masses. Prevertebral soft tissues are normal in thickness. C2-C3: Mild disc desiccation and diffuse disc bulge. Mild facet and uncovertebral hypertrophy. Mild canal stenosis. Mild bilateral foraminal stenosis. C3-C4: Mild disc desiccation and diffuse disc bulge. Mild facet and uncovertebral hypertrophy. Mild canal stenosis. Mild bilateral foraminal stenosis. C4-C5: Mild disc desiccation and diffuse disc bulge with small superimposed central protrusion. Mild facet and uncovertebral hypertrophy bilaterally. Moderate to severe canal stenosis. Mild anterior cord flattening. Moderate bilateral foraminal stenosis. C5-C6: Moderate disc height loss and desiccation. Mild diffuse disc bulge. Moderate facet and uncovertebral hypertrophy bilaterally. Moderate canal stenosis. Moderate left and severe right foraminal stenosis. Right C6 nerve root compression. C6-C7: Mild disc desiccation and diffuse disc bulge. Mild facet and uncovertebral hypertrophy bilaterally. Mild canal stenosis. Mild bilateral foraminal stenosis. C7-T1: Mild disc height loss and desiccation. Mild diffuse disc bulge. Mild canal stenosis. Mild bilateral foraminal stenosis. IMPRESSION: 1. Multilevel degenerative disc and facet disease, as well as uncovertebral hypertrophy. 2. Multilevel canal stenoses, worst at C4-C5 where there is mild cord flattening. 3. Multilevel foraminal stenoses, worst at C5-C6 where there is associated intraforaminal nerve root compression. Recommend correlation with clinical symptoms to ascertain relevance of this finding. Dictated by: Patricia Morales M.D. on 04/02/2023 at 9:05 Approved by: Patricia Morales M.D. on 04/02/2023 at 9:07
--- NOTE | 2023-03-29 19:03 | DI.MRI.S_ITS ---
PROCEDURE: MR LUMBAR SPINE WO CON INDICATIONS: Lumbar facet arthropathy TECHNIQUE: Noncontrast sagittal T1 spin echo and T2 fast echo, sagittal STIR, and T2 fast spin echo through the lumbar spine. In cases with scoliosis, additional coronal T2 fast spin echo may be performed. COMPARISON: [facility], CR, XR LUMBAR SPINE MIN 4V, 03/20/2023, 9:49. FINDINGS: Image quality: Excellent. Alignment and Curvature: 5 lumbar type vertebral bodies are present by plain film. Alignment is normal. Bone Marrow: Marrow is of normal overall signal. No acute vertebral body compression fractures. Spinal Cord: Conus medullaris terminates at the L1-L2 disc space level. Visualized cord demonstrates normal signal and size. Paraspinous Soft Tissues: No paravertebral masses. T12-L1: Moderate disc desiccation. No significant canal nor foraminal stenosis. L1-L2: Mild disc desiccation and diffuse disc bulge. Mild facet and ligamentum flavum hypertrophy. Mild canal stenosis. Mild bilateral foraminal stenosis. L2-L3: Mild disc desiccation and diffuse disc bulge. Mild facet and ligamentum flavum hypertrophy. Mild canal stenosis. Mild bilateral foraminal stenosis. L3-L4: Mild disc desiccation and diffuse disc bulge. Mild facet and ligamentum flavum hypertrophy. Mild canal stenosis. Mild bilateral foraminal stenosis. L4-L5: Mild disc desiccation and diffuse disc bulge. Mild facet and ligamentum flavum hypertrophy. Mild canal stenosis. Mild right and moderate left foraminal stenosis. L5-S1: Moderate disc height loss and desiccation. Mild diffuse disc bulge with small superimposed broad-based left posterolateral protrusion. Mild bilateral facet hypertrophy. No significant canal nor foraminal stenosis. IMPRESSION: 1. Multilevel degenerative disc and facet disease, as well as ligamentum flavum hypertrophy and epidural lipomatosis. 2. Mild multilevel canal stenosis. 3. Multilevel foraminal stenoses, worst at L4-L5 where there is moderate foraminal stenosis. Dictated by: Patricia Morales M.D. on 04/02/2023 at 9:02 Approved by: Patricia Morales M.D. on 04/02/2023 at 9:04
== END ==
PROVIDERS: Family Provider Nurse Practitioner Family; PCP Registered Nurse Diabetes Educator; Referring Provider Physical Medicine & Rehabilitation; Visit Provider Physical Medicine & Rehabilitation
DX: M48.062 Spinal stenosis, lumbar region with neurogenic claudication (principal); M48.02 Spinal stenosis, cervical region; M51.36 Other intervertebral disc degeneration, lumbar region; M48.061 Spinal stenosis, lumbar region without neurogenic claudication; M47.816 Spondylosis without myelopathy or radiculopathy, lumbar region; M46.06 Spinal enthesopathy, lumbar region; M50.31 Other cervical disc degeneration, high cervical region; M47.812 Spondylosis without myelopathy or radiculopathy, cervical region
CPT/HCPCS: 72141; 72148

== ENCOUNTER → 2023-04-08 10:17 | Outpatient (CLI) | payer MEDICARE, SELFPAY ==
[2022-08-17 14:17] VITALS: BMI 40.1
[2023-04-10 09:14] LABS: Clozapine 297 ng/mL (350-600); Norclozapine 204 ng/mL (Not Estab.)
== END ==
PROVIDERS: Family Provider Nurse Practitioner Family; PCP Registered Nurse Diabetes Educator; Referring Provider Psychiatry & Neurology Psychiatry; Visit Provider Psychiatry & Neurology Psychiatry
DX: Z51.81 Encounter for therapeutic drug level monitoring (principal); F25.0 Schizoaffective disorder, bipolar type
CPT/HCPCS: 36415; 80159

== ENCOUNTER → 2023-04-12 12:59 | Outpatient (CLI) | payer MEDICARE, SELFPAY ==
[2022-08-17 14:17] VITALS: BMI 40.1
[2023-04-12 13:29] LABS: Add Manual Diff / Slide Review NO; Basophils Absolute Auto 100 /uL (0-100); Basophils Percent Auto 0.7 % (0-2); Eosinophils Absolute Auto 0 /uL (0-450); Eosinophils Percent Auto 0.1 % (2-4); Hematocrit 41.2 % (36-46); Hemoglobin 13.8 g/dL (12.0-16.0); Lymphocytes Absolute Auto 1700 /uL (1100-4500); Lymphocytes Percent Auto 23.3 % (25-40); Mean Corpuscular HGB Conc 33.6 % (30-36); Mean Corpuscular Hemoglobin 26.6 PG (26-34); Mean Corpuscular Volume 79.1 fL (80-100); Monocytes Absolute Auto 600 /uL (0-900); Monocytes Percent Auto 7.4 % (3-14); Neutrophils Absolute Auto 5200 /uL (1500-7000); Neutrophils Percent Auto 68.5 % (50-75); Platelet Count 277 X10^3/uL (150-400); Red Blood Cell Count 5.21 X10^6/uL (4.0-5.2); Red Cell Distribution Width 14.9 % (11.6-14.8); White Blood Cell Count 7.5 X10^3/uL (4.5-11.0)
== END ==
PROVIDERS: Family Provider Nurse Practitioner Family; PCP Registered Nurse Diabetes Educator; Referring Provider Psychiatry & Neurology Psychiatry; Visit Provider Psychiatry & Neurology Psychiatry
DX: F25.0 Schizoaffective disorder, bipolar type (principal); Z79.899 Other long term (current) drug therapy
CPT/HCPCS: 85025

== ENCOUNTER → 2023-04-23 12:58 | Outpatient (CLI) | payer MEDICARE, SELFPAY ==
[2022-08-17 14:17] VITALS: BMI 40.1
--- NOTE | 2023-04-23 | DI.MG.S_ITS ---
BILATERAL DIGITAL SCREENING MAMMOGRAM 3D/2D WITH CAD: 04/23/2023 CLINICAL: Routine screening. Comparison is made to exam dated: 07/25/2019 mammogram - [facility]. There are scattered areas of fibroglandular density in both breasts (category b / 25%-50% glandular tissue). Current study was also evaluated with a Computer Aided Detection (CAD) system. No significant masses, calcifications, or other findings are seen in either breast. There has been no significant interval change. IMPRESSION: NEGATIVE There is no mammographic evidence of malignancy. A 1 year screening mammogram is recommended. Based on the Tyrer Cuzick model (a risk assessment model) the patient's lifetime risk is 6.5% and her 10 year risk is 2.3%. According to the ACR, ACS, and NCCN guidelines, an annual breast MRI exam along with mammogram is recommended if the patient's lifetime risk is 20% or greater. This exam was interpreted at Station ID: [id number]. NOTE: For mammograms, a report in lay terms will be sent to the patient. Approximately 15% of breast malignancies will not be visualized mammographically. In the management of a palpable breast mass, a negative mammogram must not discourage biopsy of a clinically suspicious lesion. Electronically Signed By: Yan abdul/[email or web address]:04/24/2023 07:59:40 letter sent: Normal Exam ACR BI-RADS Category 1: Negative [id number]
== END ==
PROVIDERS: Family Provider Nurse Practitioner Family; PCP Registered Nurse Diabetes Educator; Referring Provider Registered Nurse Diabetes Educator; Visit Provider Registered Nurse Diabetes Educator
DX: Z12.31 Encounter for screening mammogram for malignant neoplasm of breast (principal)
CPT/HCPCS: 77063; 77067

== ENCOUNTER 2023-04-25 10:15 | Outpatient (CLI) | payer MEDICARE, SELFPAY ==
[2022-08-17 14:17] VITALS: BMI 40.1
[2023-04-25] VITALS (9 sets, daily range): BP systolic 127–143; BP diastolic 59–82; PULSE 72–80; RESP 13–22; O2SAT 96–98
--- NOTE | 2023-04-25 10:17 | DI.RAD.S_ITS ---
PROCEDURE: PAIN L/S FACET INJ/BLK 1ST JUDSON COMPARISON: None. INDICATIONS: SPONDYLOSIS Findings and impression: Intra procedural images obtained for L4-L5 and L5-S1 contrast in pain injection. Please see operative note for full details. Dictated by: Ancelmo Payne M.D. on 04/25/2023 at 15:34 Approved by: Ancelmo Payne M.D. on 04/25/2023 at 15:34
[2023-04-25] MEDS: MIDAZOLAM 2 MG/2 ML VIAL IV (11:18)
[2023-04-25] MEDS: BUPIVACAINE 0.5% (PF) 10 ML VIAL 5 ML INJ (11:19)
[2023-04-25] MEDS: BETAMETHASONE 30 MG/5 ML MDV 12 MG INJ (11:20)
[2023-04-25] MEDS: IOPAMIDOL 15 ML VIAL 3 ML INJ (11:20)
[2023-04-25] MEDS: LIDOCAINE 1% 20 ML 10 ML INJ (11:23)
--- NOTE | 2023-04-25 11:43 | P.PCN_ITS ---
Date/Time/Diagnoses Date of procedure: 04/25/23 Time of procedure: 11:44 Pre-procedure diagnosis: 1. FACET ARTHROPATHY 2. AXIAL LBP 3. MULTILEVEL DDD Post-procedure diagnosis: same Procedure Notes Procedure: 1. FLUOROSCOPICALLY GUIDED CONTRAST CONTROLLED FACET JOINT INJECTIONS BILATERAL L4/5, L5/S1 Indications: Casandra is referred by ARIANNA Gross for treatment of Axial LBP Physician: Huy Graves Total Fluoroscopy time (seconds): 15 Total sedation minutes: 20 Complications: none Procedure in detail & Post-procedure care: FINDINGS Multilevel Facet Arthropathy with Clinically significant axial LBP DESCRIPTION OF PROCEDURE Fluoroscopically guided, contrast-controlled bilateral L4/5, L5/S1 facet joint injections. Following review of allergy and review of potential side effects and complications, including, but not necessarily limited to, infection, allergic reaction, local tissue breakdown, stroke, temporary or permanent nerve injury, paralysis, and possible , the patient indicated that the patient understood and agreed to proceed. An informed consent document was signed by the patient, witnessed by a nurse, and placed in the patient's chart. Additionally, other treatment options including medications, modalities, and physical therapy were reviewed with the patient. After review of previous anaesthesic history and IV conscious sedation the patient was deemed safe to proceed with today?s procedure with IV conscious sedation as ASA class II designation. Safety time-out was performed to confirm patient ID, procedure to be performed and site of procedure. IV sedation was accomplished with a combination of 2mg of Versed was administered by the RN after DO order, titrated to patient comfort during the course of the procedure while the patient remained responsive to all verbal commands In the prone position, following sterile prep and drape of the lumbar region, the posterior aspect of the L4/5, L5/S1 facet joints were identified fluoroscopically. The skin was anesthetized via a 25-gauge 1.5inch needle with 1% lidocaine solution into the corresponding facet joints. At this point, a 22- gauge 3.5-inch spinal needle was atraumatically introduced and advanced under fluoroscopic guidance into the corresponding facet joints. Following negative aspiration, injections of approximately 0.2cc of Isovue 200 confirmed interarticular placement without vascular uptake. The identical procedure was then performed at the L4/5, L5/S1 facet joints on the left. Radiological data, including multiple fluoroscopic views of the lumbosacral spine, reveal a spinal needle at the L4/5, L5/S1 facet joints bilaterally. Subsequent views show flow of contrast material both superiorly and inferiorly within the joint space without vascular or intrathecal uptake. At this point, a total of 0.5cc including a mixture of 0.25cc Marcaine and 0.25cc betamethasone was injected without complication into each of the corresponding facet joints. The patient tolerated the procedure well without signs or symptoms of complications prior to transfer to the recovery area continued monitoring without incident. The patient was then transferred to the recovery area where they were observed for an appropriate period of time after the injection. The patient reported a VAS score of 7 prior to the procedure and a post- procedure VAS of 0. POST OP INSTRUCTIONS The patient was provided a Pain Log to continue to record their response to the target-specific procedure prior to follow-up visit with their referring physician. Additionally, specific post-injection care instructions and a contact number to our office were provided if concerns arise regarding possible complications associated with the procedure are suspected.
== END 2023-04-25 11:51 | disposition home or self-care (01) ==
LOC: RAD 10:16
PROVIDERS: Family Provider Nurse Practitioner Family; PCP Registered Nurse Diabetes Educator; Referring Provider Physical Medicine & Rehabilitation; Visit Provider Physical Medicine & Rehabilitation
DX: M47.816 Spondylosis without myelopathy or radiculopathy, lumbar region (principal); M47.817 Spondylosis without myelopathy or radiculopathy, lumbosacral region; M51.36 Other intervertebral disc degeneration, lumbar region; M51.37 Other intervertebral disc degeneration, lumbosacral region
CPT/HCPCS: 64493; 64494; 99152; J0702; J2250

== ENCOUNTER → 2023-05-06 10:59 | Outpatient (CLI) | payer MEDICARE, SELFPAY ==
[2022-08-17 14:17] VITALS: BMI 40.1
[2023-05-06 12:54] LABS: Add Manual Diff / Slide Review NO; Basophils Absolute Auto 0 /uL (0-100); Basophils Percent Auto 0.3 % (0-2); Eosinophils Absolute Auto 0 /uL (0-450); Hemoglobin 13.5 g/dL (12.0-16.0); Lymphocytes Absolute Auto 2100 /uL (1100-4500); Lymphocytes Percent Auto 20.6 % (25-40); Mean Corpuscular HGB Conc 33.7 % (30-36); Mean Corpuscular Hemoglobin 26.7 PG (26-34); Mean Corpuscular Volume 79.2 fL (80-100); Monocytes Absolute Auto 1000 /uL (0-900); Monocytes Percent Auto 9.3 % (3-14); Neutrophils Absolute Auto 7100 /uL (1500-7000); Neutrophils Percent Auto 69.8 % (50-75); Platelet Count 319 X10^3/uL (150-400); Red Blood Cell Count 5.05 X10^6/uL (4.0-5.2); Red Cell Distribution Width 15.5 % (11.6-14.8); White Blood Cell Count 10.2 X10^3/uL (4.5-11.0)
== END ==
PROVIDERS: Family Provider Nurse Practitioner Family; PCP Registered Nurse Diabetes Educator; Referring Provider Psychiatry & Neurology Psychiatry; Visit Provider Psychiatry & Neurology Psychiatry
DX: F25.0 Schizoaffective disorder, bipolar type (principal); F43.12 Post-traumatic stress disorder, chronic; R25.1 Tremor, unspecified; Z79.899 Other long term (current) drug therapy
CPT/HCPCS: 36415; 85025; 99215

== ENCOUNTER → 2023-06-03 12:18 | Outpatient (CLI) | payer MEDICARE, SELFPAY ==
[2022-08-17 14:17] VITALS: BMI 40.1
[2023-06-03 14:45] LABS: Add Manual Diff / Slide Review NO; Basophils Absolute Auto 0 /uL (0-100); Basophils Percent Auto 0.6 % (0-2); Eosinophils Absolute Auto 0 /uL (0-450); Hematocrit 41.5 % (36-46); Hemoglobin 13.9 g/dL (12.0-16.0); Lymphocytes Absolute Auto 1800 /uL (1100-4500); Lymphocytes Percent Auto 21.8 % (25-40); Mean Corpuscular HGB Conc 33.4 % (30-36); Mean Corpuscular Hemoglobin 26.5 PG (26-34); Mean Corpuscular Volume 79.4 fL (80-100); Monocytes Absolute Auto 500 /uL (0-900); Monocytes Percent Auto 6.6 % (3-14); Neutrophils Absolute Auto 5800 /uL (1500-7000); Platelet Count 308 X10^3/uL (150-400); Red Blood Cell Count 5.23 X10^6/uL (4.0-5.2); Red Cell Distribution Width 16.5 % (11.6-14.8); White Blood Cell Count 8.1 X10^3/uL (4.5-11.0)
== END ==
PROVIDERS: Family Provider Nurse Practitioner Family; PCP Registered Nurse Diabetes Educator; Referring Provider Psychiatry & Neurology Psychiatry; Visit Provider Psychiatry & Neurology Psychiatry
DX: Z79.899 Other long term (current) drug therapy (principal)
CPT/HCPCS: 36415; 85025

== ENCOUNTER 2023-06-11 09:33 | Outpatient (CLI) | payer MEDICARE, SELFPAY ==
[2022-08-17 14:17] VITALS: BMI 40.1
[2023-06-11] VITALS (8 sets, daily range): BP systolic 125–157; BP diastolic 59–67; PULSE 81–86; RESP 12–20; TEMP 36.1; O2SAT 95–97
--- NOTE | 2023-06-11 09:34 | DI.RAD.S_ITS ---
PROCEDURE: PAIN C/T INTERLAMINAR INJECT INDICATIONS: SPINAL STENOSIS COMPARISON: [facility], MR, MR CERVICAL SPINE WO CON, 03/29/2023, 20:00. [facility], XA, PAIN L/S FACET INJ/BLK 1ST JUDSON, 04/25/2023, 11:19. FINDINGS: Fluoroscopic spot filming was performed to verify placement of a spinal needle at the C6-C7 level, as labeled on the films. Appropriate location of the needle tip was confirmed by injection of iodinated contrast. IMPRESSION: No significant intraprocedural abnormality. Dictated by: Ciaran Leal M.D. on 06/11/2023 at 12:03 Approved by: Ciaran Leal M.D. on 06/11/2023 at 12:04
[2023-06-11] MEDS: MIDAZOLAM 2 MG/2 ML VIAL IV (10:20)
[2023-06-11] MEDS: BUPIVACAINE 0.25% (PF) VIAL 2 ML INJ (10:25)
[2023-06-11] MEDS: IOPAMIDOL 15 ML VIAL 3 ML INJ (10:26)
[2023-06-11] MEDS: DEXAMETHASONE 10 MG/ML VIAL 20 MG INJ (10:26)
--- NOTE | 2023-06-11 10:41 | P.PCN_ITS ---
Date/Time/Diagnoses Date of procedure: 06/11/23 Time of procedure: 10:41 Pre-procedure diagnosis: 1. CERVICAL STENOSIS, 2. CERVICAL HNP WITH UPPER EXTREMITY RADICULAR FEATURES Post-procedure diagnosis: same Procedure Notes Procedure: 1. FLUORSCOPICALLY GUIDED CONTRAST CONTROLLED INTERLAMINAR EPIDURAL STEROID INJECTION - C6/7 TL DEREJE Indications: Casandra is referred by ARIANNA Gross for treatment of Cervical HNP with Upper Extremity Paresthesias. Physician: Huy Graves Total Fluoroscopy time (seconds): 36 Total sedation minutes: 14 Complications: none Procedure in detail & Post-procedure care: FINDINGS Cervical Stenosis due to disc deterioration and nerve root irritation and nerve root irritation DESCRIPTION OF PROCEDURE Fluoroscopically guided, contrast-controlled C6/7 translaminar epidural steroid injection with conscious sedation. Following review of allergy and review of potential side effects and complications, including, but not necessarily limited to, infection, allergic reaction, local tissue breakdown, temporary as well as permanent nerve injury, stroke, paralysis, and possible , the patient indicated that patient understood and agreed to proceed. An informed consent document was signed by the patient, witnessed by a nurse, and placed in the patient's chart. Additionally, other treatment options including modalities, medications, and physical therapy were reviewed with the patient. After review of previous anaesthesic history and IV conscious sedation the patient was deemed safe to proceed with today?s procedure with IV conscious sedation as ASA class II designation. Safety time-out was performed to confirm patient ID, procedure to be performed and site of procedure. IV sedation was accomplished with a combination of 2mg of Versed administered by the RN after DO order, titrated to patient comfort during the course of the procedure while the patient remained responsive to all verbal commands. In the prone position, following sterile prep and drape of the cervical region, the C6/7 translaminar space was identified fluoroscopically. The skin was anesthetized via a 25-gauge 1.5-inch needle with 1% lidocaine solution. At this point, a 25-gauge, 2.5-inch short bevel spinal needle was atraumatically introduced and advanced under fluoroscopic guidance into epidural space at the C6/7 translaminar space. Depth was confirmed on lateral view. Radiological data, including multiple fluoroscopic views of the cervical spine, reveal a spinal needle at the C6/7 translaminar space. Lateral views then show placement of the needle in the epidural space. Subsequent views show contrast material flowing superiorly and inferiorly in the epidural space. DSA fluoroscopy with live contrast injection, once again, confirmed no vascular or intrathecal uptake. At this point, using loss of resistance technique with saline and air, the epidural space was entered. Following negative aspiration, injection of approximately 1.5 cc of Isovue-200 with live fluoroscopy in the AP view confirmed epidural flow in the epidural space without vascular or intrathecal uptake observed. Subsequently, a test dose of 1cc of 1% lidocaine solution was injected and patient was observed for two minutes without signs or symptoms of complications, including abdominal pain, shortness of breath, bilateral upper or lower extremity weakness, nausea and vomiting, prior to steroid injection. At this point, 2cc or 20mg of dexamethasone was then injected without incident. The patient tolerated the procedure well without signs or symptoms of compli cations prior to being transferred to the recovery area for further monitoring, The patient was then transferred to the recovery area where they were observed for an appropriate period of time after the injection. The patient reported a VAS score of 7 prior to the procedure and a post-procedure VAS of 1. POST OP INSTRUCTIONS The patient was provided a Pain Log to continue to record their response to the target-specific procedure prior to follow-up visit with the referring provider. Additionally, specific post-injection care instructions and a contact number to our office were provided if concerns arise regarding possible complications associated with the procedure are suspected.
== END 2023-06-11 10:55 | disposition home or self-care (01) ==
LOC: RAD 09:33
PROVIDERS: Family Provider Nurse Practitioner Family; PCP Registered Nurse Diabetes Educator; Referring Provider Physical Medicine & Rehabilitation; Visit Provider Physical Medicine & Rehabilitation
DX: M48.02 Spinal stenosis, cervical region (principal); M50.123 Cervical disc disorder at C6-C7 level with radiculopathy
CPT/HCPCS: 62321; 99152; 99153; J1100; J2250; J3490

== ENCOUNTER → 2023-07-11 13:43 | Outpatient (CLI) | payer MEDICARE, SELFPAY ==
[2022-08-17 14:17] VITALS: BMI 40.1
[2023-07-11 15:24] LABS: Add Manual Diff / Slide Review NO; Basophils Absolute Auto 0 /uL (0-100); Basophils Percent Auto 0.5 % (0-2); Eosinophils Absolute Auto 0 /uL (0-450); Hematocrit 39.5 % (36-46); Hemoglobin 13.1 g/dL (12.0-16.0); Lymphocytes Absolute Auto 1800 /uL (1100-4500); Lymphocytes Percent Auto 20.8 % (25-40); Mean Corpuscular HGB Conc 33.2 % (30-36); Mean Corpuscular Hemoglobin 26.8 PG (26-34); Mean Corpuscular Volume 80.7 fL (80-100); Monocytes Absolute Auto 700 /uL (0-900); Monocytes Percent Auto 7.9 % (3-14); Neutrophils Absolute Auto 6300 /uL (1500-7000); Neutrophils Percent Auto 70.8 % (50-75); Platelet Count 323 X10^3/uL (150-400); Red Blood Cell Count 4.89 X10^6/uL (4.0-5.2); Red Cell Distribution Width 17.1 % (11.6-14.8); White Blood Cell Count 8.8 X10^3/uL (4.5-11.0)
== END ==
PROVIDERS: PCP Registered Nurse Diabetes Educator; Referring Provider Psychiatry & Neurology Psychiatry; Visit Provider Psychiatry & Neurology Psychiatry
DX: F25.0 Schizoaffective disorder, bipolar type (principal); Z79.899 Other long term (current) drug therapy
CPT/HCPCS: 36415; 85025

== ENCOUNTER → 2023-08-05 13:07 | Outpatient (CLI) | payer MEDICARE, SELFPAY ==
[2022-08-17 14:17] VITALS: BMI 40.1
[2023-08-05 14:29] LABS: Hematocrit 40.4 % (36-46); Hemoglobin 13.7 g/dL (12.0-16.0); Mean Corpuscular Hemoglobin 27.4 PG (26-34); Mean Corpuscular Volume 80.4 fL (80-100); Platelet Count 300 X10^3/uL (150-400); Red Blood Cell Count 5.02 X10^6/uL (4.0-5.2); Red Cell Distribution Width 16.2 % (11.6-14.8); White Blood Cell Count 10.1 X10^3/uL (4.5-11.0)
[2023-08-05 17:18] LABS: Neutrophils Absolute Manual 7171 /uL (3000-5900); RBC Morphology Normal Morphology; Total Cells Counted 100
== END ==
PROVIDERS: PCP Registered Nurse Diabetes Educator; Referring Provider Psychiatry & Neurology Psychiatry; Visit Provider Psychiatry & Neurology Psychiatry
DX: Z79.899 Other long term (current) drug therapy (principal); F25.0 Schizoaffective disorder, bipolar type
CPT/HCPCS: 36415; 85025

== ENCOUNTER → 2023-09-16 10:20 | Outpatient (CLI) | payer MEDICARE, SELFPAY ==
[2022-08-17 14:17] VITALS: BMI 40.1
[2023-09-16 11:08] LABS: Add Manual Diff / Slide Review NO; Basophils Absolute Auto 100 /uL (0-100); Basophils Percent Auto 1.1 % (0-2); Eosinophils Absolute Auto 0 /uL (0-450); Hematocrit 41.7 % (36-46); Hemoglobin 14.1 g/dL (12.0-16.0); Lymphocytes Absolute Auto 1800 /uL (1100-4500); Mean Corpuscular HGB Conc 33.8 % (30-36); Mean Corpuscular Hemoglobin 26.7 PG (26-34); Mean Corpuscular Volume 78.9 fL (80-100); Monocytes Absolute Auto 800 /uL (0-900); Monocytes Percent Auto 10.6 % (3-14); Neutrophils Absolute Auto 4800 /uL (1500-7000); Neutrophils Percent Auto 64.3 % (50-75); Platelet Count 339 X10^3/uL (150-400); Red Blood Cell Count 5.28 X10^6/uL (4.0-5.2); Red Cell Distribution Width 14.4 % (11.6-14.8); White Blood Cell Count 7.5 X10^3/uL (4.5-11.0)
== END ==
PROVIDERS: PCP Registered Nurse Diabetes Educator; Referring Provider Psychiatry & Neurology Psychiatry; Visit Provider Psychiatry & Neurology Psychiatry
DX: Z79.899 Other long term (current) drug therapy (principal)
CPT/HCPCS: 36415; 85025

== ENCOUNTER → 2023-10-01 14:18 | Outpatient (CLI) | payer MEDICARE, SELFPAY ==
[2022-08-17 14:17] VITALS: BMI 40.1
--- NOTE | 2023-10-01 14:27 | DI.CT.S_ITS ---
PROCEDURE: CT LUNG LOW DOSE SCREENING INDICATIONS: screen, >20 pack years smoking TECHNIQUE: Noncontrast 2.0-2.5 mm thick sections acquired from the pulmonary apices to the posterior costophrenic angles. 7 mm thick axial MIP, and 5 mm coronal and sagittal reformats were then acquired. For radiation dose reduction, the following was used: automated exposure control, adjustment of mA and/or kV according to patient size. COMPARISON: None. FINDINGS: Image quality: Diagnostic, given the low radiation dose technique. Lungs and pleura: Scattered airspace opacities are present within the anterior mid lungs bilaterally. No focal suspicious pulmonary mass lesions or pulmonary nodules. Mediastinum: Heart size is normal. No pericardial effusion. No mediastinal adenopathy by size criteria. Thoracic aorta and central pulmonary arteries are normal in size. Esophagus is normal in caliber. No hiatal hernia. Bones and chest wall: No suspicious bony lesions. No vertebral body compression fractures. No axillary or supraclavicular adenopathy by size criteria. The thyroid is unremarkable. Upper Abdomen: Visualized upper abdomen solid organs and bowel loops appear normal in the absence of contrast. IMPRESSION: 1. No suspicious pulmonary nodules or mass lesions. 2. Scattered bilateral anterior airspace opacities. Findings are suspicious for aspiration or infection. Three-month follow-up is recommended to ensure resolution of these findings. LUNG-RADS 4A; [address] follow-up recommended. Clinically Significant Non-pulmonary Findings: None. Dictated by: Tran Aquino M.D. on 10/01/2023 at 17:16 Approved by: Tran Aquino M.D. on 10/01/2023 at 17:18
[2023-10-01 14:50] VITALS: BP 141/67; PULSE 83; RESP 18; TEMP 36.6; O2SAT 98
--- NOTE | 2023-10-01 16:16 | PM.PROC.IR.1 ---
Date/Time/Diagnoses Date of procedure: 10/01/23 Time of procedure: 16:16 Pre-procedure diagnosis: 1. FACET ARTHROPATHY Post-procedure diagnosis: same Procedure Notes Procedure: 1. BILATERAL- L4, L5 and S1 DIAGNOSTIC MB BLOCKS with LA Anesthetic Indications: Casandra is referred by ARIANNA Gross for treatment of Bilateral Axial LBP. Physician: Huy Graves Total Fluoroscopy time (seconds): 18 Total sedation minutes: 12 Complications: none Procedure in detail & Post-procedure care: DESCRIPTION OF PROCEDURE Fluoroscopically guided, contrast-controlled bilateral L4, L5 and S1 medial branch blocks with 0.5cc of 0.5% Marcaine. Following review of allergy and review of potential side effects and complications, including, but not necessarily limited to, infection, allergic reaction, local tissue breakdown, nerve injury, paralysis, stroke and possible , the patient indicated that the patient understood and agreed to proceed. An informed consent document was signed by the patient, witnessed by a nurse, and placed in the patient's chart. After review of previous anaesthesic history and IV conscious sedation the patient was deemed safe to proceed with today's procedure with IV conscious sedation as ASA class II designation. Safety time-out was performed to confirm patient ID, procedure to be performed and site of procedure. IV sedation was accomplished with a combination of 4mg of Versed was administered by the RN after DO order, titrated to patient comfort during the course of the procedure while the patient remained responsive to all verbal commands In the prone position, following sterile prep and drape of the lumbar region, the right L4, L5 and S1 anatomical location of the medial branch of the dorsal ramus was identified fluoroscopically. Subsequently an anesthetic skin wheal using 1% lidocaine solution was initiated at each of the anatomical spots. Subsequently then a 22-gauge 3.5-inch spinal needle was atraumatically introduced and advanced under fluoroscopic guidance at each of the corresponding sites at the right L4, L5 and S1 MB. After negative aspiration, 0.2cc of Isovue 200 was injected, confirming placement without vascular or intrathecal uptake. Subsequently then 0.5cc of 0.5% Marcaine solution was injected at each of the corresponding sites at the right L4, L5 and S1 medial branch locations. The identical procedure was replicated on the left. The patient tolerated the procedure well without signs or symptoms of complications prior to transfer to the recovery area continued monitoring without incident. Post-procedure, the patient was monitored initiating provocative activities to measure the amount of relief from block of the facetogenic pain. The patient reported a VAS of 7 prior to the procedure and a post-procedure VAS of 1. It has been a pleasure to assist in the diagnostic and therapeutic care of your patient. POST OP INSTRUCTIONS The patient was provided with a Pain Log to complete over the next several hours and subsequent days prior to the patient's follow up with the ordering physician. If the patient has field underwriter relief to the solution applied, then they may be a candidate for medial branch rhizotomy. The patient is aware, was provided, once again, with a Pain Log and will follow up with the referring physician for review and clinical correlation
== END ==
PROVIDERS: PCP Registered Nurse Diabetes Educator; Referring Provider Registered Nurse Diabetes Educator; Visit Provider Registered Nurse Diabetes Educator
DX: M47.816 Spondylosis without myelopathy or radiculopathy, lumbar region (principal); F17.210 Nicotine dependence, cigarettes, uncomplicated; M47.817 Spondylosis without myelopathy or radiculopathy, lumbosacral region; Z12.2 Encounter for screening for malignant neoplasm of respiratory organs
CPT/HCPCS: 64493; 64494; 71271; 99152; J2250

== ENCOUNTER 2023-10-01 15:30 | Outpatient (CLI) | payer MEDICARE, SELFPAY ==
[2022-08-17 14:17] VITALS: BMI 40.1
[2023-10-01] VITALS (9 sets, daily range): BP systolic 141–171; BP diastolic 37–83; PULSE 75–83; RESP 15–18; TEMP 36.6; O2SAT 96–100
--- NOTE | 2023-10-01 15:30 | DI.RAD.S_ITS ---
PROCEDURE: PAIN L/S FACET INJ/BLK 1ST JUDSON INDICATIONS: SOPNDYLOSIS COMPARISON: [facility], , PAIN L/S FACET INJ/BLK 1ST JUDSON, 04/25/2023, 11:19. FINDINGS: Fluoroscopic spot filming was performed to verify placement of spinal needles on both sides at the L4, L5, and S1 levels, as labeled on the films. Appropriate location of the needle tips was confirmed by injection of iodinated contrast. IMPRESSION: Intraprocedural examination demonstrating appropriate positions of the needles. Dictated by: Ciaran Leal M.D. on 10/01/2023 at 17:46 Approved by: Ciaran Leal M.D. on 10/01/2023 at 17:47
[2023-10-01] MEDS: MIDAZOLAM 2 MG/2 ML VIAL 4 MG IV (16:00)
[2023-10-01] MEDS: iopamidoL 15 ML VIAL 3 ML INJ (16:05)
[2023-10-01] MEDS: BUPIVACAINE 0.5% MDV 2 ML INJ (16:05)
[2023-10-01] MEDS: LIDOCAINE 1% 20 ML 10 ML INJ (16:05)
--- NOTE | 2023-10-02 08:12 | PC.NURSE ---
Late entry- was unable to scan medications on 10/01/23. Please see updated MAR and scanned medication.
== END 2023-10-01 16:30 | disposition home or self-care (01) ==
LOC: RAD 10-02 07:46
PROVIDERS: PCP Registered Nurse Diabetes Educator; Referring Provider Physical Medicine & Rehabilitation; Visit Provider Physical Medicine & Rehabilitation
DX: M47.816 Spondylosis without myelopathy or radiculopathy, lumbar region (principal); M47.817 Spondylosis without myelopathy or radiculopathy, lumbosacral region
CPT/HCPCS: 64493; 64494; 99152; J2250

== ENCOUNTER → 2023-10-07 14:37 | Outpatient (CLI) | payer MEDICARE, SELFPAY ==
[2022-08-17 14:17] VITALS: BMI 40.1
[2023-10-07 15:14] LABS: Add Manual Diff / Slide Review NO; Basophils Absolute Auto 100 /uL (0-100); Basophils Percent Auto 0.7 % (0-2); Eosinophils Absolute Auto 0 /uL (0-450); Hematocrit 41.8 % (36-46); Hemoglobin 14.1 g/dL (12.0-16.0); Lymphocytes Absolute Auto 1700 /uL (1100-4500); Lymphocytes Percent Auto 20.2 % (25-40); Mean Corpuscular HGB Conc 33.6 % (30-36); Mean Corpuscular Hemoglobin 26.4 PG (26-34); Mean Corpuscular Volume 78.4 fL (80-100); Monocytes Absolute Auto 600 /uL (0-900); Monocytes Percent Auto 6.9 % (3-14); Neutrophils Absolute Auto 6000 /uL (1500-7000); Neutrophils Percent Auto 72.2 % (50-75); Platelet Count 296 X10^3/uL (150-400); Red Blood Cell Count 5.33 X10^6/uL (4.0-5.2); Red Cell Distribution Width 15.1 % (11.6-14.8); White Blood Cell Count 8.4 X10^3/uL (4.5-11.0)
[2023-10-07 15:48] LABS: Hemoglobin A1C% w Est Avg Glu 5.7 % (4.0-6.0)
[2023-10-07 15:49] LABS: Alanine Aminotransferase 16 IU/L (<35); Albumin 4.3 g/dL (3.5-5.0); Albumin Globulin Ratio 1.5 (1.0-2.8); Alkaline Phosphatase 140 U/L (38-126); Aspartate Aminotransferase 19 IU/L (14-36); BUN Creatinine Ratio 13.6 (6-22); Bilirubin Total 0.6 mg/dL (0.2-1.3); Blood Urea Nitrogen 9 mg/dL (7-17); C-Reactive Protein Quant 1.3 mg/dL (<1.0); Calcium 9.6 mg/dL (8.4-10.2); Carbon Dioxide 25 mmol/L (22-32); Chloride 104 mmol/L (98-107); Cholesterol 127 mg/dL (140-199); Erythrocyte Sedimentation Rate 1 MM/HR (0-20); Estimated Glomerular Filt Rate > 60 mL/min (>60); Globulin 2.8 g/dL (1.7-4.1); Glucose 106 mg/dL (70-100); HDL Cholesterol 37 mg/dL (40-60); HEMOLYSIS < 15 (0-50); LDL Cholesterol Calculated 64 mg/dL (<100); Potassium 3.4 mmol/L (3.4-5.1); Sodium 140 mmol/L (137-145); Total Protein 7.1 g/dL (6.3-8.2); Triglycerides 132 mg/dL (35-150)
[2023-10-07 16:09] LABS: TSH w/ Reflex to FT4 0.42 uIU/mL (0.47-4.68)
[2023-10-07 16:39] LABS: Free T4, Direct Thyroxine 1.19 ng/dL (0.78-2.19)
[2023-10-07 16:43] LABS: HIV 1 & 2 Ab/Ag 4th Gen Combo NEGATIVE (NEGATIVE); Hep C Virus Ab w/Reflex Quant NEGATIVE s/c (NEGATIVE)
== END ==
PROVIDERS: PCP Registered Nurse Diabetes Educator; Referring Provider Psychiatry & Neurology Psychiatry; Visit Provider Psychiatry & Neurology Psychiatry
DX: Z00.00 Encounter for general adult medical examination without abnormal findings (principal); F25.0 Schizoaffective disorder, bipolar type; E78.2 Mixed hyperlipidemia; R63.4 Abnormal weight loss; R25.1 Tremor, unspecified; R73.01 Impaired fasting glucose; R05.3 Chronic cough; F43.12 Post-traumatic stress disorder, chronic; F17.200 Nicotine dependence, unspecified, uncomplicated; Z79.899 Other long term (current) drug therapy
CPT/HCPCS: 36415; 80053; 80061; 83036; 84439; 84443; 85025; 85651; 86140; 86803; 87389; 90833; 99215

== ENCOUNTER → 2023-10-14 10:54 | Outpatient (CLI) | payer MEDICARE, SELFPAY ==
[2022-08-17 14:17] VITALS: BMI 40.1
[2023-10-14 11:12] LABS: Appearance Urine UA SL CLOUDY; Bilirubin Urine UA NEGATIVE (NEGATIVE); Color Urine UA YELLOW; Glucose Urine UA NEGATIVE (Negative); Ketones Urine UA NEGATIVE (NEGATIVE); Leukocyte Esterase Urine UA 2+ (NEGATIVE); Nitrite Urine UA POSITIVE (Negative); Occult Blood Urine UA TRACE-INTACT (Negative); Protein Urine UA NEGATIVE (Negative); Specific Gravity Urine UA 1.025 (1.000-1.035); Urobilinogen Urine UA 0.2 E.U./dL (0.2)
[2023-10-14 11:40] LABS: Bacteria Urine Many (>30); Culture Indicated Urine Specimen Cultured; RBC Urine 0-1/HPF (0-5/HPF); Squamous Epithelial Cell Urine 5-10 /HPF (0-5/HPF); WBC Urine 10-30/HPF (0-5/HPF)
[2023-10-14 11:42] LABS: Occult Blood 1 Positive (Negative); Occult Blood 2 Negative (Negative); Occult Blood 3 Negative (Negative); Sample 1 Time 1105; Sample 2 time 1105; Sample 3 time 1105
[2023-10-15 14:11] LABS: Microalbumin Urine Random 2.5 mg/dL (0-1.6)
[2023-10-15 14:25] LABS: Creatinine Urine Random 139.5 mg/dL; Microalbumi Creatinin Ratio Ur 17.9 ug/mg CR (<30)
== END ==
PROVIDERS: PCP Registered Nurse Diabetes Educator; Referring Provider Registered Nurse Diabetes Educator; Visit Provider Registered Nurse Diabetes Educator
DX: Z00.00 Encounter for general adult medical examination without abnormal findings (principal); I10 Essential (primary) hypertension; F17.200 Nicotine dependence, unspecified, uncomplicated; R63.4 Abnormal weight loss; R73.01 Impaired fasting glucose; E78.2 Mixed hyperlipidemia; R05.3 Chronic cough
CPT/HCPCS: 81001; 82043; 82270; 82570; 87077; 87086; 87186

== ENCOUNTER → 2023-11-05 13:04 | Outpatient (CLI) | payer MEDICARE, SELFPAY ==
[2022-08-17 14:17] VITALS: BMI 40.1
[2023-11-05 14:20] LABS: Add Manual Diff / Slide Review NO; Basophils Absolute Auto 0 /uL (0-100); Basophils Percent Auto 0.6 % (0-2); Eosinophils Absolute Auto 0 /uL (0-450); Eosinophils Percent Auto 0.1 % (2-4); Hematocrit 40.9 % (36-46); Hemoglobin 13.9 g/dL (12.0-16.0); Lymphocytes Absolute Auto 1800 /uL (1100-4500); Lymphocytes Percent Auto 24.4 % (25-40); Mean Corpuscular HGB Conc 33.9 % (30-36); Mean Corpuscular Hemoglobin 26.5 PG (26-34); Mean Corpuscular Volume 78.1 fL (80-100); Monocytes Absolute Auto 700 /uL (0-900); Monocytes Percent Auto 9.8 % (3-14); Neutrophils Absolute Auto 4800 /uL (1500-7000); Neutrophils Percent Auto 65.1 % (50-75); Platelet Count 285 X10^3/uL (150-400); Red Blood Cell Count 5.23 X10^6/uL (4.0-5.2); Red Cell Distribution Width 15.4 % (11.6-14.8); White Blood Cell Count 7.3 X10^3/uL (4.5-11.0)
[2023-11-08 05:01] LABS: Clozapine 355 ng/mL (350-600); Norclozapine 247 ng/mL (Not Estab.)
== END ==
PROVIDERS: PCP Registered Nurse Diabetes Educator; Referring Provider Psychiatry & Neurology Psychiatry; Visit Provider Psychiatry & Neurology Psychiatry
DX: Z51.81 Encounter for therapeutic drug level monitoring (principal); F25.0 Schizoaffective disorder, bipolar type; Z79.899 Other long term (current) drug therapy
CPT/HCPCS: 36415; 80159; 85025

== ENCOUNTER → 2023-12-07 10:47 | Outpatient (CLI) | payer MEDICARE, SELFPAY ==
[2022-08-17 14:17] VITALS: BMI 40.1
--- NOTE | 2023-12-07 10:50 | DI.CT.S_ITS ---
PROCEDURE: CT CHEST WO CON INDICATIONS: f/u abnormal findings lung CT TECHNIQUE: Noncontrast 5 mm thick sections acquired from the pulmonary apices to the posterior costophrenic angles. 1 mm lung window, 5 mm thick coronal and sagittal and 7 mm axial MIP reformats were then acquired. For radiation dose reduction, the following was used: automated exposure control, adjustment of mA and/or kV according to patient size. COMPARISON: [facility], CT, CT LUNG LOW DOSE SCREENING, 10/01/2023, 14:24. FINDINGS: Image quality: Diagnostic Lungs and pleura: Dense suspected atelectasis or a focus of airspace disease at the right costophrenic angle, increased from prior. There is upstream mucous plugging and bronchial wall thickening. Similar anterior ground-glass opacities and mild peripheral reticulation. No pleural effusions. No other new or enlarging solitary nodule. Mediastinum, heart, and esophagus: Normal heart size. Patulous esophagus. No pathologic lymph nodes by size criteria. Chest wall and thyroid: Unremarkable Upper abdomen: No gross abnormality on these noncontrast images. Bones: No acute or suspicious osseous finding. IMPRESSION: Increased opacity at the right medial costophrenic angle, likely a focus of airspace disease or atelectasis, with upstream suspected mucous plugging and bronchial wall thickening. Previously identified anterior lung peripheral reticulation and ground-glass opacities persist, possibly fibrotic changes. Consider another follow-up with high-resolution protocol in 3-6 months. Dictated by: Ancelmo Payne M.D. on 12/07/2023 at 17:57 Approved by: Ancelmo Payne M.D. on 12/07/2023 at 18:04
== END ==
LOC: CT 10:48
PROVIDERS: PCP Registered Nurse Diabetes Educator; Referring Provider Registered Nurse Diabetes Educator; Visit Provider Registered Nurse Diabetes Educator
DX: R93.89 Abnormal findings on diagnostic imaging of other specified body structures (principal)
CPT/HCPCS: 71250

== ENCOUNTER → 2023-12-09 12:00 | Outpatient (CLI) | payer MEDICARE, SELFPAY ==
[2022-08-17 14:17] VITALS: BMI 40.1
[2023-12-09 12:51] LABS: Hematocrit 41.9 % (36-46); Hemoglobin 14.4 g/dL (12.0-16.0); Mean Corpuscular HGB Conc 34.3 % (30-36); Mean Corpuscular Hemoglobin 26.7 PG (26-34); Mean Corpuscular Volume 77.7 fL (80-100); Platelet Count 299 X10^3/uL (150-400); Red Cell Distribution Width 15.6 % (11.6-14.8); White Blood Cell Count 7.5 X10^3/uL (4.5-11.0)
[2023-12-09 13:13] LABS: C-Reactive Protein Quant 1.3 mg/dL (<1.0)
[2023-12-09 13:54] LABS: Erythrocyte Sedimentation Rate 3 MM/HR (0-20)
[2023-12-09 14:14] LABS: Microcytosis 1+; Neutrophils Absolute Manual 4875 /uL (3000-5900); Total Cells Counted 100
== END ==
PROVIDERS: PCP Registered Nurse Diabetes Educator; Referring Provider Psychiatry & Neurology Psychiatry; Visit Provider Psychiatry & Neurology Psychiatry
DX: F25.0 Schizoaffective disorder, bipolar type (principal); R79.82 Elevated C-reactive protein (CRP); N39.0 Urinary tract infection, site not specified; R79.89 Other specified abnormal findings of blood chemistry; Z79.899 Other long term (current) drug therapy
CPT/HCPCS: 36415; 84443; 85025; 85651; 86140

== ENCOUNTER → 2024-01-06 12:51 | Outpatient (CLI) | payer MEDICARE, SELFPAY ==
[2022-08-17 14:17] VITALS: BMI 40.1
[2024-01-06 15:31] LABS: Hematocrit 40.9 % (36-46); Hemoglobin 14.1 g/dL (12.0-16.0); Mean Corpuscular HGB Conc 34.4 % (30-36); Mean Corpuscular Hemoglobin 27.9 PG (26-34); Platelet Count 272 X10^3/uL (150-400); Red Blood Cell Count 5.05 X10^6/uL (4.0-5.2); Red Cell Distribution Width 15.4 % (11.6-14.8); White Blood Cell Count 7.2 X10^3/uL (4.5-11.0)
[2024-01-06 16:03] LABS: Neutrophils Absolute Manual 4392 /uL (3000-5900); Total Cells Counted 100
[2024-01-06 16:05] LABS: RBC Morphology Normal Morphology
== END ==
PROVIDERS: PCP Registered Nurse Diabetes Educator; Referring Provider Psychiatry & Neurology Psychiatry; Visit Provider Psychiatry & Neurology Psychiatry
DX: F25.0 Schizoaffective disorder, bipolar type (principal); F43.12 Post-traumatic stress disorder, chronic; R25.1 Tremor, unspecified; Z79.899 Other long term (current) drug therapy
CPT/HCPCS: 36415; 85025; 99215

== ENCOUNTER → 2024-01-09 13:22 | Outpatient (CLI) | payer MEDICARE, SELFPAY ==
[2022-08-17 14:17] VITALS: BMI 40.1
== END ==
PROVIDERS: PCP Registered Nurse Diabetes Educator; Referring Provider Internal Medicine Critical Care Medicine; Visit Provider Internal Medicine Critical Care Medicine
DX: R05.9 Cough, unspecified (principal); F17.210 Nicotine dependence, cigarettes, uncomplicated; J98.8 Other specified respiratory disorders
CPT/HCPCS: 94060; 94726; 94729

== ENCOUNTER 2024-01-21 10:36 | Outpatient (CLI) | payer MEDICARE, SELFPAY ==
[2022-08-17 14:17] VITALS: BMI 40.1
[2024-01-21] VITALS (12 sets, daily range): BP systolic 123–144; BP diastolic 65–85; PULSE 68–77; RESP 11–18; TEMP 36.1; O2SAT 90–100
--- NOTE | 2024-01-21 11:15 | DI.RAD.S_ITS ---
PROCEDURE: PAIN L/S MED/LAT N RFA BILAT INDICATIONS: radiculopathy COMPARISON: None. FINDINGS: Fluoroscopic spot filming was performed to verify placement of spinal needles at the L4 through S1 level(s), as labeled on the films. Appropriate location(s) of the needle tip(s) was confirmed by injection of iodinated contrast. IMPRESSION: L4 through S1 needle and contrast localization. Dictated by: Sue Stafford M.D. on 01/21/2024 at 23:04 Approved by: Sue Stafford M.D. on 01/21/2024 at 23:04
[2024-01-21] MEDS: fentaNYL 100 MCG/2 ML INJ 25 MCG IV ×2 (11:50→11:57)
[2024-01-21] MEDS: MIDAZOLAM 2 MG/2 ML VIAL 1 MG IV ×2 (11:50→12:07)
[2024-01-21] MEDS: LIDOCAINE 1% 20 ML 5 ML INJ (11:56)
[2024-01-21] MEDS: BUPIVACAINE 0.5% (PF) 10 ML VIAL 5 ML INJ (11:57)
--- NOTE | 2024-01-21 12:36 | P.PCN_ITS ---
Date/Time/Diagnoses Date of procedure: 01/21/24 Time of procedure: 12:36 Pre-procedure diagnosis: 1. RECALCITRANT FACET ARTHROPATHY Post-procedure diagnosis: same Procedure Notes Procedure: 1. BILATERAL L4 AND L5 MEDIAL BRANCH RADIOFREQUENCY NEUROTOMY AND S1 DORSAL RAMUS BRANCH RADIOFREQUENCY NEUROTOMY Indications: Casandra is referred by ARIANNA Gross for treatment of facet arthropathy. Physician: Huy Graves Total Fluoroscopy time (seconds): 18 Total sedation minutes: 38 Complications: none Procedure in detail & Post-procedure care: DESCRIPTION OF PROCEDURE Bilateral L4 and L5 medial branch radiofrequency neurotomy and bilateral S1 dorsal ramus radiofrequency neurotomy under fluoroscopy with conscious sedation. The patient is well known to this clinic having undergone previous facet injections with good but temporary relief. The patient has experienced appropriate, concordant relief with previous facet and median branch blocks but the patient's pain has been recalcitrant to further conservative measures. Therefore, based upon the patient's relief and persistent symptoms, the patient is considered an appropriate candidate for facet rhizotomy. All of the patient's questions regarding the risks versus benefits of the procedure, including, but not limited to, bleeding, infection, temporary as well as lasting nerve injury, paralysis, stroke, and , as well treatment alternatives were answered to satisfaction. After obtaining informed consent, denial of pertinent drug allergies, as well as being made aware of the potential risks of bleeding, infection, spinal cord trauma, paralysis, temporary and permanent nerve damage, seizure, stroke, and possible , the patient was brought to the fluoroscopy suite and positioned prone on the fluoroscopy table. The lumbar region was prepped in usual sterile fashion and covered with a fenestrated drape in the usual sterile fashion. Appropriate monitors applied including pulse oximeter, pulse, and blood pressure for regular monitoring throughout the procedure. After review of previous anaesthesic history and IV conscious sedation the patient was deemed safe to proceed with today's procedure with IV conscious sedation as ASA class II designation. Safety time-out was performed to confirm patient ID, procedure to be performed and site of procedure. IV sedation was accomplished with a combination of 2mg of Versed and 50mcg of Fentanyl administered by the RN after DO order, titrated to patient comfort during the course of the procedure while the patient remained responsive to all verbal commands. After local infiltration using 1% lidocaine, under fluoroscopic guidance, a 10- cm RF insulated needle with a 10-mm active tip was positioned parallel to the junction of the right sacral ala and the superior articulating process where the S1 dorsal ramus resides. Needle placement was confirmed with motor stimulation of .5v on the right which produced local stimulation without radicular component. The stimulation was then increased to 2v with, once again, only local multifidus stimulation without radicular component. The needle was then removed and the identical procedure was performed along the length of the right L5 medial branch with motor stimulation at .7v on the right. The identical procedure was once again performed along the length of the right L4 medial branch with motor stimulation of .5v on the right. The medial branches were then anesthetised with 0.5% Marcaine. This was then followed by two discreet lesions performed at 80 degrees Celsius for 90 seconds each. The identical procedure was repeated on the left. The patient tolerated the procedure well without signs or symptoms of complications prior to transfer to the recovery area continued monitoring without incident. The patient was then transferred to the recovery area where they were observed for an appropriate period of time after the injection. The patient reported a VAS score of 9 prior to the procedure and a post-procedure VAS of 0. POST OP INSTRUCTIONS The patient was provided a Pain Log to continue to record the patient's response to the target-specific procedure prior to the patient's follow-up visit with the referring physician. Additionally, specific post-injection care instructions and a contact number to our office were provided if concerns arise regarding possible complications associated with the procedure are suspected.
== END 2024-01-21 12:50 | disposition home or self-care (01) ==
PROVIDERS: PCP Registered Nurse Diabetes Educator; Referring Provider Physical Medicine & Rehabilitation; Visit Provider Physical Medicine & Rehabilitation
DX: M47.816 Spondylosis without myelopathy or radiculopathy, lumbar region (principal); M47.817 Spondylosis without myelopathy or radiculopathy, lumbosacral region
CPT/HCPCS: 64635; 64636; 99152; 99153; J2250; J3010

== ENCOUNTER → 2024-02-05 10:46 | Outpatient (CLI) | payer MEDICARE, SELFPAY ==
[2022-08-17 14:17] VITALS: BMI 40.1
[2024-02-05 11:37] LABS: Add Manual Diff / Slide Review NO; Basophils Absolute Auto 100 /uL (0-100); Basophils Percent Auto 0.7 % (0-2); Eosinophils Absolute Auto 0 /uL (0-450); Hematocrit 41.9 % (36-46); Hemoglobin 14.1 g/dL (12.0-16.0); Lymphocytes Absolute Auto 1700 /uL (1100-4500); Lymphocytes Percent Auto 23.8 % (25-40); Mean Corpuscular HGB Conc 33.7 % (30-36); Mean Corpuscular Volume 80.3 fL (80-100); Monocytes Absolute Auto 700 /uL (0-900); Monocytes Percent Auto 9.3 % (3-14); Neutrophils Absolute Auto 4700 /uL (1500-7000); Neutrophils Percent Auto 66.2 % (50-75); Platelet Count 269 X10^3/uL (150-400); Red Blood Cell Count 5.22 X10^6/uL (4.0-5.2); Red Cell Distribution Width 15.1 % (11.6-14.8); White Blood Cell Count 7.1 X10^3/uL (4.5-11.0)
== END ==
PROVIDERS: PCP Registered Nurse Diabetes Educator; Referring Provider Psychiatry & Neurology Psychiatry; Visit Provider Psychiatry & Neurology Psychiatry
DX: R79.82 Elevated C-reactive protein (CRP) (principal); F25.0 Schizoaffective disorder, bipolar type; Z79.899 Other long term (current) drug therapy
CPT/HCPCS: 36415; 85025; 86140

== ENCOUNTER → 2024-03-07 10:23 | Outpatient (CLI) | payer MEDICARE, SELFPAY ==
[2022-08-17 14:17] VITALS: BMI 40.1
--- NOTE | 2024-03-07 10:26 | DI.CT.S_ITS ---
PROCEDURE: CT CHEST WO CON INDICATIONS: Pneumonia, eval for change TECHNIQUE: Noncontrast 5 mm thick sections acquired from the pulmonary apices to the posterior costophrenic angles. 1 mm lung window, 5 mm thick coronal and sagittal and 7 mm axial MIP reformats were then acquired. For radiation dose reduction, the following was used: automated exposure control, adjustment of mA and/or kV according to patient size. COMPARISON: [facility], CT, CT CHEST WO CON, 12/07/2023, 11:02. FINDINGS: Image quality: Diagnostic Lungs and pleura: Previously identified right lower lung medial region of atelectasis or consolidation has resolved. Scattered scarring and atelectasis. Possible fibrotic changes and ground-glass opacities, mild, are again seen in the anterior upper lobes. No pulmonary nodule identified that requires follow-up imaging by Fleischner guidelines. No pleural effusions. Mediastinum, heart, and esophagus: Normal heart size. No pathologic lymph nodes by size criteria. A prominent right paratracheal lymph node appears stable. There are atherosclerotic calcifications. Chest wall and thyroid: Unremarkable Upper abdomen: No gross abnormality on these noncontrast images Bones: Degenerative changes. IMPRESSION: Previously described pulmonary right lower lobe medial opacity has resolved, likely a prior focus of airspace disease or round atelectasis. Anterior upper lobe bilateral mild peripheral reticulation and ground-glass opacities persist, likely early fibrotic changes. Consider imaging surveillance with high-resolution protocol chest CT and correlation with PFTs at clinical discretion. Other findings as above Dictated by: Ancelmo Payne M.D. on 03/07/2024 at 11:49 Approved by: Ancelmo Payne M.D. on 03/07/2024 at 11:54
== END ==
PROVIDERS: PCP Registered Nurse Diabetes Educator; Referring Provider Internal Medicine Critical Care Medicine; Visit Provider Internal Medicine Critical Care Medicine
DX: J18.9 Pneumonia, unspecified organism (principal); J98.4 Other disorders of lung; J98.11 Atelectasis; I70.90 Unspecified atherosclerosis; R59.0 Localized enlarged lymph nodes
CPT/HCPCS: 71250

== ENCOUNTER → 2024-03-09 11:53 | Outpatient (CLI) | payer MEDICARE, SELFPAY ==
[2022-08-17 14:17] VITALS: BMI 40.1
[2024-03-09 13:28] LABS: C-Reactive Protein Quant < 0.5 mg/dL (<1.0)
[2024-03-09 15:41] LABS: Add Manual Diff / Slide Review NO; Basophils Absolute Auto 0 /uL (0-100); Basophils Percent Auto 0.4 % (0-2); Eosinophils Absolute Auto 0 /uL (0-450); Hematocrit 41.9 % (36-46); Hemoglobin 14.3 g/dL (12.0-16.0); Lymphocytes Absolute Auto 1700 /uL (1100-4500); Lymphocytes Percent Auto 22.3 % (25-40); Mean Corpuscular HGB Conc 34.3 % (30-36); Mean Corpuscular Hemoglobin 27.7 PG (26-34); Mean Corpuscular Volume 80.8 fL (80-100); Monocytes Absolute Auto 700 /uL (0-900); Monocytes Percent Auto 8.9 % (3-14); Neutrophils Absolute Auto 5200 /uL (1500-7000); Neutrophils Percent Auto 68.4 % (50-75); Platelet Count 273 X10^3/uL (150-400); Red Blood Cell Count 5.18 X10^6/uL (4.0-5.2); Red Cell Distribution Width 15.1 % (11.6-14.8); White Blood Cell Count 7.6 X10^3/uL (4.5-11.0)
== END ==
PROVIDERS: PCP Registered Nurse Diabetes Educator; Referring Provider Psychiatry & Neurology Psychiatry; Visit Provider Psychiatry & Neurology Psychiatry
DX: F25.0 Schizoaffective disorder, bipolar type (principal); R79.82 Elevated C-reactive protein (CRP); Z79.899 Other long term (current) drug therapy
CPT/HCPCS: 36415; 85025; 86140

== ENCOUNTER 2024-03-19 12:17 | Day surgery (SDC) | payer MEDICARE, SELFPAY ==
[2022-08-17 14:17] VITALS: BMI 40.1
--- NOTE | 2024-03-19 | PATH_ITS ---
[facility] Accession Number: [id number] No. of containers..02 Tissue . 01 Material submitted: . PART A: colon - TRANSVERSE POLYPS PART B: colon - DESCENDING POLYPS . 01 Diagnosis: Part A: TRANSVERSE POLYPS: Tubular adenomas. . Part B: DESCENDING POLYPS : Tubular adenomas. [facility] 03/27/2024 1039 Local . 01 Electronically signed: . Branden Allen MD, Pathologist NPI- [id number] . 01 Gross description: . Part A: TRANSVERSE POLYPS: Received in formalin are 2 fragment(s) of vance, soft tissue measuring 0.4 x 0.4 x 0.3 cm to 0.8 x 0.8 x 0.7 cm submitted entirely in 1 cassette(s) . Part B: DESCENDING POLYPS : Received in formalin are 2 fragment(s) of vance, soft tissue measuring 0.8 x 0.8 x 0.3 cm to 0.9 x 0.4 x 0.4 cm submitted entirely in 1 cassette(s) /[facility] 03/27/2024 1039 Local . 01 Pathologist provided ICD-10: D12.3, D12.4 . 01 CPT . 648717, [id number] Specimen Comment: A courtesy copy of this report has been sent to [phone] Performed at: [address] [address], [place], [place] [id number] MD Branden Allen MD Phone: [phone]
[2024-03-19 12:37] VITALS: BP 149/81; PULSE 90; RESP 18; TEMP 36.2; O2SAT 96
[2024-03-19] MEDS: LACTATED RINGERS 1,000 ML 150 ML IV (12:44)
--- NOTE | 2024-03-19 12:46 | PM.HP.1 ---
History of Present Illness History of Present Illness Date Patient Seen: 03/19/24 Time Patient Seen: 12:46 Chief complaint: Dx Colonoscopy w/poss bx Narrative: Jodi is a 59-year-old woman who is here for colonoscopy. She last had a colonoscopy in 2018 and a hyperplastic polyp was removed. She was told to have another colonoscopy this year because her prep was not perfect last time. [facility] Medical History Facet arthropathy, lumbar Cervical stenosis of spinal canal Lumbar stenosis with neurogenic claudication Current smoker Shayla infection of flexural skin Atrophic vaginitis Allergic rhinitis Chronic neck pain Chronic midline low back pain without sciatica Impaired fasting blood sugar Dyslipidemia Long-term use of high-risk medication Candidiasis, intertrigo Bilateral tinnitus Left foot pain Chronic back pain COPD (chronic obstructive pulmonary disease) (2012) Mixed hyperlipidemia (06/2019) Essential hypertension (06/2019) Nicotine abuse Dyspareunia Hormone replacement therapy Intertrigo Intermittent palpitations Insomnia, unspecified Morbid obesity with BMI of 40.0-44.9, adult Obstructive sleep apnea of adult (~10/2018) Chronic pain Chronic post-traumatic stress disorder Alcohol dependence in sustained full remission Bipolar II disorder Lumbar transverse process fracture Surgical History S/P complete hysterectomy (1994) Social History marital status: details: lives in [place] household members: family lives independently: Yes (with elderly parents) caregiver/support person: No housing: house Smoking Status: Current every day smoker Tobacco: How many years used: 42 second hand exposure: No alcohol intake: former substance use type: does not use Meds Home Medications and Allergies Home Medications Medication Instructions Recorded Confirmed Type triamcinolone acetonide 0.1 % 1 applic topical BID #45 grams 01/16/22 12/25/23 Rx topical cream aspirin 81 mg tablet,delayed 81 mg PO DAILY #30 tabs 05/02/22 12/25/23 Rx release fluticasone propionate 50 1 spray intranasal DAILY #16 grams 11/30/22 12/25/23 Rx mcg/actuation nasal spray,suspension (Flonase Allergy Relief) ketoconazole 2 % topical cream 1 applic topical BID #60 grams 11/30/22 12/25/23 Rx nystatin 100,000 unit/gram topical 1 applic topical BID PRN skin #60 11/30/22 12/25/23 Rx powder (Nystop) grams estradiol 0.01% (0.1 mg/gram) 0.5 g vaginal DAILY #42.5 grams 03/05/23 12/25/23 Rx vaginal cream ketoconazole 2 % shampoo 1 applic topical 2XW #120 mL 06/28/23 12/25/23 Rx clonazepam 0.5 mg tablet 0.5 mg PO DAILY #60 tabs 08/08/23 12/25/23 Rx albuterol sulfate 90 mcg/actuation 2 puff inhalation Q4-6H PRN 09/18/23 12/25/23 Rx aerosol inhaler (Ventolin HFA) shortness of breath or wheezing #8.5 grams benztropine 0.5 mg tablet 0.5 mg PO DAILY 09/18/23 12/25/23 History fluticasone propionate 230 2 puff inhalation BID #12 grams 09/18/23 12/25/23 Rx mcg-salmeterol 21 mcg/actuation HFA inhaler (Advair HFA) amlodipine 5 mg tablet mg PO 09/20/23 12/25/23 History pantoprazole 40 mg tablet,delayed 40 mg PO DAILY #90 tabs 10/29/23 03/19/24 Rx release pravastatin 40 mg tablet 40 mg PO BEDTIME #90 tabs 10/29/23 12/25/23 Rx propranolol 10 mg tablet See Rx Instructions .Route 11/26/23 03/19/24 Rx .COMPLEX #360 tabs diazepam 10 mg tablet (Valium) 10 mg PO .COMPLEX PRN 1-2 prior to 12/25/23 12/25/23 Rx MRI and for possible steroid flare #10 tabs lamotrigine 100 mg tablet 200 mg (2 x 100 mg) PO BID Mood 12/27/23 03/19/24 Rx (Lamictal) stabilization #120 tabs fluticasone fur. 200 mcg-umeclid 1 inh inhalation Q24H #60 ea 01/01/24 01/01/24 Rx 62.5 mcg-vilant 25 mcg inhalat.powder (Trelegy Ellipta) tramadol 50 mg tablet 50 mg PO TID PRN pain #30 tabs 02/10/24 Rx sodium sul 1.479 gram-potas ch See Rx Instructions PO PER PKG DIR 02/25/24 Rx 0.188 gram-magnes sul 0.225 gram #24 tabs tablet (Sutab) clozapine 100 mg tablet 200 mg (2 x 100 mg) PO BEDTIME #60 03/11/24 Rx tabs amlodipine 2.5 mg tablet 2.5 mg PO ONCE #14 tabs 03/16/24 Rx Allergies Allergy/AdvReac Type Severity Reaction Status Date / Time adhesive Allergy Mild Rash Verified 03/19/24 12:36 codeine Allergy Mild N&V if she Verified 03/19/24 12:36 takes a lot, itch bowel prep AdvReac Severe Vomiting Uncoded 03/19/24 12:36 Exam Vital Signs (past 8 hours): - 03/19/24 12:37 Temperature 97.1 F L Pulse Rate 90 Respiratory Rate 18 Blood Pressure 149/81 H Pulse Oximetry 96 Oxygen Delivery Method Room Air Oxygen Delivery Method Room Air Const General: No acute distress Resp Effort & Inspection: normal respiratory effort Assessment & Plan Assessment and plan (1) Colon cancer screening: Status: Acute Plan Reviewed the risks and benefits of colonoscopy for colon cancer screening and she would like to proceed.
[2024-03-19 13:47] VITALS: BP 123/68; PULSE 79; RESP 20; TEMP 36.1; O2SAT 96
--- NOTE | 2024-03-19 13:51 | PM.OP.COLON ---
Operative Date/Time/Diagnoses Date of procedure: 03/19/24 Time of procedure: 13:51 Pre-op diagnosis: History of polyps Post-op diagnosis: same Procedure & Clinicians Study performed: Colonoscopy Same procedure as scheduled: Yes Surgeon: Marcus Brink Procedure Notes Procedure in detail: Surgeon: Marcus Brink MD Anesthesia: Fran Britton MD Procedure: The patient was brought to the endoscopy suite, placed in left lateral decubitus position. The patient was connected to monitoring devices. A time-out was performed. Sedation was administered. Once the patient was adequately sedated, a digital rectal exam was performed and was normal. The scope was then inserted and advanced to the cecum where the appendiceal orifice was identified and photographed. The scope was then slowly withdrawn over greater than 6 minutes. The mucosa was thoroughly inspected. There were 2 polyps in the transverse colon. One was about 5 mm and 1 was about 1.2 cm. Both were removed with cold snare. The larger polyp was oozing somewhat and so a hemostatic clip was applied with good effect. The larger polyp was removed with a Auguste net. There were 2 polyps in the descending colon each about 5 mm and removed with cold snare and sent together The scope was retroflexed in the rectum. No other abnormalities were noted. The scope was straightened and removed. The patient was awakened and brought to recovery. Scope withdrawal time: 17 minutes Sedation time: 22 minutes EBL: 5 mL Findings: 5 mm polyp in the transverse colon, 1.2 cm polyp in the transverse colon, 2 5 mm polyps in the descending Post-procedure Disposition: PACU
[2024-03-19 13:52] VITALS: BP 127/67; PULSE 75; RESP 15; TEMP 36.1; O2SAT 97
[2024-03-19 13:59] VITALS: BP 126/76; PULSE 70; RESP 17; O2SAT 97
== END 2024-03-19 14:05 | disposition home or self-care (01) ==
PROVIDERS: PCP Registered Nurse Diabetes Educator; Referring Provider Surgery; Visit Provider Surgery
PROC: 0DJD8ZZ Inspection of Lower Intestinal Tract, Via Natural or Artificial Opening Endoscopic (ICD-10-PCS; CPT 45378; principal; 2024-03-19 13:45)
DX: Z12.11 Encounter for screening for malignant neoplasm of colon (principal); Z86.010 Personal history of colon polyps; D12.3 Benign neoplasm of transverse colon; D12.4 Benign neoplasm of descending colon
CPT/HCPCS: 45385; J2704

== ENCOUNTER → 2024-04-06 14:13 | Outpatient (CLI) | payer MEDICARE, SELFPAY ==
[2022-08-17 14:17] VITALS: BMI 40.1
[2024-04-06 16:05] LABS: Add Manual Diff / Slide Review NO; Basophils Absolute Auto 100 /uL (0-100); Basophils Percent Auto 0.7 % (0-2); Eosinophils Absolute Auto 0 /uL (0-450); Hematocrit 42.2 % (36-46); Hemoglobin 14.3 g/dL (12.0-16.0); Lymphocytes Absolute Auto 1700 /uL (1100-4500); Lymphocytes Percent Auto 20.9 % (25-40); Mean Corpuscular HGB Conc 33.9 % (30-36); Mean Corpuscular Hemoglobin 27.6 PG (26-34); Mean Corpuscular Volume 81.4 fL (80-100); Monocytes Absolute Auto 600 /uL (0-900); Neutrophils Absolute Auto 5900 /uL (1500-7000); Neutrophils Percent Auto 71.4 % (50-75); Platelet Count 269 X10^3/uL (150-400); Red Blood Cell Count 5.18 X10^6/uL (4.0-5.2); Red Cell Distribution Width 14.6 % (11.6-14.8); White Blood Cell Count 8.3 X10^3/uL (4.5-11.0)
== END ==
PROVIDERS: PCP Registered Nurse Diabetes Educator; Referring Provider Registered Nurse Diabetes Educator; Visit Provider Registered Nurse Diabetes Educator
DX: F25.0 Schizoaffective disorder, bipolar type (principal); F43.12 Post-traumatic stress disorder, chronic; R25.1 Tremor, unspecified; Z79.899 Other long term (current) drug therapy
CPT/HCPCS: 36415; 85025; 99215

== ENCOUNTER 2024-05-19 10:09 | Outpatient (CLI) | payer MEDICARE, SELFPAY ==
[2022-08-17 14:17] VITALS: BMI 40.1
[2024-05-19] VITALS (9 sets, daily range): BP systolic 121–163; BP diastolic 62–80; PULSE 75–81; RESP 16–18; TEMP 36.3; O2SAT 96–98
[2024-05-19] MEDS: MIDAZOLAM 2 MG/2 ML VIAL IV (10:39)
[2024-05-19] MEDS: BUPIVACAINE 0.25% (PF) VIAL 2 ML INJ (10:42)
[2024-05-19] MEDS: DEXAMETHASONE 10 MG/ML VIAL INJ (10:42)
[2024-05-19] MEDS: BETAMETHASONE 30 MG/5 ML MDV 6 MG INJ (10:42)
[2024-05-19] MEDS: iopamidoL 15 ML VIAL 3 ML INJ (10:43)
--- NOTE | 2024-05-19 10:45 | DI.RAD.S_ITS ---
PROCEDURE: PAIN L INTERLAMINAR/CAUDAL INJ INDICATIONS: para left L4/5 TL DEREJE COMPARISON: None. FINDINGS: Fluoroscopic spot filming was performed to verify placement of spinal needles at the left L4-5 level(s), as labeled on the films. Appropriate location(s) of the needle tip(s) was confirmed by injection of iodinated contrast. IMPRESSION: Intra procedural examination demonstrating appropriate positions of the needles. Dictated by: Vazquez Leon M.D. on 05/19/2024 at 13:18 Approved by: Vazquez Leon M.D. on 05/19/2024 at 13:18
[2024-05-19] MEDS: LIDOCAINE 1% 20 ML 3 ML INJ (10:46)
--- NOTE | 2024-05-19 10:58 | P.PCN_ITS ---
Date/Time/Diagnoses Date of procedure: 05/19/24 Time of procedure: 10:59 Pre-procedure diagnosis: 1. HNP WITH RADICULAR FEATURES, 2. MULTILEVEL CENTRAL STENOSIS, Post-procedure diagnosis: same Procedure Notes Procedure: 1. FLUOROSCOPICALLY GUIDED CONTRAST CONTROLLED INTERLAMINAR EPIDURAL STEROID INJECTION -L4/5 Indications: Casandra is referred by ARIANNA Gross for treatment of Bilateral Foraminal Stenosis R>L LE symptoms. Physician: Huy Graves Total Fluoroscopy time (seconds): 8 Total sedation minutes: 11 Complications: none Procedure in detail & Post-procedure care: FINDINGS Multilevel Central Spinal Stenosis with Nerve Root Compression DESCRIPTION OF PROCEDURE Fluoroscopically guided, contrast-controlled L4/5 translaminar epidural steroid injection. Following review of allergy and review of potential side effects and complications, including, but not necessarily limited to, infection, allergic reaction, local tissue breakdown, temporary as well as permanent nerve injury, paralysis, stroke and possible , the patient indicated that the patient understood and agreed to proceed. An informed consent document was signed by the patient, witnessed by a nurse, and placed in the patient's chart. Additionally, other treatment options including modalities, medications, and physical therapy were reviewed with the patient. After review of previous anaesthesic history and IV conscious sedation the patient was deemed safe to proceed with today?s procedure with IV conscious sedation as ASA class II designation. Safety time-out was performed to confirm patient ID, procedure to be performed and site of procedure. IV sedation was accomplished with a combination of 2mg of Versed was administered by the RN after DO order, titrated to patient comfort during the course of the procedure while the patient remained responsive to all verbal commands In the prone position, following sterile prep and drape of the lumbar region, the L4/5 translaminar space was identified fluoroscopically. The skin was anesthetized via a 25-gauge, 1.5inch needle with 1% lidocaine solution. At this point, a 22-gauge short bevel spinal needle was atraumatically introduced and advanced under fluoroscopic guidance into the region of the L4/5 translaminar space. Depth was confirmed on lateral view. Radiological data, including multiple fluoroscopic views of the lumbar spine, reveal a spinal needle at the L4/5 translaminar space. Lateral views then show placement of the needle in the epidural space. Subsequent views show contrast material flowing superiorly and inferiorly in the epidural space. No vascular or intrathecal uptake is observed. At this point, using loss of resistance technique with saline and air, the epidural space was entered. This was confirmed following negative aspiration with injection of approximately 1.5cc of Isovue 200, showing excellent epidural flow without vascular or intrathecal uptake. At this point, 1cc of 1% lidocaine solution combined with 2cc or 10mg of dexamethasone and 6mg betamethasone was injected without incident. The patient tolerated the procedure well without signs or symptoms of complications prior to transfer to the recovery area continued monitoring without incident. The patient was then transferred to the recovery area where they were observed for an appropriate period of time after the injection. The patient reported a VAS score of 6 prior to the procedure and a post- procedure VAS of 0. POST OP INSTRUCTIONS The patient was provided a Pain Log to continue to record their response to the target-specific procedure prior to follow-up visit with their referring physician. Additionally, specific post-injection care instructions and a contact number to our office were provided if concerns arise regarding possible complications associated with the procedure are suspected.
== END 2024-05-19 11:15 | disposition home or self-care (01) ==
LOC: RAD 10:10
PROVIDERS: PCP Registered Nurse Diabetes Educator; Referring Provider Physical Medicine & Rehabilitation; Visit Provider Physical Medicine & Rehabilitation
DX: M51.16 Intervertebral disc disorders with radiculopathy, lumbar region (principal); M48.061 Spinal stenosis, lumbar region without neurogenic claudication
CPT/HCPCS: 62323; 99152; J0702; J1100; J2250; J3490

== ENCOUNTER 2024-06-02 22:33 | Inpatient (IN) | payer MEDICARE, SELFPAY ==
[2022-08-17 14:17] VITALS: BMI 40.1
[2024-06-02] VITALS (8 sets, daily range): BP systolic 121–143; BP diastolic 56–70; PULSE 92–109; RESP 16–29; TEMP 39.5; O2SAT 92–97
--- NOTE | 2024-06-02 22:42 | EKG_ITS ---
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
--- NOTE | 2024-06-02 22:43 | ED_ITS ---
HPI - Altered Mental Status General Chief Complaint: Altered Mental Status Stated Complaint: AMS Time Seen by Provider: 06/02/24 22:41 History of Present Illness HPI narrative: 59-year-old female with history of schizophrenia, bipolar disorder, COPD, hypertension presents by EMS from home for altered mental status. History obtained from medics as patient is altered, responding to verbal stimuli but not able to answer questions at this time. Medics state that patient lives with her parents, who found her minimally responsive just before going to bed. Patient's oxygen saturation 96% on room air on their arrival, but she was placed on nasal cannula for comfort. Other vital signs significant for tachycardia of 110 beats per minute, blood pressure 120/70 EN route. Related Data Home Medications Medication Instructions Recorded Confirmed benztropine 0.5 mg tablet 0.5 mg PO DAILY 09/18/23 05/12/24 amlodipine 5 mg tablet mg PO 04/22/24 05/12/24 Previous Rx's Medication Instructions Recorded aspirin 81 mg tablet,delayed 81 mg PO DAILY #30 tabs 05/02/22 release fluticasone propionate 50 1 spray intranasal DAILY #16 grams 11/30/22 mcg/actuation nasal spray,suspension (Flonase Allergy Relief) nystatin 100,000 unit/gram topical 1 applic topical BID PRN skin #60 11/30/22 powder (Nystop) grams ketoconazole 2 % shampoo 1 applic topical 2XW #120 mL 06/28/23 albuterol sulfate 90 mcg/actuation 2 puff inhalation Q4-6H PRN 09/18/23 aerosol inhaler (Ventolin HFA) shortness of breath or wheezing #8.5 grams pantoprazole 40 mg tablet,delayed 40 mg PO DAILY #90 tabs 10/29/23 release pravastatin 40 mg tablet 40 mg PO BEDTIME #90 tabs 10/29/23 propranolol 10 mg tablet See Rx Instructions .Route 11/26/23 .COMPLEX #360 tabs diazepam 10 mg tablet (Valium) 10 mg PO .COMPLEX PRN 1-2 prior to 12/25/23 MRI and for possible steroid flare #10 tabs fluticasone fur. 200 mcg-umeclid 1 inh inhalation Q24H #60 ea 01/01/24 62.5 mcg-vilant 25 mcg inhalat.powder (Trelegy Ellipta) clozapine 100 mg tablet 200 mg (2 x 100 mg) PO BEDTIME #60 03/11/24 tabs estradiol 0.01% (0.1 mg/gram) 0.5 g vaginal DAILY #42.5 grams 03/25/24 vaginal cream ketoconazole 2 % topical cream 1 applic topical BID #60 grams 03/25/24 lamotrigine 100 mg tablet 200 mg (2 x 100 mg) PO BID Mood 03/26/24 (Lamictal) stabilization #120 tabs clonazepam 0.5 mg tablet 0.5 mg PO DAILY #60 tabs 04/29/24 tramadol 50 mg tablet 50 mg PO TID PRN pain #30 tabs 05/11/24 Allergies Allergy/AdvReac Type Severity Reaction Status Date / Time adhesive Allergy Mild Rash Verified 05/12/24 12:47 codeine Allergy Mild N&V if she Verified 05/12/24 12:47 takes a lot, itch bowel prep AdvReac Severe Vomiting Uncoded 05/12/24 12:47 Patient History Medical History Facet arthropathy, lumbar Cervical stenosis of spinal canal Lumbar stenosis with neurogenic claudication Current smoker Shayla infection of flexural skin Atrophic vaginitis Allergic rhinitis Chronic neck pain Chronic midline low back pain without sciatica Impaired fasting blood sugar Dyslipidemia Long-term use of high-risk medication Candidiasis, intertrigo Bilateral tinnitus Left foot pain Chronic back pain COPD (chronic obstructive pulmonary disease) (2012) Mixed hyperlipidemia (06/2019) Essential hypertension (06/2019) Nicotine abuse Dyspareunia Hormone replacement therapy Intertrigo Intermittent palpitations Insomnia, unspecified Morbid obesity with BMI of 40.0-44.9, adult Obstructive sleep apnea of adult (~10/2018) Chronic pain Chronic post-traumatic stress disorder Alcohol dependence in sustained full remission Bipolar II disorder Lumbar transverse process fracture Surgical History S/P complete hysterectomy (1994) Social History marital status: details: lives in [place] household members: family lives independently: Yes (with elderly parents) caregiver/support person: No housing: house Smoking Status: Current every day smoker Tobacco: How many years used: 42 second hand exposure: No alcohol intake: former substance use type: does not use Smoking Status: Current every day smoker tobacco type: cigarettes alcohol intake frequency: 0-2 drinks per day Substance Use Type: marijuana Exam Initial Vital Signs Initial Vital Signs: Vital Signs Temperature 103.1 F H 06/02/24 22:36 Pulse Rate 109 H 06/02/24 22:36 Respiratory Rate 16 06/02/24 22:36 Blood Pressure 130/70 06/02/24 22:36 Pulse Oximetry 95 06/02/24 22:36 Oxygen Delivery Method Room Air 06/02/24 22:36 Const: Lethargic, eyes open to voice, appears chronically unwell, ill-appearing Cardiac: Tachycardia, regular rhythm RESP: unlabored, clear to auscultation, coarse cough GI: Soft, nontender, nondistended MSK: Atraumatic, full range of motion, pulses equal Skin: Warm, Dry, intact, no rashes Neuro: Eyes closed, open to voice, moves all extremities Course Orders Ordered: ED Orders 06/02/24 22:42 CT head/brain wo con Stat Chest [XR chest 1V] Stat EKG-12 Lead Stat 06/02/24 22:44 ABG [Arterial Blood Gas] Stat 06/02/24 23:08 Ammonia (NH3) Stat BNP [NT-proBNP (BNP-Adult 18+)] Stat Blood Culture Stat CBC Auto Diff [Complete Blood Count AUTO DIFF] Stat CMP [Comprehensive Metabolic Panel] Stat Ethanol (ETOH) Stat Lactate (Lactic Acid) Stat MAG [Magnesium] Stat PT [Prothrombin Time INR] Stat Procalcitonin Stat Troponin & CK Cardiac Panel Stat 06/03/24 00:01 UA Complete [Urinalysis and Microscopic] Stat Urine Culture Stat Urine Drug Screen, Rapid Stat 06/03/24 00:11 Respiratory Panel (Film Array) Stat Discontinued Medications Sodium Chloride (Normal Saline 0.9%) 1,000 mls @ 1,000 mls/hr IV BOLUS ONE Stop: 06/02/24 23:40 Last Infusion: 06/03/24 00:24 Dose: Infused Documented By: Admin: 06/02/24 23:08 Dose: 1,000 mls/hr Documented By: Acetaminophen (Ofirmev) 1,000 mg in 100 mls @ 400 mls/hr IV NOW ONE Stop: 06/02/24 23:03 Last Infusion: 06/03/24 00:25 Dose: Infused Documented By: Admin: 06/02/24 23:01 Dose: 400 mls/hr Documented By: Ceftriaxone Sodium 2,000 mg/ (Sodium Chloride) 100 mls @ 200 mls/hr IV NOW ONE Stop: 06/02/24 22:50 Last Infusion: 06/03/24 00:25 Dose: Infused Documented By: Admin: 06/02/24 23:05 Dose: 200 mls/hr Documented By: Vital Signs Vital signs: Vital Signs - 8 hr 06/02/24 22:36 06/02/24 22:39 06/02/24 22:39 Temperature 103.1 F H Pulse Rate 109 H 109 H Respiratory Rate 16 Blood Pressure 130/70 130/70 Pulse Oximetry 95 94 Oxygen Delivery Method Room Air Nasal Cannula Oxygen Flow Rate 2 06/02/24 22:53 06/02/24 22:53 06/02/24 23:00 Temperature Pulse Rate 109 H 108 H Respiratory Rate 26 H 22 Blood Pressure 142/63 H Pulse Oximetry 92 93 Oxygen Delivery Method Nasal Cannula Oxygen Flow Rate 2 06/02/24 23:00 06/02/24 23:11 06/02/24 23:11 Temperature Pulse Rate 106 H Respiratory Rate 29 H Blood Pressure 143/67 H 127/61 Pulse Oximetry 94 Oxygen Delivery Method Oxygen Flow Rate 06/02/24 23:40 06/02/24 23:44 06/02/24 23:44 Temperature Pulse Rate 100 H 97 H Respiratory Rate 23 Blood Pressure 121/56 L Pulse Oximetry 96 96 Oxygen Delivery Method Oxygen Flow Rate 06/02/24 23:50 06/02/24 23:50 06/03/24 00:00 Temperature Pulse Rate 92 H 94 H Respiratory Rate 22 22 Blood Pressure 121/59 L Pulse Oximetry 97 98 Oxygen Delivery Method Oxygen Flow Rate 06/03/24 00:00 06/03/24 00:10 06/03/24 00:10 Temperature Pulse Rate 92 H Respiratory Rate 19 Blood Pressure 129/61 118/56 L Pulse Oximetry 94 Oxygen Delivery Method Oxygen Flow Rate 06/03/24 00:20 06/03/24 00:20 06/03/24 00:30 Temperature Pulse Rate 91 H 91 H Respiratory Rate 21 21 Blood Pressure 117/65 Pulse Oximetry 93 95 Oxygen Delivery Method Oxygen Flow Rate 06/03/24 00:30 06/03/24 00:40 06/03/24 00:40 Temperature Pulse Rate 91 H Respiratory Rate 21 Blood Pressure 113/58 L 106/59 L Pulse Oximetry 94 Oxygen Delivery Method Oxygen Flow Rate 06/03/24 00:50 06/03/24 00:50 06/03/24 01:00 Temperature Pulse Rate 90 Respiratory Rate 22 Blood Pressure 114/65 117/67 Pulse Oximetry 95 Oxygen Delivery Method Oxygen Flow Rate 06/03/24 01:00 06/03/24 01:10 06/03/24 01:10 Temperature Pulse Rate 90 88 Respiratory Rate 21 18 Blood Pressure 118/61 Pulse Oximetry 95 95 Oxygen Delivery Method Oxygen Flow Rate 06/03/24 01:15 Temperature 99.5 F Pulse Rate Respiratory Rate Blood Pressure Pulse Oximetry Oxygen Delivery Method Oxygen Flow Rate MDM - Altered Mental Status Differential Diagnosis Differential diagnosis: Likely altered mental status, delirium and dementia Lab Data 06/02/24 23:08 06/02/24 23:08 Labs: Lab Results 06/02/24 06/03/24 06/03/24 Range/Units 23:08 00:01 00:01 WBC 20.5 H (4.5-11.0) X10^3/uL RBC 5.19 (4.0-5.2) X10^6/uL Hgb 14.4 (12.0-16.0) g/dL Hct 43.2 (36-46) % MCV 83.2 (80-100) fL MCH 27.7 (26-34) PG MCHC 33.3 (30-36) % RDW 14.9 H (11.6-14.8) % Plt Count 215 (150-400) X10^3/uL Neut % (Auto) 82.1 H (50-75) % Lymph % (Auto) 4.1 L (25-40) % [place] % (Auto) 13.3 (3-14) % Eos % (Auto) 0.0 L (2-4) % Baso % (Auto) 0.5 (0-2) % Neut # (Auto) 92313 H (3933-5643) /uL Lymph # (Auto) 800 L (3974-6822) /uL [place] # (Auto) 2700 H (0-900) /uL Eos # (Auto) 0 (0-450) /uL Baso # (Auto) 100 (0-100) /uL PT 13.8 H (9.4-12.5) SECONDS INR 1.2 (0.9-1.3) Sodium 133 L (137-145) mmol/L Potassium 4.3 (3.4-5.1) mmol/L Chloride 102 (98-107) mmol/L Carbon Dioxide 19 L (22-32) mmol/L BUN 20 H (7-17) mg/dL Creatinine 1.14 H (0.52-1.04) mg/dL Estimated GFR 55 L (>60) mL/min BUN/Creatinine Ratio 17.5 (6-22) Glucose 130 H (70-100) mg/dL Lactate 0.7 (0.7-2.1) mmol/L Calcium 8.8 (8.4-10.2) mg/dL Magnesium 1.9 (1.6-2.3) mg/dL Total Bilirubin 2.0 H (0.2-1.3) mg/dL AST 18 (14-36) IU/L ALT 18 (<35) IU/L Alkaline Phosphatase 154 H (38-126) U/L Ammonia < 9 L (9-30) umol/L Total Creatine Kinase 20 L (30-135) U/L Troponin I < 0.012 (0.01-0.034) ng/mL NT-Pro-B Natriuret Pep 177 H (<125) pg/mL Total Protein 6.9 (6.3-8.2) g/dL Albumin 4.2 (3.5-5.0) g/dL Globulin 2.7 (1.7-4.1) g/dL Albumin/Globulin Ratio 1.6 (1.0-2.8) Procalcitonin 0.443 (<0.5) ng/mL Urine Color Yellow Urine Appearance Clear Urine pH 6.5 TNP (4.5-8.0) Ur Specific [place] 1.020 (1.000-1.035) Urine Protein 2+ H (Negative) Urine Glucose (UA) Negative (Negative) g/dL Urine Ketones Trace H (NEGATIVE) Urine Occult Blood 2+ H (Negative) Urine Nitrate Positive H (Negative) Urine Bilirubin Negative (NEGATIVE) Urine Urobilinogen 1.0 (0.2) E.U./dL Ur Leukocyte Esterase Trace H (NEGATIVE) Urine RBC None seen (0-5/HPF) Urine WBC 10-30/hpf H (0-5/HPF) Ur Squamous Epith Cells 0-1 /hpf (0-5/HPF) Urine Bacteria Many (>30) H (None) Ur Culture Indicated? Specimen cultured Vol Urine Centrifuged 10ml (spun) U Opiates 300ng/mL cut Negative (Negative) Ur Oxycodone Screen Negative (Negative) Urine Methadone Screen Negative (Negative) Ur Barbiturates Screen Negative (Negative) U Tricyclic Antidepress Negative (Negative) Ur Phencyclidine Scrn Negative (Negative) Ur Amphetamines Screen Negative (Negative) U Methamphetamines Scrn Negative (Negative) Ur MDMA Scrn (Ecstasy) Negative (Negative) U Benzodiazepines Scrn Positive H (Negative) Urine Cocaine Screen Negative (Negative) U Marijuana (THC) Screen Positive H (Negative) Urine Specific [place] TNP Ethyl Alcohol < 10 ( - 10) mg/dL Ur Creatinine TNP Imaging Data CT scan - head: Radiologist's Impression: PROCEDURE: CT HEAD/BRAIN WO CON INDICATIONS: AMS X 2 HRS TECHNIQUE: Noncontrast 4.5 mm thick angled axial sections acquired from the foramen magnum to the vertex, with coronal and sagittal reformats. For radiation dose reduction, the following was used: automated exposure control, adjustment of mA and/or kV according to patient size. COMPARISON: [facility], CT, CT HEAD/BRAIN WO CON, 04/30/2022, 17:05. [facility], CT, CT HEAD/BRAIN WO CON, 03/14/2022, 12:40. FINDINGS: Image quality: Diagnostic. CSF spaces: Basal cisterns are patent. No extra-axial fluid collections. The ventricles are symmetric in size and shape. Brain: No intracranial bleeds or masses. There is mild cerebral volume loss for age, with resultant ventricular and sulcal prominence. There are mild periventricular and deep white matter chronic small vessel ischemic changes. There is intracranial internal carotid artery atherosclerosis. Skull and face: Calvarium and visualized facial bones appear intact, without suspicious lesions. Sinuses: Air-fluid level is seen in the right maxillary sinus. Small air-fluid level in the left maxillary sinus. Partial opacification of the left posterior ethmoid air cells. The remaining paranasal sinuses and the mastoid air cells are clear. IMPRESSION: 1. No acute intracranial pathology. 2. Air-fluid levels in the maxillary sinuses can be seen with acute sinusitis. Approved by: Tank Manning M.D. on 06/02/2024 at 23:55 Chest x-ray: Radiologist's Impression: PROCEDURE: XR CHEST 1V INDICATIONS: AMS X 2 HRS, HX COVID TECHNIQUE: One view of the chest was acquired. COMPARISON: [facility], CT, CT CHEST WO CON, 03/07/2024, 11:00. [facility], CR, XR CHEST 1V, 03/14/2022, 12:19. FINDINGS: Surgical changes and devices: None. Lungs and pleura: Lungs are clear. No pleural effusions or pneumothorax. Mediastinum: Mediastinal contours appear normal. Heart size is normal. Bones and chest wall: No suspicious bony lesions. Overlying soft tissues appear unremarkable. IMPRESSION: No acute cardiopulmonary abnormality is seen. Approved by: Tank Manning M.D. on 06/02/2024 at 23:56 MDM Narrative Medical decision making narrative: Altered mental status for 1 day. Patient protecting airway, opening eyes to verbal stimuli, however unable to answer questions. Parents arrived shortly afterwards, they state that family has been sick with COVID-19 for the last several weeks. They state that patient seemed to be getting better, but this afternoon patient had seemed ?mumbly prior to bed. Mother states that she woke up and checked on the patient because she heard snoring and found the patient confused and not responsive at her baseline. Laboratory work shows WBC count 20.5, hemoglobin 14.4, platelets 215, sodium 133, potassium 4.3, creatinine 1.14, glucose 130, ammonia less than 9, troponin undetectable, procalcitonin 0.443. Patient has received 2 g of Rocephin, IV fluids. Mental status improved after fluids and antibiotics. She was now much more alert, answering questions appropriately. We will admit for further treatment Discharge Plan Departure Patient Disposition: Admitted as Observation Clinical Impression: Acute metabolic encephalopathy, UTI (urinary tract infection) Admit Date/Time: 06/03/24 01:26 Admit Provider: Sulaiman Callejas
[2024-06-02] MEDS: ACETAMINOPHEN IV 1,000 MG/100 ML VIAL 400 MG IV (23:01)
[2024-06-02] MEDS: cefTRIAXone 2,000 MG in SODIUM CHLORIDE 0.9% 100 ML 200 MG IV (23:05)
[2024-06-02] MEDS: SODIUM CHLORIDE 0.9% 1,000 ML 1000 ML IV (23:08)
[2024-06-02 23:21] LABS: Add Manual Diff / Slide Review NO; Basophils Absolute Auto 100 /uL (0-100); Basophils Percent Auto 0.5 % (0-2); Eosinophils Absolute Auto 0 /uL (0-450); Hematocrit 43.2 % (36-46); Hemoglobin 14.4 g/dL (12.0-16.0); Lymphocytes Absolute Auto 800 /uL (1100-4500); Lymphocytes Percent Auto 4.1 % (25-40); Mean Corpuscular HGB Conc 33.3 % (30-36); Mean Corpuscular Hemoglobin 27.7 PG (26-34); Mean Corpuscular Volume 83.2 fL (80-100); Monocytes Absolute Auto 2700 /uL (0-900); Monocytes Percent Auto 13.3 % (3-14); Neutrophils Absolute Auto 16800 /uL (1500-7000); Neutrophils Percent Auto 82.1 % (50-75); Platelet Count 215 X10^3/uL (150-400); Red Blood Cell Count 5.19 X10^6/uL (4.0-5.2); Red Cell Distribution Width 14.9 % (11.6-14.8); White Blood Cell Count 20.5 X10^3/uL (4.5-11.0)
[2024-06-02 23:40] LABS: INR 1.2 (0.9-1.3); Prothrombin Time 13.8 SECONDS (9.4-12.5)
[2024-06-02 23:42] LABS: Ammonia (NH3) < 9 umol/L (9-30); Lactate (Lactic Acid) 0.7 mmol/L (0.7-2.1)
[2024-06-02 23:44] LABS: Alanine Aminotransferase 18 IU/L (<35); Albumin 4.2 g/dL (3.5-5.0); Albumin Globulin Ratio 1.6 (1.0-2.8); Alkaline Phosphatase 154 U/L (38-126); Aspartate Aminotransferase 18 IU/L (14-36); BUN Creatinine Ratio 17.5 (6-22); Blood Urea Nitrogen 20 mg/dL (7-17); Calcium 8.8 mg/dL (8.4-10.2); Carbon Dioxide 19 mmol/L (22-32); Chloride 102 mmol/L (98-107); Creatine Kinase 20 U/L (30-135); Estimated Glomerular Filt Rate 55 mL/min (>60); Ethanol (ETOH) < 10 mg/dL; Globulin 2.7 g/dL (1.7-4.1); Glucose 130 mg/dL (70-100); HEMOLYSIS < 15 (0-50); Magnesium 1.9 mg/dL (1.6-2.3); Potassium 4.3 mmol/L (3.4-5.1); Sodium 133 mmol/L (137-145); Total Protein 6.9 g/dL (6.3-8.2)
[2024-06-02 23:55] LABS: NT-proBNP (BNP-Adult 18+) 177 pg/mL (<125); Troponin I < 0.012 ng/mL (0.01-0.034)
[2024-06-03] VITALS (21 sets, daily range): BP systolic 106–149; BP diastolic 56–80; PULSE 78–107; RESP 16–22; TEMP 36.6–37.8; O2SAT 93–99; BMI 38.2
[2024-06-03] LABS: Procalcitonin 0.443 ng/mL (<0.5)
[2024-06-03 00:35] LABS: Appearance Urine UA CLEAR; Bilirubin Urine UA NEGATIVE (NEGATIVE); Color Urine UA YELLOW; Glucose Urine UA NEGATIVE (Negative); Ketones Urine UA TRACE (NEGATIVE); Leukocyte Esterase Urine UA TRACE (NEGATIVE); Nitrite Urine UA POSITIVE (Negative); Occult Blood Urine UA 2+ (Negative); Protein Urine UA 2+ (Negative)
[2024-06-03 00:39] LABS: UR Morphine/Opiate cutoff 300 Negative (Negative); Urine Amphetamines Negative (Negative); Urine Barbiturates Negative (Negative); Urine Benzodiazepines Positive (Negative); Urine Cocaine Negative (Negative); Urine MDMA Negative (Negative); Urine Methadone Negative (Negative); Urine Methamphetamines Negative (Negative); Urine Oxycodone Negative (Negative); Urine Phencyclidine Negative (Negative); Urine Tetrahydrocannabinol Positive (Negative); Urine Tricyclic Antidepressant Negative (Negative)
[2024-06-03 00:40] LABS: Bacteria Urine Many (>30); Culture Indicated Urine Specimen Cultured; RBC Urine None Seen (0-5/HPF); Squamous Epithelial Cell Urine 0-1 /HPF (0-5/HPF); Urine Volume 10mL (spun); WBC Urine 10-30/HPF (0-5/HPF); pH Urine UA 6.5 (4.5-8.0)
--- NOTE | 2024-06-03 02:40 | PC.NURSE ---
Pt arrived to room 203 AOx2, calm and cooperative. 95% on 2L NC with bilateral wheezing and non productive cough. Pt stated some nausea and vomiting the night before, no diarrhea. Multiple falls at home from feeling dizzy and my lower back pain. Does not use any devices at home and lives with parents. Purewick in place, redness to lety area and abd folds. No open areas on sacrum. While admitting patient, she ask did you hear the cat? Reoriented pt that we are in the hospital. She stated we are in [place] in the hospital and that it is May. Could not tell me the year. Will continue to monitor, call light in reach. Bed alarm activated.
--- NOTE | 2024-06-03 03:08 | PM.HP.1 ---
History of Present Illness History of Present Illness Date Patient Seen: 06/03/24 Time Patient Seen: 02:30 Chief complaint: AMS Narrative: 59 y/o with PMH of Bipolar II Disorder and 3-4 E Coli and 1 enterococcal UTI in the last 4 years that are on a record, presented confused. Parents called EMS as she started to mumble and became disoriented. ED workup showing UTI, SIRS. At risk for sepsis. Started on empiric abx and admitted with acute cystitis and metabolic encephalopathy. [facility] Medical History Facet arthropathy, lumbar Cervical stenosis of spinal canal Lumbar stenosis with neurogenic claudication Current smoker Shayla infection of flexural skin Atrophic vaginitis Allergic rhinitis Chronic neck pain Chronic midline low back pain without sciatica Impaired fasting blood sugar Dyslipidemia Long-term use of high-risk medication Candidiasis, intertrigo Bilateral tinnitus Left foot pain Chronic back pain COPD (chronic obstructive pulmonary disease) (2012) Mixed hyperlipidemia (06/2019) Essential hypertension (06/2019) Nicotine abuse Dyspareunia Hormone replacement therapy Intertrigo Intermittent palpitations Insomnia, unspecified Morbid obesity with BMI of 40.0-44.9, adult Obstructive sleep apnea of adult (~10/2018) Chronic pain Chronic post-traumatic stress disorder Alcohol dependence in sustained full remission Bipolar II disorder Lumbar transverse process fracture Surgical History S/P complete hysterectomy (1994) Social History marital status: details: lives in [place] household members: family lives independently: Yes (with elderly parents) caregiver/support person: No housing: house Smoking Status: Current every day smoker Tobacco: How many years used: 42 second hand exposure: No alcohol intake: former substance use type: does not use Meds Home Medications and Allergies Home Medications Medication Instructions Recorded Confirmed Type aspirin 81 mg tablet,delayed 81 mg PO DAILY #30 tabs 05/02/22 06/03/24 Rx release fluticasone propionate 50 1 spray intranasal DAILY #16 grams 11/30/22 06/03/24 Rx mcg/actuation nasal spray,suspension (Flonase Allergy Relief) nystatin 100,000 unit/gram topical 1 applic topical BID PRN skin #60 11/30/22 06/03/24 Rx powder (Nystop) grams ketoconazole 2 % shampoo 1 applic topical 2XW #120 mL 06/28/23 06/03/24 Rx albuterol sulfate 90 mcg/actuation 2 puff inhalation Q4-6H PRN 09/18/23 06/03/24 Rx aerosol inhaler (Ventolin HFA) shortness of breath or wheezing #8.5 grams benztropine 0.5 mg tablet 0.5 mg PO DAILY 09/18/23 06/03/24 History pantoprazole 40 mg tablet,delayed 40 mg PO DAILY #90 tabs 10/29/23 06/03/24 Rx release pravastatin 40 mg tablet 40 mg PO BEDTIME #90 tabs 10/29/23 06/03/24 Rx propranolol 10 mg tablet See Rx Instructions .Route 11/26/23 06/03/24 Rx .COMPLEX #360 tabs fluticasone fur. 200 mcg-umeclid 1 inh inhalation Q24H #60 ea 01/01/24 06/03/24 Rx 62.5 mcg-vilant 25 mcg inhalat.powder (Trelegy Ellipta) estradiol 0.01% (0.1 mg/gram) 0.5 g vaginal DAILY #42.5 grams 03/25/24 06/03/24 Rx vaginal cream ketoconazole 2 % topical cream 1 applic topical BID #60 grams 03/25/24 06/03/24 Rx lamotrigine 100 mg tablet 200 mg (2 x 100 mg) PO BID Mood 03/26/24 06/03/24 Rx (Lamictal) stabilization #120 tabs amlodipine 5 mg tablet (Norvasc) 5 mg PO DAILY 04/22/24 06/03/24 History tramadol 50 mg tablet 50 mg PO TID PRN pain #30 tabs 05/11/24 06/03/24 Rx clonazepam 0.5 mg tablet (Klonopin) 0.5 mg PO DAILY 06/03/24 06/03/24 History clozapine 100 mg tablet (Clozaril) 200 mg PO ONCE PM 06/03/24 06/03/24 History diazepam 10 mg tablet (Valium) 10 mg PO PRN PRN 1-2 prior to MRI 06/03/24 06/03/24 History and for possible steroid flare risperidone 1 mg tablet 1 mg PO BID 06/03/24 06/03/24 History Allergies Allergy/AdvReac Type Severity Reaction Status Date / Time adhesive Allergy Mild Rash Verified 05/12/24 12:47 codeine Allergy Mild N&V if she Verified 05/12/24 12:47 takes a lot, itch bowel prep AdvReac Severe Vomiting Uncoded 05/12/24 12:47 Review of Systems Review of Systems Narrative: unobtainabl due to encephalopathy Exam Vital Signs (past 8 hours): - 06/02/24 22:36 06/02/24 22:39 06/02/24 22:39 Temperature 103.1 F H Pulse Rate 109 H 109 H Respiratory Rate 16 Blood Pressure 130/70 130/70 Pulse Oximetry 95 94 Oxygen Delivery Method Room Air Nasal Cannula Oxygen Flow Rate 2 06/02/24 22:53 06/02/24 22:53 06/02/24 23:00 Temperature Pulse Rate 109 H 108 H Respiratory Rate 26 H 22 Blood Pressure 142/63 H Pulse Oximetry 92 93 Oxygen Delivery Method Nasal Cannula Oxygen Flow Rate 2 06/02/24 23:00 06/02/24 23:11 06/02/24 23:11 Temperature Pulse Rate 106 H Respiratory Rate 29 H Blood Pressure 143/67 H 127/61 Pulse Oximetry 94 Oxygen Delivery Method Oxygen Flow Rate 06/02/24 23:40 06/02/24 23:44 06/02/24 23:44 Temperature Pulse Rate 100 H 97 H Respiratory Rate 23 Blood Pressure 121/56 L Pulse Oximetry 96 96 Oxygen Delivery Method Oxygen Flow Rate 06/02/24 23:50 06/02/24 23:50 06/03/24 00:00 Temperature Pulse Rate 92 H 94 H Respiratory Rate 22 22 Blood Pressure 121/59 L Pulse Oximetry 97 98 Oxygen Delivery Method Oxygen Flow Rate 06/03/24 00:00 06/03/24 00:10 06/03/24 00:10 Temperature Pulse Rate 92 H Respiratory Rate 19 Blood Pressure 129/61 118/56 L Pulse Oximetry 94 Oxygen Delivery Method Oxygen Flow Rate 06/03/24 00:20 06/03/24 00:20 06/03/24 00:30 Temperature Pulse Rate 91 H 91 H Respiratory Rate 21 21 Blood Pressure 117/65 Pulse Oximetry 93 95 Oxygen Delivery Method Oxygen Flow Rate 06/03/24 00:30 06/03/24 00:40 06/03/24 00:40 Temperature Pulse Rate 91 H Respiratory Rate 21 Blood Pressure 113/58 L 106/59 L Pulse Oximetry 94 Oxygen Delivery Method Oxygen Flow Rate 06/03/24 00:50 06/03/24 00:50 06/03/24 01:00 Temperature Pulse Rate 90 Respiratory Rate 22 Blood Pressure 114/65 117/67 Pulse Oximetry 95 Oxygen Delivery Method Oxygen Flow Rate 06/03/24 01:00 06/03/24 01:10 06/03/24 01:10 Temperature Pulse Rate 90 88 Respiratory Rate 21 18 Blood Pressure 118/61 Pulse Oximetry 95 95 Oxygen Delivery Method Oxygen Flow Rate 06/03/24 01:15 06/03/24 01:45 06/03/24 02:00 Temperature 99.5 F 99.7 F H 97.9 F Pulse Rate 78 90 Respiratory Rate 18 18 Blood Pressure 118/78 115/68 Pulse Oximetry 98 99 Oxygen Delivery Method Nasal Cannula Oxygen Flow Rate 2 2 06/03/24 02:03 06/03/24 02:48 Temperature Pulse Rate 89 Respiratory Rate 18 Blood Pressure 118/75 Pulse Oximetry 95 Oxygen Delivery Method Nasal Cannula Nasal Cannula Oxygen Flow Rate 2 Oxygen Delivery Method Nasal Cannula Oxygen Flow Rate 2 Const Other: In no distress HENMT Other: normocephalic Neck Other: supple Resp Other: normal respiratory effort Cardio Other: RRR GI Other: w/o suprapubic tenderness Back/Spine/Pelvis Other: Rt low back pain Neuro Other: w/o acute focal deficits Extrem Other: w/o deformities Psych Other: encephalopathic Objective Labs 06/02/24 23:08 06/02/24 23:08 Labs: Laboratory Results - last 24 hr 06/02/24 06/03/24 06/03/24 23:08 00:01 00:01 WBC 20.5 H RBC 5.19 Hgb 14.4 Hct 43.2 MCV 83.2 MCH 27.7 MCHC 33.3 RDW 14.9 H Plt Count 215 Neut % (Auto) 82.1 H Lymph % (Auto) 4.1 L [place] % (Auto) 13.3 Eos % (Auto) 0.0 L Baso % (Auto) 0.5 Neut # (Auto) 61392 H Lymph # (Auto) 800 L [place] # (Auto) 2700 H Eos # (Auto) 0 Baso # (Auto) 100 PT 13.8 H INR 1.2 Sodium 133 L Potassium 4.3 Chloride 102 Carbon Dioxide 19 L BUN 20 H Creatinine 1.14 H Estimated GFR 55 L BUN/Creatinine Ratio 17.5 Glucose 130 H Lactate 0.7 Calcium 8.8 Magnesium 1.9 Total Bilirubin 2.0 H AST 18 ALT 18 Alkaline Phosphatase 154 H Ammonia < 9 L Total Creatine Kinase 20 L Troponin I < 0.012 NT-Pro-B Natriuret Pep 177 H Total Protein 6.9 Albumin 4.2 Globulin 2.7 Albumin/Globulin Ratio 1.6 Procalcitonin 0.443 Urine Color Yellow Urine Appearance Clear Urine pH 6.5 TNP Ur Specific [place] 1.020 Urine Protein 2+ H Urine Glucose (UA) Negative Urine Ketones Trace H Urine Occult Blood 2+ H Urine Nitrate Positive H Urine Bilirubin Negative Urine Urobilinogen 1.0 Ur Leukocyte Esterase Trace H Urine RBC None seen Urine WBC 10-30/hpf H Ur Squamous Epith Cells 0-1 /hpf Urine Bacteria Many (>30) H Ur Culture Indicated? Specimen cultured Vol Urine Centrifuged 10ml (spun) U Opiates 300ng/mL cut Negative Ur Oxycodone Screen Negative Urine Methadone Screen Negative Ur Barbiturates Screen Negative U Tricyclic Antidepress Negative Ur Phencyclidine Scrn Negative Ur Amphetamines Screen Negative U Methamphetamines Scrn Negative Ur MDMA Scrn (Ecstasy) Negative U Benzodiazepines Scrn Positive H Urine Cocaine Screen Negative U Marijuana (THC) Screen Positive H Urine Specific [place] TNP Ethyl Alcohol < 10 Ur Creatinine TNP Assessment & Plan Assessment and plan (1) UTI (urinary tract infection): Status: Acute (2) Acute metabolic encephalopathy: Status: Acute (3) Atrophic vaginitis: Status: Acute (4) Facet arthropathy, lumbar: Status: Acute (5) Schizoaffective disorder, bipolar type: Status: Acute (6) Bipolar II disorder: Status: Chronic (7) COPD (chronic obstructive pulmonary disease): Qualifiers: COPD type: unspecified COPD Qualified Code(s): J44.9 - Chronic obstructive pulmonary disease, unspecified Status: Chronic (8) Obstructive sleep apnea of adult: Status: Chronic (9) Morbid obesity with BMI of 40.0-44.9, adult: Status: Chronic (10) Current smoker: Status: Acute Assessment & Plan narrative: Recurrent UTI - risk with atrophic vaginitis - empiric Rocephin Acute Metabolioc Encephalopathy - 2nd to UTI - supportive care, abx Bipolar D. / Schizoaffective D. - continuing with home medications - Risperidone, Clozapine, Clonazepam, benztropine COPD - bronchodilators, steroid HLD - statin GERD - PPI DVT prophylaxis - Lovenox Time-Based Coding :: [TOTAL MINUTES] spent with patient and on the chart (including review of chart, obtaining history, exam, reviewing outside data, placing orders, documenting exam and treatment plan, and counseling patient) on [DATE].
[2024-06-03 03:57] LABS: Adenovirus Not Detected (Not Detect); B. parapertussis Not Detected (Not Detecte); Bordetella pertussis Not Detected (Not Detect); Chlamydophila pneumoniae Not Detected (Not Detect); Coronavirus 229E Not Detected (Not Detect); Coronavirus HKU1 Not Detected (Not Detect); Coronavirus NL 63 Not Detected (Not Detect); Coronavirus OC43 Not Detected (Not Detect); Human Metapneumovirus Not Detected (Not Detect); Human Rhinovirus/Enterovirus Not Detected (Not Detect); Influenza A Not Detected (Not Detect); Influenza B Not Detected (Not Detect); Mycoplasma pneumoniae Not Detected (Not Detect); Parainfluenza Virus 1 Not Detected (Not Detect); Parainfluenza Virus 2 Not Detected (Not Detect); Parainfluenza Virus 3 Not Detected (Not Detect); Parainfluenza Virus 4 Not Detected (Not Detect); Respiratory Syncytial Virus Not Detected (Not Detect); SARS- CoV-2 Not Detected (Not Detecte)
[2024-06-03] MEDS: PANTOPRAZOLE DR 40 MG TABLET PO (06:11)
[2024-06-03 06:30] LABS: Add Manual Diff / Slide Review NO; Basophils Absolute Auto 0 /uL (0-100); Basophils Percent Auto 0.3 % (0-2); Eosinophils Absolute Auto 0 /uL (0-450); Eosinophils Percent Auto 0.2 % (2-4); Hematocrit 43.6 % (36-46); Hemoglobin 14.2 g/dL (12.0-16.0); Lymphocytes Absolute Auto 500 /uL (1100-4500); Lymphocytes Percent Auto 3.3 % (25-40); Mean Corpuscular HGB Conc 32.5 % (30-36); Mean Corpuscular Hemoglobin 27.6 PG (26-34); Mean Corpuscular Volume 84.8 fL (80-100); Monocytes Absolute Auto 800 /uL (0-900); Monocytes Percent Auto 4.7 % (3-14); Neutrophils Absolute Auto 14900 /uL (1500-7000); Neutrophils Percent Auto 91.5 % (50-75); Platelet Count 172 X10^3/uL (150-400); Red Blood Cell Count 5.13 X10^6/uL (4.0-5.2); Red Cell Distribution Width 15.4 % (11.6-14.8); White Blood Cell Count 16.2 X10^3/uL (4.5-11.0)
[2024-06-03 06:42] LABS: BUN Creatinine Ratio 17.4 (6-22); Blood Urea Nitrogen 20 mg/dL (7-17); Calcium 8.8 mg/dL (8.4-10.2); Carbon Dioxide 17 mmol/L (22-32); Chloride 106 mmol/L (98-107); Estimated Glomerular Filt Rate 55 mL/min (>60); Glucose 118 mg/dL (70-100); HEMOLYSIS 37 (0-50); Potassium 4.9 mmol/L (3.4-5.1); Sodium 135 mmol/L (137-145)
--- NOTE | 2024-06-03 07:37 | P.HP_ITS ---
History of Present Illness History of Present Illness Date Patient Seen: 06/03/24 Chief complaint: AMS Narrative: From night doctor: 59 y/o with PMH of Bipolar II Disorder and 3-4 E Coli and 1 enterococcal UTI in the last 4 years that are on a record, presented confused. Parents called EMS as she started to mumble and became disoriented. ED workup showing UTI, SIRS. At risk for sepsis. Started on empiric abx and admitted with acute cystitis and metabolic encephalopathy. S: She had COVID about a month ago, her PCR here was negative. She knows confusion for several days but denies any obvious urinary symptoms. In the emergency department she was started on antibiotics for cystitis and septic encephalopathy. A brain CT and chest x-ray both unremarkable. She does know where she was, the year and the month. She denies any headache. She also denies any numbness weeks of arms or legs. No abdominal pain, or nausea. No diarrhea. [facility] Medical History Facet arthropathy, lumbar Cervical stenosis of spinal canal Lumbar stenosis with neurogenic claudication Current smoker Shayla infection of flexural skin Atrophic vaginitis Allergic rhinitis Chronic neck pain Chronic midline low back pain without sciatica Impaired fasting blood sugar Dyslipidemia Long-term use of high-risk medication Candidiasis, intertrigo Bilateral tinnitus Left foot pain Chronic back pain COPD (chronic obstructive pulmonary disease) (2012) Mixed hyperlipidemia (06/2019) Essential hypertension (06/2019) Nicotine abuse Dyspareunia Hormone replacement therapy Intertrigo Intermittent palpitations Insomnia, unspecified Morbid obesity with BMI of 40.0-44.9, adult Obstructive sleep apnea of adult (~10/2018) Chronic pain Chronic post-traumatic stress disorder Alcohol dependence in sustained full remission Bipolar II disorder Lumbar transverse process fracture Surgical History S/P complete hysterectomy (1994) Social History marital status: details: lives in [place] household members: family lives independently: Yes (with elderly parents) caregiver/support person: No housing: house Smoking Status: Current every day smoker Tobacco: How many years used: 42 second hand exposure: No alcohol intake: former substance use type: does not use Meds Home Medications and Allergies Home Medications Medication Instructions Recorded Confirmed Type aspirin 81 mg tablet,delayed 81 mg PO DAILY #30 tabs 05/02/22 06/03/24 Rx release fluticasone propionate 50 1 spray intranasal DAILY #16 grams 11/30/22 06/03/24 Rx mcg/actuation nasal spray,suspension (Flonase Allergy Relief) nystatin 100,000 unit/gram topical 1 applic topical BID PRN skin #60 11/30/22 06/03/24 Rx powder (Nystop) grams ketoconazole 2 % shampoo 1 applic topical 2XW #120 mL 06/28/23 06/03/24 Rx albuterol sulfate 90 mcg/actuation 2 puff inhalation Q4-6H PRN 09/18/23 06/03/24 Rx aerosol inhaler (Ventolin HFA) shortness of breath or wheezing #8.5 grams benztropine 0.5 mg tablet 0.5 mg PO DAILY 09/18/23 06/03/24 History pantoprazole 40 mg tablet,delayed 40 mg PO DAILY #90 tabs 10/29/23 06/03/24 Rx release pravastatin 40 mg tablet 40 mg PO BEDTIME #90 tabs 10/29/23 06/03/24 Rx propranolol 10 mg tablet See Rx Instructions .Route 11/26/23 06/03/24 Rx .COMPLEX #360 tabs fluticasone fur. 200 mcg-umeclid 1 inh inhalation Q24H #60 ea 01/01/24 06/03/24 Rx 62.5 mcg-vilant 25 mcg inhalat.powder (Trelegy Ellipta) estradiol 0.01% (0.1 mg/gram) 0.5 g vaginal DAILY #42.5 grams 03/25/24 06/03/24 Rx vaginal cream ketoconazole 2 % topical cream 1 applic topical BID #60 grams 03/25/24 06/03/24 Rx lamotrigine 100 mg tablet 200 mg (2 x 100 mg) PO BID Mood 03/26/24 06/03/24 Rx (Lamictal) stabilization #120 tabs amlodipine 5 mg tablet (Norvasc) 5 mg PO DAILY 04/22/24 06/03/24 History tramadol 50 mg tablet 50 mg PO TID PRN pain #30 tabs 05/11/24 06/03/24 Rx clonazepam 0.5 mg tablet (Klonopin) 0.5 mg PO DAILY 06/03/24 06/03/24 History clozapine 100 mg tablet (Clozaril) 200 mg PO ONCE PM 06/03/24 06/03/24 History diazepam 10 mg tablet (Valium) 10 mg PO PRN PRN 1-2 prior to MRI 06/03/24 06/03/24 History and for possible steroid flare risperidone 1 mg tablet 1 mg PO BID 06/03/24 06/03/24 History Allergies Allergy/AdvReac Type Severity Reaction Status Date / Time adhesive Allergy Mild Rash Verified 05/12/24 12:47 codeine Allergy Mild N&V if she Verified 05/12/24 12:47 takes a lot, itch bowel prep AdvReac Severe Vomiting Uncoded 05/12/24 12:47 Review of Systems Review of Systems Narrative: All else reviewed and otherwise unremarkable except as noted in the history and physical. Exam Vital Signs (past 8 hours): - 06/02/24 23:40 06/02/24 23:44 06/02/24 23:44 Temperature Pulse Rate 100 H 97 H Respiratory Rate 23 Blood Pressure 121/56 L Pulse Oximetry 96 96 Oxygen Delivery Method Oxygen Flow Rate 06/02/24 23:50 06/02/24 23:50 06/03/24 00:00 Temperature Pulse Rate 92 H 94 H Respiratory Rate 22 22 Blood Pressure 121/59 L Pulse Oximetry 97 98 Oxygen Delivery Method Oxygen Flow Rate 06/03/24 00:00 06/03/24 00:10 06/03/24 00:10 Temperature Pulse Rate 92 H Respiratory Rate 19 Blood Pressure 129/61 118/56 L Pulse Oximetry 94 Oxygen Delivery Method Oxygen Flow Rate 06/03/24 00:20 06/03/24 00:20 06/03/24 00:30 Temperature Pulse Rate 91 H 91 H Respiratory Rate 21 21 Blood Pressure 117/65 Pulse Oximetry 93 95 Oxygen Delivery Method Oxygen Flow Rate 06/03/24 00:30 06/03/24 00:40 06/03/24 00:40 Temperature Pulse Rate 91 H Respiratory Rate 21 Blood Pressure 113/58 L 106/59 L Pulse Oximetry 94 Oxygen Delivery Method Oxygen Flow Rate 06/03/24 00:50 06/03/24 00:50 06/03/24 01:00 Temperature Pulse Rate 90 Respiratory Rate 22 Blood Pressure 114/65 117/67 Pulse Oximetry 95 Oxygen Delivery Method Oxygen Flow Rate 06/03/24 01:00 06/03/24 01:10 06/03/24 01:10 Temperature Pulse Rate 90 88 Respiratory Rate 21 18 Blood Pressure 118/61 Pulse Oximetry 95 95 Oxygen Delivery Method Oxygen Flow Rate 06/03/24 01:15 06/03/24 01:45 06/03/24 02:00 Temperature 99.5 F 99.7 F H 97.9 F Pulse Rate 78 90 Respiratory Rate 18 18 Blood Pressure 118/78 115/68 Pulse Oximetry 98 99 Oxygen Delivery Method Nasal Cannula Oxygen Flow Rate 2 2 06/03/24 02:03 06/03/24 02:48 06/03/24 06:00 Temperature 98.1 F Pulse Rate 89 107 H Respiratory Rate 18 16 Blood Pressure 118/75 Pulse Oximetry 95 98 Oxygen Delivery Method Nasal Cannula Nasal Cannula Oxygen Flow Rate 2 2 Oxygen Delivery Method Nasal Cannula Oxygen Flow Rate 2 Narrative Exam Narrative: NAD, alert and oriented, fluent speech, calm. Slow to process and answer questions. Normocephalic skull, EOMI, anicteric sclera, symmetric pupils. Oropharynx unremarkable, no droop. Neck supple, midline trachea, no adenopathy. Lungs clear, normal rate and effort. Heart regular, no murmur gallop or rub. Abdomen is soft, non distended and non tender. Extremities are free of edema. Skin is free of rash or lesions. Joints are not swollen or deformed. Judgment appears to be abnormal. Objective Imaging Chest x-ray: My impression: Normal. CT scan - head: My impression: Normal. Radiologist's impression: 1. No acute intracranial pathology. 2. Air-fluid levels in the maxillary sinuses can be seen with acute sinusitis. Labs 06/03/24 06:05 06/03/24 06:05 Labs: Laboratory Results - last 24 hr 06/02/24 06/03/24 06/03/24 23:08 00:01 00:01 WBC 20.5 H RBC 5.19 Hgb 14.4 Hct 43.2 MCV 83.2 MCH 27.7 MCHC 33.3 RDW 14.9 H Plt Count 215 Neut % (Auto) 82.1 H Lymph % (Auto) 4.1 L [place] % (Auto) 13.3 Eos % (Auto) 0.0 L Baso % (Auto) 0.5 Neut # (Auto) 84630 H Lymph # (Auto) 800 L [place] # (Auto) 2700 H Eos # (Auto) 0 Baso # (Auto) 100 PT 13.8 H INR 1.2 Sodium 133 L Potassium 4.3 Chloride 102 Carbon Dioxide 19 L BUN 20 H Creatinine 1.14 H Estimated GFR 55 L BUN/Creatinine Ratio 17.5 Glucose 130 H Lactate 0.7 Calcium 8.8 Magnesium 1.9 Total Bilirubin 2.0 H AST 18 ALT 18 Alkaline Phosphatase 154 H Ammonia < 9 L Total Creatine Kinase 20 L Troponin I < 0.012 NT-Pro-B Natriuret Pep 177 H Total Protein 6.9 Albumin 4.2 Globulin 2.7 Albumin/Globulin Ratio 1.6 Procalcitonin 0.443 Urine Color Yellow Urine Appearance Clear Urine pH 6.5 TNP Ur Specific [place] 1.020 Urine Protein 2+ H Urine Glucose (UA) Negative Urine Ketones Trace H Urine Occult Blood 2+ H Urine Nitrate Positive H Urine Bilirubin Negative Urine Urobilinogen 1.0 Ur Leukocyte Esterase Trace H Urine RBC None seen Urine WBC 10-30/hpf H Ur Squamous Epith Cells 0-1 /hpf Urine Bacteria Many (>30) H Ur Culture Indicated? Specimen cultured Vol Urine Centrifuged 10ml (spun) U Opiates 300ng/mL cut Negative Ur Oxycodone Screen Negative Urine Methadone Screen Negative Ur Barbiturates Screen Negative U Tricyclic Antidepress Negative Ur Phencyclidine Scrn Negative Ur Amphetamines Screen Negative U Methamphetamines Scrn Negative Ur MDMA Scrn (Ecstasy) Negative U Benzodiazepines Scrn Positive H Urine Cocaine Screen Negative U Marijuana (THC) Screen Positive H Urine Specific [place] TNP Ethyl Alcohol < 10 Ur Creatinine TNP Chlamy pneumoniae PCR Adenovirus (PCR) B.parapertussis DNA PCR Coronavirus OC43 (PCR) Coronavirus HKU1 (PCR) Coronavirus 229E (PCR) SARS-CoV-2 (PCR) Coronavirus NL63 (PCR) Human Metapneumovir PCR Influenza Type A (PCR) Influenza Type B (PCR) M. pneumoniae (PCR) Parainfluenza 1 (PCR) Parainfluenza 2 (PCR) Parainfluenza 3 (PCR) Parainfluenza 4 (PCR) RSV (PCR) Entero/Rhino (PCR) 06/03/24 06/03/24 03:00 06:05 WBC 16.2 H RBC 5.13 Hgb 14.2 Hct 43.6 MCV 84.8 MCH 27.6 MCHC 32.5 RDW 15.4 H Plt Count 172 Neut % (Auto) 91.5 H Lymph % (Auto) 3.3 L [place] % (Auto) 4.7 Eos % (Auto) 0.2 L Baso % (Auto) 0.3 Neut # (Auto) 19262 H Lymph # (Auto) 500 L [place] # (Auto) 800 Eos # (Auto) 0 Baso # (Auto) 0 PT INR Sodium 135 L Potassium 4.9 Chloride 106 Carbon Dioxide 17 L BUN 20 H Creatinine 1.15 H Estimated GFR 55 L BUN/Creatinine Ratio 17.4 Glucose 118 H Lactate Calcium 8.8 Magnesium Total Bilirubin AST ALT Alkaline Phosphatase Ammonia Total Creatine Kinase Troponin I NT-Pro-B Natriuret Pep Total Protein Albumin Globulin Albumin/Globulin Ratio Procalcitonin Urine Color Urine Appearance Urine pH Ur Specific [place] Urine Protein Urine Glucose (UA) Urine Ketones Urine Occult Blood Urine Nitrate Urine Bilirubin Urine Urobilinogen Ur Leukocyte Esterase Urine RBC Urine WBC Ur Squamous Epith Cells Urine Bacteria Ur Culture Indicated? Vol Urine Centrifuged U Opiates 300ng/mL cut Ur Oxycodone Screen Urine Methadone Screen Ur Barbiturates Screen U Tricyclic Antidepress Ur Phencyclidine Scrn Ur Amphetamines Screen U Methamphetamines Scrn Ur MDMA Scrn (Ecstasy) U Benzodiazepines Scrn Urine Cocaine Screen U Marijuana (THC) Screen Urine Specific [place] Ethyl Alcohol Ur Creatinine Chlamy pneumoniae PCR Not detected Adenovirus (PCR) Not detected B.parapertussis DNA PCR Not detected Coronavirus OC43 (PCR) Not detected Coronavirus HKU1 (PCR) Not detected Coronavirus 229E (PCR) Not detected SARS-CoV-2 (PCR) Not detected Coronavirus NL63 (PCR) Not detected Human Metapneumovir PCR Not detected Influenza Type A (PCR) Not detected Influenza Type B (PCR) Not detected M. pneumoniae (PCR) Not detected Parainfluenza 1 (PCR) Not detected Parainfluenza 2 (PCR) Not detected Parainfluenza 3 (PCR) Not detected Parainfluenza 4 (PCR) Not detected RSV (PCR) Not detected Entero/Rhino (PCR) Not detected Assessment & Plan Assessment & Plan narrative: 1. Recurrent UTI, present on admission and active. - risk with atrophic vaginitis - empiric Rocephin, follow cultures. -low-grade fever at admission. 2. Acute septic encephalopathy, present on admission and active. - 2nd to UTI - supportive care, abx 3. Abnormal ECG, present on admission and active. -check troponin. 4. Bipolar D. / Schizoaffective, present on admission and active. - continuing with home medications - Risperidone, Clozapine, Clonazepam, benztropine 5. COPD, present on admission and active. - bronchodilators, steroid 6. HLD, present on admission and active. - statin 7. GERD, present on admission and active. PLAN: -continue antibiotics and monitor mental status. -follow cultures. -check troponin. NEREIDA is 8/2, likely home. Full resuscitation. COVID isolation has not required, her PCR was negative here. Her illnesses about a month ago. DVT prophylaxis - Lovenox Time-Based Coding :: 20 min spent with patient and on the chart (including review of chart, obtaining history, exam, reviewing outside data, placing orders, documenting exam and treatment plan, and counseling patient) on 06/03. Quality MIPS - Admit I confirm the patient?s Advance Care Plan is present, Code status is documented, Surrogate decision maker is in patient?s record [If Yes, STOP here]: Yes MIPS - Meds 'Current medications' to include all prescriptions, [id number] products, herbals, cannabis/cannabidiol products, and vitamin/mineral/dietary (nutritional) supplements. I have utilized all available resources to obtain, update, or review the patient?s current medications. [If Yes, STOP here]: Yes
[2024-06-03 08:14] LABS: PCO2 ABG 24.4 mmHg (35-45); PO2 ABG 68 mmHg (80-100); pH ABG 7.49 (7.35-7.45)
[2024-06-03 08:15] LABS: Base Excess ABG -2.8 mmol/L (-2-3); HCO3 ABG 19 mmol/L (23-27); Oxygen Saturation ABG 95 % (95-100); TCO2 ABG 18 mmol/L (23-27)
[2024-06-03] MEDS: risperiDONE 1 MG TABLET PO ×2 (08:32→21:40)
[2024-06-03] MEDS: ASPIRIN EC 81 MG TABLET PO (08:33)
[2024-06-03] MEDS: clonazePAM 0.5 MG TABLET PO (08:33)
[2024-06-03] MEDS: lamoTRIgine 100 MG TABLET 200 MG PO ×2 (08:33→21:34)
[2024-06-03] MEDS: ACETAMINOPHEN 325 MG TABLET 650 MG PO (08:33)
[2024-06-03] MEDS: ENOXAPARIN 40 MG/0.4 ML SYRINGE SUBCUT (08:34)
[2024-06-03] MEDS: FLUTICASONE 120 SPRAY/16 GM SPRAY.SUSP NASAL (08:43)
[2024-06-03] MEDS: BUDESONIDE 0.5 MG/2 ML NEB INH ×2 (08:57→19:40)
[2024-06-03] MEDS: ALBUTEROL/IPRATROPIUM 3 ML AMPUL INH ×3 (08:57→22:01)
[2024-06-03] MEDS: BENZTROPINE 1 MG TABLET 0.5 MG PO (10:00)
--- NOTE | 2024-06-03 12:25 | DI.CT.S_ITS ---
PROCEDURE: CT HEAD/BRAIN WO CON INDICATIONS: fall with trauma TECHNIQUE: Noncontrast 4.5 mm thick angled axial sections acquired from the foramen magnum to the vertex, with coronal and sagittal reformats. For radiation dose reduction, the following was used: automated exposure control, adjustment of mA and/or kV according to patient size. COMPARISON: [facility], CT, CT HEAD/BRAIN WO CON, 06/02/2024, 23:22. [facility], CT, CT CERVICAL SPINE WO CON, 06/03/2024, 12:37. [facility], CT, CT HEAD/BRAIN WO CON, 04/30/2022, 17:05. FINDINGS: Image quality: This examination is limited by involuntary motion artifact. CSF spaces: Basal cisterns are patent. No extra-axial fluid collections. Ventricles are normal in size and shape. Brain: No midline shift. No intracranial masses or hemorrhage. Marquez-white matter interface is normal. Skull and face: Calvarium and visualized facial bones are intact, without suspicious lesions. Sinuses: Scattered areas of moderate mucosal thickening can be seen within the paranasal sinuses. No abnormal fluid is seen within the mastoid air cells. IMPRESSION: No acute intracranial hemorrhage is seen. No acute intracranial pathology. Underlying paranasal sinus disease again seen. Dictated by: Ciaran Leal M.D. on 06/03/2024 at 12:07 Approved by: Ciaran Leal M.D. on 06/03/2024 at 12:09
--- NOTE | 2024-06-03 12:26 | DI.CT.S_ITS ---
PROCEDURE: CT CERVICAL SPINE WO CON INDICATIONS: fall with trauma TECHNIQUE: Noncontrast 3 mm thick sections acquired from the skull base to the T4 level. Sagittal and coronal reformats were then constructed. For radiation dose reduction, the following was used: automated exposure control, adjustment of mA and/or kV according to patient size. COMPARISON: [facility], CT, CT CERVICAL SPINE WITHOUT CONTRAST, 11/20/2017, 9:46. [facility], CT, CT HEAD/BRAIN WO CON, 06/03/2024, 12:37. [facility], CT, C-SPINE WITHOUT CONTRAST, 03/30/2017, 14:48. FINDINGS: Image quality: Excellent. Bones: No fractures or dislocations. Visualized superior ribs are intact. Stable sclerosis is again seen involving the right C7 pedicle. Focal degenerative change is seen involving the C1-C2 interface anteriorly. Moderate to severe disc space narrowing can be seen at C5-C6. Milder degenerative changes are seen elsewhere. Soft tissues: Prevertebral soft tissues are normal in thickness. No paravertebral hematomas. No apical pneumothoraces. IMPRESSION: No displaced fracture or traumatic subluxation. Underlying cervical spine degenerative changes can be seen. Additional findings: Likely bone island seen involving right C7 pedicle Dictated by: Ciaran Leal M.D. on 06/03/2024 at 12:09 Approved by: Ciaran Leal M.D. on 06/03/2024 at 12:12
[2024-06-03 12:34] LABS: Troponin I < 0.012 ng/mL (0.01-0.034)
--- NOTE | 2024-06-03 14:04 | OT.IPNOTE ---
Pt not wanting to get up at this time and had a fall earlier while trying to get out of bed on her own. To check on the pt tomorrow.
--- NOTE | 2024-06-03 15:53 | PT-IP ANOTE ---
Pt declined PT at this time, stating earlier fall. Will follow up tomorrow.
--- NOTE | 2024-06-03 15:56 | CM.DANOTE ---
Initial DCP Assessment Visit Note Reviewed EMR and team rounds for status updates. Went to meet with pt at bedside, however she was in the middle of receiving personal care. Pt resides independently in her own home here in [place] with family. Her mother will likely be the one to transport her home once she's medically cleared for home d/c. Payor: [employer] PCP: Dain Gross Pt is a 59 year-old F with a hx of a lap hysterectomy in February 2024, developed worsening pain and was seen again in the OR on 05/07/24 for fixation of multiple adhesions to her L-ovary, a cystectomy, and a uterscopy. She has since been experiencing more pain with urination and L-sided flank pain. She was dx with pyelonephritis in the ED, was started on IV ABO's and fluids, and was consulted on by Dr. Mehta. The decision was made to admit her for further tx and management. DCP will continue to follow for any further evolving d/c needs, however none are anticipated at this time. Discharge Planning/Care Management CM Discharge Assessment Start: 06/03/24 15:54 Freq: Status: Active Protocol: Document 06/03/24 15:54 DPL (Rec: 06/03/24 15:56 DPL [id number]) Discharge Planning Assessment Assigned Insurance Analyst SKYLER Meyers Advance Directives? No History Provided By Medical Record Expected Length of Stay 3 Has Patient been admitted in last 30 No days? Prior Living Arrangements House Household Members family Type of transporation used prior to Drives own vehicle admit Independent with ADL's Yes Is patient alert and oriented? Yes Comment N/A Caregiver for Another Yes Comment N/A Comment No anticipated d/c needs at this time. Barriers to Discharge No Discharge Plan Home Referrals Initiated None needed Review Status In Process Please Provide Date Initial DC 06/03/24 Assessment Was Performed
[2024-06-03] MEDS: TRAMADOL 50 MG TABLET PO (17:47)
[2024-06-03 19:03] LABS: Acinetobacter calcoa-baumannii Not Detected (Not Detect); Bacteroides fragilis Not Detected (Not Detect); CTX-M Resistance Not Detected (Not Detect); Candida albicans Not Detected (Not Detect); Candida auris Not Detected (Not Detect); Candida glabrata Not Detected (Not Detect); Candida krusei Not Detected (Not Detect); Candida parapsilosis Not Detected (Not Detect); Candida tropicalis Not Detected (Not Detect); Cryptococcus neoformans/gatti Not Detected (Not Detect); Enterobacter cloacae complex Not Detected (Not Detect); Enterobacterales Detected (Not Detect); Enterococcus faecalis Not Detected (Not Detect); Enterococcus faecium Not Detected (Not Detect); Haemophilus influenzae Not Detected (Not Detect); IMP Resistance Not Detected (Not Detect); KPC Resistance Not Detected (Not Detect); Klebsiella aerogenes Not Detected (Not Detect); Listeria monocytogenes Not Detected (Not Detect); NDM Resistance Not Detected (Not Detect); Neisseria meningitidis Not Detected (Not Detect); OXA-48-like Resistance Not Detected (Not Detect); Proteus species Not Detected (Not Detect); Pseudomonas aeruginosa Not Detected (Not Detect); Salmonella species Not Detected (Not Detect); Serratia marcescens Not Detected (Not Detect); Staphylococcus epidermidis Not Detected (Not Detect); Staphylococcus lugdunensis Not Detected (Not Detect); Staphylococcus species Not Detected (Not Detect); Stenotrophomonas maltophilia Not Detected (Not Detect); Streptococcus agalactiae (Gr B Not Detected (Not Detect); Streptococcus pneumonia Not Detected (Not Detect); Streptococcus pyogenes (Gr A) Not Detected (Not Detect); Streptococcus species Not Detected (Not Detect); VIM Resistance Not Detected (Not Detect); mcr-1 Resistance Not Detected (Not Detect)
[2024-06-03] MEDS: PROPRANOLOL 10 MG TABLET PO (20:04)
[2024-06-03] MEDS: cefTRIAXone 2,000 MG in SODIUM CHLORIDE 0.9% 100 ML 200 MG IV (21:33)
[2024-06-03] MEDS: PRAVASTATIN 20 MG TABLET 40 MG PO (21:34)
[2024-06-03] MEDS: CLOZAPINE 100 MG 200 EACH PO (21:40)
[2024-06-04 01:14] VITALS: BP 108/69; PULSE 88; RESP 16; TEMP 37.1; O2SAT 95
--- NOTE | 2024-06-04 07:30 | PM.PN.1 ---
Subjective Subjective Interval history: Summary: Admitted for UTI and septic encephalopathy. Found to be bacteremic with Gram-negative rods on June 03. Improving on antibiotics. Subjective: Still weak and mentally fuzzy. No fevers or pain. Exam Vital Signs (past 8 hours): - 06/04/24 01:14 Temperature 98.7 F Pulse Rate 88 Respiratory Rate 16 Blood Pressure 108/69 Pulse Oximetry 95 Oxygen Flow Rate 0 Fraction of Inspired Oxygen 21 SaO2/FiO2 Ratio 461 Oxygen Delivery Method Room Air Oxygen Flow Rate 0 Narrative Exam Narrative: NAD, alert and oriented. Fluent speech. Slow to answer. Lungs are clear, normal rate and effort. Heart is regular, no murmur gallop or rub. Abdomen is soft, non distended. Extremities are free of edema. Objective Labs 06/03/24 06:05 06/03/24 06:05 Labs: Laboratory Results - last 24 hr 06/02/24 06/02/24 06/03/24 23:08 23:09 12:00 ABG pH 7.49 H ABG pCO2 24.4 L* ABG pO2 68 L ABG HCO3 19 L ABG Total CO2 18 L ABG O2 Saturation 95 ABG Base Excess -2.8 L Troponin I < 0.012 A.calcoaceticus-baumannii cmplx PCR Not detected Bacteroides fragilis Not detected Shayla albicans (PCR) Not detected Shayla auris (PCR) Not detected C. glabrata (PCR) Not detected C. krusei (PCR) Not detected C. parapsilosis (PCR) Not detected C. tropicalis (PCR) Not detected C. neoform/gattii (PCR) Not detected Enterobacterales (PCR) Detected E. cloacae complex PCR Not detected Enterococc faecalis PCR Not detected Enterococc faecium PCR Not detected E. coli (PCR) Detected H. influenzae (PCR) Not detected Klebsiella aerogenes (PCR) Not detected Klebsiella oxytoca PCR Not detected Klebsiella pneumoniae Not detected List. monocytogenes PCR Not detected N. meningitidis (PCR) Not detected Proteus species (PCR) Not detected Salmonella spp. (PCR) Not detected Serratia marcescens PCR Not detected Staphylococcus sp PCR Not detected Staph aureus (PCR) Not detected mecA/C & MREJ Resist Gene Not applicable mecA/C-Methicil Resis Gene Not applicable mcr-1 Colistin Res Gene PCR Not detected Staph epidermidis (PCR) Not detected Staph lugdunensis PCR Not detected S. maltophilia (PCR) Not detected Streptococcus sp PCR Not detected Group A Strep (PCR) Not detected Strep agalactiae (PCR) Not detected Strep pneumoniae (PCR) Not detected P. aeruginosa (PCR) Not detected Eric/B-Vanco Res Genes Not applicable blaIMP Car res Gene PCR Not detected KPC-Carbap Res Gene PCR Not detected blaNDM Car Res Gene PCR Not detected OXA-48 Carbapenem Resis Gene (PCR) Not detected blaVIM Car Res Gene PCR Not detected CTX-M Gene Resistance (PCR) Not detected PFSH Medical History Facet arthropathy, lumbar Cervical stenosis of spinal canal Lumbar stenosis with neurogenic claudication Current smoker Shayla infection of flexural skin Atrophic vaginitis Allergic rhinitis Chronic neck pain Chronic midline low back pain without sciatica Impaired fasting blood sugar Dyslipidemia Long-term use of high-risk medication Candidiasis, intertrigo Bilateral tinnitus Left foot pain Chronic back pain COPD (chronic obstructive pulmonary disease) (2012) Mixed hyperlipidemia (06/2019) Essential hypertension (06/2019) Nicotine abuse Dyspareunia Hormone replacement therapy Intertrigo Intermittent palpitations Insomnia, unspecified Morbid obesity with BMI of 40.0-44.9, adult Obstructive sleep apnea of adult (~10/2018) Chronic pain Chronic post-traumatic stress disorder Alcohol dependence in sustained full remission Bipolar II disorder Lumbar transverse process fracture Surgical History S/P complete hysterectomy (1994) Social History marital status: details: lives in [place] household members: family lives independently: Yes (with elderly parents) caregiver/support person: No housing: house Smoking Status: Current every day smoker Tobacco: How many years used: 42 second hand exposure: No alcohol intake: former substance use type: does not use Assessment & Plan Assessment & Plan narrative: 1. Recurrent UTI, present on admission and active. - continue IV ceftriaxone. Clinically responding. 2. Acute septic encephalopathy, present on admission and active. - 2nd to UTI - monitor. 3. Gram-negative liya bacteremia, present on admission and active. 4. Abnormal ECG, present on admission and active. -check troponin. Was normal. 5. Bipolar D. / Schizoaffective, present on admission and active. - continuing with home medications - Risperidone, Clozapine, Clonazepam, benztropine 6. COPD, present on admission and stable. - bronchodilators, steroid 7. HLD, present on admission and active. - statin 8. GERD, present on admission and active. PLAN: -continue antibiotics and monitor mental status. Ceftriaxone. -follow cultures. Pending. -checked troponin, was negative twice. NEREIDA is June 05, pending improvement of mental status and final culture results. Time-Based Coding :: 20 min spent with patient and on the chart (including review of chart, obtaining history, exam, reviewing outside data, placing orders, documenting exam and treatment plan, and counseling patient) on 06/04.
[2024-06-04 08:00] VITALS: BP 134/78; PULSE 89; RESP 16; TEMP 36.6; O2SAT 99
--- NOTE | 2024-06-04 08:45 | OT.IP.EVAL ---
Current Diagnoses Morbid (severe) obesity due to excess calories (06/03/24) Nicotine dependence, unspecified, uncomplicated (06/03/24) Schizoaffective disorder, bipolar type (06/03/24) Bipolar II disorder (06/03/24) Obstructive sleep apnea (adult) (pediatric) (06/03/24) Metabolic encephalopathy (06/03/24) Chronic obstructive pulmonary disease, unspecified (06/03/24) Spondylosis without myelopathy or radiculopathy, lumbar region (06/03/24) Urinary tract infection, site not specified (06/03/24) Postmenopausal atrophic vaginitis (06/03/24) Body mass index [BMI] 40.0-44.9, adult (06/03/24) Past Medical History (Last Reviewed 06/03/24 @ 07:38 by Jermain Garnica MD) Alcohol dependence in sustained full remission Allergic rhinitis Atrophic vaginitis Bilateral tinnitus Bipolar II disorder Shayla infection of flexural skin Candidiasis, intertrigo Cervical stenosis of spinal canal Chronic back pain Chronic midline low back pain without sciatica Chronic neck pain Chronic pain Chronic post-traumatic stress disorder COPD (chronic obstructive pulmonary disease) (2012) Current smoker Dyslipidemia Dyspareunia Essential hypertension (06/2019) Facet arthropathy, lumbar Hormone replacement therapy Impaired fasting blood sugar Insomnia, unspecified Intermittent palpitations Intertrigo Left foot pain Long-term use of high-risk medication Lumbar stenosis with neurogenic claudication Lumbar transverse process fracture Mixed hyperlipidemia (06/2019) Morbid obesity with BMI of 40.0-44.9, adult Nicotine abuse Obstructive sleep apnea of adult (~10/2018) Surgical History (Last Reviewed 06/03/24 @ 07:38 by Jermain Garnica MD) S/P complete hysterectomy (1994) Occupational Therapy Inpatient Evaluation/Re-Eval M1 PT/OT-IP Prior Functional Status Start: 06/04/24 09:05 Freq: NEEDED Status: Complete Protocol: Document 06/04/24 08:12 MB (Rec: 06/04/24 09:25 MB [id number]) Medical Review Prior Functional Status Medical History Reviewed Yes Communication Pt with poor communication on eval d/t confusion and lethargy Mobility and Gait Pt reports I and no AD Activities of Daily Living and IADL's Pt cannot provide any other information d/t confusion Social History Household Members family Living Arrangements House Number of Stairs To Enter/Railing? Ramp Additional Social History Comment Pt is unable to provide any information about home set-up. When asked if she sleeps in a bed or a recliner, she states , recliner. M1 PT/OT-IP Prior Functional Status Start: 06/04/24 09:16 Freq: NEEDED Status: Active Protocol: Document 06/04/24 09:26 MB (Rec: 06/04/24 09:26 MB [id number]) Medical Review Prior Functional Status Medical History Reviewed Yes Communication Pt with poor communication on eval d/t confusion and lethargy Mobility and Gait Pt reports I and no AD Activities of Daily Living and IADL's Pt cannot provide any other information d/t confusion Social History Household Members family Living Arrangements House Number of Stairs To Enter/Railing? Ramp Additional Social History Comment Pt is unable to provide any information about home set-up. When asked if she sleeps in a bed or a recliner, she states , recliner. M2 OT-IP Current Condition Start: 06/04/24 09:16 Freq: Status: Active Protocol: Document 06/04/24 09:16 [facility] (Rec: 06/04/24 09:35 [facility] [id number]) Occupational Therapy Current Condition Current Condition Evaluation Date 06/04/24 Treatment Diagnosis UTI, septic encephalopathy Diagnosis Onset Date 06/03/24 M3 OT- IP Subjective and Pain Start: 06/04/24 09:16 Freq: Status: Active Protocol: Document 06/04/24 09:16 [facility] (Rec: 06/04/24 09:35 [facility] [id number]) OT- Subjective Occupational Therapy Visit Type Type Initial Evaluation Visit Start Time 08:45 Visit Stop Time 09:14 Occupational Therapy Visit Comments Patient Comments Pt agreed to work with OT. Patient/Caregiver Goals TO go home. OT Pain Assessment Pain When Pain Assessed During Mobility Pain Present Pain Present Pain Reported Location Neck Pain Behaviors Facial Grimacing,Holding Area M4 OT- IP ADL's Start: 06/04/24 09:16 Freq: Status: Active Protocol: Document 06/04/24 09:16 [facility] (Rec: 06/04/24 09:35 [facility] [id number]) OT [id number] Comments OT Self-Feeding Comments Not at meal time, pt appears not to have eaten much of her breakfast. OT ADL-Grooming Comments OT Grooming Comments Not performed. OT ADL-Oral Care Comments Oral Care Comments Not performed. OT ADL-Dressing General Eval Lower Body Dressing Ability Standby Assistance Comments OT Dressing Comments Pt able to dane/doff socks while seated but has more difficulty to dane the right sock. OT ADL-Toileting Comments OT Toileting Comments Pt not having to go at this time. OT ADL-Bathing Comments OT Bathing Comments Pt will need assist at this time, as very confused and unsteady on her feet. M5 OT- IP IADL's Start: 06/04/24 09:16 Freq: Status: Active Protocol: Document 06/04/24 09:16 [facility] (Rec: 06/04/24 09:35 [facility] [id number]) OT-Instrumental Activities of Daily Living Deficits IADL Deficits Identified Deficits Home Safety Awareness Awareness of Need for Assistance at Home Decreased Awareness Ability to Problem Solve Emergency Unable to Problem Solve Situations Home Safety Comments Pt is very confused and not able to follow conversations and is tangential in her speech. Medication Management Medication Management Comments Pt daquan benefit from assist, concerns for safety. Money Management Money Management Comments Pt daquan benefit from assist, concerns for safety. Meal Preparation Meal Preparation Comments Pt daquan benefit from assist, concerns for safety. Oncology Patient Navigator Oncology Patient Navigator Comments Pt daquan benefit from assist, concerns for safety. Driving Driving Comments Pt daquan benefit from assist, concerns for safety. M6 OT- IP Functional Cognition Start: 06/04/24 09:16 Freq: Status: Active Protocol: Document 06/04/24 09:16 [facility] (Rec: 06/04/24 09:35 [facility] [id number]) Cognitive Factors Limiting Selfcare Function Cognitive Ability Level of Alertness Confusional State,Drowsy Patient Orientation Name,Year,Place Attention Span Ability Capable of Focused Attention, Unable to Focus,Unable to Sustain Attention Ability to Follow Commands Able to Follow One Step Commands with Increased Time, Able to Follow One Step Commands with Repetition Memory Description Short Term Impaired,Technology Methodology Consultant Impaired,Working Impaired Safety Awareness Underestimates Need for Assistance Problem Solving Ability Unable to Identify Errors, Needs Assist to Identify Solutions Cognitive Tests SLUMS Pt scored 3/30 and only able to say the year, state, and pick the largest shape at this time. Pt scored appears to be affected by her UTi and septic encephalopathy at this time. Good to reassess pt again when more medically stable. Cognitive Comments Cognitive Assessment Comments Pt very groogy and having difficulty to focus to follow commands. Pt states prior has decreased memory and realizes that she is far from her baseline at this time. OT- Vision and Hearing OT- Hearing Assessment OT- Hearing Assessment WFL OT- Vision Assessment Visual Acuity Glasses All The Time Vision Assessment Comments Pt able to read the clock accurately. M7 OT- IP Mobility and Balance Start: 06/04/24 09:16 Freq: Status: Active Protocol: Document 06/04/24 09:16 [facility] (Rec: 06/04/24 09:35 [facility] [id number]) OT- Bed Mobility Assessment Sit to Supine Sit to Supine Assist Standby Assistance OT-Transfer Assessment Sit to and From Stand Sit to and from Stand Minimal Assistance Transfers Transfer Ability Minimal Assistance,Moderate Assistance Technique Transfer Destination Bed,Chair Transfer Technique Stand Step Pivot Devices Transfer Assistive Devices Gait Belt,Front Wheeled Walker Comments Mobility Comments LISA to stand and MIN/MODA to get to the recliner with FWW for balance and pt feeling weak. Bed Alarm turned on. OT- Balance Assessment Sitting Balance and Reactions Static Sitting Balance Ability Good Dynamic Sitting Balance Ability Good Standing Balance and Reactions Static Standing Balance Ability Fair Dynamic Standing Balance Ability Fair M8 OT- IP Objective Assessments Start: 06/04/24 09:16 Freq: Status: Active Protocol: Document 06/04/24 09:16 [facility] (Rec: 06/04/24 09:35 [facility] [id number]) OT Gross Range of Motion Upper Extremity Range of Motion Assessment Right Impaired OT Strength Upper Extremity Strength Assessment Right Impaired Comments Strength Comments RUE 4-/5 versus LUE 4/5 OT- Coordination Assessment Upper Extremity Finger to Nose Test Left UE Impaired Finger Tapping Test Right UE Impaired Comments Coordination Comments Left side slight more impaired then right hand. M9 OT- IP Assessment and Plan Start: 06/04/24 09:16 Freq: Status: Active Protocol: Document 06/04/24 09:16 [facility] (Rec: 06/04/24 09:35 [facility] [id number]) OT Summary Assessment and Plan Potential Rehabilitation Potential Good Analytic Complexity at Evaluation Moderate Summary OT Impairments Pain,Range of Motion,Strength, Balance,Coordination, Functional Cognition, Functional Mobility,Self- Feeding,Grooming,Dressing, Toileting,Bathing,Toilet Transfers,Shower Transfers, Activity Tolerance Progress Towards Goals Slow Progress due to Pain,Slow Progress due to Medical Issues,Slow Progress due to Activity Tolerance,Slow Progress due to Cognition Assessment Summary Pt MOD complexity and main barriers are pain, confusion due to UTI/Sepsis, and needing [place] MODA with FWW for transfers at this time. Pt scored 3/30 on the SLUMS which appears to be far from her baseline as pt drives. Hopefully pt will continue to clear and recover and be able to go home with her elderly parents 24/7 assist and home health, otherwise at this time will benefit from skilled rehab. Goals Self-Feeding Goal Independent Grooming Goal Independent Dressing Goal Independent Toileting Goal Independent Bathing Goal Independent Toilet Transfer Goal Independent Shower Transfer Goal Independent Days to Meet Goals 20 Frequency of Treatment Other frequency 5x/week Treatment Plan OT Treatment Plan ADL Training,Functional Cognition Training,Functional Mobility,Patient/Family Education,Discharge Planning Discharge Recommendations OT Discharge Recommendations SNF Rehab Other Discharge Recommendations Hopefully pt to be able to improve and be able to go home with 24/7 available assist and home health. Transportation Needs at Discharge Wheelchair/Cabulance
--- NOTE | 2024-06-04 09:26 | PT.IIE ---
Current Diagnoses Morbid (severe) obesity due to excess calories (06/03/24) Nicotine dependence, unspecified, uncomplicated (06/03/24) Schizoaffective disorder, bipolar type (06/03/24) Bipolar II disorder (06/03/24) Obstructive sleep apnea (adult) (pediatric) (06/03/24) Metabolic encephalopathy (06/03/24) Chronic obstructive pulmonary disease, unspecified (06/03/24) Spondylosis without myelopathy or radiculopathy, lumbar region (06/03/24) Urinary tract infection, site not specified (06/03/24) Postmenopausal atrophic vaginitis (06/03/24) Body mass index [BMI] 40.0-44.9, adult (06/03/24) Surgical History (Last Reviewed 06/03/24 @ 07:38 by Jermain Garnica MD) S/P complete hysterectomy (1994) Medical History (Last Reviewed 06/03/24 @ 07:38 by Jermain Garnica MD) Alcohol dependence in sustained full remission Allergic rhinitis Atrophic vaginitis Bilateral tinnitus Bipolar II disorder Shayla infection of flexural skin Candidiasis, intertrigo Cervical stenosis of spinal canal Chronic back pain Chronic midline low back pain without sciatica Chronic neck pain Chronic pain Chronic post-traumatic stress disorder COPD (chronic obstructive pulmonary disease) (2012) Current smoker Dyslipidemia Dyspareunia Essential hypertension (06/2019) Facet arthropathy, lumbar Hormone replacement therapy Impaired fasting blood sugar Insomnia, unspecified Intermittent palpitations Intertrigo Left foot pain Long-term use of high-risk medication Lumbar stenosis with neurogenic claudication Lumbar transverse process fracture Mixed hyperlipidemia (06/2019) Morbid obesity with BMI of 40.0-44.9, adult Nicotine abuse Obstructive sleep apnea of adult (~10/2018) Physical Therapy Inpatient Evaluation/Re-Eval M1 PT/OT-IP Prior Functional Status Start: 06/04/24 09:05 Freq: NEEDED Status: Complete Protocol: Document 06/04/24 08:12 MB (Rec: 06/04/24 09:25 MB [id number]) Medical Review Prior Functional Status Medical History Reviewed Yes Communication Pt with poor communication on eval d/t confusion and lethargy Mobility and Gait Pt reports I and no AD Activities of Daily Living and IADL's Pt cannot provide any other information d/t confusion Social History Household Members family Living Arrangements House Number of Stairs To Enter/Railing? Ramp Additional Social History Comment Pt is unable to provide any information about home set-up. When asked if she sleeps in a bed or a recliner, she states , recliner. M1 PT/OT-IP Prior Functional Status Start: 06/04/24 09:16 Freq: NEEDED Status: Active Protocol: Document 06/04/24 09:26 MB (Rec: 06/04/24 09:26 MB [id number]) Medical Review Prior Functional Status Medical History Reviewed Yes Communication Pt with poor communication on eval d/t confusion and lethargy Mobility and Gait Pt reports I and no AD Activities of Daily Living and IADL's Pt cannot provide any other information d/t confusion Social History Household Members family Living Arrangements House Number of Stairs To Enter/Railing? Ramp Additional Social History Comment Pt is unable to provide any information about home set-up. When asked if she sleeps in a bed or a recliner, she states , recliner. M2 PT-IP Current Condition Start: 06/04/24 09:05 Freq: NEEDED Status: Active Protocol: Document 06/04/24 08:12 MB (Rec: 06/04/24 09:25 MB [id number]) Physical Therapy Current Condition Current Condition Evaluation Date 06/04/24 Treatment Diagnosis UTI and encephalopathy M3 PT-IP Subjective Start: 06/04/24 09:05 Freq: NEEDED Status: Active Protocol: Document 06/04/24 08:12 MB (Rec: 06/04/24 09:25 MB [id number]) Subjective Physical Therapy Visit Type Type Initial Evaluation Visit Start Time 08:12 Visit Stop Time 08:30 Number of NAVIGATING OFFICER Visits 0 Physical Therapy Visit Comments Patient Comments Pt is lethargic and does not make many verbalizations Therapy Pain Assessment Pain When Pain Assessed At Rest Pain Present Pain Present Denied Pain M4 PT-IP Mobility and Gait Start: 06/04/24 09:05 Freq: NEEDED Status: Active Protocol: Document 06/04/24 08:12 MB (Rec: 06/04/24 09:25 MB [id number]) PT-Bed Mobility Assessment Rolling Type of Rolling Roll to Left Level of Assist Minimal Assistance,1 Person Assistance Supine to Sit Supine to Sit Minimal Assistance,1 Person Assistance,Head of Bed Elevated,Bedrails Scooting Scooting to Edge of Bed Moderate Assistance PT-Transfer Assessment Sit to and From Stand Sit to and from Stand Moderate Assistance,1 Person Assistance,Use of Upper Extremities Equipment Transfer Assistive Device Gait Belt,Front Wheeled Walker Orthotic/Prosthetic Devices or Brace: No Transfers Transfer Destination Chair Transfer Technique Stepping Transfer Ability Level of Assist Moderate Assistance,1 Person Assistance,Use of Upper Extremities Comments Mobility Comments Pt is very lethargic and requires ongoing cues to con't with bed mobility. PT asks pt to sit up to side of bed and she states she cannot. PT encourages pt to use bed rail and she states she cannot and states she has to have help. Pt uses her right hand with PT 's right hand to sit up on the side of the bed. Gait Assessment Gait Gait Assistance Required: Minimum Assistance,1 Person Assist Distance (Feet) 2 Able to Maintain Weight Bearing Status Yes During Gait Assistive Devices Assistive Device Gait Belt,Front Wheeled Walker Gait Deviations General Gait Pattern Decreased Stride Length, Decreased Feet Clearance, Festinating,Flexed Trunk,Wide Based Gait Factors Limiting Gait Function Factors Limiting Gait Function Decreased Activity Tolerance, Decreased Strength,Difficulty Following Directions, Incoordination,Limited Range of Motion,Pain,Poor Balance, Poor Safety Awareness Comments Gait Comments Decreased foot clearance and step-length, PT points to chair and pt states she understands where to go. PET CREMATORY WORKER nearby and PT and PET CREMATORY WORKER assist with changing pt's brief. PT assists with donning a gown as pt prefers to have no gown in bed. PT also dons socks for pt as pt is too lethargic and confused to assist with dressing. Pt left in chair with PET CREMATORY WORKER checking vitals and setting up breakfast. PT-Balance Assessment Sitting Balance and Reactions Static Sitting Balance Ability Poor Dynamic Sitting Balance Ability Poor Standing Balance and Reactions Static Standing Balance Ability Poor Dynamic Standing Balance Ability Poor Device Used RW M5 PT-IP Objective Assessments Start: 06/04/24 09:05 Freq: NEEDED Status: Active Protocol: Document 06/04/24 08:12 MB (Rec: 06/04/24 09:25 MB [id number]) Orientation Orientation/Cognition Level of Alertness Confusional State Orientation Name,Birthday,Place Safety Awareness Decreased Safety Awareness Memory Description Short Term Impaired,Detention Impaired Gross Range of Motion Upper Extremity ROM Impairments Defer to OT Lower Extremity ROM Assessment Within Functional Limits Strength Lower Extremity Strength Assessment Within Functional Limits Coordination Assessment Assessment Coordination Comments Pt cannot perform coordination testing Sensation Assessment Comments Sensation Comments Pt cannot tolerate sensory testing Muscle Tone Muscle Tone WNL Yes M6 PT-IP Treatment Start: 06/04/24 09:05 Freq: NEEDED Status: Active Protocol: Document 06/04/24 08:12 MB (Rec: 06/04/24 09:25 MB [id number]) Physical Therapy Treatment Education Education Provided Safety M7 PT-IP Assessment and Plan Start: 06/04/24 09:05 Freq: NEEDED Status: Active Protocol: Document 06/04/24 08:12 MB (Rec: 06/04/24 09:25 MB [id number]) PT Summary Assessment and Plan Potential Rehabilitation Potential Fair Status of Condition at Evaluation Unstable Summary Impairments Pain,Cognition,Bed Mobility, Transfers,Gait,Activity Tolerance Progress Towards Goals Slow Progress - Other Assessment Summary Pt is a 59 y/o female who per chart, lives with her parents. PT is able to obtain information from pt that she does not use AD at home and that they have a ramp and she sleeps in a recliner but pt cannot provide any other history d/t lethargy and confusion. PT dons gown and socks for pt and removes wicking device and PET CREMATORY WORKER and PT assist pt with changing brief in standing with RW with CGA. Pt requires cues for all mobility tasks and PT is limited today. Pt left in recliner with PET CREMATORY WORKER assisting with breakfast and vitals. Overall, skilled PT is not very helpful at this time. Pt needs to get through acute delirium/encephalopathy issues for better mobility assessment. Goals Bed Mobility Goal Independent Transfer Goal Independent,Cane,Front Wheeled Walker Gait Goal Independent,Cane,Front Wheel Walker Gait Distance 100 Days to Meet Goals 4 Frequency of Treatment Frequency Of Treatment Once a Day Treatment Plan Physical Therapy Treatment Plan Bed Mobility Training,Transfer Training,Gait Training, Therapeutic Exercise,Balance Retraining,Discharge Planning, Hot or Cold Pack,Neuromuscular Re-ed,Coordination Retraining ,Manual Therapy Precautions Other Precautions Fall risk d/t encephalopathy Weight Bearing Status Weight Bearing Status Weight Bear as Tolerated Recommendations To Nursing Amount of Assist Needed 1 Person Assist Discharge Recommendations PT Discharge Recommendations Home vs SNF Transportation Needs at Discharge Private Vehicle,Wheelchair/ Cabulance
--- NOTE | 2024-06-04 10:59 | DIET.CONS ---
Dietary Consultation Note Admission Date: 06/03/2024 01:26 Assessment: 59 y F admitted with UTI and acute septic encephalopathy. Nutrition consulted for weight loss. Met w/ pt at bedside, limited interview, fell asleep x2. Reports 2 weeks of decreased appetite, unable to provide recall beyond eggs and hashbrowns for breakfast. May have experienced weight loss, unsure of UBW. Has been drinking Ensure vanilla BID. NFPE not completed at this time. Ht: 165.1 cm Wt: 104.326 kg BMI: 38.2 UBW: 102.058 kg on 04/22/24, 100.811 kg on 12/25/23, 104.496 kg on 06/05/23; no weight loss within past yr noted per EMR Last BM: () MNA: 11 Ojrdon Score: 18 Diet: 06/03/24 Breakfast General (Regular) Diet Diet Modifications: Nutrition Percent Meal Consumed 100% 06/03/24 18:00 Labs: RBC 5.13 X10^6/uL (4.0-5.2) 06/03/24 06:05 Hgb 14.2 g/dL (12.0-16.0) 06/03/24 06:05 Hct 43.6 % (36-46) 06/03/24 06:05 Creatinine 1.15 mg/dL (0.52-1.04) H 06/03/24 06:05 Lactate 0.7 mmol/L (0.7-2.1) 06/02/24 23:08 NT-Pro-B Natriuret Pep 177 pg/mL (<125) H 06/02/24 23:08 Nutrition Diagnosis: Inadequate oral intake r/t decreased appetite aeb pt reported reduced intake for 2 weeks Interventions: 1. Providing Ensure BID to support adequate intakes Monitoring/Evaluations: po intakes Electronically Signed by: Bailey Lee 06/04/24 10:59 Clinical Dietitian [address] [address]
[2024-06-04] MEDS: FLUTICASONE 120 SPRAY/16 GM SPRAY.SUSP NASAL (12:13)
[2024-06-04] MEDS: ENOXAPARIN 40 MG/0.4 ML SYRINGE SUBCUT (12:14)
[2024-06-04] MEDS: lamoTRIgine 100 MG TABLET 200 MG PO ×2 (12:15→21:39)
[2024-06-04] MEDS: clonazePAM 0.5 MG TABLET PO (12:15)
[2024-06-04] MEDS: AMLODIPINE 5 MG TABLET PO (12:15)
[2024-06-04] MEDS: ASPIRIN EC 81 MG TABLET PO (12:15)
[2024-06-04] MEDS: BENZTROPINE 1 MG TABLET 0.5 MG PO (12:15)
[2024-06-04] MEDS: SODIUM CHLORIDE 0.9% FLUSH 10 ML IV ×2 (12:16→21:39)
[2024-06-04] MEDS: risperiDONE 1 MG TABLET PO ×2 (12:18→21:38)
[2024-06-04 17:00] VITALS: BP 120/67; PULSE 98; RESP 16; TEMP 37.7; O2SAT 95
[2024-06-04 19:27] VITALS: PULSE 95; RESP 22; O2SAT 93
[2024-06-04] MEDS: BUDESONIDE 0.5 MG/2 ML NEB INH (19:27)
[2024-06-04] MEDS: ALBUTEROL/IPRATROPIUM 3 ML AMPUL INH (19:27)
[2024-06-04 20:00] VITALS: BP 142/70; PULSE 94; RESP 18; TEMP 37.6; O2SAT 97
[2024-06-04] MEDS: CLOZAPINE 100 MG 200 EACH PO (21:38)
[2024-06-04] MEDS: PRAVASTATIN 20 MG TABLET 40 MG PO (21:38)
[2024-06-04] MEDS: TRAMADOL 50 MG TABLET PO (21:38)
[2024-06-04] MEDS: cefTRIAXone 2,000 MG in SODIUM CHLORIDE 0.9% 100 ML 200 MG IV (21:39)
[2024-06-05] VITALS (10 sets, daily range): BP systolic 122–138; BP diastolic 56–79; PULSE 76–99; RESP 16–20; TEMP 36.6–38.4; O2SAT 93–98
[2024-06-05] MEDS: PANTOPRAZOLE DR 40 MG TABLET PO (06:05)
[2024-06-05] MEDS: ALBUTEROL/IPRATROPIUM 3 ML AMPUL INH ×4 (06:26→19:06)
[2024-06-05] MEDS: BUDESONIDE 0.5 MG/2 ML NEB INH ×2 (06:26→19:06)
[2024-06-05 06:45] LABS: Add Manual Diff / Slide Review NO; Basophils Absolute Auto 100 /uL (0-100); Basophils Percent Auto 0.5 % (0-2); Eosinophils Absolute Auto 0 /uL (0-450); Eosinophils Percent Auto 0.1 % (2-4); Hematocrit 38.3 % (36-46); Lymphocytes Absolute Auto 1000 /uL (1100-4500); Lymphocytes Percent Auto 9.4 % (25-40); Mean Corpuscular HGB Conc 33.8 % (30-36); Mean Corpuscular Hemoglobin 28.1 PG (26-34); Mean Corpuscular Volume 82.9 fL (80-100); Monocytes Absolute Auto 1500 /uL (0-900); Monocytes Percent Auto 13.3 % (3-14); Neutrophils Absolute Auto 8400 /uL (1500-7000); Neutrophils Percent Auto 76.7 % (50-75); Platelet Count 181 X10^3/uL (150-400); Red Blood Cell Count 4.62 X10^6/uL (4.0-5.2); Red Cell Distribution Width 14.8 % (11.6-14.8)
[2024-06-05 06:55] LABS: BUN Creatinine Ratio 19.8 (6-22); Blood Urea Nitrogen 21 mg/dL (7-17); Calcium 8.9 mg/dL (8.4-10.2); Carbon Dioxide 25 mmol/L (22-32); Chloride 104 mmol/L (98-107); Estimated Glomerular Filt Rate > 60 mL/min (>60); Glucose 99 mg/dL (70-100); HEMOLYSIS < 15 (0-50); Potassium 3.7 mmol/L (3.4-5.1); Sodium 134 mmol/L (137-145)
--- NOTE | 2024-06-05 07:38 | P.PN_ITS ---
Subjective Subjective Interval history: Summary: Admitted for UTI and septic encephalopathy. Found to be bacteremic with Gram-negative rods on June 03. Improving on antibiotics. Subjective: Doing better today. Denies any fevers, some right flank pain. No nausea. Still somewhat weak. Exam Vital Signs (past 8 hours): - 06/05/24 06:00 06/05/24 06:26 Temperature 99.7 F H Pulse Rate 99 H 92 H Respiratory Rate 20 Blood Pressure 122/79 Pulse Oximetry 97 93 Oxygen Delivery Method Room Air Oxygen Flow Rate 0 0 Fraction of Inspired Oxygen 21 Fraction of Inspired Oxygen 21 SaO2/FiO2 Ratio 442 Oxygen Delivery Method Room Air Oxygen Flow Rate 0 Narrative Exam Narrative: NAD, alert and oriented. Fluent speech. Lungs are clear, normal rate and effort. Heart is regular, no murmur gallop or rub. Abdomen is soft, non distended. Extremities are free of edema. Right flank tenderness, mild Objective Labs 06/05/24 05:55 06/05/24 05:55 Labs: Laboratory Results - last 24 hr 06/05/24 05:55 WBC 11.0 RBC 4.62 Hgb 13.0 Hct 38.3 MCV 82.9 MCH 28.1 MCHC 33.8 RDW 14.8 Plt Count 181 Neut % (Auto) 76.7 H Lymph % (Auto) 9.4 L Berg[place] % (Auto) 13.3 Eos % (Auto) 0.1 L Baso % (Auto) 0.5 Neut # (Auto) 8400 H Lymph # (Auto) 1000 L Berg[place] # (Auto) 1500 H Eos # (Auto) 0 Baso # (Auto) 100 Sodium 134 L Potassium 3.7 D Chloride 104 Carbon Dioxide 25 BUN 21 H Creatinine 1.06 H Estimated GFR > 60 BUN/Creatinine Ratio 19.8 Glucose 99 Calcium 8.9 PFSH Medical History Facet arthropathy, lumbar Cervical stenosis of spinal canal Lumbar stenosis with neurogenic claudication Current smoker Shayla infection of flexural skin Atrophic vaginitis Allergic rhinitis Chronic neck pain Chronic midline low back pain without sciatica Impaired fasting blood sugar Dyslipidemia Long-term use of high-risk medication Candidiasis, intertrigo Bilateral tinnitus Left foot pain Chronic back pain COPD (chronic obstructive pulmonary disease) (2012) Mixed hyperlipidemia (06/2019) Essential hypertension (06/2019) Nicotine abuse Dyspareunia Hormone replacement therapy Intertrigo Intermittent palpitations Insomnia, unspecified Morbid obesity with BMI of 40.0-44.9, adult Obstructive sleep apnea of adult (~10/2018) Chronic pain Chronic post-traumatic stress disorder Alcohol dependence in sustained full remission Bipolar II disorder Lumbar transverse process fracture Surgical History S/P complete hysterectomy (1994) Social History marital status: details: lives in [place] household members: family lives independently: Yes (with elderly parents) caregiver/support person: No housing: house Smoking Status: Current every day smoker Tobacco: How many years used: 42 second hand exposure: No alcohol intake: former substance use type: does not use Assessment & Plan Assessment & Plan narrative: 1. Recurrent UTI, present on admission and improving. - continue IV ceftriaxone. Clinically responding. 2. Acute septic encephalopathy, present on admission and improving. - 2nd to UTI - monitor. 3. Gram-negative liya bacteremia, present on admission and active. 4. Abnormal ECG, present on admission and active. -check troponin. Was normal. No sypmtoms. 5. Bipolar D. / Schizoaffective, present on admission and active. - continuing with home medications - Risperidone, Clozapine, Clonazepam, benztropine 6. COPD, present on admission and stable. - bronchodilators, steroid 7. HLD, present on admission and active. - statin 8. GERD, present on admission and active. PLAN: -continue current antibiotics. -following blood cultures, final ID and sensitivities are still pending. -out of bed, physical therapy eval. -NEREIDA is June 06. Home with home health. Time-Based Coding :: 25 min spent with patient and on the chart (including review of chart, obtaining history, exam, reviewing outside data, placing orders, documenting exam and treatment plan, and counseling patient) on 06/05.
[2024-06-05] MEDS: AMLODIPINE 5 MG TABLET PO (08:15)
[2024-06-05] MEDS: ASPIRIN EC 81 MG TABLET PO (08:16)
[2024-06-05] MEDS: clonazePAM 0.5 MG TABLET PO (08:16)
[2024-06-05] MEDS: lamoTRIgine 100 MG TABLET 200 MG PO ×2 (08:17→20:27)
[2024-06-05] MEDS: ENOXAPARIN 40 MG/0.4 ML SYRINGE SUBCUT (08:17)
[2024-06-05] MEDS: FLUTICASONE 120 SPRAY/16 GM SPRAY.SUSP NASAL (08:19)
[2024-06-05] MEDS: risperiDONE 1 MG TABLET PO ×2 (09:00→20:26)
[2024-06-05] MEDS: BENZTROPINE 1 MG TABLET 0.5 MG PO (09:00)
--- NOTE | 2024-06-05 11:05 | PT.IPTN ---
Current Diagnoses Morbid (severe) obesity due to excess calories (06/03/24) Nicotine dependence, unspecified, uncomplicated (06/03/24) Schizoaffective disorder, bipolar type (06/03/24) Bipolar II disorder (06/03/24) Obstructive sleep apnea (adult) (pediatric) (06/03/24) Metabolic encephalopathy (06/03/24) Chronic obstructive pulmonary disease, unspecified (06/03/24) Spondylosis without myelopathy or radiculopathy, lumbar region (06/03/24) Urinary tract infection, site not specified (06/03/24) Postmenopausal atrophic vaginitis (06/03/24) Body mass index [BMI] 40.0-44.9, adult (06/03/24) Physical Therapy Treatment Note M2 PT-IP Current Condition Start: 06/04/24 09:05 Freq: NEEDED Status: Active Protocol: Document 06/04/24 08:12 MB (Rec: 06/04/24 09:25 MB [id number]) Physical Therapy Current Condition Current Condition Evaluation Date 06/04/24 Treatment Diagnosis UTI and encephalopathy M3 PT-IP Subjective Start: 06/04/24 09:05 Freq: NEEDED Status: Active Protocol: Document 06/05/24 11:05 AB (Rec: 06/05/24 12:35 AB [id number]) Subjective Physical Therapy Visit Type Type Treatment Note Visit Start Time 11:05 Visit Stop Time 11:20 Number of WEBSITE DEVELOPER Visits 0 Physical Therapy Visit Comments Patient Comments agreeable to do PT M4 PT-IP Mobility and Gait Start: 06/04/24 09:05 Freq: NEEDED Status: Active Protocol: Document 06/05/24 11:05 AB (Rec: 06/05/24 12:35 AB [id number]) PT-Bed Mobility Assessment Sit to Supine Sit to Supine Standby Assistance PT-Transfer Assessment Sit to and From Stand Sit to and from Stand Contact Guard Assistance, Minimal Assistance,1 Person Assistance,Use of Upper Extremities Equipment Transfer Assistive Device Gait Belt,Front Wheeled Walker Orthotic/Prosthetic Devices or Brace: No Comments Mobility Comments pt sitting on the chair and agreeable to do PT. completed sit to stand min A and cues. pt ambulated in room using FWW ~ 30 ft CGA to min A. presents with antalgic gait with increase lateral lean to the R. pt sat on the chair. requesting to go back to bed. asked pt to walk one more time and agreed. sit to stand CGA and ambulated in room using FWW ~ 30 ft CGA. pt sat on EOB. completed sit to supine SBA. positioned pt in bed. call light and table placed within reach. Gait Assessment Gait Gait Assistance Required: Contact Guard Assist,Minimum Assistance Distance (Feet) 30 Able to Maintain Weight Bearing Status Yes During Gait Assistive Devices Assistive Device Gait Belt,Front Wheeled Walker Orthotic/Prosthetic Devices or Brace: No Gait Deviations General Gait Pattern Decreased Stride Length, Decreased Feet Clearance Factors Limiting Gait Function Factors Limiting Gait Function Decreased Activity Tolerance, Decreased Strength,Difficulty Following Directions,Limited Range of Motion,Poor Balance, Poor Safety Awareness M5 PT-IP Objective Assessments Start: 06/04/24 09:05 Freq: NEEDED Status: Active Protocol: Document 06/04/24 08:12 MB (Rec: 06/04/24 09:25 MB [id number]) Orientation Orientation/Cognition Level of Alertness Confusional State Orientation Name,Birthday,Place Safety Awareness Decreased Safety Awareness Memory Description Short Term Impaired,Chip Applying Machine Tender Impaired Gross Range of Motion Upper Extremity ROM Impairments Defer to OT Lower Extremity ROM Assessment Within Functional Limits Strength Lower Extremity Strength Assessment Within Functional Limits Coordination Assessment Assessment Coordination Comments Pt cannot perform coordination testing Sensation Assessment Comments Sensation Comments Pt cannot tolerate sensory testing Muscle Tone Muscle Tone WNL Yes M6 PT-IP Treatment Start: 06/04/24 09:05 Freq: NEEDED Status: Active Protocol: Document 06/05/24 11:05 AB (Rec: 06/05/24 12:35 AB [id number]) Physical Therapy Treatment Education Education Provided Safety M7 PT-IP Assessment and Plan Start: 06/04/24 09:05 Freq: NEEDED Status: Active Protocol: Document 06/05/24 11:05 AB (Rec: 06/05/24 12:35 AB [id number]) PT Summary Assessment and Plan Potential Rehabilitation Potential Fair Summary Impairments Pain,ROM,Strength,Balance, Coordination,Sensation,Tone, Cognition,Bed Mobility, Transfers,Gait,Activity Tolerance Progress Towards Goals Slow Progress due to Activity Tolerance Assessment Summary pt requiring CGA to min A with mobility using FWW. pt stated that she does not use any AD before but has h/o falls. Recommeding use of FWW at this time. pt agreed. d/c plan depending if pt's parents will be able to assist her at home . will continue to assess progress but at this time, may require SNF rehab. Goals Bed Mobility Goal Independent Transfer Goal Independent,Front Wheeled Walker Gait Goal Independent,Front Wheel Walker Gait Distance 150 Other Goals improve transfers and ambulation using LRAD ~200 ft mod I Days to Meet Goals 10 Frequency of Treatment Frequency Of Treatment Once a Day Treatment Plan Physical Therapy Treatment Plan Bed Mobility Training,Transfer Training,Gait Training, Therapeutic Exercise,Balance Retraining,Discharge Planning, Hot or Cold Pack,Neuromuscular Re-ed,Coordination Retraining ,Manual Therapy Recommendations To Nursing Amount of Assist Needed 1 Person Assist Discharge Recommendations PT Discharge Recommendations Home vs SNF Transportation Needs at Discharge Private Vehicle,Wheelchair/ Cabulance
--- NOTE | 2024-06-05 12:05 | OT.IP.TRT ---
Current Diagnoses Morbid (severe) obesity due to excess calories (06/03/24) Nicotine dependence, unspecified, uncomplicated (06/03/24) Schizoaffective disorder, bipolar type (06/03/24) Bipolar II disorder (06/03/24) Obstructive sleep apnea (adult) (pediatric) (06/03/24) Metabolic encephalopathy (06/03/24) Chronic obstructive pulmonary disease, unspecified (06/03/24) Spondylosis without myelopathy or radiculopathy, lumbar region (06/03/24) Urinary tract infection, site not specified (06/03/24) Postmenopausal atrophic vaginitis (06/03/24) Body mass index [BMI] 40.0-44.9, adult (06/03/24) Occupational Therapy Treatment Note M2 OT-IP Current Condition Start: 06/04/24 09:16 Freq: Status: Active Protocol: Document 06/04/24 09:16 [facility] (Rec: 06/04/24 09:35 [facility] [id number]) Occupational Therapy Current Condition Current Condition Evaluation Date 06/04/24 Treatment Diagnosis UTI, septic encephalopathy Diagnosis Onset Date 06/03/24 M3 OT- IP Subjective and Pain Start: 06/04/24 09:16 Freq: Status: Active Protocol: Document 06/05/24 11:45 ROBBY (Rec: 06/05/24 12:04 ROBBY [id number]) OT- Subjective Occupational Therapy Visit Type Type Treatment Note Visit Start Time 10:20 Visit Stop Time 10:45 Notes Pt reclined in bed on entrance of OT. Pt agreeable to participating in OT, but declines performing bathing, oral care, and hair grooming. Pt performs sup>sit with min A and scoots EOB with min vcs. Pt performs sit>stand with min A and vc for hand placement. Pt amb with CGA/ Gladys with FWW to the bathroom where she t/f to commode CGA. Pt performs toileting and toileting hygiene with S. Pt t/fs from commode with CGA and amb with FWW to sink with CGA . Pt washes her hands with CGA before returning to chair. Pt t/f to chair with CGA. Pt doffs and dons socks with S. Pt completed SLUMS Examination . Compared to previous SLUMS, pt score today is 6/30 (today able to state 6 animals, remembers apple, able to adama x in triangle and identifites largest shape) Occupational Therapy Visit Comments Patient Comments Pt agreed to work with OT. Patient/Caregiver Goals to go home OT Pain Assessment Pain Present Pain Present Denied Pain Protocol: Document 06/04/24 09:16 [facility] (Rec: 06/04/24 09:35 [facility] [id number]) Cognitive Factors Limiting Selfcare Function Cognitive Ability Level of Alertness Confusional State,Drowsy Patient Orientation Name,Year,Place Attention Span Ability Capable of Focused Attention, Unable to Focus,Unable to Sustain Attention Ability to Follow Commands Able to Follow One Step Commands with Increased Time, Able to Follow One Step Commands with Repetition Memory Description Short Term Impaired,Mcfp Impaired,Working Impaired Safety Awareness Underestimates Need for Assistance Problem Solving Ability Unable to Identify Errors, Needs Assist to Identify Solutions M9 OT- IP Assessment and Plan Start: 06/04/24 09:16 Freq: Status: Active Protocol: Document 06/05/24 11:45 ROBBY (Rec: 06/05/24 12:04 ROBBY [id number]) OT Summary Assessment and Plan Potential Rehabilitation Potential Good Analytic Complexity at Evaluation Moderate Summary OT Impairments Pain,Range of Motion,Strength, Balance,Coordination, Functional Cognition, Functional Mobility,Self- Feeding,Grooming,Dressing, Toileting,Bathing,Toilet Transfers,Shower Transfers, Activity Tolerance Progress Towards Goals Slow Progress due to Pain,Slow Progress due to Medical Issues,Slow Progress due to Activity Tolerance,Slow Progress due to Cognition Assessment Summary Pt demonstrates decreased safety awareness during t/fs and ambulation. Pt somewhat impulsive throughout treatment and demonstrated some confusion. Pt SLUM score increased to 6/30. Pt with progress today during toileting and toileting t/f today. Cont per established POC. Goals Self-Feeding Goal Independent Grooming Goal Independent Dressing Goal Independent Toileting Goal Independent Bathing Goal Independent Toilet Transfer Goal Independent Shower Transfer Goal Independent Days to Meet Goals 20 Frequency of Treatment Other frequency 5x/week Treatment Plan OT Treatment Plan ADL Training,Functional Cognition Training,Functional Mobility,Patient/Family Education,Discharge Planning Discharge Recommendations OT Discharge Recommendations SNF Rehab Other Discharge Recommendations Hopefully pt to be able to improve and be able to go home with 24/7 available assist and home health. Transportation Needs at Discharge Wheelchair/Cabulance
[2024-06-05] MEDS: PROPRANOLOL 10 MG TABLET PO (15:01)
[2024-06-05] MEDS: levoFLOXacin 250 MG TABLET 750 MG PO (19:02)
[2024-06-05] MEDS: PRAVASTATIN 20 MG TABLET 40 MG PO (20:26)
[2024-06-05] MEDS: CLOZAPINE 100 MG 200 EACH PO (20:27)
[2024-06-05] MEDS: ACETAMINOPHEN 325 MG TABLET 650 MG PO (20:30)
[2024-06-05] MEDS: LORazepam 1 MG TABLET PO (22:01)
[2024-06-05] MEDS: VANCOMYCIN 2,000 MG/400 ML PIGGYBACK 200 MG IV (23:50)
[2024-06-06] VITALS (8 sets, daily range): BP systolic 114–142; BP diastolic 54–82; PULSE 77–95; RESP 16–18; TEMP 36.5–37.2; O2SAT 94–97
--- NOTE | 2024-06-06 03:37 | PC.NURSE ---
Addendum entered by Heather Marquez R.N. 06/06/24 04:22: late entry- temp down to 98.1 after dose of tylenol- see MAR. Original Note: Per lab, second set of cultures positive for gram positive cocci. VS WNL, with exception of temp of 101.2. Pt became anxious/agitated, restless, unable to place IV. Dr. Burns ordered IV vanco and 1mg Lorazepam, with second dose if needed to place IV.
[2024-06-06] MEDS: PANTOPRAZOLE DR 40 MG TABLET PO (06:27)
[2024-06-06] MEDS: ACETAMINOPHEN 325 MG TABLET 650 MG PO ×2 (06:40→22:44)
[2024-06-06 06:55] LABS: Add Manual Diff / Slide Review NO; Basophils Absolute Auto 0 /uL (0-100); Basophils Percent Auto 0.4 % (0-2); Eosinophils Absolute Auto 0 /uL (0-450); Hematocrit 35.9 % (36-46); Hemoglobin 12.2 g/dL (12.0-16.0); Lymphocytes Absolute Auto 600 /uL (1100-4500); Lymphocytes Percent Auto 6.8 % (25-40); Mean Corpuscular Volume 82.3 fL (80-100); Monocytes Absolute Auto 1300 /uL (0-900); Monocytes Percent Auto 13.8 % (3-14); Neutrophils Absolute Auto 7300 /uL (1500-7000); Platelet Count 196 X10^3/uL (150-400); Red Blood Cell Count 4.36 X10^6/uL (4.0-5.2); Red Cell Distribution Width 14.9 % (11.6-14.8); White Blood Cell Count 9.2 X10^3/uL (4.5-11.0)
[2024-06-06 07:06] LABS: BUN Creatinine Ratio 18.4 (6-22); Blood Urea Nitrogen 18 mg/dL (7-17); Calcium 9.1 mg/dL (8.4-10.2); Carbon Dioxide 23 mmol/L (22-32); Chloride 107 mmol/L (98-107); Estimated Glomerular Filt Rate > 60 mL/min (>60); Glucose 103 mg/dL (70-100); HEMOLYSIS < 15 (0-50); Potassium 3.7 mmol/L (3.4-5.1); Sodium 137 mmol/L (137-145)
[2024-06-06] MEDS: ALBUTEROL/IPRATROPIUM 3 ML AMPUL INH ×2 (08:27→18:03)
[2024-06-06] MEDS: BUDESONIDE 0.5 MG/2 ML NEB INH ×2 (08:27→18:03)
[2024-06-06] MEDS: AMLODIPINE 5 MG TABLET PO (09:00)
[2024-06-06] MEDS: lamoTRIgine 100 MG TABLET 200 MG PO ×2 (09:00→20:21)
[2024-06-06] MEDS: ASPIRIN EC 81 MG TABLET PO (09:00)
[2024-06-06] MEDS: PROPRANOLOL 10 MG TABLET PO ×2 (09:00→19:01)
[2024-06-06] MEDS: clonazePAM 0.5 MG TABLET PO (09:00)
[2024-06-06] MEDS: ENOXAPARIN 40 MG/0.4 ML SYRINGE SUBCUT (09:00)
[2024-06-06] MEDS: BENZTROPINE 1 MG TABLET 0.5 MG PO (09:00)
[2024-06-06] MEDS: FLUTICASONE 120 SPRAY/16 GM SPRAY.SUSP NASAL (09:01)
[2024-06-06] MEDS: SODIUM CHLORIDE 0.9% FLUSH 10 ML IV ×2 (09:01→20:24)
--- NOTE | 2024-06-06 09:11 | PT.IPTN ---
Current Diagnoses Morbid (severe) obesity due to excess calories (06/03/24) Nicotine dependence, unspecified, uncomplicated (06/03/24) Schizoaffective disorder, bipolar type (06/03/24) Bipolar II disorder (06/03/24) Obstructive sleep apnea (adult) (pediatric) (06/03/24) Metabolic encephalopathy (06/03/24) Chronic obstructive pulmonary disease, unspecified (06/03/24) Spondylosis without myelopathy or radiculopathy, lumbar region (06/03/24) Urinary tract infection, site not specified (06/03/24) Postmenopausal atrophic vaginitis (06/03/24) Body mass index [BMI] 40.0-44.9, adult (06/03/24) Physical Therapy Treatment Note M2 PT-IP Current Condition Start: 06/04/24 09:05 Freq: NEEDED Status: Active Protocol: Document 06/04/24 08:12 MB (Rec: 06/04/24 09:25 MB [id number]) Physical Therapy Current Condition Current Condition Evaluation Date 06/04/24 Treatment Diagnosis UTI and encephalopathy M3 PT-IP Subjective Start: 06/04/24 09:05 Freq: NEEDED Status: Active Protocol: Document 06/06/24 10:10 TS (Rec: 06/06/24 10:18 TS [id number]) Subjective Physical Therapy Visit Type Type Treatment Note Visit Start Time 09:11 Visit Stop Time 09:36 Number of LOG HANDLING EQUIPMENT OPERATOR Visits 1 Physical Therapy Visit Comments Patient Comments Pt found resting in chair, reports feeling weak, she is agreeable to PT. M4 PT-IP Mobility and Gait Start: 06/04/24 09:05 Freq: NEEDED Status: Active Protocol: Document 06/06/24 10:10 TS (Rec: 06/06/24 10:18 TS [id number]) PT-Transfer Assessment Sit to and From Stand Sit to and from Stand Standby Assistance Equipment Transfer Assistive Device Gait Belt,Front Wheeled Walker Orthotic/Prosthetic Devices or Brace: No Comments Mobility Comments Pt performed knee flex/ext and ankle pumps prior to mobility . STS x2 SBA with max cues for sequencing and use of FWW. She ambulated ~30' in room SBA /CGA with FWW, she reports some weakness and slight buckling of knees. Pt was left back in chair, nursing in room. Gait Assessment Gait Gait Assistance Required: Standby Assistance,Contact Guard Assist Distance (Feet) 30 Able to Maintain Weight Bearing Status Yes During Gait Assistive Devices Assistive Device Gait Belt,Front Wheeled Walker Orthotic/Prosthetic Devices or Brace: No Gait Deviations General Gait Pattern Decreased Stride Length, Decreased Feet Clearance Factors Limiting Gait Function Factors Limiting Gait Function Decreased Activity Tolerance, Decreased Strength,Difficulty Following Directions,Limited Range of Motion,Poor Balance, Poor Safety Awareness PT-Balance Assessment Sitting Balance and Reactions Static Sitting Balance Ability Normal Dynamic Sitting Balance Ability Normal Standing Balance and Reactions Static Standing Balance Ability Fair Dynamic Standing Balance Ability Fair Device Used RW M5 PT-IP Objective Assessments Start: 06/04/24 09:05 Freq: NEEDED Status: Active Protocol: Document 06/04/24 08:12 MB (Rec: 06/04/24 09:25 MB [id number]) Orientation Orientation/Cognition Level of Alertness Confusional State Orientation Name,Birthday,Place Safety Awareness Decreased Safety Awareness Memory Description Short Term Impaired,Car Examiner Impaired Gross Range of Motion Upper Extremity ROM Impairments Defer to OT Lower Extremity ROM Assessment Within Functional Limits Strength Lower Extremity Strength Assessment Within Functional Limits Coordination Assessment Assessment Coordination Comments Pt cannot perform coordination testing Sensation Assessment Comments Sensation Comments Pt cannot tolerate sensory testing Muscle Tone Muscle Tone WNL Yes M6 PT-IP Treatment Start: 06/04/24 09:05 Freq: NEEDED Status: Active Protocol: Document 06/06/24 10:10 TS (Rec: 06/06/24 10:18 [id number]) Physical Therapy Treatment Education Education Provided Safety M7 PT-IP Assessment and Plan Start: 06/04/24 09:05 Freq: NEEDED Status: Active Protocol: Document 06/06/24 10:10 TS (Rec: 06/06/24 10:18 [id number]) PT Summary Assessment and Plan Potential Rehabilitation Potential Fair Summary Impairments Pain,ROM,Strength,Balance, Coordination,Sensation,Tone, Cognition,Bed Mobility, Transfers,Gait,Activity Tolerance Progress Towards Goals Slow Progress due to Activity Tolerance Assessment Summary Jodi is making some progress with her mobility but remains limited by poor activity tolerance and weakness. She is SBA for STS with FWW and CGA/ SBA for gait. Her gait is limited by weakness and pt reports buckling of knees. PT continues to recommend SNF vs Home. Goals Bed Mobility Goal Independent Transfer Goal Independent,Front Wheeled Walker Gait Goal Independent,Front Wheel Walker Gait Distance 150 Other Goals improve transfers and ambulation using LRAD ~200 ft mod I Days to Meet Goals 10 Frequency of Treatment Frequency Of Treatment Once a Day Treatment Plan Physical Therapy Treatment Plan Bed Mobility Training,Transfer Training,Gait Training, Therapeutic Exercise,Balance Retraining,Discharge Planning, Hot or Cold Pack,Neuromuscular Re-ed,Coordination Retraining ,Manual Therapy Precautions Other Precautions Fall risk d/t encephalopathy Weight Bearing Status Weight Bearing Status Weight Bear as Tolerated Recommendations To Nursing Amount of Assist Needed Standby Assistance,1 Person Assist Discharge Recommendations PT Discharge Recommendations Home vs SNF Transportation Needs at Discharge Private Vehicle,Wheelchair/ Cabulance
[2024-06-06] MEDS: risperiDONE 1 MG TABLET PO ×2 (09:27→20:23)
--- NOTE | 2024-06-06 14:20 | PT.IPTN ---
Current Diagnoses Morbid (severe) obesity due to excess calories (06/03/24) Nicotine dependence, unspecified, uncomplicated (06/03/24) Schizoaffective disorder, bipolar type (06/03/24) Bipolar II disorder (06/03/24) Obstructive sleep apnea (adult) (pediatric) (06/03/24) Metabolic encephalopathy (06/03/24) Chronic obstructive pulmonary disease, unspecified (06/03/24) Spondylosis without myelopathy or radiculopathy, lumbar region (06/03/24) Urinary tract infection, site not specified (06/03/24) Postmenopausal atrophic vaginitis (06/03/24) Body mass index [BMI] 40.0-44.9, adult (06/03/24) Physical Therapy Treatment Note M2 PT-IP Current Condition Start: 06/04/24 09:05 Freq: NEEDED Status: Active Protocol: Document 06/04/24 08:12 MB (Rec: 06/04/24 09:25 MB [id number]) Physical Therapy Current Condition Current Condition Evaluation Date 06/04/24 Treatment Diagnosis UTI and encephalopathy M3 PT-IP Subjective Start: 06/04/24 09:05 Freq: NEEDED Status: Active Protocol: Document 06/06/24 15:00 TS (Rec: 06/06/24 15:10 TS [id number]) Subjective Physical Therapy Visit Type Type Treatment Note Visit Start Time 13:55 Visit Stop Time 14:20 Notes Family asked pt to be seen again to determine if she is safe going home. Number of COW PUNCHER Visits 2 Physical Therapy Visit Comments Patient Comments Pt found resting in chair, family in room. Family would like to see how pt is moving and would like to consider her going to SNF and not home. Pt is agreeable to PT. M4 PT-IP Mobility and Gait Start: 06/04/24 09:05 Freq: NEEDED Status: Active Protocol: Document 06/06/24 15:00 TS (Rec: 06/06/24 15:10 TS [id number]) PT-Bed Mobility Assessment Sit to Supine Sit to Supine Standby Assistance PT-Transfer Assessment Sit to and From Stand Sit to and from Stand Standby Assistance Equipment Transfer Assistive Device Gait Belt,Front Wheeled Walker Orthotic/Prosthetic Devices or Brace: No Comments Mobility Comments STS from chair with FWW SBA, pt demonstrates some carryover of STS technique. She ambulated in the room ~60'SBA with FWW. She has some fatigue and ambulated slowly with flexed posture. Sit to supine into bed SBA. Pt was left in bed, family in room, all needs met. Gait Assessment Gait Gait Assistance Required: Standby Assistance Distance (Feet) 60 Able to Maintain Weight Bearing Status Yes During Gait Assistive Devices Assistive Device Gait Belt,Front Wheeled Walker Orthotic/Prosthetic Devices or Brace: No Gait Deviations General Gait Pattern Decreased Stride Length, Decreased Feet Clearance Factors Limiting Gait Function Factors Limiting Gait Function Decreased Activity Tolerance, Decreased Strength,Difficulty Following Directions,Limited Range of Motion,Poor Balance, Poor Safety Awareness Comments Gait Comments See mobility comments PT-Balance Assessment Sitting Balance and Reactions Static Sitting Balance Ability Normal Dynamic Sitting Balance Ability Normal Standing Balance and Reactions Static Standing Balance Ability Fair Dynamic Standing Balance Ability Fair Device Used FWW M5 PT-IP Objective Assessments Start: 06/04/24 09:05 Freq: NEEDED Status: Active Protocol: Document 06/04/24 08:12 MB (Rec: 06/04/24 09:25 MB [id number]) Orientation Orientation/Cognition Level of Alertness Confusional State Orientation Name,Birthday,Place Safety Awareness Decreased Safety Awareness Memory Description Short Term Impaired,Care Home Impaired Gross Range of Motion Upper Extremity ROM Impairments Defer to OT Lower Extremity ROM Assessment Within Functional Limits Strength Lower Extremity Strength Assessment Within Functional Limits Coordination Assessment Assessment Coordination Comments Pt cannot perform coordination testing Sensation Assessment Comments Sensation Comments Pt cannot tolerate sensory testing Muscle Tone Muscle Tone WNL Yes M6 PT-IP Treatment Start: 06/04/24 09:05 Freq: NEEDED Status: Active Protocol: Document 06/06/24 15:00 TS (Rec: 06/06/24 15:10 [id number]) Physical Therapy Treatment Education Education Provided Safety M7 PT-IP Assessment and Plan Start: 06/04/24 09:05 Freq: NEEDED Status: Active Protocol: Document 06/06/24 15:00 TS (Rec: 06/06/24 15:10 [id number]) PT Summary Assessment and Plan Potential Rehabilitation Potential Fair Summary Impairments Pain,ROM,Strength,Balance, Coordination,Sensation,Tone, Cognition,Bed Mobility, Transfers,Gait,Activity Tolerance Progress Towards Goals Slow Progress due to Activity Tolerance Assessment Summary Jodi is SBA for all mobility this session. She progressed her gait to ~60'SBA with FWW. She ambulates slowly and does show signs of fatigue. She continues to report feeling weak. Family has concerns about her weakness and would like her to go to SNF. Pt is agreeable. PT is recommending Home vs SNF. If she returned home she would benefit from HHPT. Goals Bed Mobility Goal Independent Transfer Goal Independent,Front Wheeled Walker Gait Goal Independent,Front Wheel Walker Gait Distance 150 Other Goals improve transfers and ambulation using LRAD ~200 ft mod I Days to Meet Goals 10 Frequency of Treatment Frequency Of Treatment Once a Day Treatment Plan Physical Therapy Treatment Plan Bed Mobility Training,Transfer Training,Gait Training, Therapeutic Exercise,Balance Retraining,Discharge Planning, Hot or Cold Pack,Neuromuscular Re-ed,Coordination Retraining ,Manual Therapy Precautions Other Precautions Fall risk d/t encephalopathy Weight Bearing Status Weight Bearing Status Weight Bear as Tolerated Recommendations To Nursing Amount of Assist Needed 1 Person Assist Discharge Recommendations PT Discharge Recommendations Home vs SNF Transportation Needs at Discharge Private Vehicle,Wheelchair/ Cabulance
--- NOTE | 2024-06-06 15:40 | CM.DPNOTE ---
DCP Cont According to CAREER CENTER DIRECTOR and Dr Garnica, patient and hopeful patient can discharge to SNF. Referral sent to [facility] for review. Awaiting feedback. Patient has AARP ([facility]) MCR and will need accepting SNF and SNF auth secured. CM team following closely for coordination of discharge plan. LULY
--- NOTE | 2024-06-06 16:49 | P.PN_ITS ---
Subjective Subjective Interval history: Summary: Admitted for UTI and bacteremia. Gram-negative rods. Had a fever and some confusion last night. One of 2 cultures with Gram-positive cocci, likely a contaminant. Today she remains weak family has concerns about ability to take care of her home. Physical therapy thinks she may be appropriate for rehabilitation stay. Subjective: Somewhat disoriented earlier this morning but more clear now. No abdominal pain. Exam Vital Signs (past 8 hours): - 06/06/24 09:55 06/06/24 12:00 Temperature 98.0 F Pulse Rate 77 Respiratory Rate 16 Blood Pressure 122/64 Blood Pressure [Orthostatic Sitting] 115/64 Blood Pressure [Orthostatic Standing] 127/64 Pulse Oximetry 96 Fraction of Inspired Oxygen 21 SaO2/FiO2 Ratio 442 Oxygen Delivery Method Room Air Oxygen Flow Rate 0 Narrative Exam Narrative: NAD, alert and oriented. Fluent speech. Lungs are clear, normal rate and effort. Heart is regular, no murmur gallop or rub. Abdomen is soft, non distended. Extremities are free of edema. Objective Labs 06/06/24 06:30 06/06/24 06:30 Labs: Laboratory Results - last 24 hr 06/06/24 06:30 WBC 9.2 RBC 4.36 Hgb 12.2 Hct 35.9 L MCV 82.3 MCH 28.0 MCHC 34.0 RDW 14.9 H Plt Count 196 Neut % (Auto) 79.0 H Lymph % (Auto) 6.8 L [place] % (Auto) 13.8 Eos % (Auto) 0.0 L Baso % (Auto) 0.4 Neut # (Auto) 7300 H Lymph # (Auto) 600 L [place] # (Auto) 1300 H Eos # (Auto) 0 Baso # (Auto) 0 Sodium 137 Potassium 3.7 Chloride 107 Carbon Dioxide 23 BUN 18 H Creatinine 0.98 Estimated GFR > 60 BUN/Creatinine Ratio 18.4 Glucose 103 H Calcium 9.1 PFSH Medical History Facet arthropathy, lumbar Cervical stenosis of spinal canal Lumbar stenosis with neurogenic claudication Current smoker Shayla infection of flexural skin Atrophic vaginitis Allergic rhinitis Chronic neck pain Chronic midline low back pain without sciatica Impaired fasting blood sugar Dyslipidemia Long-term use of high-risk medication Candidiasis, intertrigo Bilateral tinnitus Left foot pain Chronic back pain COPD (chronic obstructive pulmonary disease) (2013) Mixed hyperlipidemia (06/2019) Essential hypertension (06/2019) Nicotine abuse Dyspareunia Hormone replacement therapy Intertrigo Intermittent palpitations Insomnia, unspecified Morbid obesity with BMI of 40.0-44.9, adult Obstructive sleep apnea of adult (~10/2018) Chronic pain Chronic post-traumatic stress disorder Alcohol dependence in sustained full remission Bipolar II disorder Lumbar transverse process fracture Surgical History S/P complete hysterectomy (1994) Social History marital status: details: lives in [place] household members: family lives independently: Yes (with elderly parents) caregiver/support person: No housing: house Smoking Status: Current every day smoker Tobacco: How many years used: 42 second hand exposure: No alcohol intake: former substance use type: does not use Assessment & Plan Assessment & Plan narrative: 1. Recurrent UTI, present on admission and improving. Culture with E coli, pansensitive. - continue IV ceftriaxone. Clinically responding. 2. Acute septic encephalopathy, present on admission and improving. - 2nd to UTI - monitor. 3. E coli bacteremia, present on admission and active. 4. Abnormal ECG, present on admission and active. -check troponin. Was normal. No sypmtoms. 5. Bipolar D. / Schizoaffective, present on admission and active. - continuing with home medications - Risperidone, Clozapine, Clonazepam, benztropine 6. COPD, present on admission and stable. - bronchodilators, steroid 7. HLD, present on admission and active. - statin 8. GERD, present on admission and active. 9. Gram-positive cocci in 1 of 2 blood cultures. Probable contaminant. PLAN: -continue current antibiotics. On oral levofloxacin. -following blood cultures. -out of bed, physical therapy eval. -NEREIDA is June 06. alf facility for rehabilitation stay. Time-Based Coding :: 20 min spent with patient and on the chart (including review of chart, obtaining history, exam, reviewing outside data, placing orders, documenting exam and treatment plan, and counseling patient) on 06/06.
[2024-06-06] MEDS: NICOTINE 14 PATCH 14 MG TOP ×2 (20:20→20:33)
[2024-06-06] MEDS: PRAVASTATIN 20 MG TABLET 40 MG PO (20:21)
[2024-06-06] MEDS: TRAMADOL 50 MG TABLET PO (20:22)
[2024-06-06] MEDS: CLOZAPINE 100 MG 200 EACH PO (20:26)
[2024-06-06] MEDS: NYSTATIN POWDER 15GM 1 APPLIC TOP (22:46)
[2024-06-07 05:13] LABS: Add Manual Diff / Slide Review NO; Basophils Absolute Auto 0 /uL (0-100); Basophils Percent Auto 0.5 % (0-2); Eosinophils Absolute Auto 0 /uL (0-450); Hematocrit 35.9 % (36-46); Lymphocytes Absolute Auto 1100 /uL (1100-4500); Lymphocytes Percent Auto 12.8 % (25-40); Mean Corpuscular HGB Conc 33.5 % (30-36); Mean Corpuscular Hemoglobin 27.7 PG (26-34); Mean Corpuscular Volume 82.8 fL (80-100); Monocytes Absolute Auto 1400 /uL (0-900); Monocytes Percent Auto 16.6 % (3-14); Neutrophils Absolute Auto 6000 /uL (1500-7000); Neutrophils Percent Auto 70.1 % (50-75); Platelet Count 219 X10^3/uL (150-400); Red Blood Cell Count 4.34 X10^6/uL (4.0-5.2); Red Cell Distribution Width 14.9 % (11.6-14.8); White Blood Cell Count 8.5 X10^3/uL (4.5-11.0)
[2024-06-07 05:20] LABS: BUN Creatinine Ratio 15.5 (6-22); Blood Urea Nitrogen 17 mg/dL (7-17); Calcium 9.1 mg/dL (8.4-10.2); Carbon Dioxide 25 mmol/L (22-32); Chloride 107 mmol/L (98-107); Estimated Glomerular Filt Rate 58 mL/min (>60); Glucose 101 mg/dL (70-100); HEMOLYSIS < 15 (0-50); Potassium 3.4 mmol/L (3.4-5.1); Sodium 138 mmol/L (137-145)
[2024-06-07] MEDS: PANTOPRAZOLE DR 40 MG TABLET PO (06:08)
[2024-06-07] MEDS: BISACODYL 5 MG TABLET 10 MG PO (06:10)
[2024-06-07] MEDS: BUDESONIDE 0.5 MG/2 ML NEB INH ×2 (07:01→19:00)
[2024-06-07] MEDS: ALBUTEROL/IPRATROPIUM 3 ML AMPUL INH ×3 (07:01→18:59)
[2024-06-07 07:06] VITALS: PULSE 77; RESP 16; O2SAT 97
--- NOTE | 2024-06-07 07:18 | P.PN_ITS ---
Subjective Subjective Interval history: Subjective: She is improved today. Less mental confusion. She was able to walk twice. She was oriented to person and place. She was minimal pain in the right lower quadrant. Exam Vital Signs (past 8 hours): - 06/07/24 07:06 Pulse Rate 77 Respiratory Rate 16 Pulse Oximetry 97 Oxygen Delivery Method Room Air Fraction of Inspired Oxygen 21 SaO2/FiO2 Ratio 442 Oxygen Delivery Method Room Air Oxygen Flow Rate 0 Narrative Exam Narrative: NAD, alert and oriented. Fluent speech. Lungs are clear, normal rate and effort. Heart is regular, no murmur gallop or rub. Abdomen is soft, non distended. Extremities are free of edema. Objective Labs 06/07/24 04:40 06/07/24 04:40 Labs: Laboratory Results - last 24 hr 06/07/24 04:40 WBC 8.5 RBC 4.34 Hgb 12.0 Hct 35.9 L MCV 82.8 MCH 27.7 MCHC 33.5 RDW 14.9 H Plt Count 219 Neut % (Auto) 70.1 Lymph % (Auto) 12.8 L [place] % (Auto) 16.6 H Eos % (Auto) 0.0 L Baso % (Auto) 0.5 Neut # (Auto) 6000 Lymph # (Auto) 1100 [place] # (Auto) 1400 H Eos # (Auto) 0 Baso # (Auto) 0 Sodium 138 Potassium 3.4 Chloride 107 Carbon Dioxide 25 BUN 17 Creatinine 1.10 H Estimated GFR 58 L BUN/Creatinine Ratio 15.5 Glucose 101 H Calcium 9.1 PFSH Medical History Facet arthropathy, lumbar Cervical stenosis of spinal canal Lumbar stenosis with neurogenic claudication Current smoker Shayla infection of flexural skin Atrophic vaginitis Allergic rhinitis Chronic neck pain Chronic midline low back pain without sciatica Impaired fasting blood sugar Dyslipidemia Long-term use of high-risk medication Candidiasis, intertrigo Bilateral tinnitus Left foot pain Chronic back pain COPD (chronic obstructive pulmonary disease) (2012) Mixed hyperlipidemia (06/2019) Essential hypertension (06/2019) Nicotine abuse Dyspareunia Hormone replacement therapy Intertrigo Intermittent palpitations Insomnia, unspecified Morbid obesity with BMI of 40.0-44.9, adult Obstructive sleep apnea of adult (~10/2018) Chronic pain Chronic post-traumatic stress disorder Alcohol dependence in sustained full remission Bipolar II disorder Lumbar transverse process fracture Surgical History S/P complete hysterectomy (1994) Social History marital status: details: lives in [place] household members: family lives independently: Yes (with elderly parents) caregiver/support person: No housing: house Smoking Status: Current every day smoker Tobacco: How many years used: 42 second hand exposure: No alcohol intake: former substance use type: does not use Assessment & Plan Assessment & Plan narrative: 1. Recurrent UTI, present on admission and improving. Culture with E coli, pansensitive. - continue PO Antibiotics, Levofloxacin. 2. Acute septic encephalopathy, present on admission and improving. - 2nd to UTI - monitor. 3. Sepsis with leukocytosis, DEVANG, and encephalopathy. Present on admission and improved. 4. E coli bacteremia, present on admission and active. 5. Abnormal ECG, present on admission and active. -check troponin. Was normal. No sypmtoms. 6. Bipolar D. / Schizoaffective, present on admission and active. - continuing with home medications - Risperidone, Clozapine, Clonazepam, benztropine 7. COPD, present on admission and stable. - bronchodilators, steroid 8. HLD, present on admission and active. - statin 9. GERD, present on admission and active. 10. Gram-positive cocci in 1 of 2 blood cultures. Probable contaminant. PLAN: -continue current antibiotics. On oral levofloxacin. Will complete 14 total days of therapy. -following blood cultures. -out of bed, physical therapy eval. -[facility] is June 08. long term facility for rehabilitation stay. Time-Based Coding :: [TOTAL MINUTES] spent with patient and on the chart (including review of chart, obtaining history, exam, reviewing outside data, placing orders, documenting exam and treatment plan, and counseling patient) on [DATE].
[2024-06-07 07:32] VITALS: BP 134/75; RESP 16; TEMP 36.8; O2SAT 96
[2024-06-07] MEDS: BENZTROPINE 1 MG TABLET 0.5 MG PO (08:45)
[2024-06-07] MEDS: ENOXAPARIN 40 MG/0.4 ML SYRINGE SUBCUT (08:45)
[2024-06-07] MEDS: POTASSIUM CHLORIDE 20 MEQ TAB 40 MEQ PO (08:46)
[2024-06-07] MEDS: ASPIRIN EC 81 MG TABLET PO (08:46)
[2024-06-07] MEDS: lamoTRIgine 100 MG TABLET 200 MG PO ×2 (08:46→20:18)
[2024-06-07] MEDS: levoFLOXacin 250 MG TABLET 750 MG PO (08:46)
[2024-06-07] MEDS: SENNOSIDES 8.6 MG TABLET 17.2 MG PO ×2 (08:46→20:18)
[2024-06-07] MEDS: clonazePAM 0.5 MG TABLET PO (08:46)
[2024-06-07] MEDS: risperiDONE 1 MG TABLET PO ×2 (08:46→20:17)
[2024-06-07] MEDS: AMLODIPINE 5 MG TABLET PO (08:46)
[2024-06-07] MEDS: FLUTICASONE 120 SPRAY/16 GM SPRAY.SUSP NASAL (08:48)
[2024-06-07] MEDS: ACETAMINOPHEN 325 MG TABLET 650 MG PO (09:00)
[2024-06-07] MEDS: SODIUM CHLORIDE 0.9% FLUSH 10 ML IV (09:01)
[2024-06-07] MEDS: polyethylene glycoL 3350 17 GM POWD.PACK PO ×2 (09:51→20:17)
--- NOTE | 2024-06-07 10:15 | PT.IPTN ---
Current Diagnoses Morbid (severe) obesity due to excess calories (06/03/24) Nicotine dependence, unspecified, uncomplicated (06/03/24) Schizoaffective disorder, bipolar type (06/03/24) Bipolar II disorder (06/03/24) Obstructive sleep apnea (adult) (pediatric) (06/03/24) Metabolic encephalopathy (06/03/24) Chronic obstructive pulmonary disease, unspecified (06/03/24) Spondylosis without myelopathy or radiculopathy, lumbar region (06/03/24) Urinary tract infection, site not specified (06/03/24) Postmenopausal atrophic vaginitis (06/03/24) Body mass index [BMI] 40.0-44.9, adult (06/03/24) Physical Therapy Treatment Note M2 PT-IP Current Condition Start: 06/04/24 09:05 Freq: NEEDED Status: Active Protocol: Document 06/04/24 08:12 MB (Rec: 06/04/24 09:25 MB [id number]) Physical Therapy Current Condition Current Condition Evaluation Date 06/04/24 Treatment Diagnosis UTI and encephalopathy M3 PT-IP Subjective Start: 06/04/24 09:05 Freq: NEEDED Status: Active Protocol: Document 06/07/24 09:56 KS (Rec: 06/07/24 11:53 KS [id number]) Subjective Physical Therapy Visit Type Type Treatment Note Visit Start Time 09:56 Visit Stop Time 10:15 Number of DINKEY LOCOMOTIVE OPERATOR Visits 3 Physical Therapy Visit Comments Patient Comments agreeable to do PT M4 PT-IP Mobility and Gait Start: 06/04/24 09:05 Freq: NEEDED Status: Active Protocol: Document 06/07/24 09:56 KS (Rec: 06/07/24 11:53 KS [id number]) PT-Transfer Assessment Sit to and From Stand Sit to and from Stand Contact Guard Assistance Equipment Transfer Assistive Device Gait Belt,Front Wheeled Walker Orthotic/Prosthetic Devices or Brace: No Transfers Transfer Destination Chair Transfer Technique ambulated Transfer Ability Level of Assist Contact Guard Assistance, Minimal Assistance Comments Mobility Comments Pt in chair upon arrival. agreeable to work w/ PT. Min A for sit<>stand w/ FWW. Pt ambulated ~80 ft w/ FWW CGA to Min A w/ 1x LOB needing Min A to recover. Pt reports high level of fatigue following ambulation, but was able to tolerate some LE exercises to improve strenghthening. Pt left in chair w/ all needs in reach. Gait Assessment Gait Gait Assistance Required: Standby Assistance Distance (Feet) 80 Able to Maintain Weight Bearing Status Yes During Gait Assistive Devices Assistive Device Gait Belt,Front Wheeled Walker Orthotic/Prosthetic Devices or Brace: No Gait Deviations General Gait Pattern Decreased Stride Length, Decreased Feet Clearance Factors Limiting Gait Function Factors Limiting Gait Function Decreased Activity Tolerance, Decreased Strength,Difficulty Following Directions,Limited Range of Motion,Poor Balance, Poor Safety Awareness Comments Gait Comments See mobility comments PT-Balance Assessment Sitting Balance and Reactions Static Sitting Balance Ability Normal Dynamic Sitting Balance Ability Normal Standing Balance and Reactions Static Standing Balance Ability Fair Dynamic Standing Balance Ability Fair Device Used FWW M5 PT-IP Objective Assessments Start: 06/04/24 09:05 Freq: NEEDED Status: Active Protocol: Document 06/04/24 08:12 MB (Rec: 06/04/24 09:25 MB [id number]) Orientation Orientation/Cognition Level of Alertness Confusional State Orientation Name,Birthday,Place Safety Awareness Decreased Safety Awareness Memory Description Short Term Impaired,Tripper Impaired Gross Range of Motion Upper Extremity ROM Impairments Defer to OT Lower Extremity ROM Assessment Within Functional Limits Strength Lower Extremity Strength Assessment Within Functional Limits Coordination Assessment Assessment Coordination Comments Pt cannot perform coordination testing Sensation Assessment Comments Sensation Comments Pt cannot tolerate sensory testing Muscle Tone Muscle Tone WNL Yes M6 PT-IP Treatment Start: 06/04/24 09:05 Freq: NEEDED Status: Active Protocol: Document 06/07/24 09:56 KS (Rec: 06/07/24 11:53 MD [id number]) Physical Therapy Treatment Exercises Exercises Ankle Pumps,Gluteal Sets,Quad Sets Education Education Provided Safety Other Treatments Other Treatment Performed seated marching M7 PT-IP Assessment and Plan Start: 06/04/24 09:05 Freq: NEEDED Status: Active Protocol: Document 06/07/24 09:56 KS (Rec: 06/07/24 11:53 MD [id number]) PT Summary Assessment and Plan Potential Rehabilitation Potential Fair Summary Impairments Pain,ROM,Strength,Balance, Coordination,Sensation,Tone, Cognition,Bed Mobility, Transfers,Gait,Activity Tolerance Progress Towards Goals Slow Progress due to Activity Tolerance Assessment Summary Pt able to progress gait distance with less overall assistance today. She required Min A for sit<>Stand and ambulation w/ FWW. She ambulated ~80 ft w/ 1x lateral LOB needing Min A to recover. Able to complete LE exercises w/ cues. Will continue to assess progress. Goals Bed Mobility Goal Independent Transfer Goal Independent,Front Wheeled Walker Gait Goal Independent,Front Wheel Walker Gait Distance 150 Other Goals improve transfers and ambulation using LRAD ~200 ft mod I Days to Meet Goals 10 Frequency of Treatment Frequency Of Treatment Once a Day Treatment Plan Physical Therapy Treatment Plan Bed Mobility Training,Transfer Training,Gait Training, Therapeutic Exercise,Balance Retraining,Discharge Planning, Hot or Cold Pack,Neuromuscular Re-ed,Coordination Retraining ,Manual Therapy Precautions Other Precautions Fall risk d/t encephalopathy Weight Bearing Status Weight Bearing Status Weight Bear as Tolerated Recommendations To Nursing Amount of Assist Needed 1 Person Assist Discharge Recommendations PT Discharge Recommendations Home vs SNF Transportation Needs at Discharge Private Vehicle,Wheelchair/ Cabulance
[2024-06-07 12:00] VITALS: BP 134/72; PULSE 85; RESP 16; TEMP 36.7; O2SAT 94
[2024-06-07] MEDS: NICOTINE 14 PATCH 14 MG TOP (12:41)
--- NOTE | 2024-06-07 15:53 | CM.DPNOTE ---
DCP Cont [facility] considering; hope to have a determination Saturday. Hospital exempt PASRR completed and signed. May need to broaden SNF search if [facility] unable to accommodate. Therapies and medical team continue to recommend SNF stay. Patient has [facility] ([facility] MCR. CM team following closely for coordination efforts. LULY
[2024-06-07 17:51] VITALS: BP 120/76; PULSE 88; RESP 16; TEMP 36.8; O2SAT 93
[2024-06-07] MEDS: PRAVASTATIN 20 MG TABLET 40 MG PO (20:17)
[2024-06-07] MEDS: PROPRANOLOL 10 MG TABLET PO (20:18)
[2024-06-07] MEDS: CLOZAPINE 100 MG 200 EACH PO (20:18)
[2024-06-07] MEDS: TRAMADOL 50 MG TABLET PO (20:18)
[2024-06-07 20:45] VITALS: BP 118/69; PULSE 92; RESP 16; TEMP 37; O2SAT 97
[2024-06-08 03:21] VITALS: BP 119/70; PULSE 86; RESP 16; TEMP 36.5; O2SAT 91
[2024-06-08] MEDS: BISACODYL 5 MG TABLET 10 MG PO (05:47)
[2024-06-08] MEDS: PANTOPRAZOLE DR 40 MG TABLET PO (05:48)
[2024-06-08] MEDS: levoFLOXacin 250 MG TABLET 750 MG PO (06:06)
[2024-06-08 07:07] LABS: BUN Creatinine Ratio 16.5 (6-22); Blood Urea Nitrogen 16 mg/dL (7-17); Calcium 8.8 mg/dL (8.4-10.2); Carbon Dioxide 25 mmol/L (22-32); Chloride 105 mmol/L (98-107); Estimated Glomerular Filt Rate > 60 mL/min (>60); Glucose 97 mg/dL (70-100); HEMOLYSIS < 15 (0-50); Potassium 3.9 mmol/L (3.4-5.1); Sodium 135 mmol/L (137-145)
[2024-06-08 08:00] VITALS: BP 123/63; PULSE 89; RESP 16; TEMP 36.7; O2SAT 95
[2024-06-08] MEDS: polyethylene glycoL 3350 17 GM POWD.PACK PO ×2 (08:09→21:29)
[2024-06-08] MEDS: ENOXAPARIN 40 MG/0.4 ML SYRINGE SUBCUT (08:09)
[2024-06-08] MEDS: BENZTROPINE 1 MG TABLET 0.5 MG PO (08:10)
[2024-06-08] MEDS: NICOTINE 14 PATCH 14 MG TOP (08:10)
[2024-06-08] MEDS: TRAMADOL 50 MG TABLET PO ×3 (08:10→21:30)
[2024-06-08] MEDS: ACETAMINOPHEN 325 MG TABLET 650 MG PO (08:10)
[2024-06-08] MEDS: clonazePAM 0.5 MG TABLET PO (08:11)
[2024-06-08] MEDS: risperiDONE 1 MG TABLET PO ×2 (08:11→21:31)
[2024-06-08] MEDS: SENNOSIDES 8.6 MG TABLET 17.2 MG PO ×2 (08:11→21:31)
[2024-06-08] MEDS: lamoTRIgine 100 MG TABLET 200 MG PO ×2 (08:11→21:32)
[2024-06-08] MEDS: ASPIRIN EC 81 MG TABLET PO (08:11)
[2024-06-08] MEDS: AMLODIPINE 5 MG TABLET PO (08:11)
[2024-06-08] MEDS: FLUTICASONE 120 SPRAY/16 GM SPRAY.SUSP NASAL (08:12)
--- NOTE | 2024-06-08 10:58 | OT.IP.TRT ---
Current Diagnoses Morbid (severe) obesity due to excess calories (06/03/24) Nicotine dependence, unspecified, uncomplicated (06/03/24) Schizoaffective disorder, bipolar type (06/03/24) Bipolar II disorder (06/03/24) Obstructive sleep apnea (adult) (pediatric) (06/03/24) Metabolic encephalopathy (06/03/24) Chronic obstructive pulmonary disease, unspecified (06/03/24) Spondylosis without myelopathy or radiculopathy, lumbar region (06/03/24) Urinary tract infection, site not specified (06/03/24) Postmenopausal atrophic vaginitis (06/03/24) Body mass index [BMI] 40.0-44.9, adult (06/03/24) Occupational Therapy Treatment Note M2 OT-IP Current Condition Start: 06/04/24 09:16 Freq: Status: Active Protocol: Document 06/04/24 09:16 [facility] (Rec: 06/04/24 09:35 [facility] [id number]) Occupational Therapy Current Condition Current Condition Evaluation Date 06/04/24 Treatment Diagnosis UTI, septic encephalopathy Diagnosis Onset Date 06/03/24 M3 OT- IP Subjective and Pain Start: 06/04/24 09:16 Freq: Status: Active Protocol: Document 06/08/24 13:18 CGR (Rec: 06/08/24 13:27 CGR [id number]) OT- Subjective Occupational Therapy Visit Type Type Treatment Note Visit Start Time 10:26 Visit Stop Time 10:58 Notes Pt requesting to get into shower. OT Pain Assessment Pain When Pain Assessed At Rest Pain Present Pain Present Denied Pain M4 OT- IP ADL's Start: 06/04/24 09:16 Freq: Status: Active Protocol: Document 06/08/24 13:18 CGR (Rec: 06/08/24 13:27 CGR [id number]) OT [id number] Comments OT Self-Feeding Comments not meal time OT ADL-Grooming General Evaluation Grooming Ability Maximum Assistance Areas Needing Assistance Combing/Brushing Hair Comments OT Grooming Comments This selling underwriter brushed out knots after pt showered. OT ADL-Oral Care Comments Oral Care Comments Not performed OT ADL-Dressing General Eval Upper Body Dressing Ability Standby Assistance Lower Body Dressing Ability Standby Assistance Areas Needing Assistance Socks Comments OT Dressing Comments hospital gown and socks after shower OT ADL-Toileting General Evaluation Toileting Ability Standby Assistance Comments OT Toileting Comments pt urinated seated on toielt after shower. OT ADL-Bathing Bathing Type Bathing Type Shower General Evaluation Bathing Ability Moderate Assistance Areas Needing Assistance Retrieving/Setting Up Items, Wash/Dry Upper Body,Wash/Dry Lower Extremities Devices Bathing Equipment Hand Held Shower Sprayer, Shower Chair without Arms,Grab Bars Comments OT Bathing Comments Pt was assisted with washing hair in shower as well as back and lower body. M5 OT- IP IADL's Start: 06/04/24 09:16 Freq: Status: Active Protocol: Document 06/04/24 09:16 [facility] (Rec: 06/04/24 09:35 [facility] [id number]) OT-Instrumental Activities of Daily Living Deficits IADL Deficits Identified Deficits Home Safety Awareness Awareness of Need for Assistance at Home Decreased Awareness Ability to Problem Solve Emergency Unable to Problem Solve Situations Home Safety Comments Pt is very confused and not able to follow conversations and is tangential in her speedh. Medication Management Medication Management Comments Pt daquan benefit from assist, concerens for safety. Money Management Money Management Comments Pt daquan benefit from assist, concerens for safety. Meal Preparation Meal Preparation Comments Pt daquan benefit from assist, concerens for safety. Welding Machine Operator Gas Welding Machine Operator Gas Comments Pt daquan benefit from assist, concerens for safety. Driving Driving Comments Pt daquan benefit from assist, concerens for safety. M6 OT- IP Functional Cognition Start: 06/04/24 09:16 Freq: Status: Active Protocol: Document 06/08/24 13:18 CGR (Rec: 06/08/24 13:27 CGR [id number]) Cognitive Factors Limiting Selfcare Function Cognitive Ability Level of Alertness Alert Patient Orientation Name,Age,Birthday,Month,Date, Year,Place,Situation Attention Span Ability Capable of Focused Attention, Capable of Sustained Attention Cognitive Tests SLUMS Previous SLUMS copied and added to pt's paper file to be scanned into the system. OT- Vision and Hearing OT- Hearing Assessment OT- Hearing Assessment WFL M7 OT- IP Mobility and Balance Start: 06/04/24 09:16 Freq: Status: Active Protocol: Document 06/08/24 13:18 CGR (Rec: 06/08/24 13:27 CGR [id number]) OT-Transfer Assessment Sit to and From Stand Sit to and from Stand Standby Assistance Transfers Transfer Ability Standby Assistance Technique Transfer Destination Chair,Shower Stall,Toilet Transfer Technique Stand Step Pivot Devices Transfer Assistive Devices Gait Belt,Front Wheeled Walker Comments Mobility Comments Pt ambulated from the chair to the sink, then into the bathroom for shower and toileting then returned to chair at end of session. OT- Gait Assessment Gait Gait Assistance Required: Standby Assistance Assistive Devices Assistive Device Gait Belt,Front Wheeled Walker Comments Gait Ability Comments mobility around the room. OT- Balance Assessment Sitting Balance and Reactions Static Sitting Balance Ability Good Dynamic Sitting Balance Ability Good M8 OT- IP Objective Assessments Start: 06/04/24 09:16 Freq: Status: Active Protocol: Document 06/04/24 09:16 [facility] (Rec: 06/04/24 09:35 [facility] [id number]) OT Gross Range of Motion Upper Extremity Range of Motion Assessment Right Impaired OT Strength Upper Extremity Strength Assessment Right Impaired Comments Strength Comments RUE 4-/5 versus LUE 4/5 OT- Coordination Assessment Upper Extremity Finger to Nose Test Left UE Impaired Finger Tapping Test Right UE Impaired Comments Coordination Comments Left side slight more impaired then right hand. M9 OT- IP Assessment and Plan Start: 06/04/24 09:16 Freq: Status: Active Protocol: Document 06/08/24 13:18 [facility] (Rec: 06/08/24 13:27 [id number] OT Summary Assessment and Plan Potential Rehabilitation Potential Good Analytic Complexity at Evaluation Moderate Summary OT Impairments Pain,Range of Motion,Strength, Balance,Coordination, Functional Cognition, Functional Mobility,Self- Feeding,Grooming,Dressing, Toileting,Bathing,Toilet Transfers,Shower Transfers, Activity Tolerance Progress Towards Goals Slow Progress due to Pain,Slow Progress due to Medical Issues,Slow Progress due to Activity Tolerance,Slow Progress due to Cognition Assessment Summary Pt tolerated session well and requesting to shower. Pt has been sweating and states she feels warm. Pt performed shower with mod a and toileted seated on toielt. Pt returned to chair at end of session. Call button within reach and all needs at time met. Goals Self-Feeding Goal Independent Grooming Goal Independent Dressing Goal Independent Toileting Goal Independent Bathing Goal Independent Toilet Transfer Goal Independent Shower Transfer Goal Independent Days to Meet Goals 20 Frequency of Treatment Frequency Of Treatment Once a Day Other frequency 5x/week Treatment Plan OT Treatment Plan ADL Training,Functional Cognition Training,Functional Mobility,Patient/Family Education,Discharge Planning Discharge Recommendations OT Discharge Recommendations Home vs SNF Other Discharge Recommendations Hopefully pt to be able to improve and be able to go home with 24/7 available assist and home health. Transportation Needs at Discharge Wheelchair/Cabulance
[2024-06-08] MEDS: BISACODYL 10 MG SUPP PR (11:03)
[2024-06-08] MEDS: ALBUTEROL/IPRATROPIUM 3 ML AMPUL INH ×3 (11:22→22:48)
--- NOTE | 2024-06-08 12:16 | P.PN_ITS ---
Subjective Subjective Interval history: Subjective: She was doing accepted at senior care facility. She feels stronger and more mentally clear today. No urinary symptoms. Exam Vital Signs (past 8 hours): - 06/08/24 08:00 Temperature 98.0 F Pulse Rate 89 Respiratory Rate 16 Blood Pressure 123/63 Pulse Oximetry 95 Oxygen Flow Rate 0 Fraction of Inspired Oxygen 21 SaO2/FiO2 Ratio 442 Oxygen Delivery Method Room Air Oxygen Flow Rate 0 Narrative Exam Narrative: NAD, alert and oriented. Fluent speech. Lungs are clear, normal rate and effort. Heart is regular, no murmur gallop or rub. Abdomen is soft, non distended. Extremities are free of edema. Objective Labs 06/07/24 04:40 06/08/24 06:25 Labs: Laboratory Results - last 24 hr 06/08/24 06:25 Sodium 135 L Potassium 3.9 Chloride 105 Carbon Dioxide 25 BUN 16 Creatinine 0.97 Estimated GFR > 60 BUN/Creatinine Ratio 16.5 Glucose 97 Calcium 8.8 [facility] Medical History Facet arthropathy, lumbar Cervical stenosis of spinal canal Lumbar stenosis with neurogenic claudication Current smoker Shayla infection of flexural skin Atrophic vaginitis Allergic rhinitis Chronic neck pain Chronic midline low back pain without sciatica Impaired fasting blood sugar Dyslipidemia Long-term use of high-risk medication Candidiasis, intertrigo Bilateral tinnitus Left foot pain Chronic back pain COPD (chronic obstructive pulmonary disease) (2012) Mixed hyperlipidemia (06/2019) Essential hypertension (06/2019) Nicotine abuse Dyspareunia Hormone replacement therapy Intertrigo Intermittent palpitations Insomnia, unspecified Morbid obesity with BMI of 40.0-44.9, adult Obstructive sleep apnea of adult (~10/2018) Chronic pain Chronic post-traumatic stress disorder Alcohol dependence in sustained full remission Bipolar II disorder Lumbar transverse process fracture Surgical History S/P complete hysterectomy (1994) Social History marital status: details: lives in [place] household members: family lives independently: Yes (with elderly parents) caregiver/support person: No housing: house Smoking Status: Current every day smoker Tobacco: How many years used: 42 second hand exposure: No alcohol intake: former substance use type: does not use Assessment & Plan Assessment & Plan narrative: 1. Recurrent UTI, present on admission and improving. Culture with E coli, pansensitive. - continue PO Antibiotics, Levofloxacin. 2. Acute septic encephalopathy, present on admission and improving. - 2nd to UTI - monitor. 3. Sepsis with leukocytosis, DEVANG, and encephalopathy. Present on admission and improved. 4. E coli bacteremia, present on admission and active. 5. Abnormal ECG, present on admission and active. -check troponin. Was normal. No symptoms. 6. Bipolar D. / Schizoaffective, present on admission and active. - continuing with home medications - Risperidone, Clozapine, Clonazepam, benztropine 7. COPD, present on admission and stable. - bronchodilators, steroid 8. HLD, present on admission and active. - statin 9. GERD, present on admission and active. 10. Gram-positive cocci in 1 of 2 blood cultures. Probable contaminant. PLAN: -continue current antibiotics. On oral levofloxacin. Will complete 14 total days of therapy. -following blood cultures. Negative. -out of bed, physical therapy. -[facility] is June 11 (based on SNF availability). nursing home facility for rehabilitation stay. Time-Based Coding :: 20 min spent with patient and on the chart (including review of chart, obtaining history, exam, reviewing outside data, placing orders, documenting exam and treatment plan, and counseling patient) on 06/08.
--- NOTE | 2024-06-08 13:42 | DIET.PN1 ---
Dietary Progress Note Assessment: Attempted visit x2, pt in bathroom or receiving care. Avg recorded po intakes during admission 70%. Decrease in po intakes yesterday. Ht: 165.1 cm Wt: 104.326 kg BMI: 38.2 UBW: 102.058 kg on 04/22/24, 100.811 kg on 12/25/23, 104.496 kg on 06/05/23; no weight loss within past yr noted per EMR Last BM: 06/08/24 (06/08/24 13:24) MNA: 11 Jordon Score: 21 Diet: 06/04/24 Dinner General (Regular) Diet Diet Modifications: Food Texture: Level 5 - Minced & Moist Liquid Consistency: Level 0 - Thin Nutrition Percent Meal Consumed 25% 06/08/24 08:39 Percent Meal Consumed 50% 06/07/24 17:38 Percent Meal Consumed 10% shake ordered 06/07/24 12:19 Percent Meal Consumed 50% 06/07/24 10:13 Percent Meal Consumed 100% 06/06/24 18:00 Percent Meal Consumed 100% 06/06/24 15:30 Labs: RBC 4.34 X10^6/uL (4.0-5.2) 06/07/24 04:40 Hgb 12.0 g/dL (12.0-16.0) 06/07/24 04:40 Hct 35.9 % (36-46) L 06/07/24 04:40 Creatinine 0.97 mg/dL (0.52-1.04) 06/08/24 06:25 Lactate 0.7 mmol/L (0.7-2.1) 06/02/24 23:08 NT-Pro-B Natriuret Pep 177 pg/mL (<125) H 06/02/24 23:08 Nutrition Diagnosis: Inadequate oral intake r/t decreased appetite aeb pt reported reduced intake for 2 weeks Interventions: 1. Protein supplementation or ONS BID Monitoring/Evaluations: po intakes, f/u for full assessment Electronically Signed by: Bailey Lee 06/08/24 13:42 Clinical Dietitian [address] [id number]
[2024-06-08 14:00] VITALS: BP 132/65; PULSE 86; RESP 16; TEMP 36.8; O2SAT 95
[2024-06-08] MEDS: PROPRANOLOL 10 MG TABLET PO (14:31)
[2024-06-08 19:02] VITALS: PULSE 74; RESP 18; O2SAT 92
[2024-06-08] MEDS: BUDESONIDE 0.5 MG/2 ML NEB INH (19:02)
[2024-06-08 20:31] VITALS: BP 108/71; PULSE 74; RESP 18; TEMP 36.3; O2SAT 95
[2024-06-08] MEDS: PRAVASTATIN 20 MG TABLET 40 MG PO (21:32)
[2024-06-08 22:48] VITALS: PULSE 78; RESP 20; O2SAT 95
[2024-06-09 06:00] VITALS: BP 127/76; PULSE 82; RESP 18; TEMP 36.4; O2SAT 95
[2024-06-09 06:35] VITALS: PULSE 87; RESP 16; O2SAT 93
[2024-06-09] MEDS: BUDESONIDE 0.5 MG/2 ML NEB INH (06:35)
[2024-06-09] MEDS: ALBUTEROL/IPRATROPIUM 3 ML AMPUL INH ×2 (06:35→11:08)
[2024-06-09] MEDS: levoFLOXacin 250 MG TABLET 750 MG PO (06:48)
[2024-06-09] MEDS: PANTOPRAZOLE DR 40 MG TABLET PO (06:48)
[2024-06-09 06:50] LABS: Hematocrit 34.7 % (36-46); Hemoglobin 11.7 g/dL (12.0-16.0); Mean Corpuscular HGB Conc 33.6 % (30-36); Mean Corpuscular Hemoglobin 27.6 PG (26-34); Mean Corpuscular Volume 82.3 fL (80-100); Platelet Count 328 X10^3/uL (150-400); Red Blood Cell Count 4.22 X10^6/uL (4.0-5.2); Red Cell Distribution Width 14.9 % (11.6-14.8); White Blood Cell Count 10.6 X10^3/uL (4.5-11.0)
[2024-06-09 07:01] LABS: Blood Urea Nitrogen 16 mg/dL (7-17); Calcium 9.1 mg/dL (8.4-10.2); Carbon Dioxide 26 mmol/L (22-32); Chloride 103 mmol/L (98-107); Estimated Glomerular Filt Rate > 60 mL/min (>60); Glucose 90 mg/dL (70-100); HEMOLYSIS < 15 (0-50); Potassium 3.9 mmol/L (3.4-5.1); Sodium 136 mmol/L (137-145)
--- NOTE | 2024-06-09 07:26 | PM.PN.1 ---
Subjective Subjective Interval history: Subjective: She was not accepted at the long-term facility, they are still reviewing. She continues on antibiotics. She was having less confusion and her weakness is slowly improving. Exam Vital Signs (past 8 hours): - 06/09/24 06:00 06/09/24 06:35 Temperature 97.6 F Pulse Rate 82 87 Respiratory Rate 18 16 Blood Pressure 127/76 Pulse Oximetry 95 93 Oxygen Delivery Method Room Air Oxygen Flow Rate 0 Fraction of Inspired Oxygen 21 Fraction of Inspired Oxygen 21 SaO2/FiO2 Ratio 442 Oxygen Delivery Method Room Air Oxygen Flow Rate 0 Narrative Exam Narrative: NAD, alert and oriented. Fluent speech. Lungs are clear, normal rate and effort. Heart is regular, no murmur gallop or rub. Abdomen is soft, non distended. Extremities are free of edema. Objective Labs 06/09/24 06:22 06/09/24 06:22 Labs: Laboratory Results - last 24 hr 06/02/24 06/09/24 23:09 06:22 WBC 10.6 RBC 4.22 Hgb 11.7 L Hct 34.7 L MCV 82.3 MCH 27.6 MCHC 33.6 RDW 14.9 H Plt Count 328 ABG Sample Site Not Reportable Respiration Rate Not Reportable O2 Delivery Device Not Reportable FiO2 Not Reportable Sodium 136 L Potassium 3.9 Chloride 103 Carbon Dioxide 26 BUN 16 Creatinine 0.94 Estimated GFR > 60 BUN/Creatinine Ratio 17.0 Glucose 90 Calcium 9.1 [facility] Medical History Facet arthropathy, lumbar Cervical stenosis of spinal canal Lumbar stenosis with neurogenic claudication Current smoker Shayla infection of flexural skin Atrophic vaginitis Allergic rhinitis Chronic neck pain Chronic midline low back pain without sciatica Impaired fasting blood sugar Dyslipidemia Long-term use of high-risk medication Candidiasis, intertrigo Bilateral tinnitus Left foot pain Chronic back pain COPD (chronic obstructive pulmonary disease) (2012) Mixed hyperlipidemia (06/2019) Essential hypertension (06/2019) Nicotine abuse Dyspareunia Hormone replacement therapy Intertrigo Intermittent palpitations Insomnia, unspecified Morbid obesity with BMI of 40.0-44.9, adult Obstructive sleep apnea of adult (~10/2018) Chronic pain Chronic post-traumatic stress disorder Alcohol dependence in sustained full remission Bipolar II disorder Lumbar transverse process fracture Surgical History S/P complete hysterectomy (1994) Social History marital status: details: lives in [place] household members: family lives independently: Yes (with elderly parents) caregiver/support person: No housing: house Smoking Status: Current every day smoker Tobacco: How many years used: 42 second hand exposure: No alcohol intake: former substance use type: does not use Assessment & Plan Assessment & Plan narrative: 1. Recurrent UTI, present on admission and improving. Culture with E coli, pansensitive. - continue PO Antibiotics, Levofloxacin. 2. Acute septic encephalopathy, present on admission and improving. - 2nd to UTI - monitor. 3. Sepsis with leukocytosis, DEVANG, and encephalopathy. Present on admission and improved. 4. E coli bacteremia, present on admission and active. 5. Abnormal ECG, present on admission and active. -check troponin. Was normal. No symptoms. 6. Bipolar D. / Schizoaffective, present on admission and active. - continuing with home medications - Risperidone, Clozapine, Clonazepam, benztropine 7. COPD, present on admission and stable. - bronchodilators, steroid 8. HLD, present on admission and active. - statin 9. GERD, present on admission and active. 10. Gram-positive cocci in 1 of 2 blood cultures. Probable contaminant. PLAN: -continue antibiotics, oral levofloxacin. -await possible acceptance at long-term facility. -she will complete 14 total days of oral antibiotic therapy. -continue out of bed, advance activity, physical therapy. -NEREIDA is June 10 (based on SNF availability). care home facility for rehabilitation stay. Time-Based Coding :: [TOTAL MINUTES] spent with patient and on the chart (including review of chart, obtaining history, exam, reviewing outside data, placing orders, documenting exam and treatment plan, and counseling patient) on [DATE].
[2024-06-09 08:00] VITALS: BP 124/79; PULSE 90; RESP 16; TEMP 36.7; O2SAT 95
[2024-06-09] MEDS: ASPIRIN EC 81 MG TABLET PO (08:12)
[2024-06-09] MEDS: risperiDONE 1 MG TABLET PO (08:12)
[2024-06-09] MEDS: ENOXAPARIN 40 MG/0.4 ML SYRINGE SUBCUT (08:12)
[2024-06-09] MEDS: BENZTROPINE 1 MG TABLET 0.5 MG PO (08:12)
[2024-06-09] MEDS: AMLODIPINE 5 MG TABLET PO (08:12)
[2024-06-09] MEDS: clonazePAM 0.5 MG TABLET PO (08:13)
[2024-06-09] MEDS: NICOTINE 14 PATCH 14 MG TOP (08:13)
[2024-06-09] MEDS: lamoTRIgine 100 MG TABLET 200 MG PO (08:13)
[2024-06-09] MEDS: FLUTICASONE 120 SPRAY/16 GM SPRAY.SUSP NASAL (08:14)
--- NOTE | 2024-06-09 09:02 | PC.NURSE ---
Addendum entered by Mary Jasso R.N. 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 She is alert and oriented x4, she ate well at breakfast and is talking to her mother on the phone now. She is suppose to discharge today. Up in the chair and one person assist with the walker.
--- NOTE | 2024-06-09 10:40 | PT.IPTN ---
Current Diagnoses Morbid (severe) obesity due to excess calories (06/03/24) Nicotine dependence, unspecified, uncomplicated (06/03/24) Schizoaffective disorder, bipolar type (06/03/24) Bipolar II disorder (06/03/24) Obstructive sleep apnea (adult) (pediatric) (06/03/24) Metabolic encephalopathy (06/03/24) Chronic obstructive pulmonary disease, unspecified (06/03/24) Spondylosis without myelopathy or radiculopathy, lumbar region (06/03/24) Urinary tract infection, site not specified (06/03/24) Postmenopausal atrophic vaginitis (06/03/24) Body mass index [BMI] 40.0-44.9, adult (06/03/24) Physical Therapy Treatment Note M2 PT-IP Current Condition Start: 06/04/24 09:05 Freq: NEEDED Status: Discharge Protocol: Document 06/04/24 08:12 MB (Rec: 06/04/24 09:25 MB [id number]) Physical Therapy Current Condition Current Condition Evaluation Date 06/04/24 Treatment Diagnosis UTI and encephalopathy M3 PT-IP Subjective Start: 06/04/24 09:05 Freq: NEEDED Status: Discharge Protocol: Document 06/09/24 10:40 AB (Rec: 06/09/24 13:32 AB [id number]) Subjective Physical Therapy Visit Type Type Treatment Note Visit Start Time 10:40 Visit Stop Time 10:55 Number of SET UP MECHANIC COATING MACHINES Visits 0 Physical Therapy Visit Comments Patient Comments agreeable to do PT M4 PT-IP Mobility and Gait Start: 06/04/24 09:05 Freq: NEEDED Status: Discharge Protocol: Document 06/09/24 10:40 AB (Rec: 06/09/24 13:32 AB [id number]) PT-Transfer Assessment Sit to and From Stand Sit to and from Stand Contact Guard Assistance,1 Person Assistance,Use of Upper Extremities Equipment Transfer Assistive Device Gait Belt,Front Wheeled Walker Orthotic/Prosthetic Devices or Brace: No Comments Mobility Comments pt sitting on the chair and agreeable to do PT. completed sit to stand cGA and ambulated using FWW in the hallway ~ 75 ft SBA to cGA. cues for safety as pt can be impulsive. pt sat back on chair. refused further activities. stated that she does not want to get too tired before she leaves for SNF. positioned pt on the chair. call light and table placed within reach. Gait Assessment Gait Gait Assistance Required: Standby Assistance,Contact Guard Assist Distance (Feet) 75 Able to Maintain Weight Bearing Status Yes During Gait Assistive Devices Assistive Device Gait Belt,Front Wheeled Walker Orthotic/Prosthetic Devices or Brace: No Gait Deviations General Gait Pattern Ataxic,Decreased Stride Length ,Decreased Feet Clearance Factors Limiting Gait Function Factors Limiting Gait Function Decreased Activity Tolerance, Decreased Strength,Difficulty Following Directions,Poor Balance,Poor Safety Awareness M5 PT-IP Objective Assessments Start: 06/04/24 09:05 Freq: NEEDED Status: Discharge Protocol: Document 06/04/24 08:12 MB (Rec: 06/04/24 09:25 MB [id number]) Orientation Orientation/Cognition Level of Alertness Confusional State Orientation Name,Birthday,Place Safety Awareness Decreased Safety Awareness Memory Description Short Term Impaired,Snf Impaired Gross Range of Motion Upper Extremity ROM Impairments Defer to OT Lower Extremity ROM Assessment Within Functional Limits Strength Lower Extremity Strength Assessment Within Functional Limits Coordination Assessment Assessment Coordination Comments Pt cannot perform coordination testing Sensation Assessment Comments Sensation Comments Pt cannot tolerate sensory testing Muscle Tone Muscle Tone WNL Yes M6 PT-IP Treatment Start: 06/04/24 09:05 Freq: NEEDED Status: Discharge Protocol: Document 06/09/24 10:40 AB (Rec: 06/09/24 13:32 AB [id number]) Physical Therapy Treatment Education Education Provided Safety M7 PT-IP Assessment and Plan Start: 06/04/24 09:05 Freq: NEEDED Status: Discharge Protocol: Document 06/09/24 10:40 AB (Rec: 06/09/24 13:32 AB [id number]) PT Summary Assessment and Plan Potential Rehabilitation Potential Fair Summary Impairments Pain,ROM,Strength,Balance, Coordination,Sensation,Tone, Cognition,Bed Mobility, Transfers,Gait,Activity Tolerance Progress Towards Goals Progressing Toward Goals Assessment Summary pt progressing with mobility but continues to require SBA to CGA using fWW. pt with h/o frequent falls at home and continues to be a high fall risk due to decrease safety awareness. pt plans to d/c to SNF today per pt depending on authorization. Goals Bed Mobility Goal Independent Transfer Goal Independent,Front Wheeled Walker Gait Goal Independent,Front Wheel Walker Gait Distance 150 Other Goals improve transfers and ambulation using LRAD ~200 ft mod I Days to Meet Goals 10 Frequency of Treatment Frequency Of Treatment Once a Day Treatment Plan Physical Therapy Treatment Plan Bed Mobility Training,Transfer Training,Gait Training, Therapeutic Exercise,Balance Retraining,Discharge Planning, Hot or Cold Pack,Neuromuscular Re-ed,Coordination Retraining ,Manual Therapy Recommendations To Nursing Amount of Assist Needed 1 Person Assist Discharge Recommendations PT Discharge Recommendations SNF Rehab Transportation Needs at Discharge Private Vehicle,Wheelchair/ Cabulance
--- NOTE | 2024-06-09 10:46 | P.DS_ITS ---
History of Present Illness History of Present Illness Chief complaint: AMS Narrative: From night doctor: 59 y/o with PMH of Bipolar II Disorder and 3-4 E Coli and 1 enterococcal UTI in the last 4 years that are on a record, presented confused. Parents called EMS as she started to mumble and became disoriented. ED workup showing UTI, SIRS. At risk for sepsis. Started on empiric abx and admitted with acute cystitis and metabolic encephalopathy. S: She had COVID about a month ago, her PCR here was negative. She knows confusion for several days but denies any obvious urinary symptoms. In the emergency department she was started on antibiotics for cystitis and septic encephalopathy. A brain CT and chest x-ray both unremarkable. She does know where she was, the year and the month. She denies any headache. She also denies any numbness weeks of arms or legs. No abdominal pain, or nausea. No diarrhea. Discharge Providers Provider Date of admission: 06/03/24 01:26 Discharge Date: 06/09/24 Primary care physician: ARIANNA Stewart Consults: 06/03/24 02:13 Consult to Dietitian, Adult Routine Comment: Reason For Exam: weight loss 06/03/24 09:43 Consult to Occupational Therapy Evaluate & Treat Comment: Physician Instructions: Evaluate and treat Consult to Physical Therapy Evaluate & Treat Comment: Physician Instructions: Evaluate and Treat Discharge provider: Jermain Garnica MD Summary Hospital Course Discharge Diagnosis: 1. Recurrent UTI, present on admission and improving. Culture with E coli, pansensitive. - continue PO Antibiotics, Levofloxacin. 2. Acute septic encephalopathy, present on admission and improving. - 2nd to UTI - monitor. 3. Sepsis with leukocytosis, DEVANG, and encephalopathy. Present on admission and improved. 4. E coli bacteremia, present on admission and active. 5. Abnormal ECG, present on admission and active. -check troponin. Was normal. No symptoms. 6. Bipolar D. / Schizoaffective, present on admission and active. - continuing with home medications - Risperidone, Clozapine, Clonazepam, benztropine 7. COPD, present on admission and stable. - bronchodilators, steroid 8. HLD, present on admission and active. - statin 9. GERD, present on admission and active. 10. Gram-positive cocci in 1 of 2 blood cultures. Probable contaminant. Hospital Course: She was admitted with encephalopathy and urinary tract infection. She grew out E coli which is pansensitive in both her urine and 2 blood cultures. She was treated initially ceftriaxone and then converted to oral levofloxacin which had good sensitivities. She did have significant debilitation as her encephalopathy cleared and it was felt that she had be a good candidate rehabilitation stay. Authorization was obtained from her Payer for group home facility rehabilitation. She was stable for discharge to group home facility on June 09. She will complete a 14 day course of antibiotics in total. Status at Discharge Cognitive/behavioral status at discharge: oriented Functional status at discharge: uses cane/walker Overall status at discharge: patient is progressing back to baseline Time Spent with Patient Time spent: Greater than 30 minutes Exam Vital Signs (past 8 hours): - 06/09/24 06:00 06/09/24 06:35 06/09/24 08:00 Temperature 97.6 F 98.1 F Pulse Rate 82 87 90 Respiratory Rate 18 16 16 Blood Pressure 127/76 124/79 Pulse Oximetry 95 93 95 Oxygen Delivery Method Room Air Oxygen Flow Rate 0 0 Fraction of Inspired Oxygen 21 Fraction of Inspired Oxygen 21 SaO2/FiO2 Ratio 442 Oxygen Delivery Method Room Air Oxygen Flow Rate 0 Narrative Exam Narrative: NAD, alert and oriented. Fluent speech. Flat affect. Lungs are clear, normal rate and effort. Heart is regular, no murmur gallop or rub. Abdomen is soft, non distended. Extremities are free of edema. Objective Imaging Multiple studies:: Radiologist's impression: Chest x-ray: My impression: Normal. CT scan - head: My impression: Normal. Radiologist's impression: 1. No acute intracranial pathology. 2. Air-fluid levels in the maxillary sinuses can be seen with acute sinusitis. Labs 06/09/24 06:22 06/09/24 06:22 Labs: Laboratory Results - last 24 hr 06/02/24 06/09/24 23:09 06:22 WBC 10.6 RBC 4.22 Hgb 11.7 L Hct 34.7 L MCV 82.3 MCH 27.6 MCHC 33.6 RDW 14.9 H Plt Count 328 ABG Sample Site Not Reportable Respiration Rate Not Reportable O2 Delivery Device Not Reportable FiO2 Not Reportable Sodium 136 L Potassium 3.9 Chloride 103 Carbon Dioxide 26 BUN 16 Creatinine 0.94 Estimated GFR > 60 BUN/Creatinine Ratio 17.0 Glucose 90 Calcium 9.1 PFSH Medical History Facet arthropathy, lumbar Cervical stenosis of spinal canal Lumbar stenosis with neurogenic claudication Current smoker Shayla infection of flexural skin Atrophic vaginitis Allergic rhinitis Chronic neck pain Chronic midline low back pain without sciatica Impaired fasting blood sugar Dyslipidemia Long-term use of high-risk medication Candidiasis, intertrigo Bilateral tinnitus Left foot pain Chronic back pain COPD (chronic obstructive pulmonary disease) (2012) Mixed hyperlipidemia (06/2019) Essential hypertension (06/2019) Nicotine abuse Dyspareunia Hormone replacement therapy Intertrigo Intermittent palpitations Insomnia, unspecified Morbid obesity with BMI of 40.0-44.9, adult Obstructive sleep apnea of adult (~10/2018) Chronic pain Chronic post-traumatic stress disorder Alcohol dependence in sustained full remission Bipolar II disorder Lumbar transverse process fracture Surgical History S/P complete hysterectomy (1994) Social History marital status: details: lives in [place] household members: family lives independently: Yes (with elderly parents) caregiver/support person: No housing: house Smoking Status: Current every day smoker Tobacco: How many years used: 42 second hand exposure: No alcohol intake: former substance use type: does not use Discharge Assessment & Plan Assessment and Plan Assessment: 1. Recurrent UTI, present on admission and improving. Culture with E coli, pansensitive. - continue PO Antibiotics, Levofloxacin. 2. Acute septic encephalopathy, present on admission and improving. - 2nd to UTI - monitor. 3. Sepsis with leukocytosis, DEVANG, and encephalopathy. Present on admission and improved. 4. E coli bacteremia, present on admission and active. Plan of Treatment: Discharge to group home facility for ongoing rehabilitation efforts and completion of a 14 day course of antibiotics with oral levofloxacin. She does not need to be isolated. Her Gram-positive cocci on blood culture was a contaminant. Discharge Plan Discharge Plan Patient Disposition: SNF Transfer to: [facility] Under care of provider: Dr. Santos Provider Discharge Comment: Stable for discharge to group home facility. Discharge orders & Medications Prescriptions: New nicotine 14 mg/24 hr Patch 24 Hour 14 mg topical DAILY Qty: 14 0RF levofloxacin 250 mg Tablet 750 mg PO 0700 Qty: 8 0RF clonazepam 0.5 mg tablet 0.25 mg PO BID Qty: 14 0RF Continued fluticasone propionate [Flonase Allergy Relief] 50 mcg/actuation spray,suspension 1 spray intranasal DAILY Qty: 16 5RF Rx Instructions: administer into each nostril nystatin [Nystop] 100,000 unit/gram powder 1 applic topical BID PRN (Reason: skin) Qty: 60 3RF pantoprazole 40 mg tablet,delayed release (DR/EC) 40 mg PO DAILY Qty: 90 3RF pravastatin 40 mg tablet 40 mg PO BEDTIME Qty: 90 3RF propranolol 10 mg tablet See Rx Instructions .ROUTE .COMPLEX Qty: 360 1RF Rx Instructions: Take up to 40 mg (4 tabs) po qday prn for tremor lamotrigine [Lamictal] 100 mg tablet 200 mg PO BID Qty: 120 2RF ketoconazole 2 % shampoo 1 applic topical 2XW Qty: 120 3RF Rx Instructions: Apply 5-10 mL to wet scalp, lather, leave on 3 to 5 minutes, and rinse; apply twice weekly for 2-4 weeks benztropine 0.5 mg tablet 0.5 mg PO DAILY Hold Instructions: side effects albuterol sulfate [Ventolin HFA] 90 mcg/actuation HFA aerosol inhaler 2 puff INHALATION Q4-6H PRN (Reason: shortness of breath or wheezing) Qty: 8.5 5RF estradiol 0.01 % (0.1 mg/gram) cream 0.5 g vaginal DAILY Qty: 42.5 3RF Rx Instructions: for 2 weeks. After 2 weeks decrease frequency to twice weekly ketoconazole 2 % cream 1 applic topical BID Qty: 60 5RF Rx Instructions: For rash in groin/genital area and under breasts risperidone 1 mg tablet 1 mg PO BID clozapine [Clozaril] 100 mg tablet 200 mg PO ONCE PM tramadol 50 mg tablet 50 mg PO TID PRN (Reason: pain) Qty: 20 1RF aspirin 81 mg Tablet,Delayed Release (Dr/Ec) 81 mg PO DAILY Qty: 30 0RF amlodipine [Norvasc] 5 mg tablet 5 mg PO DAILY Trelegy Ellipta 200-62.5-25 mcg blister with device 1 inh inhalation Q24H Qty: 60 11RF Discontinued clonazepam [Klonopin] 0.5 mg tablet 0.5 mg PO DAILY diazepam [Valium] 10 mg tablet 10 mg PO PRN MDD 3 tabs PRN (Reason: 1-2 prior to MRI and for possible steroid flare) Rx Instructions: 10 mg PO PRN; Follow up/Referrals: Dain Gross ARNP [Primary Care Provider] - Discharge Health Status Multidrug resistant organism: No MDRO Diet/Activity/Treatments Diet: Regular Activity: As tolerated Skin/Wound/Dressing Care Report to your healthcare provider any signs of infection, such as:: chills, fever Special Rehabilitation Services Reason for rehabilitation: Recovery r/t decondition Rehab type: Physical therapy and Occupational therapy Visit Report/Discharge Packet Instructions: DI for Urinary Tract Infection (UTI), How to Prevent Falls, DI for Encephalopathy Stand Alone Forms: Patient Portal/API Discharge Data Primary Care Provider: Dain Gross
[2024-06-09 11:13] VITALS: PULSE 87; RESP 16; O2SAT 97
== END 2024-06-09 11:43 | DRG 871 ==
LOC: ED 06-03 01:13 → AC 06-03 01:27
PROVIDERS: Hospitalist; Admitting Provider Internal Medicine; Emergency Provider Emergency Medicine; PCP Registered Nurse Diabetes Educator; Referring Provider Emergency Medicine; Visit Provider Internal Medicine
DX: A41.9 Sepsis, unspecified organism (principal); G93.41 Metabolic encephalopathy; N39.0 Urinary tract infection, site not specified; N95.2 Postmenopausal atrophic vaginitis; F25.0 Schizoaffective disorder, bipolar type; J44.9 Chronic obstructive pulmonary disease, unspecified; G47.33 Obstructive sleep apnea (adult) (pediatric); E66.01 Morbid (severe) obesity due to excess calories; F17.200 Nicotine dependence, unspecified, uncomplicated; E78.5 Hyperlipidemia, unspecified; K21.9 Gastro-esophageal reflux disease without esophagitis; R94.31 Abnormal electrocardiogram [ECG] [EKG]; B96.20 Unspecified Escherichia coli [E. coli] as the cause of diseases classified elsewhere; I10 Essential (primary) hypertension; Z68.38 Body mass index [BMI] 38.0-38.9, adult
CPT/HCPCS: 36415; 36600; 51701; 70450; 71045; 72125; 80048; 80053; 80305; 80320; 81001; 82140; 82550; 82805; 83605; 83735; 83880; 84145; 84484; 85025; 85027; 85610; 87040; 87077; 87086; 87154; 87186; 87633; 93005; 94640; 94760; 96365; 96368; 97116; 97161; 97166; 97530; 97535; 99284; J0136; J0696; J1650

== ENCOUNTER → 2024-07-27 11:27 | Outpatient (CLI) | payer MEDICARE, SELFPAY ==
[2024-06-22 10:44] VITALS: BMI 38.2
[2024-07-27 13:48] LABS: Hematocrit 39.4 % (36-46); Hemoglobin 13.4 g/dL (12.0-16.0); Mean Corpuscular HGB Conc 33.9 % (30-36); Mean Corpuscular Hemoglobin 27.5 PG (26-34); Mean Corpuscular Volume 81.2 fL (80-100); Platelet Count 283 X10^3/uL (150-400); Red Blood Cell Count 4.86 X10^6/uL (4.0-5.2); Red Cell Distribution Width 16.1 % (11.6-14.8); White Blood Cell Count 7.1 X10^3/uL (4.5-11.0)
[2024-07-27 14:36] LABS: Appearance Urine UA CLEAR; Bilirubin Urine UA NEGATIVE (NEGATIVE); Color Urine UA YELLOW; Glucose Urine UA NEGATIVE (Negative); Ketones Urine UA NEGATIVE (NEGATIVE); Leukocyte Esterase Urine UA TRACE (NEGATIVE); Nitrite Urine UA NEGATIVE (Negative); Occult Blood Urine UA NEGATIVE (Negative); Protein Urine UA NEGATIVE (Negative); Urobilinogen Urine UA 0.2 E.U./dL (0.2); pH Urine UA 5.5 (4.5-8.0)
[2024-07-27 15:08] LABS: Bacteria Urine Few (2-10); Culture Indicated Urine Cult Not Indicated; RBC Urine None Seen (0-5/HPF); Squamous Epithelial Cell Urine 1-5 /HPF (0-5/HPF); Urine Volume 10mL (spun); WBC Urine 1-5/HPF (0-5/HPF)
[2024-07-27 18:19] LABS: Neutrophils Absolute Manual 5183 /uL (3000-5900); Total Cells Counted 100
[2024-07-27 18:20] LABS: RBC Morphology Normal Morphology
== END ==
LOC: LAB 11:29
PROVIDERS: Family Provider Registered Nurse Diabetes Educator; PCP Registered Nurse Diabetes Educator; Referring Provider Psychiatry & Neurology Psychiatry; Visit Provider Psychiatry & Neurology Psychiatry
DX: F25.0 Schizoaffective disorder, bipolar type (principal); Z79.899 Other long term (current) drug therapy; R30.0 Dysuria
CPT/HCPCS: 36415; 81001; 85025

== ENCOUNTER → 2024-08-21 09:54 | Outpatient (CLI) | payer MEDICARE, SELFPAY ==
[2024-06-22 10:44] VITALS: BMI 38.2
[2024-08-21 10:33] LABS: Add Manual Diff / Slide Review NO; Basophils Absolute Auto 0 /uL (0-100); Basophils Percent Auto 0.2 % (0-2); Eosinophils Absolute Auto 0 /uL (0-450); Hematocrit 41.1 % (36-46); Hemoglobin 14.1 g/dL (12.0-16.0); Lymphocytes Absolute Auto 1600 /uL (1100-4500); Lymphocytes Percent Auto 22.3 % (25-40); Mean Corpuscular HGB Conc 34.2 % (30-36); Mean Corpuscular Hemoglobin 27.8 PG (26-34); Mean Corpuscular Volume 81.1 fL (80-100); Monocytes Absolute Auto 700 /uL (0-900); Monocytes Percent Auto 9.3 % (3-14); Neutrophils Absolute Auto 5000 /uL (1500-7000); Neutrophils Percent Auto 68.2 % (50-75); Platelet Count 286 X10^3/uL (150-400); Red Blood Cell Count 5.07 X10^6/uL (4.0-5.2); Red Cell Distribution Width 15.5 % (11.6-14.8); White Blood Cell Count 7.3 X10^3/uL (4.5-11.0)
== END ==
PROVIDERS: Family Provider Registered Nurse Diabetes Educator; PCP Registered Nurse Diabetes Educator; Referring Provider Psychiatry & Neurology Psychiatry; Visit Provider Psychiatry & Neurology Psychiatry
DX: F25.0 Schizoaffective disorder, bipolar type (principal); Z79.899 Other long term (current) drug therapy
CPT/HCPCS: 36415; 85025

== ENCOUNTER 2024-09-22 13:06 | Outpatient (CLI) | payer MEDICARE, SELFPAY ==
[2024-06-22 10:44] VITALS: BMI 38.2
[2024-09-22] VITALS (8 sets, daily range): BP systolic 132–141; BP diastolic 76–84; PULSE 79–89; RESP 10–20; TEMP 36.4; O2SAT 96–100
--- NOTE | 2024-09-22 13:06 | DI.RAD.S_ITS ---
PROCEDURE: PAIN L INTERLAMINAR/CAUDAL INJ INDICATIONS: L4/5 TL DEREJE COMPARISON: [facility], , PAIN L INTERLAMINAR/CAUDAL INJ, 05/19/2024, 10:42. FINDINGS: Fluoroscopic spot filming was performed to verify placement of spinal needles at the right L4-L5 level(s), as labeled on the films. Appropriate location(s) of the needle tip(s) was confirmed by injection of iodinated contrast. IMPRESSION: Right L4-L5 interlaminar injection. Dictated by: Michael John M.D. on 09/23/2024 at 16:30 Approved by: Michael John M.D. on 09/23/2024 at 16:31
[2024-09-22] MEDS: MIDAZOLAM 2 MG/2 ML VIAL IV (14:41)
[2024-09-22] MEDS: BETAMETHASONE 30 MG/5 ML MDV 12 MG INJ (14:45)
[2024-09-22] MEDS: BUPIVACAINE 0.25% (PF) VIAL 2 ML INJ (14:45)
[2024-09-22] MEDS: DEXAMETHASONE 10 MG/ML VIAL INJ (14:45)
[2024-09-22] MEDS: iopamidoL 15 ML VIAL 3 ML INJ (14:45)
--- NOTE | 2024-09-22 14:59 | P.PCN_ITS ---
Date/Time/Diagnoses Date of procedure: 09/22/24 Time of procedure: 15:00 Pre-procedure diagnosis: 1. HNP WITH RADICULAR FEATURES, 2. MULTILEVEL CENTRAL STENOSIS, Post-procedure diagnosis: same Procedure Notes Procedure: 1. FLUOROSCOPICALLY GUIDED CONTRAST CONTROLLED INTERLAMINAR EPIDURAL STEROID INJECTION -L4/5 Indications: Casandra is referred by ARIANNA Gross for treatment of Bilateral Foraminal Stenosis R>L LE symptoms. Physician: Huy Graves Total Fluoroscopy time (seconds): 8 Total sedation minutes: 14 Complications: none Procedure in detail & Post-procedure care: FINDINGS Multilevel Central Spinal Stenosis with Nerve Root Compression DESCRIPTION OF PROCEDURE Fluoroscopically guided, contrast-controlled L4/5 translaminar epidural steroid injection. Following review of allergy and review of potential side effects and complications, including, but not necessarily limited to, infection, allergic reaction, local tissue breakdown, temporary as well as permanent nerve injury, paralysis, stroke and possible , the patient indicated that the patient understood and agreed to proceed. An informed consent document was signed by the patient, witnessed by a nurse, and placed in the patient's chart. Additionally, other treatment options including modalities, medications, and physical therapy were reviewed with the patient. After review of previous anaesthesic history and IV conscious sedation the patient was deemed safe to proceed with today?s procedure with IV conscious sedation as ASA class II designation. Safety time-out was performed to confirm patient ID, procedure to be performed and site of procedure. IV sedation was accomplished with a combination of 2mg of Versed was administered by the RN after DO order, titrated to patient comfort during the course of the procedure while the patient remained responsive to all verbal commands In the prone position, following sterile prep and drape of the lumbar region, the L4/5 translaminar space was identified fluoroscopically. The skin was anesthetized via a 25-gauge, 1.5inch needle with 1% lidocaine solution. At this point, a 22-gauge short bevel spinal needle was atraumatically introduced and advanced under fluoroscopic guidance into the region of the L4/5 translaminar space. Depth was confirmed on lateral view. Radiological data, including multiple fluoroscopic views of the lumbar spine, reveal a spinal needle at the L4/5 translaminar space. Lateral views then show placement of the needle in the epidural space. Subsequent views show contrast material flowing superiorly and inferiorly in the epidural space. No vascular or intrathecal uptake is observed. At this point, using loss of resistance technique with saline and air, the epidural space was entered. This was confirmed following negative aspiration with injection of approximately 1.5cc of Isovue 200, showing excellent epidural flow without vascular or intrathecal uptake. At this point, 1cc of 1% lidocaine solution combined with 2cc or 10mg of dexamethasone and 6mg betamethasone was injected without incident. The patient tolerated the procedure well without signs or symptoms of complications prior to transfer to the recovery area continued monitoring without incident. The patient was then transferred to the recovery area where they were observed for an appropriate period of time after the injection. The patient reported a VAS score of 6 prior to the procedure and a post- procedure VAS of 0. POST OP INSTRUCTIONS The patient was provided a Pain Log to continue to record their response to the target-specific procedure prior to follow-up visit with their referring physician. Additionally, specific post-injection care instructions and a contact number to our office were provided if concerns arise regarding possible complications associated with the procedure are suspected.
== END 2024-09-22 15:20 | disposition home or self-care (01) ==
PROVIDERS: Family Provider Registered Nurse Diabetes Educator; PCP Registered Nurse Diabetes Educator; Referring Provider Physical Medicine & Rehabilitation; Visit Provider Physical Medicine & Rehabilitation
DX: M51.16 Intervertebral disc disorders with radiculopathy, lumbar region (principal); M48.061 Spinal stenosis, lumbar region without neurogenic claudication
CPT/HCPCS: 62323; 99152; J0702; J1100; J2250; J3490

== ENCOUNTER → 2024-09-23 12:15 | Outpatient (CLI) | payer MEDICARE, SELFPAY ==
[2024-06-22 10:44] VITALS: BMI 38.2
[2024-09-23 15:36] LABS: Add Manual Diff / Slide Review NO; Basophils Absolute Auto 100 /uL (0-100); Basophils Percent Auto 0.4 % (0-2); Eosinophils Absolute Auto 0 /uL (0-450); Hematocrit 42.2 % (36-46); Lymphocytes Absolute Auto 1000 /uL (1100-4500); Lymphocytes Percent Auto 5.4 % (25-40); Mean Corpuscular HGB Conc 33.1 % (30-36); Mean Corpuscular Hemoglobin 26.9 PG (26-34); Mean Corpuscular Volume 81.4 fL (80-100); Monocytes Absolute Auto 800 /uL (0-900); Monocytes Percent Auto 4.4 % (3-14); Neutrophils Absolute Auto 15900 /uL (1500-7000); Neutrophils Percent Auto 89.8 % (50-75); Platelet Count 313 X10^3/uL (150-400); Red Blood Cell Count 5.19 X10^6/uL (4.0-5.2); Red Cell Distribution Width 14.4 % (11.6-14.8); White Blood Cell Count 17.7 X10^3/uL (4.5-11.0)
== END ==
LOC: LAB 12:18
PROVIDERS: Family Provider Registered Nurse Diabetes Educator; PCP Registered Nurse Diabetes Educator; Referring Provider Psychiatry & Neurology Psychiatry; Visit Provider Psychiatry & Neurology Psychiatry
DX: F25.0 Schizoaffective disorder, bipolar type (principal); Z79.899 Other long term (current) drug therapy
CPT/HCPCS: 36415; 85025

== ENCOUNTER → 2024-10-12 11:00 | Outpatient (CLI) | payer MEDICARE, SELFPAY ==
[2024-06-22 10:44] VITALS: BMI 38.2
[2024-10-12 12:14] LABS: Hemoglobin A1C% w Est Avg Glu 5.3 % (4.0-6.0)
[2024-10-12 12:28] LABS: Alanine Aminotransferase 17 IU/L (<35); Albumin 4.3 g/dL (3.5-5.0); Albumin Globulin Ratio 1.5 (1.0-2.8); Alkaline Phosphatase 140 U/L (38-126); Aspartate Aminotransferase 22 IU/L (14-36); Bilirubin Total 0.5 mg/dL (0.2-1.3); Blood Urea Nitrogen 13 mg/dL (7-17); Calcium 9.7 mg/dL (8.4-10.2); Carbon Dioxide 25 mmol/L (22-32); Chloride 107 mmol/L (98-107); Cholesterol 139 mg/dL (140-199); Estimated Glomerular Filt Rate > 60 mL/min (>60); Globulin 2.8 g/dL (1.7-4.1); Glucose 123 mg/dL (70-100); HDL Cholesterol 48 mg/dL (40-60); HEMOLYSIS < 15 (0-50); LDL Cholesterol Calculated 71 mg/dL (<100); Potassium 3.3 mmol/L (3.4-5.1); Sodium 140 mmol/L (137-145); Total Protein 7.1 g/dL (6.3-8.2); Triglycerides 102 mg/dL (35-150)
[2024-10-12 12:58] LABS: TSH w/ Reflex to FT4 1.16 uIU/mL (0.47-4.68)
== END ==
PROVIDERS: Family Provider Registered Nurse Diabetes Educator; PCP Registered Nurse Diabetes Educator; Referring Provider Registered Nurse Diabetes Educator; Visit Provider Registered Nurse Diabetes Educator
DX: R73.01 Impaired fasting glucose (principal); I10 Essential (primary) hypertension; E78.5 Hyperlipidemia, unspecified
CPT/HCPCS: 36415; 80053; 80061; 83036; 84443

== ENCOUNTER → 2024-11-06 10:14 | Outpatient (CLI) | payer MEDICARE, SELFPAY ==
[2024-06-22 10:44] VITALS: BMI 38.2
[2024-11-06 11:17] LABS: Add Manual Diff / Slide Review NO; Basophils Absolute Auto 0 /uL (0-100); Basophils Percent Auto 0.2 % (0-2); Eosinophils Absolute Auto 0 /uL (0-450); Hematocrit 40.3 % (36-46); Hemoglobin 13.5 g/dL (12.0-16.0); Lymphocytes Absolute Auto 1400 /uL (1100-4500); Lymphocytes Percent Auto 21.4 % (25-40); Mean Corpuscular HGB Conc 33.5 % (30-36); Mean Corpuscular Hemoglobin 27.3 PG (26-34); Mean Corpuscular Volume 81.3 fL (80-100); Monocytes Absolute Auto 600 /uL (0-900); Monocytes Percent Auto 8.7 % (3-14); Neutrophils Absolute Auto 4600 /uL (1500-7000); Neutrophils Percent Auto 69.7 % (50-75); Platelet Count 279 X10^3/uL (150-400); Red Blood Cell Count 4.96 X10^6/uL (4.0-5.2); White Blood Cell Count 6.6 X10^3/uL (4.5-11.0)
[2024-11-06 11:28] LABS: BUN Creatinine Ratio 11.6 (6-22); Blood Urea Nitrogen 10 mg/dL (7-17); Calcium 9.6 mg/dL (8.4-10.2); Carbon Dioxide 26 mmol/L (22-32); Chloride 106 mmol/L (98-107); Estimated Glomerular Filt Rate > 60 mL/min (>60); Glucose 127 mg/dL (70-100); HEMOLYSIS < 15 (0-50); Potassium 3.3 mmol/L (3.4-5.1); Sodium 141 mmol/L (137-145)
== END ==
PROVIDERS: Family Provider Registered Nurse Diabetes Educator; PCP Registered Nurse Diabetes Educator; Referring Provider Psychiatry & Neurology Psychiatry; Visit Provider Psychiatry & Neurology Psychiatry
DX: Z71.89 Other specified counseling (principal); E87.6 Hypokalemia
CPT/HCPCS: 36415; 80048; 85025

== ENCOUNTER → 2024-12-15 11:55 | Outpatient (CLI) | payer MEDICARE, SELFPAY ==
[2024-06-22 10:44] VITALS: BMI 38.2
[2024-12-15 12:43] LABS: Add Manual Diff / Slide Review NO; Basophils Absolute Auto 0 /uL (0-100); Basophils Percent Auto 0.4 % (0-2); Eosinophils Absolute Auto 0 /uL (0-450); Hematocrit 40.7 % (36-46); Hemoglobin 13.6 g/dL (12.0-16.0); Lymphocytes Absolute Auto 1400 /uL (1100-4500); Mean Corpuscular HGB Conc 33.4 % (30-36); Mean Corpuscular Hemoglobin 27.9 PG (26-34); Mean Corpuscular Volume 83.5 fL (80-100); Monocytes Absolute Auto 600 /uL (0-900); Monocytes Percent Auto 9.1 % (3-14); Neutrophils Absolute Auto 4200 /uL (1500-7000); Neutrophils Percent Auto 67.5 % (50-75); Platelet Count 274 X10^3/uL (150-400); Red Blood Cell Count 4.88 X10^6/uL (4.0-5.2); White Blood Cell Count 6.3 X10^3/uL (4.5-11.0)
[2024-12-15 13:20] LABS: BUN Creatinine Ratio 16.5 (6-22); Blood Urea Nitrogen 16 mg/dL (7-17); Calcium 9.5 mg/dL (8.4-10.2); Carbon Dioxide 23 mmol/L (22-32); Chloride 107 mmol/L (98-107); Estimated Glomerular Filt Rate > 60 mL/min (>60); Glucose 137 mg/dL (70-100); HEMOLYSIS < 15 (0-50); Potassium 3.4 mmol/L (3.4-5.1); Sodium 139 mmol/L (137-145)
== END ==
PROVIDERS: Family Provider Registered Nurse Diabetes Educator; PCP Registered Nurse Diabetes Educator; Referring Provider Psychiatry & Neurology Psychiatry; Visit Provider Psychiatry & Neurology Psychiatry
DX: Z79.899 Other long term (current) drug therapy (principal); F25.0 Schizoaffective disorder, bipolar type; E87.6 Hypokalemia
CPT/HCPCS: 36415; 80048; 85025

== ENCOUNTER 2024-12-17 14:20 | Outpatient (CLI) | payer MEDICARE, SELFPAY ==
[2024-06-22 10:44] VITALS: BMI 38.2
[2024-12-17] VITALS (8 sets, daily range): BP systolic 128–145; BP diastolic 67–84; PULSE 75–83; RESP 14–18; TEMP 36.7; O2SAT 97–100
--- NOTE | 2024-12-17 14:20 | DI.RAD.S_ITS ---
PROCEDURE: PAIN L INTERLAMINAR/CAUDAL INJ INDICATIONS: L5/S1 TL DEREJE COMPARISON: [facility], , PAIN L INTERLAMINAR/CAUDAL INJ, 09/22/2024, 14:45. FINDINGS/IMPRESSION: Fluoroscopic spot filming was performed to verify placement of spinal needles at the L5-S1 level(s), as labeled on the films. Appropriate location(s) of the needle tip(s) was confirmed by injection of iodinated contrast. Dictated by: Vazquez Leon M.D. on 12/17/2024 at 17:22 Approved by: Vazquez Leon M.D. on 12/17/2024 at 17:22
[2024-12-17] MEDS: MIDAZOLAM 2 MG/2 ML VIAL IV (15:38)
[2024-12-17] MEDS: BETAMETHASONE 30 MG/5 ML MDV 12 MG INJ (15:44)
[2024-12-17] MEDS: BUPIVACAINE 0.25% (PF) VIAL 2 ML INJ (15:44)
[2024-12-17] MEDS: iopamidoL 15 ML VIAL 3 ML INJ (15:44)
[2024-12-17] MEDS: DEXAMETHASONE 10 MG/ML VIAL INJ (15:44)
--- NOTE | 2024-12-17 15:49 | P.PCN_ITS ---
Date/Time/Diagnoses Date of procedure: 12/17/24 Time of procedure: 15:49 Pre-procedure diagnosis: 1. HNP WITH RADICULAR FEATURES, 2. MULTILEVEL CENTRAL STENOSIS, Post-procedure diagnosis: same Procedure Notes Procedure: 1. FLUOROSCOPICALLY GUIDED CONTRAST CONTROLLED INTERLAMINAR EPIDURAL STEROID INJECTION - L5/S1 Indications: Casandra is referred by ARIANNA Gross for treatment of Bilateral Foraminal Stenosis L>R LE symptoms. Physician: Huy Graves Total Fluoroscopy time (seconds): 6 Total sedation minutes: 10 Complications: none Procedure in detail & Post-procedure care: FINDINGS Multilevel Central Spinal Stenosis with Nerve Root Compression DESCRIPTION OF PROCEDURE Fluoroscopically guided, contrast-controlled L5/S1 translaminar epidural steroid injection. Following review of allergy and review of potential side effects and complications, including, but not necessarily limited to, infection, allergic reaction, local tissue breakdown, temporary as well as permanent nerve injury, paralysis, stroke and possible , the patient indicated that the patient understood and agreed to proceed. An informed consent document was signed by the patient, witnessed by a nurse, and placed in the patient's chart. Additionally, other treatment options including modalities, medications, and physical therapy were reviewed with the patient. After review of previous anaesthesic history and IV conscious sedation the patient was deemed safe to proceed with today?s procedure with IV conscious sedation as ASA class II designation. Safety time-out was performed to confirm patient ID, procedure to be performed and site of procedure. IV sedation was accomplished with a combination of 2mg of Versed administered by the RN after DO order, titrated to patient comfort during the course of the procedure while the patient remained responsive to all verbal commands. In the prone position, following sterile prep and drape of the lumbar region, the L5/S1 translaminar space was identified fluoroscopically. The skin was anesthetized via a 25-gauge, 1.5-inch needle with 1% lidocaine solution. At this point, a 22-gauge short bevel spinal needle was atraumatically introduced and advanced under fluoroscopic guidance into the region of the L5/S1 translaminar space. Depth was confirmed on lateral view. Radiological data, including multiple fluoroscopic views of the lumbar spine, reveal a spinal needle at the L5/S1 translaminar space. Lateral views then show placement of the needle in the epidural space. Subsequent views show contrast material flowing superiorly and inferiorly in the epidural space. No vascular or intrathecal uptake is observed. At this point, using loss of resistance technique with saline and air, the epidural space was entered. This was confirmed following negative aspiration with injection of approximately 1.5cc of Isovue 200, showing excellent epidural flow without vascular or intrathecal uptake. At this point, 1 cc of 1% lidocai ne solution combined with 2cc or 10mg of dexamethasone and 6mg of betamethasone was injected without incident. The patent tolerated the procedure without signs of symptoms of complications prior to transfer to the recovery area for further monitoring. The patient was then transferred to the recovery area where they were observed for an appropriate period of time after the injection. The patient reported a VAS score of 6 prior to the procedure and a post-procedure VAS of 0. POST OP INSTRUCTIONS The patient was provided a Pain Log to continue to record their response to the target-specific procedure prior to follow-up visit with their referring physician. Additionally, specific post-injection care instructions and a contact number to our office were provided if concerns arise regarding possible complications associated with the procedure are suspected.
== END 2024-12-17 16:10 | disposition home or self-care (01) ==
PROVIDERS: Family Provider Registered Nurse Diabetes Educator; PCP Registered Nurse Diabetes Educator; Referring Provider Physical Medicine & Rehabilitation; Visit Provider Physical Medicine & Rehabilitation
DX: M51.17 Intervertebral disc disorders with radiculopathy, lumbosacral region (principal); M48.07 Spinal stenosis, lumbosacral region
CPT/HCPCS: 62323; 99152; J0702; J1100; J2250; J3490

== ENCOUNTER → 2025-02-03 11:47 | Outpatient (CLI) | payer MEDICARE, SELFPAY ==
[2024-06-22 10:44] VITALS: BMI 38.2
[2025-02-03 12:25] LABS: Add Manual Diff / Slide Review NO; Basophils Absolute Auto 0 /uL (0-100); Basophils Percent Auto 0.6 % (0-2); Eosinophils Absolute Auto 0 /uL (0-450); Hematocrit 41.8 % (36-46); Lymphocytes Absolute Auto 1400 /uL (1100-4500); Lymphocytes Percent Auto 23.5 % (25-40); Mean Corpuscular HGB Conc 33.6 % (30-36); Mean Corpuscular Hemoglobin 27.8 PG (26-34); Mean Corpuscular Volume 82.9 fL (80-100); Monocytes Absolute Auto 500 /uL (0-900); Neutrophils Absolute Auto 3900 /uL (1500-7000); Neutrophils Percent Auto 66.9 % (50-75); Platelet Count 258 X10^3/uL (150-400); Red Blood Cell Count 5.05 X10^6/uL (4.0-5.2); Red Cell Distribution Width 15.1 % (11.6-14.8); White Blood Cell Count 5.8 X10^3/uL (4.5-11.0)
== END ==
PROVIDERS: Family Provider Registered Nurse Diabetes Educator; PCP Registered Nurse Diabetes Educator; Referring Provider Psychiatry & Neurology Psychiatry; Visit Provider Psychiatry & Neurology Psychiatry
DX: F25.0 Schizoaffective disorder, bipolar type (principal); Z79.899 Other long term (current) drug therapy
CPT/HCPCS: 36415; 85025

== ENCOUNTER → 2025-02-09 13:34 | Outpatient (CLI) | payer MEDICARE, SELFPAY ==
[2024-06-22 10:44] VITALS: BMI 38.2
[2025-02-14 13:36] LABS: Clozapine 421 ng/mL (350-600); Norclozapine 269 ng/mL (Not Estab.)
== END ==
PROVIDERS: Family Provider Registered Nurse Diabetes Educator; PCP Registered Nurse Diabetes Educator; Referring Provider Psychiatry & Neurology Psychiatry; Visit Provider Psychiatry & Neurology Psychiatry
DX: F25.0 Schizoaffective disorder, bipolar type (principal); Z79.899 Other long term (current) drug therapy
CPT/HCPCS: 80159

== ENCOUNTER → 2025-03-08 10:16 | Outpatient (CLI) | payer MEDICARE, SELFPAY ==
[2025-02-24 15:43] VITALS: BMI 38.2
[2025-03-08 10:59] LABS: Add Manual Diff / Slide Review NO; Basophils Absolute Auto 0 /uL (0-100); Basophils Percent Auto 0.5 % (0-2); Eosinophils Absolute Auto 0 /uL (0-450); Hematocrit 41.3 % (36-46); Hemoglobin 13.8 g/dL (12.0-16.0); Lymphocytes Absolute Auto 1600 /uL (1100-4500); Lymphocytes Percent Auto 21.7 % (25-40); Mean Corpuscular HGB Conc 33.3 % (30-36); Mean Corpuscular Hemoglobin 27.6 PG (26-34); Mean Corpuscular Volume 82.8 fL (80-100); Monocytes Absolute Auto 700 /uL (0-900); Monocytes Percent Auto 9.2 % (3-14); Neutrophils Absolute Auto 5000 /uL (1500-7000); Neutrophils Percent Auto 68.6 % (50-75); Platelet Count 263 X10^3/uL (150-400); Red Blood Cell Count 4.99 X10^6/uL (4.0-5.2); Red Cell Distribution Width 14.1 % (11.6-14.8); White Blood Cell Count 7.4 X10^3/uL (4.5-11.0)
== END ==
PROVIDERS: Family Provider Registered Nurse Diabetes Educator; PCP Registered Nurse Diabetes Educator; Referring Provider Psychiatry & Neurology Psychiatry; Visit Provider Psychiatry & Neurology Psychiatry
DX: F25.0 Schizoaffective disorder, bipolar type (principal); F43.12 Post-traumatic stress disorder, chronic; R25.1 Tremor, unspecified; Z79.899 Other long term (current) drug therapy
CPT/HCPCS: 36415; 85025; 99215

== ENCOUNTER → 2025-04-06 15:40 | Outpatient (CLI) | payer MEDICARE, SELFPAY ==
[2025-02-24 15:43] VITALS: BMI 38.2
[2025-04-06 16:22] LABS: Add Manual Diff / Slide Review NO; Basophils Absolute Auto 0 /uL (0-100); Basophils Percent Auto 0.5 % (0-2); Eosinophils Absolute Auto 0 /uL (0-450); Hematocrit 41.4 % (36-46); Lymphocytes Absolute Auto 1600 /uL (1100-4500); Lymphocytes Percent Auto 23.9 % (25-40); Mean Corpuscular HGB Conc 33.9 % (30-36); Mean Corpuscular Hemoglobin 27.8 PG (26-34); Mean Corpuscular Volume 81.9 fL (80-100); Monocytes Absolute Auto 700 /uL (0-900); Monocytes Percent Auto 10.6 % (3-14); Neutrophils Absolute Auto 4200 /uL (1500-7000); Platelet Count 252 X10^3/uL (150-400); Red Blood Cell Count 5.05 X10^6/uL (4.0-5.2); Red Cell Distribution Width 13.7 % (11.6-14.8); White Blood Cell Count 6.5 X10^3/uL (4.5-11.0)
== END ==
PROVIDERS: Family Provider Registered Nurse Diabetes Educator; PCP Registered Nurse Diabetes Educator; Referring Provider Psychiatry & Neurology Psychiatry; Visit Provider Psychiatry & Neurology Psychiatry
DX: F25.0 Schizoaffective disorder, bipolar type (principal); Z79.899 Other long term (current) drug therapy
CPT/HCPCS: 36415; 85025

== ENCOUNTER → 2025-05-13 13:17 | Outpatient (CLI) | payer MEDICARE, SELFPAY ==
[2025-02-24 15:43] VITALS: BMI 38.2
[2025-05-13 14:38] LABS: Add Manual Diff / Slide Review NO; Hematocrit 41.0 % (36-46); Hemoglobin 14.1 g/dL (12.0-16.0); Lymphocytes Absolute Auto 1600 /uL (1100-4500); Mean Corpuscular HGB Conc 34.4 % (30-36); Mean Corpuscular Hemoglobin 27.7 PG (26-34); Mean Corpuscular Volume 80.7 fL (80-100); Platelet Count 243 X10^3/uL (150-400)
== END ==
PROVIDERS: PCP Registered Nurse Diabetes Educator; Referring Provider Psychiatry & Neurology Psychiatry; Visit Provider Psychiatry & Neurology Psychiatry
DX: F25.0 Schizoaffective disorder, bipolar type (principal); R73.01 Impaired fasting glucose; E78.5 Hyperlipidemia, unspecified; Z79.899 Other long term (current) drug therapy
CPT/HCPCS: 36415; 80053; 80061; 83036; 84443; 85025

== ENCOUNTER 2025-07-29 13:04 | Outpatient (CLI) | payer MEDICARE, SELFPAY ==
[2025-02-24 15:43] VITALS: BMI 38.2
[2025-07-29] VITALS (8 sets, daily range): BP systolic 123–149; BP diastolic 67–77; PULSE 72–81; RESP 15–35; TEMP 36.6; O2SAT 95–99
[2025-07-29] MEDS: MIDAZOLAM 2 MG/2 ML VIAL IV (14:57)
[2025-07-29] MEDS: BETAMETHASONE 30 MG/5 ML MDV 12 MG INJ (15:02)
--- NOTE | 2025-07-29 15:12 | P.PCN_ITS ---
Date/Time/Diagnoses Date of procedure: 07/29/25 Time of procedure: 15:12 Pre-procedure diagnosis: 1. HNP WITH RADICULAR FEATURES, 2. MULTILEVEL CENTRAL STENOSIS, Post-procedure diagnosis: same Procedure Notes Procedure: 1. FLUOROSCOPICALLY GUIDED CONTRAST CONTROLLED INTERLAMINAR EPIDURAL STEROID INJECTION - L5/S1 Indications: Casandra is referred by ARIANNA Gross for treatment of Bilateral Foraminal Stenosis L>R LE symptoms. Physician: Huy Graves Total Fluoroscopy time (seconds): 8 Total sedation minutes: 10 Complications: none Procedure in detail & Post-procedure care: FINDINGS Multilevel Central Spinal Stenosis with Nerve Root Compression DESCRIPTION OF PROCEDURE Fluoroscopically guided, contrast-controlled L5/S1 translaminar epidural steroid injection. Following review of allergy and review of potential side effects and complications, including, but not necessarily limited to, infection, allergic reaction, local tissue breakdown, temporary as well as permanent nerve injury, paralysis, stroke and possible , the patient indicated that the patient understood and agreed to proceed. An informed consent document was signed by the patient, witnessed by a nurse, and placed in the patient's chart. Additionally, other treatment options including modalities, medications, and physical therapy were reviewed with the patient. After review of previous anaesthesic history and IV conscious sedation the patient was deemed safe to proceed with today?s procedure with IV conscious sedation as ASA class II designation. Safety time-out was performed to confirm patient ID, procedure to be performed and site of procedure. IV sedation was accomplished with a combination of 2mg of Versed administered by the RN after DO order, titrated to patient comfort during the course of the procedure while the patient remained responsive to all verbal commands. In the prone position, following sterile prep and drape of the lumbar region, the L5/S1 translaminar space was identified fluoroscopically. The skin was anesthetized via a 25-gauge, 1.5-inch needle with 1% lidocaine solution. At this point, a 22-gauge short bevel spinal needle was atraumatically introduced and advanced under fluoroscopic guidance into the region of the L5/S1 translaminar space. Depth was confirmed on lateral view. Radiological data, including multiple fluoroscopic views of the lumbar spine, reveal a spinal needle at the L5/S1 translaminar space. Lateral views then show placement of the needle in the epidural space. Subsequent views show contrast material flowing superiorly and inferiorly in the epidural space. No vascular or intrathecal uptake is observed. At this point, using loss of resistance technique with saline and air, the epidural space was entered. This was confirmed following negative aspiration with injection of approximately 1.5cc of Isovue 200, showing excellent epidural flow without vascular or intrathecal uptake. At this point, 1cc of 0.25% nando ine solution combined with 3cc or 10mg of dexamethasone and 12mg of betamethasone was injected without incident. The patent tolerated the procedure without signs of symptoms of complications prior to transfer to the recovery area for further monitoring. The patient was then transferred to the recovery area where they were observed for an appropriate period of time after the injection. The patient reported a VAS score of 6 prior to the procedure and a post-procedure VAS of 0. POST OP INSTRUCTIONS The patient was provided a Pain Log to continue to record their response to the target-specific procedure prior to follow-up visit with their referring physician. Additionally, specific post-injection care instructions and a contact number to our office were provided if concerns arise regarding possible complications associated with the procedure are suspected.
== END 2025-07-29 15:35 | disposition home or self-care (01) ==
PROVIDERS: PCP Registered Nurse Diabetes Educator; Referring Provider Physical Medicine & Rehabilitation; Visit Provider Physical Medicine & Rehabilitation
DX: M51.17 Intervertebral disc disorders with radiculopathy, lumbosacral region (principal); M48.07 Spinal stenosis, lumbosacral region
CPT/HCPCS: 62323; 99152; J0702; J1100; J2250

== ENCOUNTER → 2025-09-02 10:59 | Outpatient (CLI) | payer MEDICARE, SELFPAY ==
[2025-02-24 15:43] VITALS: BMI 38.2
[2025-09-02 11:40] LABS: Add Manual Diff / Slide Review NO; Hematocrit 41.6 % (36-46); Hemoglobin 13.9 g/dL (12.0-16.0); Lymphocytes Absolute Auto 1200 /uL (1100-4500); Mean Corpuscular HGB Conc 33.4 % (30-36); Mean Corpuscular Hemoglobin 26.8 PG (26-34); Mean Corpuscular Volume 80.4 fL (80-100); Platelet Count 220 X10^3/uL (150-400)
[2025-09-02 11:49] LABS: Hemoglobin A1C% w Est Avg Glu 5.3 % (4.0-6.0)
[2025-09-02 12:13] LABS: Alanine Aminotransferase 10 IU/L (<35); Albumin 4.4 g/dL (3.5-5.0); Albumin Globulin Ratio 1.8 (1.0-2.8); Alkaline Phosphatase 138 U/L (38-126); Blood Urea Nitrogen 14 mg/dL (7-17); Calcium 9.5 mg/dL (8.4-10.2); Carbon Dioxide 28 mmol/L (22-32); Chloride 103 mmol/L (98-107); Cholesterol 115 mg/dL (140-199); Estimated Glomerular Filt Rate > 60 mL/min (>60); Globulin 2.4 g/dL (1.7-4.1); Glucose 112 mg/dL (70-99); HDL Cholesterol 45 mg/dL (40-60); HEMOLYSIS < 15 (0-50); Potassium 3.9 mmol/L (3.4-5.1); Sodium 141 mmol/L (137-145); Total Protein 6.8 g/dL (6.3-8.2); Triglycerides 144 mg/dL (35-150)
[2025-09-02 12:48] LABS: TSH w/ Reflex to FT4 0.90 uIU/mL (0.47-4.68)
== END ==
PROVIDERS: PCP Registered Nurse Diabetes Educator; Referring Provider Registered Nurse Diabetes Educator; Visit Provider Psychiatry & Neurology Psychiatry
DX: F25.0 Schizoaffective disorder, bipolar type (principal); R73.01 Impaired fasting glucose; R06.09 Other forms of dyspnea; J41.8 Mixed simple and mucopurulent chronic bronchitis; F17.200 Nicotine dependence, unspecified, uncomplicated; Z79.899 Other long term (current) drug therapy; E78.5 Hyperlipidemia, unspecified; I10 Essential (primary) hypertension; E78.2 Mixed hyperlipidemia; Z13.29 Encounter for screening for other suspected endocrine disorder; G93.41 Metabolic encephalopathy
CPT/HCPCS: 36415; 80053; 80061; 83036; 84443; 85025

== ENCOUNTER → 2025-10-19 13:18 | Outpatient (CLI) | payer MEDICARE, SELFPAY ==
[2025-02-24 15:43] VITALS: BMI 38.2
[2025-10-19 14:19] LABS: Add Manual Diff / Slide Review NO; Hematocrit 40.7 % (36-46); Hemoglobin 13.8 g/dL (12.0-16.0); Lymphocytes Absolute Auto 1700 /uL (1100-4500); Mean Corpuscular HGB Conc 33.9 % (30-36); Mean Corpuscular Hemoglobin 27.0 PG (26-34); Mean Corpuscular Volume 79.8 fL (80-100); Platelet Count 275 X10^3/uL (150-400)
== END ==
PROVIDERS: PCP Registered Nurse Diabetes Educator; Referring Provider Psychiatry & Neurology Psychiatry; Visit Provider Psychiatry & Neurology Psychiatry
DX: F25.0 Schizoaffective disorder, bipolar type (principal); Z79.899 Other long term (current) drug therapy
CPT/HCPCS: 36415; 85025